=== PATIENT | male | born 1945 | race Caucasian/White ===

== ENCOUNTER → 2016-03-17 | Outpatient (CLI) | payer BC, OTHER ==
--- NOTE | 2016-03-19 09:14 | CODING QUERY NO DIAGNOSIS ---
TREATMENT RENDERED WITHOUT A DIAGNOSIS To promote full compliance with coding requirements relating to patient care, physician participation is requested in all cases of client consultant uncertainty. Please assist us with providing a diagnosis/symptom for the test(s) below: A diagnosis/symptom was not documented on your Order. A valid diagnosis/symptom is required to bill all insurances. Please remember that we are unable to code a diagnosis of rule out, probable, possible, questionable, or suspected. Tests that require a diagnosis: DOS 03/17/16 * MMR Titre DIAGNOSIS: * Varicella Titre DIAGNOSIS: Provider Signature: Date: Thank you Gilma Zhu Health Information Management Once completed, please kindly fax back to [phone] For questions please call [phone]
[2016-03-20 16:39] LABS: MUMPS IgG VALUE 3.66; VARICELLA ZOS VIR IGG VALUE 3.05 INDEX
== END ==
LOC: C.LAB 14:25
DX: Z76.89 Persons encountering health services in other specified circumstances (principal)

== ENCOUNTER 2017-09-13 03:07 | Inpatient (IN) | payer BC, OTHER ==
[~2017-09-13] VITALS: Ht 177.8 cm; Wt 89.9 kg
[2017-09-13] MEDS ORDERED: LIDOCAINE HCL 2% VISC SOLN 20 ML UDC ONE (03:42)
[2017-09-13] MEDS ORDERED: ALUMINUM/MAGNESIUM SUSP 30 ML UDC ONE (03:42)
[2017-09-13] MEDS ORDERED: PANTOprazole INJ 40 MG in SYRINGE 0 ML IV ONE (03:45)
[2017-09-13] MEDS ORDERED: GI COCKTAIL PO ONE (03:45)
[2017-09-13] MEDS ORDERED: SODIUM CHLORIDE 0.9% 1000ML 1,000 ML IV ONE (03:45)
[2017-09-13 04:17] LABS: BASO % 0.2 %; BASO ABS # 0.02 K/uL (0-0.2); EOS ABS # 0.11 K/uL (0-0.5); HEMATOCRIT 41.3 % (42-52); HEMOGLOBIN 14.6 g/dL (14.0-18.0); IG# 0.02 K/uL (0.00-0.02); LYMPH % 23.1 %; LYMPH ABS # 2.52 K/uL (1.2-3.4); MEAN CELL VOLUME 91.8 fL (80-100); MEAN CORPUSCULAR HEMOGLOBIN 32.4 pg (25-34); MEAN CORPUSCULAR HGB CONC 35.4 g/dl (32-36); MEAN PLATELET VOLUME 9.4 fL (7.4-10.4); MONO % 6.7 %; MONO ABS # 0.73 K/uL (0.11-0.59); NEUT % 68.8 %; NEUT ABS # 7.53 K/uL (1.4-6.5); PLATELET COUNT 193 K/uL (130-400); RED CELL DISTRIBUTION WIDTH CV 12.3 % (11.5-14.5); RED CELL DISTRIBUTION WIDTH SD 41.5 fL (36.4-46.3); WHITE BLOOD COUNT 10.93 K/uL (4.8-10.8)
[2017-09-13] MEDS ORDERED: LISI40TA PO (04:18)
[2017-09-13] MEDS ORDERED: ASPI325T39 PO (04:25)
[2017-09-13] MEDS ORDERED: MULT-190 PO (04:26)
[2017-09-13] MEDS ORDERED: CLR10 PO (04:27)
[2017-09-13 04:46] LABS: ALBUMIN 3.6 gm/dl (3.4-5.0); CALCIUM 9.6 mg/dl (8.5-10.1); CREATININE 1.21 mg/dl (0.60-1.40); POTASSIUM 3.9 mmol/L (3.5-5.1)
[2017-09-13] MEDS ORDERED: FENTANYL CITRATE INJ 50 MCG/1 ML 2 ML VIAL IV ONE (05:00)
--- NOTE | 2017-09-13 06:38 | DIAGNOSTIC IMAGING REPORT ---
BILIARY ULTRASOUND CLINICAL HISTORY: epigastric pain COMPARISON STUDY: No previous studies for comparison. FINDINGS: Pancreas was nonvisualized. No focal hepatic masses were visualized. There was no ductal dilatation. The common bile duct measured 4 mm. There is no right-sided hydronephrosis. No gallstones are visualized. There is a comet tail artifact arising from the anterior wall bladder wall suggestive of mild adenomyomatosis. IMPRESSION: 1. Suspected mild adenomyomatosis of the gallbladder. 2. No gallstones identified. No ductal dilatation. 3. Nondiagnostic evaluation of the pancreas Electronically signed by: Alex Jackson M.D. 09/13/2017 6:37 AM Dictated Date/Time: 09/13/2017 6:35 AM
--- NOTE | 2017-09-13 06:44 | EMERGENCY ROOM VISIT NOTE ---
ED Visit Note First contact with patient: 03:20 I have personally seen and evaluated the patient with the PA. I agree with the diagnosis and management decisions and have been personally involved in the case. Upon my evaluation the patient, he was felt to have some epigastric discomfort on exam. Ultrasound the right upper quadrant was ordered and is fairly unrevealing. Lab work reveals elevated amylase and lipase. CT abd pelvis is pending. Please see Brenton Buenrostro PA-C's notes for further details of the history, physical and visit.
--- NOTE | 2017-09-13 06:54 | DIAGNOSTIC IMAGING REPORT ---
CHEST ONE VIEW PORTABLE CLINICAL HISTORY: Pain, radiating to the abdomen. COMPARISON STUDY: No previous studies for comparison. FINDINGS: The cardiac and mediastinal contours are normal. There is no evidence of focal pulmonary consolidation. There is no evidence of failure. No pleural effusions are visualized.[ No free intraperitoneal air is visualized. IMPRESSION: No active disease in the chest. Electronically signed by: Alex Jackson M.D. 09/13/2017 6:53 AM Dictated Date/Time: 09/13/2017 6:53 AM
--- NOTE | 2017-09-13 08:28 | DIAGNOSTIC IMAGING REPORT ---
ABD/PELVIS IV AND ORAL CONT CT DOSE: 650.15 mGy.cm HISTORY: Pain. Nausea. Epigastric pain. Elevated Lipase/Amylase TECHNIQUE: Multiaxial CT images of the abdomen and pelvis were performed following the use of intravenous and oral contrast. A dose lowering technique was utilized adhering to the principles of ALARA. COMPARISON STUDY: None. FINDINGS: Patchy atelectatic change at both lung bases. Liver and spleen are unremarkable. The pancreas shows unremarkable appearance to the pancreatic body and head as well as uncinate process. There are findings of moderate edematous change of the pancreatic tail with moderate peripancreatic infiltrative change. There is mild thickening of the left lateral fascial planes. There is mild reactive small bowel ileus. Kidneys are negative for hydronephrosis. There is atherosclerotic change of the abdominal aorta. No evidence for aneurysm. Bladder is midline. There is a fat-containing left inguinal hernia. No evidence of bowel containment or obstructive change. IMPRESSION: 1. Findings suggesting acute pancreatic tail pancreatitis. 2. Moderate peripancreatic infiltrative change with evidence for reactive wall thickening of several loops of small bowel as well as the fascial planes of the left paracolic gutter. 3. No evidence for drainable abscess collection or obstructive change. 4. Patchy bibasilar atelectatic change bilaterally. The above report was generated using voice recognition software. It may contain grammatical, syntax or spelling errors. Electronically signed by: Zana Zhang M.D. 09/13/2017 8:26 AM Dictated Date/Time: 09/13/2017 8:20 AM
[2017-09-13 09:00] VITALS: O2SAT 94; Ht 177.8 cm; Wt 89.9 kg
[2017-09-13] MEDS ORDERED: SODIUM CHLORIDE 0.9% 1000ML 1,000 ML IV SCH (09:45)
[2017-09-13] MEDS ORDERED: ACETAMINOPHEN 325 MG TAB PO PRN (09:45)
[2017-09-13] MEDS ORDERED: ONDANSETRON INJ 2 MG/ML 2 ML VIAL IV PRN (09:45)
[2017-09-13] MEDS ORDERED: MoRPHine SULFATE 2 MG/ML CARP IV PRN (09:45)
[2017-09-13] MEDS ORDERED: POLYETHYLENE (MIRALAX) 17 GM PACK PO PRN (10:00)
[2017-09-13 10:32] VITALS: BP 155/97; PULSE 82; TEMP 36.9; O2SAT 96
[2017-09-13] MEDS ORDERED: LORATADINE 10 MG TAB PO PRN (11:30)
[2017-09-13] MEDS ORDERED: LORAZEPAM 2 MG/ML 1 ML VIAL IV PRN (11:30)
[2017-09-13] MEDS ORDERED: GABAPENTIN 600 MG TAB PO SCH (11:30)
--- NOTE | 2017-09-13 11:53 | EMERGENCY ROOM VISIT NOTE ---
ED Visit Note First contact with patient: 07:13 Patient was signed out to me at shift change by Brenton Buenrostro PA-C. This was pending the abdomen and pelvis CT. Patient was reassessed multiple times and was resting comfortably. He declined further pain medication. CT results as below. There is pancreatitis. Case discussed with attending physician. He will be admitted to medicine for further evaluation and management. Case discussed with [facility]. ABD/PELVIS IV AND ORAL CONT CT DOSE: 650.15 mGy.cm HISTORY: Pain. Nausea. Epigastric pain. Elevated Lipase/Amylase TECHNIQUE: Multiaxial CT images of the abdomen and pelvis were performed following the use of intravenous and oral contrast. A dose lowering technique was utilized adhering to the principles of ALARA. COMPARISON STUDY: None. FINDINGS: Patchy atelectatic change at both lung bases. Liver and spleen are unremarkable. The pancreas shows unremarkable appearance to the pancreatic body and head as well as uncinate process. There are findings of moderate edematous change of the pancreatic tail with moderate peripancreatic infiltrative change. There is mild thickening of the left lateral fascial planes. There is mild reactive small bowel ileus. Kidneys are negative for hydronephrosis. There is atherosclerotic change of the abdominal aorta. No evidence for aneurysm. Bladder is midline. There is a fat-containing left inguinal hernia. No evidence of bowel containment or obstructive change. IMPRESSION: 1. Findings suggesting acute pancreatic tail pancreatitis. 2. Moderate peripancreatic infiltrative change with evidence for reactive wall thickening of several loops of small bowel as well as the fascial planes of the left paracolic gutter. 3. No evidence for drainable abscess collection or obstructive change. 4. Patchy bibasilar atelectatic change bilaterally. The above report was generated using voice recognition software. It may contain grammatical, syntax or spelling errors. Electronically signed by: Zana Zhang M.D. 09/13/2017 8:26 AM
[2017-09-13] MEDS ORDERED: MAGNESIUM SULFATE 1GM / D5W 100 ML IV STA (12:39)
[2017-09-13] MEDS ORDERED: LORAZEPAM INJ 1 MG in SYRINGE 0.5 ML IV PRN (12:45)
--- NOTE | 2017-09-13 13:09 | History and Physical ---
History & Physical Date & Time of Service: Sep 13, 2017 at 09:45 Chief Complaint: Abd Pain Primary Care Physician: No Doctor, Assigned History of Present Illness Source: patient, hospital records Pt is 72 y/o M with PMH HTN, spinal stenosis presented to ER with complaint of abdominal pain. Patient states abdominal pain started yesterday and is located upper abdomen and was nonradiating. Patient states felt some chills yesterday.He tried taking ibuprofen 600 mg, Tylenol, ranitidine 300 mg with some relief of abdominal pain. Denies history of pancreatitis in past. Smokes 0.5 PPD, reports drinks 1-4 alcoholic drinks per week. Denies drug use. Denies fever, diaphoresis, N/V/D/C, melena, hematochezia ARIZA, dizziness, syncope, vision changes, neck pain, CP, SOB, orthopnea, palpitations, cough, sore throat , choking, otalgia, rhinorrhea, paresthesias, weakness, extremity weakness, extremity edema, rashes, dysuria, hematuria, urinary frequency, urinary retention, weight loss. Past Medical/Surgical History Medical Problems: (1) History of left foot drop Status: Resolved (2) HTN (hypertension) Status: Chronic (3) Spinal stenosis Status: Chronic Surgical Problems: (1) History of right inguinal hernia repair Status: Resolved (2) History of umbilical hernia repair Status: Resolved (3) History of vasectomy Status: Resolved Family History Diabetes mellitus FH: breast cancer FH: heart disease FH: non-Hodgkin's lymphoma Hypertension Kidney disease Social History Smoking Status: Current Every Day Smoker (0.5 PPD 30 years) Smokeless Tobacco Use: No Alcohol Use: 1-4 drinks per week Drug Use: none Marital Status: Housing status: lives with significant other Allergies Coded Allergies: No Known Allergies (Unverified , 09/13/17) Home Medications Scheduled Aspirin (Aspirin Ec), 325 MG PO DAILY Lisinopril (Zestril), 40 MG PO DAILY Ocuvite Preservision (Ocuvite Preservision), 1 TAB PO 2XWK Scheduled PRN Loratadine (Claritin), 10 MG PO DAILY PRN for Allergic Reaction Review of Systems See HPI for pertinent positives & negatives. All other systems reviewed and were otherwise negative Physical Exam Vital Signs Date Time Temp Pulse Resp B/P (MAP) Pulse Ox O2 Delivery O2 Flow Rate FiO2 7/25/18 08:40 88 18 139/92 94 Room Air 09/13/17 06:48 73 16 143/75 98 Room Air 09/13/17 05:30 70 18 147/89 96 Room Air 09/13/17 05:05 70 18 125/73 93 Room Air 09/13/17 04:07 94 Room Air 09/13/17 03:12 36.7 100 18 142/89 95 Room Air General Appearance: WD/WN, no apparent distress Head: normocephalic, atraumatic Eyes: normal inspection, sclerae normal ENT: hearing grossly normal, pharynx normal, + pertinent finding (Mucous membranes moist) Neck: supple, trachea midline Respiratory/Chest: lungs clear, normal breath sounds, no respiratory distress Cardiovascular: regular rate, rhythm, no murmur, normal peripheral pulses Abdomen/GI: normal bowel sounds, soft, + pertinent finding (Positive tenderness to palpation upper abdomen without rebound or guarding) Back: no CVA tenderness Extremities/Musculoskelatal: no calf tenderness, normal capillary refill, no pedal edema, normal range of motion Neurologic/Psych: alert, normal mood/affect, oriented x 3 Skin: warm/dry Diagnostics Laboratory Results Results Past 24 Hours Test 09/13/17 04:05 09/13/17 04:07 09/13/17 06:00 Range/Units White Blood Count 10.93 4.8-10.8 K/uL Red Blood Count 4.50 4.7-6.1 M/uL Hemoglobin 14.6 14.0-18.0 g/dL Hematocrit 41.3 42-52 % Mean Corpuscular Volume 91.8 80-100 fL Mean Corpuscular Hemoglobin 32.4 25-34 pg Mean Corpuscular Hemoglobin Concent 35.4 32-36 g/dl Platelet Count 193 130-400 K/uL Mean Platelet Volume 9.4 7.4-10.4 fL Neutrophils (%) (Auto) 68.8 % Lymphocytes (%) (Auto) 23.1 % Monocytes (%) (Auto) 6.7 % Eosinophils (%) (Auto) 1.0 % Basophils (%) (Auto) 0.2 % Neutrophils # (Auto) 7.53 1.4-6.5 K/uL Lymphocytes # (Auto) 2.52 1.2-3.4 K/uL Monocytes # (Auto) 0.73 0.11-0.59 K/uL Eosinophils # (Auto) 0.11 0-0.5 K/uL Basophils # (Auto) 0.02 0-0.2 K/uL RDW Standard Deviation 41.5 36.4-46.3 fL RDW Coefficient of Variation 12.3 11.5-14.5 % Immature Granulocyte % (Auto) 0.2 % Immature Granulocyte # (Auto) 0.02 0.00-0.02 K/uL Sodium Level 138 136-145 mmol/L Potassium Level 3.9 3.5-5.1 mmol/L Chloride Level 105 98-107 mmol/L Carbon Dioxide Level 23 21-32 mmol/L Anion Gap 10.0 3-11 mmol/L Blood Urea Nitrogen 17 7-18 mg/dl Creatinine 1.21 0.60-1.40 mg/dl Est Creatinine Clear Calc Drug Dose 62.3 ml/min Estimated GFR () 68.9 Estimated GFR (Non- 59.5 BUN/Creatinine Ratio 13.8 10-20 Random Glucose 107 70-99 mg/dl Calcium Level 9.6 8.5-10.1 mg/dl Magnesium Level 1.7 1.8-2.4 mg/dl Total Bilirubin 0.4 0.2-1 mg/dl Aspartate Amino Transf (AST/SGOT) 15 15-37 U/L Alanine Aminotransferase (ALT/SGPT) 27 12-78 U/L Alkaline Phosphatase 81 45-117 U/L Total Protein 7.0 6.4-8.2 gm/dl Albumin 3.6 3.4-5.0 gm/dl Globulin 3.4 2.5-4.0 gm/dl Albumin/Globulin Ratio 1.1 0.9-2 Amylase Level 494 25-115 U/L Lipase 3355 73-393 U/L Thyroid Stimulating Hormone (TSH) 0.928 0.300-4.500 uIu/ml Bedside Troponin I < 0.030 0-0.045 ng/ml Urine Color YELLOW Urine Appearance CLEAR CLEAR Urine pH 5.0 4.5-7.5 Urine Specific [place] 1.011 1.000-1.030 Urine Protein NEG NEG Urine Glucose (UA) NEG NEG Urine Ketones TRACE NEG Urine Occult Blood NEG NEG Urine Nitrite NEG NEG Urine Bilirubin NEG NEG Urine Urobilinogen NEG NEG Urine Leukocyte Esterase NEG NEG Diagnostic Radiology CT ABD/PELVIS: IMPRESSION: 1. Findings suggesting acute pancreatic tail pancreatitis. 2. Moderate peripancreatic infiltrative change with evidence for reactive wall thickening of several loops of small bowel as well as the fascial planes of the left paracolic gutter. 3. No evidence for drainable abscess collection or obstructive change. 4. Patchy bibasilar atelectatic change bilaterally. CXR: IMPRESSION: No active disease in the chest. GALLBLADDER U/S: IMPRESSION: 1. Suspected mild adenomyomatosis of the gallbladder. 2. No gallstones identified. No ductal dilatation. 3. Nondiagnostic evaluation of the pancreas Impression Assessment and Plan Pt is 72 y/o M with PMH HTN, spinal stenosis presented to ER with complaint of abdominal pain started yesterday. PANCREATITIS In ER pt afebrile, P: 100 down to 88, R: 18, BP: 142/89, 95% on RA. WBC: 10.9. Lipase: 3355, amylase: 494, LFTs WNL. CT abd/pelvis: acute pancreatic tail pancreatitis. Moderate peripancreatic infiltrative change with evidence for reactive wall thickening of several loops of small bowel as well as the fascial planes of the left paracolic gutter. No evidence for drainable abscess collection or obstructive change. Biliary U/S: suspected mild adenomyomatosis of the gallbladder, no gallstones identified. No ductal dilatation. In ER given GI cocktail, fentanyl 50mcg, 1L NSS -may be secondary to ETOH/tobacco use, however pt denies greater than 4 drinks/ week. has been on lisinopril for several years -NPO -IVF -zofran prn -morphine prn pain -cbc, liver & electrolyte profile, lipase, lipid panel in am -GI consult HYPOMAGNESIA Magnesium:1.7 -Replace -magnesium lab in am HTN Stable -continue Lisinopril ETOH USE Reports 1-4 drinks/wk -ETOH withdrawal prophylaxis protocol TOBACCO ABUSE -smoking cessation discussed DVT Prophylaxis -lovenox Admit med surg Full Code as per discussion with pt Pt does not have PCP currently. Pt was seen with Dr Marinelli. See addendum ATTENDING ADDENDUM care coordinated with TONI Alvarez. please refer to her notes for full details, I agree with her notes patient seen and examined, records reviewed by myself as well on exam, patient seen sitting up in bed using his laptop computer states he feels improved compared to admission has less abdominal pain tolerated clear liquids no other symptoms VS noted and reviewed oriented x 2, not in distress, speaks in sentences with no effort nor accessory muscle use normal rate, regular rhythm, no murmurs clear breath sounds bilaterally non distended, normal bowel sounds, soft, no tenderness on the epigastric region no bipedal edema, erythema, warmth no neuro deficits WBC 10.9 [address] abdomen as noted above ASSESSMENT/PLAN> ACUTE PANCREATITIS unclear etiology CT abdomen/GB US: no cholelithiasis, CBD dilatation Continue IV lactated Ringer's at 1 50 cc/h Diet advanced to clear liquids per GI recommendations, patient tolerated also for As needed morphine for pain Repeat labs tomorrow including triglyceride level GI consulted Hypertension Continue lisinopril other diagnoses and plan of care as per TONI Thao notes Den Marinelli MD Resuscitation Status VTE Prophylaxis Will order VTE Prophylaxis: Yes Additional Copies To Den Marinelli MD
[2017-09-13] MEDS: LACTATED RINGER'S 1000ML 1,000 ML IV SCH ×2 (13:57→21:04)
[2017-09-13] MEDS ORDERED: GABAPENTIN 1200MG LOADING DOSE PO ONE (14:00)
--- NOTE | 2017-09-13 14:51 | Gastrointestinal Consultation ---
Gastrointestinal Consultation Date of Consultation: Sep 13, 2017 Attending Physician: Den Marinelli Consulting Physician: Donta Rivers Reason for Consultation: Pancreatitis History of Present Illness Patient is a 72 year old male w PMHx of HTN, spinal stenosis presented to ER with complaint of abdominal pain started yesterday. Pain was mostly on upper abd , non radiating. he did have some chills, n/v, this AM. Denies any hematemesis. Labs showed relatively unremarkable CBC, CMP including normal LFTs, but his Amylase and Lipase were elevated. He had CT abd/pelvis w contrast which showed acute pancreatic tail pancreatitis. + peripancreatic infiltrative peripancreatic infiltrative change with evidence for reactive wall thickening of several loops of small bowel as well as the fascial planes of the left paracolic gutter. No evidence for drainable abscess collection or obstructive change. Patchy bibasilar atelectatic change bilaterally. Pt smokes 1/2 PPD, drinks 1-4 ETOH beverages a week. Recently was on vacation and admits to no more than 2 serving of ETOH beverages a day, last intake was last . He denies any new meds. His gallbladder u/s showed mild adenomyomatosis, no biliary ductal dilation, CBD 4mm, no gallstones. This is his first pancreatitis episode. Past Medical/Surgical History Past Medical History: See above Past Surgical History: Surgical Problems: (1) History of right inguinal hernia repair Status: Resolved (2) History of umbilical hernia repair Status: Resolved (3) History of vasectomy Status: Resolved Family History Diabetes mellitus FH: breast cancer FH: heart disease FH: non-Hodgkin's lymphoma Hypertension Kidney disease Social History Smoking Status: Current Every Day Smoker (0.5 PPD 30 years) Alcohol Use: occasionally Drug Use: none Marital Status: Occupation Status: employed Allergies Coded Allergies: No Known Allergies (Unverified , 09/13/17) Current Medications Home Meds and Scripts Medications Dose Route/Sig Max Daily Dose Days Date Category Claritin (Loratadine) 10 Mg Tab 10 Mg PO DAILY PRN 09/13/17 Reported Ocuvite Preservision (Multivitamins/Minerals) 1 Tab Tab 1 Tab PO 2XWK 09/13/17 Reported Aspirin Ec (Aspirin) 325 Mg Tab 325 Mg PO DAILY 09/13/17 Reported Zestril (Lisinopril) 40 Mg Tab 40 Mg PO DAILY 09/13/17 Reported Review of Systems Constitutional: + chills, No fever Respiratory: No cough, No shortness of breath Cardiac: No chest pain Abdomen: + pain, + nausea, + vomiting Skin: No jaundice Physical Exam Date Time Temp Pulse Resp B/P (MAP) Pulse Ox O2 Delivery O2 Flow Rate FiO2 09/13/17 10:32 36.9 82 16 155/97 (116) 96 Room Air 09/13/17 10:00 89 18 129/96 98 Room Air 09/13/17 09:00 94 Room Air 09/13/17 08:40 88 18 139/92 94 Room Air 09/13/17 06:48 73 16 143/75 98 Room Air 09/13/17 05:30 70 18 147/89 96 Room Air 09/13/17 05:05 70 18 125/73 93 Room Air 09/13/17 04:07 94 Room Air 09/13/17 03:12 36.7 100 18 142/89 95 Room Air General Appearance: WD/WN, no apparent distress Eyes: normal inspection, PERRL, EOMI Neck: supple, no JVD, trachea midline Respiratory/Chest: normal breath sounds, no respiratory distress, no accessory muscle use Cardiovascular: regular rate, rhythm, no gallop, no murmur Abdomen: normal bowel sounds, soft, + tenderness (upper quadrants) Extremities: normal inspection, no pedal edema, no calf tenderness Neurologic/Psych: alert, normal mood/affect, oriented x 3 Skin: normal color, no jaundice, no rash Laboratory Results Last 24 Hours Test 09/13/17 04:03 09/13/17 04:05 09/13/17 04:07 09/13/17 06:00 Prothrombin Time 10.7 SECONDS Prothromb Time International Ratio 1.0 White Blood Count 10.93 K/uL Red Blood Count 4.50 M/uL Hemoglobin 14.6 g/dL Hematocrit 41.3 % Mean Corpuscular Volume 91.8 fL Mean Corpuscular Hemoglobin 32.4 pg Mean Corpuscular Hemoglobin Concent 35.4 g/dl Platelet Count 193 K/uL Mean Platelet Volume 9.4 fL Neutrophils (%) (Auto) 68.8 % Lymphocytes (%) (Auto) 23.1 % Monocytes (%) (Auto) 6.7 % Eosinophils (%) (Auto) 1.0 % Basophils (%) (Auto) 0.2 % Neutrophils # (Auto) 7.53 K/uL Lymphocytes # (Auto) 2.52 K/uL Monocytes # (Auto) 0.73 K/uL Eosinophils # (Auto) 0.11 K/uL Basophils # (Auto) 0.02 K/uL RDW Standard Deviation 41.5 fL RDW Coefficient of Variation 12.3 % Immature Granulocyte % (Auto) 0.2 % Immature Granulocyte # (Auto) 0.02 K/uL Sodium Level 138 mmol/L Potassium Level 3.9 mmol/L Chloride Level 105 mmol/L Carbon Dioxide Level 23 mmol/L Anion Gap 10.0 mmol/L Blood Urea Nitrogen 17 mg/dl Creatinine 1.21 mg/dl Est Creatinine Clear Calc Drug Dose 62.3 ml/min Estimated GFR () 68.9 Estimated GFR (Non- 59.5 BUN/Creatinine Ratio 13.8 Random Glucose 107 mg/dl Calcium Level 9.6 mg/dl Magnesium Level 1.7 mg/dl Total Bilirubin 0.4 mg/dl Aspartate Amino Transf (AST/SGOT) 15 U/L Alanine Aminotransferase (ALT/SGPT) 27 U/L Alkaline Phosphatase 81 U/L Total Protein 7.0 gm/dl Albumin 3.6 gm/dl Globulin 3.4 gm/dl Albumin/Globulin Ratio 1.1 Amylase Level 494 U/L Lipase 3355 U/L Thyroid Stimulating Hormone (TSH) 0.928 uIu/ml Bedside Troponin I < 0.030 ng/ml Urine Color YELLOW Urine Appearance CLEAR Urine pH 5.0 Urine Specific [place] 1.011 Urine Protein NEG Urine Glucose (UA) NEG Urine Ketones TRACE Urine Occult Blood NEG Urine Nitrite NEG Urine Bilirubin NEG Urine Urobilinogen NEG Urine Leukocyte Esterase NEG Impression Patient is a 72 year old male currently admitted with acute pancreatitis, first episode per his account. He has no signs of gallstones, CBD dilation. He does smoke and drink ETOH but no more than 2 servings a day at most. He denies new meds or illnesses. Etiology of pancreatitis unclear for now. 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 He would like to get DC'd by tomorrow if possible. If he is having minimal pain and tolerating diet, he should be ready for DC. - We will plan for EUS evaluation in 4-6 week's time. ATTESTATION: I have performed a history and physical examination of this patient and reviewed the electronic record. Specifically on physical examination there is mild epigastric tenderness. This is the first episode of pancreatitis without clear etiology. It appears to be mild. Differential diagnosis includes occult neoplasm (patient is aware). I have discussed the case with PIPO Boyer. The above note reflects my findings, conclusions, and recommendations. Donta Rivers MD
[2017-09-13 15:15] VITALS: BP 135/88; PULSE 79; TEMP 37.1; O2SAT 94
[2017-09-13] MEDS ORDERED: GABAPENTIN 600MG Q6H DOSE PO SCH (20:00)
[2017-09-13] MEDS ORDERED: NURSING VERBAL MED ORDER ONE ×2 (20:00→20:15)
[2017-09-13] MEDS ORDERED: ENOXAPARIN 40 MG/0.4 ML SYR SQ SCH (21:00)
[2017-09-13 22:50] VITALS: BP 115/78; PULSE 82; TEMP 37.4; O2SAT 94
[2017-09-14] MEDS: LACTATED RINGER'S 1000ML 1,000 ML IV SCH (03:59)
[2017-09-14 06:16] LABS: HEMATOCRIT 36.1 % (42-52); HEMOGLOBIN 12.5 g/dL (14.0-18.0); MEAN CELL VOLUME 92.8 fL (80-100); MEAN CORPUSCULAR HEMOGLOBIN 32.1 pg (25-34); MEAN CORPUSCULAR HGB CONC 34.6 g/dl (32-36); MEAN PLATELET VOLUME 9.4 fL (7.4-10.4); PLATELET COUNT 158 K/uL (130-400); RED CELL DISTRIBUTION WIDTH CV 12.7 % (11.5-14.5); RED CELL DISTRIBUTION WIDTH SD 42.9 fL (36.4-46.3); WHITE BLOOD COUNT 9.37 K/uL (4.8-10.8)
[2017-09-14 06:50] LABS: ALBUMIN 3.1 gm/dl (3.4-5.0); CALCIUM 8.7 mg/dl (8.5-10.1); CREATININE 1.09 mg/dl (0.60-1.40); POTASSIUM 3.9 mmol/L (3.5-5.1); TOTAL PROTEIN 6.2 gm/dl (6.4-8.2)
--- NOTE | 2017-09-14 07:09 | EMERGENCY ROOM VISIT NOTE ---
History First contact with patient: 03:20 Chief Complaint: GI ASSESSMENT Stated Complaint: ABD PAIN Nursing Triage Summary: Pt c/o epigastric pain, started yesterday morning. Denies n/v. Pt states he hasn't been able to eat a whole lot since then. Pt took motrin/tylenol/zantac with little relief. pt denies CP. denies SOB. History of Present Illness The patient is a 72 year old male who presents to the Emergency Room with complaints of epigastric abdominal pain that began less than 24 hours ago. The patient states that he has had decreased appetite from the time of onset, and has not had much to eat or drink. He attempted Motrin, Tylenol, and Zantac at home without significant improvement of his symptoms. The patient does not have chest pain, chest tightness, or shortness of breath. No lower abdominal pain. He does report a past history of periumbilical and right inguinal hernia repairs when he was much younger, but no other surgeries. The patient is a surgeon with excellent medical insight. He has not had similar symptoms in the past. He does smoke half a pack a day. He intermittently drinks alcohol, roughly 1-4 drinks per week. He was on vacation last week with his , but did not drink extensively. He rates his current discomfort a 6/10 that worsens when he presses in the epigastric area. Review of Systems More than 10 systems were reviewed and otherwise negative with the exception of history of present illness. Past Medical/Surgical History Medical Problems: (1) History of left foot drop (2) HTN (hypertension) (3) Pancreatitis (4) Spinal stenosis Surgical Problems: (1) History of right inguinal hernia repair (2) History of umbilical hernia repair (3) History of vasectomy Family History Diabetes mellitus FH: breast cancer FH: heart disease FH: non-Hodgkin's lymphoma Hypertension Kidney disease Social History Smoking Status: Current Every Day Smoker (0.5 PPD 30 years) Smokeless Tobacco Use: No Alcohol Use: occasionally Drug Use: none Marital Status: Occupation Status: employed Current/Historical Medications Scheduled Aspirin (Aspirin Ec), 325 MG PO DAILY Lisinopril (Zestril), 40 MG PO DAILY Ocuvite Preservision (Ocuvite Preservision), 1 TAB PO 2XWK Scheduled PRN Loratadine (Claritin), 10 MG PO DAILY PRN for Allergic Reaction Physical Exam Vital Signs Date Time Temp Pulse Resp B/P (MAP) Pulse Ox O2 Delivery O2 Flow Rate FiO2 09/13/17 09:00 94 Room Air 09/13/17 08:40 88 18 139/92 94 Room Air 09/13/17 06:48 73 16 143/75 98 Room Air 09/13/17 05:30 70 18 147/89 96 Room Air 09/13/17 05:05 70 18 125/73 93 Room Air 09/13/17 04:07 94 Room Air 09/13/17 03:12 36.7 100 18 142/89 95 Room Air Physical Exam VITALS: Vitals are noted on the nurse's note and reviewed by myself. Vital signs stable. GENERAL: Well-developed, well-nourished, white male who appears mildly uncomfortable. He is cooperative with the examination. HEART: Regular rate and rhythm without murmurs gallops or rubs. LUNGS: Clear to auscultation bilaterally without wheezes, rales or rhonchi. No retractions or accessory muscle use. ABDOMEN: Positive normal bowel sounds x 4. Soft, with epigastric tenderness. No lower abdominal tenderness. MUSCULOSKELETAL: No muscle atrophy, erythema, or edema noted. NEURO: Patient was alert and oriented to person place and time. CN II through XII grossly intact. Medical Decision & Procedures ER Provider Diagnostic Interpretation: CHEST ONE VIEW PORTABLE CLINICAL HISTORY: Pain, radiating to the abdomen. COMPARISON STUDY: No previous studies for comparison. FINDINGS: The cardiac and mediastinal contours are normal. There is no evidence of focal pulmonary consolidation. There is no evidence of failure. No pleural effusions are visualized.[ No free intraperitoneal air is visualized. IMPRESSION: No active disease in the chest. BILIARY ULTRASOUND CLINICAL HISTORY: epigastric pain COMPARISON STUDY: No previous studies for comparison. FINDINGS: Pancreas was nonvisualized. No focal hepatic masses were visualized. There was no ductal dilatation. The common bile duct measured 4 mm. There is no right-sided hydronephrosis. No gallstones are visualized. There is a comet tail artifact arising from the anterior wall bladder wall suggestive of mild adenomyomatosis. IMPRESSION: 1. Suspected mild adenomyomatosis of the gallbladder. 2. No gallstones identified. No ductal dilatation. 3. Nondiagnostic evaluation of the pancreas Laboratory Results Test 09/13/17 04:03 09/13/17 04:05 09/13/17 04:07 09/13/17 06:00 Prothrombin Time 10.7 SECONDS (9.0-12.0) Prothromb Time International Ratio 1.0 (0.9-1.1) Immature Granulocyte % (Auto) 0.2 % White Blood Count 10.93 K/uL (4.8-10.8) Red Blood Count 4.50 M/uL (4.7-6.1) Hemoglobin 14.6 g/dL (14.0-18.0) Hematocrit 41.3 % (42-52) Mean Corpuscular Volume 91.8 fL (80-100) Mean Corpuscular Hemoglobin 32.4 pg (25-34) Mean Corpuscular Hemoglobin Concent 35.4 g/dl (32-36) Platelet Count 193 K/uL (130-400) Mean Platelet Volume 9.4 fL (7.4-10.4) Neutrophils (%) (Auto) 68.8 % Lymphocytes (%) (Auto) 23.1 % Monocytes (%) (Auto) 6.7 % Eosinophils (%) (Auto) 1.0 % Basophils (%) (Auto) 0.2 % Neutrophils # (Auto) 7.53 K/uL (1.4-6.5) Lymphocytes # (Auto) 2.52 K/uL (1.2-3.4) Monocytes # (Auto) 0.73 K/uL (0.11-0.59) Eosinophils # (Auto) 0.11 K/uL (0-0.5) Basophils # (Auto) 0.02 K/uL (0-0.2) Immature Granulocyte # (Auto) 0.02 K/uL (0.00-0.02) Est Creatinine Clear Calc Drug Dose 62.3 ml/min Amylase Level 494 U/L (25-115) Thyroid Stimulating Hormone (TSH) 0.928 uIu/ml (0.300-4.500) Bedside Troponin I < 0.030 ng/ml (0-0.045) Urine Color YELLOW Urine Appearance CLEAR (CLEAR) Urine pH 5.0 (4.5-7.5) Urine Specific [place] 1.011 (1.000-1.030) Urine Protein NEG (NEG) Urine Glucose (UA) NEG (NEG) Urine Ketones TRACE (NEG) Urine Occult Blood NEG (NEG) Urine Nitrite NEG (NEG) Urine Bilirubin NEG (NEG) Urine Urobilinogen NEG (NEG) Urine Leukocyte Esterase NEG (NEG) Medications Administered Medications (Trade) Dose Ordered Sig/Carter Route Start Time Stop Time Status Last Admin Dose Admin Sodium Chloride 1,000 ml @ 999 mls/hr Q1H1M ONCE IV 09/13/17 03:45 09/13/17 04:45 DC 09/13/17 04:12 999 MLS/HR Fentanyl Citrate (Fentanyl Inj) 50 mcg NOW ONCE IV 09/13/17 05:00 09/13/17 05:01 DC 09/13/17 05:05 50 MCG Sodium Chloride 1,000 ml @ 150 mls/hr Q6H40M IV 09/13/17 09:45 09/13/17 13:41 DC 09/13/17 10:30 150 MLS/HR ECG Per My Interpretation Change: Normal sinus rhythm @89 bpm Left axis deviation Right bundle branch block Inferior infarct , age undetermined Abnormal ECG No previous ECGs available ED Course Physical exam and history were performed. Nursing notes, EMR, and Medication List were personally reviewed. Patient appears to have epigastric abdominal pain that began less than 24 hours ago. The patient is tender in this area. He is a physician with excellent medical insight. EKG was performed and reviewed by myself as above. IV access was established and labs are obtained. The patient was hydrated with normal saline. He was offered pain medication, but declined. Chest x-ray was performed and reviewed by myself and radiology as showing no acute process. The case was discussed with my attending physician, Dr. Fontenot, who also independently evaluated the patient and remained involved in decision-making after evaluation we did elect to perform ultrasound of the right upper quadrant to evaluate for possible biliary etiology. The patient's blood work is as above and was reviewed. He does not have a significantly elevated white blood cell count, or significant electrolyte imbalance. Troponin 1 is negative. His amylase and lipase are elevated suggestive of acute pancreatitis. I did discuss this finding with the patient, and he was willing to trial IV fentanyl for pain control. The patient has never had pancreatitis in the past. The ultrasound does show likely gallbladder polyps but no acute cholecystitis. In lieu of the pancreatitis on labs and pain that correlates with this diagnosis I did elect to perform a CT scan of the abdomen and pelvis with IV and oral contrast. The patient was offered additional pain medication, but felt well enough to rest and drink his contrast. The patient remained in stable condition until the time of shift change. The case was discussed with my colleague, Parish Eduardo PA-C, who will assume care at this time pending CT results. I did explain to the patient that the recommendation would likely be for admission pending CT results, and he voiced understanding. Please see Mr. Eduardo's dictation for further patient course, plan, and disposition. The chart was completed utilizing [employer] Speech Voice Recognition Software. Grammatical errors, random word insertions, pronoun errors, and incomplete sentences are an occasional consequence of this system due to software limitations, ambient noise, and hardware issues. Any formal questions or concerns about the content, text, or information contained within the body of this dictation should be directly addressed to the provider for clarification. . Medical Decision Differential diagnosis: Etiologies such as appendicitis, diverticulitis, PUD, biliary pathology, UTI, pancreatitis, obstruction, mesenteric ischemia, aortic pathology, infections, inflammatory bowel disease, renal colic, as well as others were entertained. Impression Primary Impression: Acute pancreatitis Departure Information Dispostion Admitted as an inpatient Condition FAIR Referrals No Doctor, Assigned (PCP) Forms HOME CARE DOCUMENTATION FORM, IMPORTANT VISIT INFORMATION Patient Instructions [facility]
[2017-09-14 07:15] VITALS: BP_SYST 128; BP_DIAS 77; BP_DIAS 78; PULSE 81; TEMP 36.9; O2SAT 95
[2017-09-14 07:50] VITALS: O2SAT 95
[2017-09-14] MEDS ORDERED: MAGNESIUM SULFATE 1GM / D5W 100 ML IV SCH (08:00)
[2017-09-14] MEDS ORDERED: NURSING VERBAL MED ORDER ONE (08:30)
--- NOTE | 2017-09-14 08:52 | Progress Note ---
Progress Note Date of Service Sep 14, 2017. Progress Note Pt sitting up in chair, AAOx3, speaking with hospitalist (Dr. Marinelli). He feels well, denies any abd pain, n/v, tolerating CL diet. He is afebrile overnight, VS stable, Labs reviewed no signs of leukocytosis, renal function remains normal, Triglyceride 87, Lipase 200s. No contraindication for DC home from GI standpoint. Advance diet as tolerated to low fat, heart healthy diet Avoid ETOH and tobacco products We will plan for EUS evaluation in 4-6 week's time to eval pancreas to r/o cyst/ masses
[2017-09-14] MEDS ORDERED: LISINOPRIL 40 MG TAB PO SCH (09:00)
[2017-09-14] MEDS ORDERED: MAGNESIUM OXIDE 400 MG TAB PO SCH (09:00)
[2017-09-14 09:24] VITALS: BP 128/78; PULSE 81; TEMP 36.9; O2SAT 95
--- NOTE | 2017-09-14 09:26 | Progress Note ---
Medicine Progress Note Date & Time of Visit: Sep 14, 2017 at 09:17. Subjective Seen sitting up in chair, using his cell phone, comfortable States he had a good night Abdominal discomfort is 0-1 No nausea or vomiting 2 cups of coffee positive bowel movement overnight, normal brown nonbloody Denies headache, dizziness, fevers, chills, chest pain, shortness of breath, change in urination Denies tremors, anxiety, hallucinations, sweats States he feels much better and would like to be discharged today Objective Last 8 Hrs Date Time Temp Pulse Resp B/P (MAP) Pulse Ox O2 Delivery O2 Flow Rate FiO2 09/14/17 07:30 Room Air 09/14/17 07:15 36.9 81 18 128/78 (95) 95 Room Air Physical Exam: General-oriented 3, not in distress, speaking sentences no accessory muscle use Eyes- PERRL, EOMI, anicteric ENT- oropharynx clear Neck- supple, no JVD Lungs- clear breath sounds bilaterally no rales wheezes Heart-normal rate, regular rhythm; no murmurs Abdomen- normal bowel sounds, nondistended, soft, nontender, no epigastric tenderness Extremities- no pretibial edema, no calf tenderness; peripheral pulses intact Neuro- alert, oriented x 3; no gross focal deficits Skin- warm & dry Laboratory Results: Last 24 Hours Test 09/14/17 05:54 White Blood Count 9.37 K/uL Red Blood Count 3.89 M/uL Hemoglobin 12.5 g/dL Hematocrit 36.1 % Mean Corpuscular Volume 92.8 fL Mean Corpuscular Hemoglobin 32.1 pg Mean Corpuscular Hemoglobin Concent 34.6 g/dl RDW Standard Deviation 42.9 fL RDW Coefficient of Variation 12.7 % Platelet Count 158 K/uL Mean Platelet Volume 9.4 fL Sodium Level 139 mmol/L Potassium Level 3.9 mmol/L Chloride Level 106 mmol/L Carbon Dioxide Level 26 mmol/L Anion Gap 7.0 mmol/L Blood Urea Nitrogen 11 mg/dl Creatinine 1.09 mg/dl Est Creatinine Clear Calc Drug Dose 69.1 ml/min Estimated GFR () 78.2 Estimated GFR (Non- 67.5 BUN/Creatinine Ratio 10.5 Random Glucose 86 mg/dl Calcium Level 8.7 mg/dl Magnesium Level 1.7 mg/dl Total Bilirubin 0.5 mg/dl Direct Bilirubin 0.2 mg/dl Aspartate Amino Transf (AST/SGOT) 10 U/L Alanine Aminotransferase (ALT/SGPT) 19 U/L Alkaline Phosphatase 68 U/L Total Protein 6.2 gm/dl Albumin 3.1 gm/dl Globulin 3.1 gm/dl Albumin/Globulin Ratio 1.0 Triglycerides Level 87 mg/dl Cholesterol Level 139 mg/dl HDL Cholesterol 38 mg/dl LDL Cholesterol, Calculated 84 mg/dl VLDL Cholesterol, Calculated 17 mg/dl Cholesterol/HDL Ratio 3.7 Lipase 230 U/L Assessment & Plan Pt is 72 y/o M with PMH HTN, spinal stenosis presented to ER with complaint of abdominal pain started yesterday. ACUTE PANCREATITIS In ER pt afebrile, P: 100 down to 88, R: 18, BP: 142/89, 95% on RA. WBC: 10.9. Lipase: 3355, amylase: 494, LFTs WNL. CT abd/pelvis: acute pancreatic tail pancreatitis. Moderate peripancreatic infiltrative change with evidence for reactive wall thickening of several loops of small bowel as well as the fascial planes of the left paracolic gutter. No evidence for drainable abscess collection or obstructive change. Biliary U/S: suspected mild adenomyomatosis of the gallbladder, no gallstones identified. No ductal dilatation. In ER given GI cocktail, fentanyl 50mcg, 1L NSS -may be secondary to ETOH/tobacco use, however pt denies greater than 4 drinks/ week. has been on lisinopril for several years Lipase level admission 3055 Given IV lactated Ringer's at 50 cc/h Placed on n.p.o. then advanced to clear liquids GI consulted-Dr. Rivers and CR INSURANCE PROFESSIONAL Cat Weldon On hospital day 2, patient remained stable Abdominal pain resolved, no nausea Lipase level came down to 230, LFTs normal, triglyceride level normal Evaluated by GI service, cleared for discharge to home Pancreatitis etiology unclear, alcohol could be contributing, will need endoscopic ultrasound to rule out cyst or masses Will need follow-up with Dr. Rivers in 1 week and endoscopic ultrasound in 4-6 weeks Advised to rest at home for a few days and seek medical attention immediately if with recurrence of symptoms HYPOMAGNESIA Magnesium:1.7 -Given IV and oral magnesium Should improve with advancing diet further HTN Stable -continue Lisinopril ETOH USE Reports 1-4 drinks/wk Typical drink is 1-2 at a time States he never drinks more than 2 drinks in one session Last drink was 1 week ago Denies alcohol withdrawal symptoms, never had alcohol withdrawal symptoms or DTs in the past Encouraged to abstain from alcohol as this may be contributing to pancreatitis Patient verbalized understanding and agreement TOBACCO ABUSE -smoking cessation discussed DVT Prophylaxis SCDs Disposition Discharged home Follow-up with GI in 1 week patient has not established with a primary care provider and prefers to follow- up with GI. Current Inpatient Medications: Current Inpatient Medications Medications (Trade) Dose Ordered Sig/Carter Route Start Time Stop Time Status Last Admin Dose Admin Acetaminophen (Tylenol Tab) 650 mg Q4H PRN PO 09/13/17 09:45 10/13/17 09:44 Polyethylene (Miralax Powder Packet) 17 gm DAILY PRN PO 09/13/17 10:00 10/13/17 09:59 Ondansetron HCl (Zofran Inj) 4 mg Q6H PRN IV 09/13/17 09:45 10/13/17 09:44 Morphine Sulfate (MoRPHine SULFATE INJ) 2 mg Q4 PRN IV 09/13/17 09:45 8 09:44 Lorazepam (Ativan Inj) 1 mg ONE PRN IV 09/13/17 11:30 10/13/17 11:29 Lisinopril (Zestril Tab) 40 mg DAILY PO 09/14/17 09:00 10/14/17 08:59 Loratadine (Claritin Tab) 10 mg DAILY PRN PO 09/13/17 11:30 10/13/17 11:29 Lorazepam 1 mg/ Syringe 1 ml @ 1 mls/min ONE PRN IV 09/13/17 12:45 10/13/17 12:44 Magnesium Oxide (Mag-Ox Tab) 400 mg BID PO 09/14/17 09:00 10/14/17 08:59
--- NOTE | 2017-09-14 09:31 | Discharge Instructions ---
Discharge Instructions Date of Service Sep 14, 2017. Admission Reason for Admission: Abd Pain Discharge Discharge Diagnosis / Problem: Acute Pancreatitis Discharge Goals Goal(s): Diagnostic testing, Therapeutic intervention Activity Recommendations Activity Limitations: as noted below (no heavy exertion) Lifting Limitations: until after follow-up appointment Exercise/Sports Limitations: until after follow-up appointment . Instructions / Follow-Up Instructions / Follow-Up Please ensure adequate daily fluid intake and keep hydrated. No alcohol or smoking. Please seek immediate medical attention if with recurrence or worsening of symptoms including abdominal pain, nausea, fevers or chills, tremors, anxiety, sweats. Follow-up with Dr. Rivers in 1 week. tel No. Endoscopic ultrasound recommended in 4-[address] Rivers. Current Hospital Diet Patient's current hospital diet: Clear Liquid Diet Discharge Diet Recommended Diet: Low Fiber Diet (Soft), Low Fat Diet Procedures Procedures Performed: Ct abdomen/pelvis Pending Studies Studies pending at discharge: no Laboratory Results Lipid Panel Test 09/14/17 05:54 Range/Units Triglycerides Level 87 0-150 mg/dl Cholesterol Level 139 0-200 mg/dl HDL Cholesterol 38 mg/dl Cholesterol/HDL Ratio 3.7 LDL Cholesterol, Calculated 84 mg/dl Medical Emergencies . Who to Call and When: Medical Emergencies: If at any time you feel your situation is an emergency, please call 911 immediately. . Non-Emergent Contact Non-Emergency issues call your: Social Work Specialist Call Non-Emergent contact if: you have a fever, your pain is not controlled, your pain is worsening, your pain is unusual for you, you have any medication questions . . "Provider Documentation" section prepared by Den Marinelli. .
--- NOTE | 2017-09-14 09:35 | Discharge Summary ---
Discharge Summary Date of Service Sep 14, 2017. Discharge Summary Admission Date: Sep 13, 2017 at 09:45 Discharge Date: Sep 14, 2017 Discharge Disposition: Home Principal Diagnosis: ACUTE PANCREATITIS Secondary Diagnoses/Problems: Please refer to hospital course below. Procedures: BILIARY ULTRASOUND CLINICAL HISTORY: epigastric pain COMPARISON STUDY: No previous studies for comparison. FINDINGS: Pancreas was nonvisualized. No focal hepatic masses were visualized. There was no ductal dilatation. The common bile duct measured 4 mm. There is no right-sided hydronephrosis. No gallstones are visualized. There is a comet tail artifact arising from the anterior wall bladder wall suggestive of mild adenomyomatosis. IMPRESSION: 1. Suspected mild adenomyomatosis of the gallbladder. 2. No gallstones identified. No ductal dilatation. 3. Nondiagnostic evaluation of the pancreas CHEST ONE VIEW PORTABLE CLINICAL HISTORY: Pain, radiating to the abdomen. COMPARISON STUDY: No previous studies for comparison. FINDINGS: The cardiac and mediastinal contours are normal. There is no evidence of focal pulmonary consolidation. There is no evidence of failure. No pleural effusions are visualized.[ No free intraperitoneal air is visualized. IMPRESSION: No active disease in the chest. ABD/PELVIS IV AND ORAL CONT CT DOSE: 650.15 mGy.cm HISTORY: Pain. Nausea. Epigastric pain. Elevated Lipase/Amylase TECHNIQUE: Multiaxial CT images of the abdomen and pelvis were performed following the use of intravenous and oral contrast. A dose lowering technique was utilized adhering to the principles of ALARA. COMPARISON STUDY: None. FINDINGS: Patchy atelectatic change at both lung bases. Liver and spleen are unremarkable. The pancreas shows unremarkable appearance to the pancreatic body and head as well as uncinate process. There are findings of moderate edematous change of the pancreatic tail with moderate peripancreatic infiltrative change. There is mild thickening of the left lateral fascial planes. There is mild reactive small bowel ileus. Kidneys are negative for hydronephrosis. There is atherosclerotic change of the abdominal aorta. No evidence for aneurysm. Bladder is midline. There is a fat-containing left inguinal hernia. No evidence of bowel containment or obstructive change. IMPRESSION: 1. Findings suggesting acute pancreatic tail pancreatitis. 2. Moderate peripancreatic infiltrative change with evidence for reactive wall thickening of several loops of small bowel as well as the fascial planes of the left paracolic gutter. 3. No evidence for drainable abscess collection or obstructive change. 4. Patchy bibasilar atelectatic change bilaterally. Consultations: GI Dr Rivers Medication Reconciliation Continued Medications: Aspirin (Aspirin Ec) 325 Mg Tab 325 MG PO DAILY Lisinopril (Zestril) 40 Mg Tab 40 MG PO DAILY, TAB Loratadine (Claritin) 10 Mg Tab 10 MG PO DAILY PRN for Allergic Reaction, TAB Ocuvite Preservision (Ocuvite Preservision) 1 Tab Tab 1 TAB PO 2XWK, TAB Admission Information HPI (per Admitting provider): Pt is 72 y/o M with PMH HTN, spinal stenosis presented to ER with complaint of abdominal pain. Patient states abdominal pain started yesterday and is located upper abdomen and was nonradiating. Patient states felt some chills yesterday.He tried taking ibuprofen 600 mg, Tylenol, ranitidine 300 mg with some relief of abdominal pain. Denies history of pancreatitis in past. Smokes 0.5 PPD, reports drinks 1-4 alcoholic drinks per week. Denies drug use. Denies fever, diaphoresis, N/V/D/C, melena, hematochezia ARIZA, dizziness, syncope, vision changes, neck pain, CP, SOB, orthopnea, palpitations, cough, sore throat , choking, otalgia, rhinorrhea, paresthesias, weakness, extremity weakness, extremity edema, rashes, dysuria, hematuria, urinary frequency, urinary retention, weight loss. Physical Exam (per Admitting): General Appearance: WD/WN, no apparent distress Head: normocephalic, atraumatic Eyes: normal inspection, sclerae normal ENT: hearing grossly normal, pharynx normal, + pertinent finding (Mucous membranes moist) Neck: supple, trachea midline Respiratory/Chest: lungs clear, normal breath sounds, no respiratory distress Cardiovascular: regular rate, rhythm, no murmur, normal peripheral pulses Abdomen/GI: normal bowel sounds, soft, + pertinent finding (Positive tenderness to palpation upper abdomen without rebound or guarding) Back: no CVA tenderness Extremities/Musculoskelatal: no calf tenderness, normal capillary refill, no pedal edema, normal range of motion Neurologic/Psych: alert, normal mood/affect, oriented x 3 Skin: warm/dry Hospital Course Pt is 72 y/o M with PMH HTN, spinal stenosis presented to ER with complaint of abdominal pain started yesterday. ACUTE PANCREATITIS In ER pt afebrile, P: 100 down to 88, R: 18, BP: 142/89, 95% on RA. WBC: 10.9. Lipase: 3355, amylase: 494, LFTs WNL. CT abd/pelvis: acute pancreatic tail pancreatitis. Moderate peripancreatic infiltrative change with evidence for reactive wall thickening of several loops of small bowel as well as the fascial planes of the left paracolic gutter. No evidence for drainable abscess collection or obstructive change. Biliary U/S: suspected mild adenomyomatosis of the gallbladder, no gallstones identified. No ductal dilatation. In ER given GI cocktail, fentanyl 50mcg, 1L NSS -may be secondary to ETOH/tobacco use, however pt denies greater than 4 drinks/ week. has been on lisinopril for several years Lipase level on admission 3055 Given IV lactated Ringer's at 50 cc/h Placed on n.p.o. then advanced to clear liquids GI consulted-Dr. Rivers and [facility] [employer] Cat Weldon On hospital day 2, patient remained stable Abdominal pain resolved, no nausea Lipase level came down to 230, LFTs normal, triglyceride level normal Evaluated by GI service, cleared for discharge to home Pancreatitis etiology unclear, alcohol could be contributing, will need endoscopic ultrasound to rule out cyst or masses Will need follow-up with Dr. Rivers in 1 week and endoscopic ultrasound in 4-6 weeks Advised to rest at home for a few days and seek medical attention immediately if with recurrence of symptoms HYPOMAGNESIA Magnesium:1.7 -Given IV and oral magnesium Should improve with advancing diet further HTN Stable -continue Lisinopril ETOH USE Reports 1-4 drinks/wk Typical drink is 1-2 at a time States he never drinks more than 2 drinks in one session Last drink was 1 week ago Denies alcohol withdrawal symptoms, never had alcohol withdrawal symptoms or DTs in the past Encouraged to abstain from alcohol as this may be contributing to pancreatitis Patient verbalized understanding and agreement TOBACCO ABUSE -smoking cessation discussed DVT Prophylaxis SCDs Disposition Discharged home Follow-up with GI in 1 week patient has not established with a primary care provider and prefers to follow- up with GI. Total time spent on discharge = This includes examination of the patient, discharge planning, medication reconciliation, and communication with other providers. Discharge Instructions Discharge Instructions Date of Service Sep 14, 2017. Admission Reason for Admission: Abd Pain Discharge Discharge Diagnosis / Problem: Acute Pancreatitis Discharge Goals Goal(s): Diagnostic testing, Therapeutic intervention Activity Recommendations Activity Limitations: as noted below (no heavy exertion) Lifting Limitations: until after follow-up appointment Exercise/Sports Limitations: until after follow-up appointment . Instructions / Follow-Up Instructions / Follow-Up Please ensure adequate daily fluid intake and keep hydrated. No alcohol or smoking. Please seek immediate medical attention if with recurrence or worsening of symptoms including abdominal pain, nausea, fevers or chills, tremors, anxiety, sweats. Follow-up with Dr. Rivers in 1 week. tel No. Endoscopic ultrasound recommended in 4-[address] Rivers. Current Hospital Diet Patient's current hospital diet: Clear Liquid Diet Discharge Diet Recommended Diet: Low Fiber Diet (Soft), Low Fat Diet Procedures Procedures Performed: Ct abdomen/pelvis Pending Studies Studies pending at discharge: no
[2017-09-14] MEDS ORDERED: GABAPENTIN 600MG Q8H DOSE PO SCH (14:00)
[2017-09-15] MEDS ORDERED: GABAPENTIN 600MG Q12H DOSE PO SCH (18:00)
[2017-09-17] MEDS ORDERED: GABAPENTIN 600MG X1 DOSE PO SCH (06:00)
== END 2017-09-14 09:41 | disposition home or self-care (01) | DRG 440 ==
LOC: C.EDB 03:08 → C.MSW 09:45 → ENRESERV 09:49
PROVIDERS: ADMIT Internal Medicine; ATTEND Internal Medicine
DX: K85.90 Acute pancreatitis without necrosis or infection, unspecified (principal); I10 Essential (primary) hypertension; E83.42 Hypomagnesemia; F17.200 Nicotine dependence, unspecified, uncomplicated; Z79.82 Long term (current) use of aspirin; Z79.899 Other long term (current) drug therapy; Z72.89 Other problems related to lifestyle

== ENCOUNTER 2020-07-06 11:50 | Inpatient (IN) ==
[2020-07-06] MEDS ORDERED: SODIUM CHLORIDE 0.9% 1000ML 1,000 ML IV STA (12:43)
[2020-07-06] MEDS ORDERED: FAMOTIDINE 20MG IV PUSH 20 MG/5 ML SYR IV STA (13:15)
--- NOTE | 2020-07-06 13:32 | Emergency Department Note ---
Impression & Plan Visual field loss, Pancreatic mass, Elevated troponin, Lung metastases, Liver metastases, Ataxia ED Provider Note NAME: ARSEN MCKENZIE AGE: 74 SEX: M ARRIVES VIA: Walk-In INFORMANT: Patient, ED PROVIDER(S): Presley Chamorro MD CHIEF COMPLAINT: Vision changes, abnormal gait. PLAN: Disposition: Admit MEDICAL DECISION MAKING: The patient is a pleasant 74-year-old gentleman with a past medical history of hypertension who presents to the emergency department for evaluation of left visual field deficits of the temporal visual field of the left eye and the nasal visual field of the right eye which began yesterday morning and the development of ataxia where he feels leaning and pulling to the left that began this morning. 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 The patient had abnormal blood work including elevated LFTs and mildly elevated troponin which led to CT scans of his chest, abdomen and pelvis that demonstrated suspected metastatic disease with extensive pulmonary nodules, liver lesions and a pancreatic lesion. Admission was recommended but the patient preferred to drive home to [place] AGAINST MEDICAL ADVICE. The patient's acute symptoms occur in the setting of his report of having unintended weight loss of approximately 20-30 pounds over the past several months with decr eased appetite and abdominal discomfort but nothing severe. Patient reports a history of pancreatitis in 2018 that resolved and he did not have an ERCP performed. On arrival the patient is fatigued appearing but no acute distress, afebrile with heart rate in the 110s and otherwise stable vital signs. He appears clinically dry. On exam the patient has clear left eye temporal visual field deficit with suspected right eye nasal visual field deficit. Otherwise extraocular muscles are intact without any overt palsy. The patient denies diplopia. Upon ambulation the patient does experience some ataxia towards the left but he is able to ambulate without falling. Otherwise his strength is norm al and [id number], alternating palms, [id number]-[id number] are intact bilaterally. EKG without overt acute ischemia. CXR negative for acute cardiopulmonary process and otherwise "numerous tiny pulmonary nodules c/w metastatic disease". Of note, CT chest from OSH reviewed with radiology upon their comparison for CXR. Likely subsegmental PE appreciated, which not been identified on OSH formal report. T his was reviewed with the patient and he did prefer to avoid repeat CT at this time given his extensive CT imaging with contrast yesterday. Will defer decision for repeat imaging or anticoagulation to admitting team. WBC 14K, nonspecific. H/H 11.8/35 and platelets wnl. Chemistry without acidosis. Electrolytes unremarkable. LFTs with Total bilirubin 2.1 and direct bilirubin 1.3. AST and ALT 95 and 123, respectively. AP 361. Troponin 0.057, improved/stable. Lipase is not elevated. ESR and CRP elevated at 40 and 12, respectively, nonspecific in the setting of metastatic cancer. UA without convincing evidence of infection. Covid-19 PCR negative. MRI wo/w contrast ordered and pending. Case reviewed with Dr. Venkata Gipson neurology who agrees with MRI wo/w contrast. Will need echo. Likely will need addition of plavix. He will be available for inpatient team consultation. Case was discussed with Brandan Vines, with [facility] who will evaluate the patient for admission. Triage Nursing notes reviewed and agree them. Additional history obtained from OSH records. Prior medical records reviewed Vital Signs: reviewed and remarkable for no significant abnormalities Differential diagnosis: Infection, dehydration, metabolic abnormality, hypo/hyperglycemia, electrolyte disturbance, anemia, hypoxia, cardiac sources, intracerebral event, toxicologic, neurologic, as well as other pathologies. ER treatment provided: See below. Diagnostics interpreted by me: ECG: Sinus tachycardia, 110 bpm, PACs, RBBB, no overt ST elevation or depression. Cardiac Monitoring: An order for continuous cardiac monitoring was placed and demonstrated Sinus tachycardia, 110 bpm, PAC. Laboratory studies: See below Imaging studies: See below Consultation(s): Case was discussed with Brandan Vines, with Dr. [facility] who will evaluate the patient for admission. HPI: The patient is a pleasant 74-year-old gentleman with a past medical history of hypertension who presents to the emergency department for evaluation of left visual field deficits of the temporal visual field of the left eye and the nasal visual field of the right eye which began yesterday morning and the development of ataxia where he feels leaning and pulling to the left that began this morning. 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 The patient had abnormal blood work including elevated LFTs and mildly elevated troponin which led to CT scans of his chest, abdomen and pelvis that demonstrated suspected metastatic disease with extensive pulmonary nodules, liver lesions and a pancreatic lesion. Admission was recommended but the patient preferred to drive home to [place] AGAINST MEDICAL ADVICE. The patient's acute symptoms occur in the setting of his report of having unintended weight loss of approximately 20-30 pounds over the past several months with decreased appetite and abdominal discomfort but nothing severe. Patient reports a history of pancreatitis in 2018 that resolved and he did not have an ERCP performed. ROS: See above HPI for pertinent positives & negatives. A total of 10 systems reviewed and were otherwise negative. PAST MEDICAL HISTORY:See Below PAST SURGICAL HISTORY:See Below FAMILY HISTORY:See Below SOCIAL HISTORY:See Below HOME MEDICATIONS:See Below ALLERGIES:See Below VITALS:See Below PHYSICAL EXAMINATION: GENERAL: Awake, alert, fatigued-appearing, in no distress HENT: Normocephalic, atraumatic. Oropharynx with dry mucous membranes and otherwise unremarkable. EYES: Normal conjunctiva. Sclera non-icteric. EOMI. No nystamgus. PEARRL. Left eye temporal visual field deficit with suspected right eye nasal visual field deficit. NECK: Supple. No nuchal rigidity. FROM. No JVD. RESPIRATORY: Clear to auscultation. CARDIAC: Regular rate, normal rhythm. Extremities warm and well perfused. Pulses equal. ABDOMEN: Soft, non-distended. No tenderness to palpation. No rebound or guarding. No masses. RECTAL: Deferred. MUSCULOSKELETAL: Chest examination reveals no tenderness. The back is symmetrical on inspection without obvious abnormality. There is no CVA tenderness to palpation. No joint edema. LOWER EXTREMITIES: Calves are equal size bilaterally and non-tender. No edema. No discoloration. NEURO: 5/5 strength and SILT x 4 extremities. Cerebellar function intact i ncluding yshvou-[id number]-mcop, alternating palms, arwp-[id number]. Mild ataxia to left with ambulation. Negative rhomberg. SKIN: No rash or jaundice noted. Presley Chamorro MD Past Med/Surg History Medical History HTN (hypertension) Surgical History History of inguinal hernia repair History of umbilical hernia repair Social History Smoking Status: Current every day smoker Cigarettes Per Day: 6; Hx Alcohol Use: Yes Alcohol type: beer Alcohol Intake Frequency: 2-3 x/Week Hx Substance Use: Yes (in past when he was in college) Prescribed Medications: Marijuana Preferred Language: Norwegian Communication Ability: Effective Beliefs That Will Affect Care: None marital status: Current Living Situation: Spouse Current Living Situation Comment: current occupational status: retired current occupation: general surgeon Other Information That Helps Us Care for You: No Feels Safe at Home: Yes Safety Concerns: Feels Safe At This Time Allergies Allergies Allergy/AdvReac Type Severity Reaction Status Date / Time No Known Allergies Allergy Unverified 07/06/20 14:19 Home Meds Home Medications Medication Instructions Recorded Confirmed aspirin 325 mg PO DAILY 07/06/20 07/06/20 lisinopril 20 mg PO DAILY 07/06/20 07/06/20 Results & Data (ED) Vital Signs Vital Signs - 24 hr 07/06/20 11:54 07/06/20 13:19 07/06/20 13:45 Temperature 36.2 C L Temperature Source Oral Pulse Rate 113 H Pulse Rate [Finger] 92 H Pulse Rhythm Regular Pulse Rhythm [Finger] Pulse Strength Normal Pulse Strength [Finger] Respiratory Rate 20 22 Respiratory Effort / Characteristics Non-Labored Spontaneous Respiratory Depth Normal Respiratory Pattern Regular Blood Pressure 102/68 Blood Pressure [Right Arm] 132/93 Blood Pressure Mean 79 Blood Pressure Mean [Right Arm] 106 Blood Pressure Position Sitting Blood Pressure Position [Right Arm] Pulse Oximetry 98 96 97 Oxygen Delivery Method Room Air Room Air Room Air Sepsis Recent Fever Within 48 Hours No Sepsis New/Unexplained Change in Mental Status No Sepsis Action Taken by Nursing No Action Required 07/06/20 15:00 07/06/20 15:30 Temperature Temperature Source Pulse Rate Pulse Rate [Finger] 86 85 Pulse Rhythm Pulse Rhythm [Finger] Regular Pulse Strength Pulse Strength [Finger] Normal Respiratory Rate 18 20 Respiratory Effort / Characteristics Non-Labored Spontaneous Respiratory Depth Normal Respiratory Pattern Regular Blood Pressure Blood Pressure [Right Arm] 140/95 150/105 H Blood Pressure Mean Blood Pressure Mean [Right Arm] 110 120 Blood Pressure Position Blood Pressure Position [Right Arm] Sitting Pulse Oximetry 97 98 Oxygen Delivery Method Room Air Room Air Sepsis Recent Fever Within 48 Hours Sepsis New/Unexplained Change in Mental Status Sepsis Action Taken by Nursing Laboratory Data Attestation: I reviewed the patient's lab results. Result diagrams: 07/06/20 13:29 07/06/20 13:29 Lab Results 07/06/20 07/06/20 07/06/20 Range/Units 13:29 13:29 13:29 WBC 14.01 H (4.8-10.8) K/uL RBC 3.71 L (4.7-6.1) M/uL Hgb 11.8 L (14.0-18.0) g/dL Hct 35.3 L (42-52) % MCV 95.1 (80-100) fL MCH 31.8 (25-34) pg MCHC 33.4 (32-36) g/dL RDW Std Deviation 45.4 (36.4-46.3) fL RDW Coeff of Shemar 13.1 (11.5-14.5) % Plt Count 180 (130-400) K/uL MPV 10.6 H (7.4-10.4) fL Immature Gran % (Auto) 0.6 % Neut % (Auto) 77.1 % Lymph % (Auto) 9.8 % [place] % (Auto) 10.8 % Eos % (Auto) 1.5 % Baso % (Auto) 0.2 % Neut # (Auto) 10.80 H (1.4-6.5) K/uL Lymph # (Auto) 1.37 (1.2-3.4) K/uL [place] # (Auto) 1.52 H (0.11-0.59) K/uL Eos # (Auto) 0.21 (0-0.5) K/uL Baso # (Auto) 0.03 (0-0.2) K/uL Immature Gran # (Auto) 0.08 H (0.00-0.02) K/uL ESR (0-20) mm/hr PT 12.2 H (9.0-12.0) Seconds INR 1.2 H (0.9-1.1) Sodium 138 (136-145) mmol/L Potassium 4.2 (3.5-5.1) mmol/L Chloride 103 (98-107) mmol/L Carbon Dioxide 29 (21-32) mmol/L Anion Gap 6.0 (3-11) BUN 16 (7-18) mg/dl Creatinine 1.26 (0.6-1.4) mg/dl Est Cr Clr Drug Dosing 53.1 ml/min Est GFR ( Amer) 64.7 ml/min Est GFR (Non-Af Amer) 55.8 ml/min BUN/Creatinine Ratio 12.4 (10-20) Glucose 108 H (70-99) mg/dl Calcium 9.8 (8.5-10.1) mg/dl Phosphorus 3.4 (2.5-4.9) mg/dl Magnesium 2.0 (1.8-2.4) mg/dl Total Bilirubin 2.1 H (0.2-1) mg/dl Direct Bilirubin 1.3 H (0-0.2) mg/dl AST 95 H (15-37) U/L ALT 123 H (12-78) U/L Alkaline Phosphatase 361 H (45-117) U/L Troponin I 0.057 H* (0-0.045) ng/ml C-Reactive Protein 12.10 H (0-0.29) mg/dl Total Protein 6.4 (6.4-8.2) gm/dl Albumin 2.6 L (3.4-5.0) gm/dl Globulin 3.8 (2.5-4.0) gm/dl Albumin/Globulin Ratio 0.7 L (0.9-2) Lipase 129 (73-393) U/L TSH 1.570 (0.300-4.500) uIu/ml Urine Color Urine Appearance (Clear) Urine pH (4.5-7.5) Ur Specific [place] (1.000-1.030) Urine Protein (Negative) Urine Glucose (UA) (Negative) Urine Ketones (Negative) Urine Blood (Negative) Urine Nitrite (Negative) Urine Bilirubin (Negative) Urine Urobilinogen (Negative) Ur Leukocyte Esterase (Negative) Urine WBC (Auto) (0-5) /hpf Urine RBC (Auto) (0-4) /hpf U Hyaline Cast (Auto) (0-5) /lpf U Epithel Cells (Auto) (0-5) /lpf Urine Bacteria (Auto) (Negative) COVID-19 Eval Order SARS-CoV-2 (PCR) (Negative) 07/06/20 07/06/20 07/06/20 Range/Units 13:29 13:30 13:30 WBC (4.8-10.8) K/uL RBC (4.7-6.1) M/uL Hgb (14.0-18.0) g/dL Hct (42-52) % MCV (80-100) fL MCH (25-34) pg MCHC (32-36) g/dL RDW Std Deviation (36.4-46.3) fL RDW Coeff of Shemar (11.5-14.5) % Plt Count (130-400) K/uL MPV (7.4-10.4) fL Immature Gran % (Auto) % Neut % (Auto) % Lymph % (Auto) % [place] % (Auto) % Eos % (Auto) % Baso % (Auto) % Neut # (Auto) (1.4-6.5) K/uL Lymph # (Auto) (1.2-3.4) K/uL [place] # (Auto) (0.11-0.59) K/uL Eos # (Auto) (0-0.5) K/uL Baso # (Auto) (0-0.2) K/uL Immature Gran # (Auto) (0.00-0.02) K/uL ESR 40 H (0-20) mm/hr PT (9.0-12.0) Seconds INR (0.9-1.1) Sodium (136-145) mmol/L Potassium (3.5-5.1) mmol/L Chloride (98-107) mmol/L Carbon Dioxide (21-32) mmol/L Anion Gap (3-11) BUN (7-18) mg/dl Creatinine (0.6-1.4) mg/dl Est Cr Clr Drug Dosing ml/min Est GFR ( Amer) ml/min Est GFR (Non-Af Amer) ml/min BUN/Creatinine Ratio (10-20) Glucose (70-99) mg/dl Calcium (8.5-10.1) mg/dl Phosphorus (2.5-4.9) mg/dl Magnesium (1.8-2.4) mg/dl Total Bilirubin (0.2-1) mg/dl Direct Bilirubin (0-0.2) mg/dl AST (15-37) U/L ALT (12-78) U/L Alkaline Phosphatase (45-117) U/L Troponin I (0-0.045) ng/ml C-Reactive Protein (0-0.29) mg/dl Total Protein (6.4-8.2) gm/dl Albumin (3.4-5.0) gm/dl Globulin (2.5-4.0) gm/dl Albumin/Globulin Ratio (0.9-2) Lipase (73-393) U/L TSH (0.300-4.500) uIu/ml Urine Color Urine Appearance (Clear) Urine pH (4.5-7.5) Ur Specific [place] (1.000-1.030) Urine Protein (Negative) Urine Glucose (UA) (Negative) Urine Ketones (Negative) Urine Blood (Negative) Urine Nitrite (Negative) Urine Bilirubin (Negative) Urine Urobilinogen (Negative) Ur Leukocyte Esterase (Negative) Urine WBC (Auto) (0-5) /hpf Urine RBC (Auto) (0-4) /hpf U Hyaline Cast (Auto) (0-5) /lpf U Epithel Cells (Auto) (0-5) /lpf Urine Bacteria (Auto) (Negative) COVID-19 Eval Order Covid19 at [facility] SARS-CoV-2 (PCR) NEGATIVE (Negative) 07/06/20 Range/Units 14:10 WBC (4.8-10.8) K/uL RBC (4.7-6.1) M/uL Hgb (14.0-18.0) g/dL Hct (42-52) % MCV (80-100) fL MCH (25-34) pg MCHC (32-36) g/dL RDW Std Deviation (36.4-46.3) fL RDW Coeff of Shemar (11.5-14.5) % Plt Count (130-400) K/uL MPV (7.4-10.4) fL Immature Gran % (Auto) % Neut % (Auto) % Lymph % (Auto) % [place] % (Auto) % Eos % (Auto) % Baso % (Auto) % Neut # (Auto) (1.4-6.5) K/uL Lymph # (Auto) (1.2-3.4) K/uL [place] # (Auto) (0.11-0.59) K/uL Eos # (Auto) (0-0.5) K/uL Baso # (Auto) (0-0.2) K/uL Immature Gran # (Auto) (0.00-0.02) K/uL ESR (0-20) mm/hr PT (9.0-12.0) Seconds INR (0.9-1.1) Sodium (136-145) mmol/L Potassium (3.5-5.1) mmol/L Chloride (98-107) mmol/L Carbon Dioxide (21-32) mmol/L Anion Gap (3-11) BUN (7-18) mg/dl Creatinine (0.6-1.4) mg/dl Est Cr Clr Drug Dosing ml/min Est GFR ( Amer) ml/min Est GFR (Non-Af Amer) ml/min BUN/Creatinine Ratio (10-20) Glucose (70-99) mg/dl Calcium (8.5-10.1) mg/dl Phosphorus (2.5-4.9) mg/dl Magnesium (1.8-2.4) mg/dl Total Bilirubin (0.2-1) mg/dl Direct Bilirubin (0-0.2) mg/dl AST (15-37) U/L ALT (12-78) U/L Alkaline Phosphatase (45-117) U/L Troponin I (0-0.045) ng/ml C-Reactive Protein (0-0.29) mg/dl Total Protein (6.4-8.2) gm/dl Albumin (3.4-5.0) gm/dl Globulin (2.5-4.0) gm/dl Albumin/Globulin Ratio (0.9-2) Lipase (73-393) U/L TSH (0.300-4.500) uIu/ml Urine Color Dark Yellow Urine Appearance Clear (Clear) Urine pH 6.0 (4.5-7.5) Ur Specific [place] 1.016 (1.000-1.030) Urine Protein Trace H (Negative) Urine Glucose (UA) Negative (Negative) Urine Ketones Negative (Negative) Urine Blood Negative (Negative) Urine Nitrite Negative (Negative) Urine Bilirubin Negative (Negative) Urine Urobilinogen Negative (Negative) Ur Leukocyte Esterase Negative (Negative) Urine WBC (Auto) 1-5 (0-5) /hpf Urine RBC (Auto) 0-4 (0-4) /hpf U Hyaline Cast (Auto) 1-5 (0-5) /lpf U Epithel Cells (Auto) 5-10 H (0-5) /lpf Urine Bacteria (Auto) Negative (Negative) COVID-19 Eval Order SARS-CoV-2 (PCR) (Negative) Administered Medications Acetaminophen (Acetaminophen 325 Mg Tab) 650 mg PO Q4H PRN PRN Reason: Pain or Fever Stop: 08/05/20 16:52 Last Admin: 07/06/20 19:43 Dose: 650 mg Documented by: [id number] Enoxaparin Sodium (Enoxaparin Inj 40 Mg/0.4 Ml Syr) 40 mg SQ HS CODI Stop: 08/05/20 20:59 Last Admin: 07/06/20 22:15 Dose: 40 mg Documented by: [id number] Labetalol HCl (Labetalol Hcl Iv 5 Mg/Ml 20ml) 5 mg IV Q6H PRN PRN Reason: SBP > 180; DBP > 100 Stop: 08/05/20 17:59 Last Admin: 07/06/20 19:39 Dose: 5 mg Documented by: [id number] Cosigned by: [id number] Discontinued Medications Gadobutrol (Gadobutrol 65ml Vial) 8 ml IV ONCE ONE Stop: 07/06/20 16:43 Last Admin: 07/06/20 16:42 Dose: 8 ml Documented by: [id number] Sodium Chloride (Nss 1000ml) 1,000 mls @ 999 mls/hr IV .Q1H1M STA Stop: 07/06/20 13:43 Last Infusion: 07/06/20 14:41 Dose: 0 mls/hr Documented by: [id number] Admin: 07/06/20 13:39 Dose: 999 mls/hr Documented by: [id number] Famotidine (Pepcid 20mg Iv Push) 20 mg in 5 mls @ 2.5 mls/min IV NOW STA Stop: 07/06/20 13:16 Last Admin: 07/06/20 13:39 Dose: 2.5 mls/min Documented by: [id number] Oxycodone HCl (Oxycodone Hcl Ir 5 Mg Tab (Immediate Release)) 5 mg PO NOW STA Stop: 07/06/20 22:21 Last Admin: 07/06/20 23:22 Dose: 5 mg Documented by: [id number] Imaging Data Radiologist's Impression: Chest X-Ray 07/06/20 12:44 SINGLE VIEW CHEST CLINICAL HISTORY: Atypical chest pain. FINDINGS: An AP, portable, upright chest radiograph is compared to study dated 09/13/2017. Correlation is made with chest CT dated 07/05/2020. The heart is top normal in size noting atherosclerotic calcification of the thoracic aorta. The pulmonary vasculature is noncongested. Chronic interstitial thickening and numerous pulmonary nodules are similar to previous. There is no lobar consolidation or pleural effusion identified. Atelectasis is at the left lung base with elevation of left hemidiaphragm. No pneumothorax is seen. The skeletal structures are osteopenic. The bony thorax is grossly intact. IMPRESSION: 1. No acute cardiopulmonary abnormality. 2. Numerous tiny pulmonary nodules are consistent with metastatic disease when correlated with yesterday's chest CT. ACT 112: Negative or not required by law. Electronically signed by: Diony Restrepo M.D. 07/06/2020 1:33 PM Brain MRI 07/06/20 13:09 Brain MRI WITH AND WITHOUT CONTRAST HISTORY: left visual field deficit (?b/l), ataxia to left TECHNIQUE: Multiplanar multisequence MRI of the brain was performed both before and after the intravenous administration of contrast. COMPARISON STUDY: Outside hospital Head and Neck CTA 07/05/2020. FINDINGS: Multiple small scattered foci of restricted diffusion seen within the right medial cerebellar hemisphere and right occipital lobe consistent with acute infarcts. There is also punctate focus of restricted diffusion seen within the right frontal white matter also consistent with acute infarct. These areas demonstrate small areas of cytotoxic edema without significant mass effect. T here is no mass, hematoma, midline shift. The ventricles and sulci demonstrate mild age-related involutional changes. There are few scattered punctate foci of T2 hyperintensity seen within the paratracheal white matter. This favors mild microvascular ischemic change. Mild mucosal thickening and retention cyst seen within the maxillary sinuses. The mastoid air cells are clear. The major vascular flow voids at the skull base are well-maintained. The orbits are unremarkable. Postcontrast sequences show no areas of abnormal enhancement. IMPRESSION: 1. Multiple small scattered acute infarcts seen within the right occipital lobe, right medial cerebellum, and right frontal lobe. 2. No significant mass effect or midline shift. 3. Mild atrophy and microvascular ischemic changes. ACT 112: Negative or not required by law. Electronically signed by: Abiel Medellin M.D. 07/06/2020 5:08 PM Discharge Plan Visit Data Chief Complaint: Dizziness Stated Complaint: DIZZINESS ED Provider: Presley Chamorro Discharge Problem: Visual field loss, Pancreatic mass, Elevated troponin, Lung metastases, Liver metastases, Ataxia Patient Disposition: Admitted As Inpatient Discharge Instructions Interventions: ED Discharge Assessment Last Done: 07/06/20 16:29
--- NOTE | 2020-07-06 13:35 | XRay Report ---
SINGLE VIEW CHEST CLINICAL HISTORY: Atypical chest pain. FINDINGS: An AP, portable, upright chest radiograph is compared to study dated 09/13/2017. Correlation is made with chest CT dated 07/05/2020. The heart is top normal in size noting atherosclerotic calcif ication of the thoracic aorta. The pulmonary vasculature is noncongested. Chronic interstitial thicke melanie and numerous pulmonary nodules are similar to previous. There is no lobar consolidation or pleur al effusion identified. Atelectasis is at the left lung base with elevation of left hemidiaphragm. No pneumothorax is seen. The skeletal structures are osteopenic. The bony thorax is grossly intact. IMPRESSION: 1. No acute cardiopulmonary abnormality. 2. Numerous tiny pulmonary nodules are consistent with metastatic disease when correlated with yester day's chest CT. ACT 112: Negative or not required by law. Electronically signed by: Diony Restrepo M.D. 07/06/2020 1:33 PM
[2020-07-06 13:45] LABS: Basophils # (auto) 0.03 K/uL (0-0.2); Basophils % (auto) 0.2 %; Eosinophils # (auto) 0.21 K/uL (0-0.5); Eosinophils % (auto) 1.5 %; Hematocrit (blood only) 35.3 % (42-52); Hemoglobin 11.8 g/dL (14.0-18.0); Immature Granulocytes # (auto) 0.08 K/uL (0.00-0.02); Immature Granulocytes % (auto) 0.6 %; Lymphocytes # (auto) 1.37 K/uL (1.2-3.4); Lymphocytes % (auto) 9.8 %; Mean Corpuscular Hemoglobin 31.8 pg (25-34); Mean Corpuscular Hgb Conc 33.4 g/dL (32-36); Mean Corpuscular Volume 95.1 fL (80-100); Mean Platelet Volume 10.6 fL (7.4-10.4); Monocytes # (auto) 1.52 K/uL (0.11-0.59); Monocytes % (auto) 10.8 %; Neutrophils % (auto) 77.1 %; Platelet Count 180 K/uL (130-400); RDW Coefficient of Variation 13.1 % (11.5-14.5); RDW Standard Deviation 45.4 fL (36.4-46.3); Red Blood Count 3.71 M/uL (4.7-6.1); White Blood Count 14.01 K/uL (4.8-10.8)
[2020-07-06 14:02] LABS: INR 1.2 (0.9-1.1); Prothrombin Time 12.2 Seconds (9.0-12.0)
[2020-07-06 14:03] LABS: Albumin Level 2.6 gm/dl (3.4-5.0); BUN Creatinine Ratio 12.4 (10-20); Bilirubin Direct 1.3 mg/dl (0-0.2); C Reactive Protein 12.1 mg/dl (0-0.29); Calcium 9.8 mg/dl (8.5-10.1); Creatinine Clr Calc Pharmacy 53.1 ml/min; Est GFR (African American) 64.7 ml/min; Est GFR (Non-African American) 55.8 ml/min; Potassium 4.2 mmol/L (3.5-5.1)
[2020-07-06 14:15] LABS: Albumin Globulin Ratio 0.7 (0.9-2); Bilirubin,Total 2.1 mg/dl (0.2-1); Globulin 3.8 gm/dl (2.5-4.0); Phosphorus 3.4 mg/dl (2.5-4.9); Thyroid Stimulating Hormone 1.57 uIu/ml (0.300-4.500); Total Protein 6.4 gm/dl (6.4-8.2); Troponin I 0.057 ng/ml (0-0.045)
[2020-07-06 14:19] LABS: Appearance Urine Clear (Clear); Bacteria Urine Automated Negative (Negative); Bilirubin Urine Negative (Negative); Blood Urine Negative (Negative); Color Urine Dark Yellow; Glucose Urine UA Negative (Negative); Ketones Urine Negative (Negative); Leukocyte Esterase Urine Negative (Negative); Nitrite Urine Negative (Negative); Protein Urine Trace (Negative); RBC Urine Automated 0-4 /hpf (0-4); Specific Gravity Urine 1.016 (1.000-1.030); Urobilinogen Urine Negative (Negative)
--- NOTE | 2020-07-06 16:04 | History & Physical Report ---
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 Initial work-up initiated yesterday in [facility] ER for strokelike symptoms. CTA of head and neck were performed which revealed high-grade stenosis of the left internal carotid artery at its origin. No evidence of acute thrombotic event on CT. Admission was recommended but patient signed out AMA. Symptoms continue to persist he will be admitted for strokelike work-up. Please refer to HPI for full details regarding ER evaluation in [place] on 07/05/2020. Admit to PCU MRI w and w/o pending consult neurology Dr. Hastings Continue with ASA 325mg, add high dose statin will await MRI results and neuro input for further antiplatelet therapy PT/OT/ST lipid panel, a1c in a.m. Consult Dr. Mrain vascular surgery 2/ to high grade stenosis of L ICA echo (3) Pancreatic mass: (4) Liver metastases: (5) Lung metastases: (6) Elevated LFTs: found CT a/p with evidence of mets to liver, lung and Multiple enlarged lymph nodes in the upper abdomen and retroperitoneum Pancreatic mass irregular 3.7 x 2.8 cm low-density mass in distal pancreatic body Consult Gastroenterology NPO after midnight trend LFTS (7) Elevated troponin: stable from yesterday in [place] ED no c/o chest pain, ecg reviewed obtain echocardiogram possibly in setting of acute embolic event vs underlying malignancy vs ckd, monitor Per our radiology staff after reviewing CTA from yesterday there is questionable subsegmental PE pt is not agreeable to further contrast given done yesterday He is not hypoxic b/l venous duplex Lovenox for ppx for now consider repeat CTA in a.m. if necessary (8) CKD (chronic kidney disease) stage 3, GFR 30-59 ml/min: baseline 1.2 avoid nephrotoxic agents monitor (9) HTN (hypertension): BP elevated in ED hold lisinopril for now pending stroke w/u permissive HTN allowed (10) Hypercalcemia: correct ca 10.9, possibly due to underlying malignancy check PTH, pth peptide and vit d in a.m. (11) Elevated C-reactive protein (CRP): elevated ESR/CRP ? in setting of underlying malignancy monitor Hypoalbuminemia likely due to weight loss pre albumin, consult dietary (12) DVT prophylaxis: SQ Lovenox Dispo: PCU FULL CODE PCP: None Pt was seen and examined in collaboration with Dr. Collins, please see addendum History of Present Illness Chief Complaint: Visual field deficit x 1 day. 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 He has significant past medical history for hypertension. He does not follow with PCP. Yesterday while up in [place] ( where he works) he woke up at approximately 6 AM and felt, "off." It was not until later in the morning when he realized he was having left-sided visual changes. He called the on-call provider relations advocate who saw him and found that he had a visual deficit in both eyes on the left side. There was also complaint of general fatigue, 20 pound weight loss over the past 2 months, and decreased appetite. He has been fully vaccinated for Covid. [employer] found no acute ophthalmology issue and referred to ED for possible stroke work-up. In ED patient was hemodynamically stable with documented vitals of 128/91, pulse 106, temp 36.8 and SPO2 99%. He was documented to have a left lateral visual field cut in both eyes. He underwent a CTA of head and neck which revealed severe/high-grade narrowing at the origin of the left internal carotid artery and age-indeterminate occlusion of the left vertebral artery beginning at its origin. Also noted was multifocal intracranial atherosclerosis without evidence of proximal large vessel occlusion. Lab work notable for leukocytosis 16.8k, H&H 13.1 and 40.7, platelet 221, BUN 18, creatinine 1.35, total bili 1.5, alk phos 427, AST 100, ALT 129 and elevated troponin of 0.060. He did not complain of chest pain and EKG was without ischemic change. Secondary to elevated troponin and transaminitis he underwent CT of chest abdomen pelvis with contrast. This unfortunately revealed innumerable small pulmonary metastases in both lungs, extensive calcified coronary artery atherosclerosis, extensive hepatic metastasis, irregular 3.7 x 2.8 cm low-density mass in the distal pancreatic body which could reflect site of primary malignancy, multiple mildly enlarged lymph nodes in the upper abdomen and retroperitoneum which are presumably metastatic in etiology, possible irregular wall thickening of the proximal descending colon, large left-sided inguinal hernia containing decompressed sigmoid colon as well as small amount of free fluid, mild nonspecific thickening of urinary bladder. Secondary to all the above abnormal findings it was recommended he be admitted for further stroke work-up and MRI as well as abnormal labs and diagnostic imaging. Patient signed out AMA and drove back to [facility] where he resides and presents to ED here today. Above was obtained from records. In ED today he remained hemodynamically stable although mildly hypertensive. Lab work-up consistent with yesterday's finding including mildly improved leukocytosis, reduced H&H to 11.8 and 35.3, ESR 40 and CRP 12.10. He continues to have transaminitis with an AST 95, ALT 123, alk phos 361, total bili 2.1. His troponin remains elevated at 0.057. He remained chest pain-free. His corrected calcium is elevated at 10.9. Chest x-ray shows no acute cardiopulmonary abnormality but does show numerous tiny pulmonary nodules consistent with metastatic disease. Patient was seen and examined on medical floor. He states currently he has some mild, diffuse abdominal discomfort, rated 1 out of 10, described as a dull ache, comes and goes, nothing makes better or worse. He missed to a 20 to 30 pound weight loss over the past 3 months unintentionally. He overall has poor appetite. He denies any fever, chills, sweats, lightheadedness, dizziness, chest pain, shortness of breath, cough, nausea, vomiting, dysuria, increased urgency or frequency with urination, melena or hematochezia. He continues to complain of left visual deficits. He denies any diplopia or blurry vision. He denies ever having this in the past. He denies any central vision loss. He states he was seen by ophthalmology on Monday who did a formal exam and ruled out glaucoma and cataract. Allergies Allergy/AdvReac Type Severity Reaction Status Date / Time No Known Allergies Allergy Unverified 07/06/20 14:19 Home Medications Medication Instructions Recorded Confirmed Type aspirin 325 mg PO DAILY 07/06/20 07/06/20 History lisinopril 20 mg PO DAILY 07/06/20 07/06/20 History Past Med/Surg History Medical History (Updated 07/06/20 @ 17:12 by Kandice Calle PA-C) HTN (hypertension) Surgical History (Updated 07/06/20 @ 17:12 by Kandice Calle PA-C) History of inguinal hernia repair History of umbilical hernia repair Social History (Updated 07/06/20 @ 17:13 by Kandice Calle PA-C) Smoking Status: Current every day smoker Cigarettes Per Day: 6; Hx Alcohol Use: Yes Alcohol type: beer Alcohol Intake Frequency: 2-3 x/Week Hx Substance Use: Yes (in past when he was in college) Prescribed Medications: Marijuana Preferred Language: Kuwaiti Communication Ability: Effective Beliefs That Will Affect Care: None marital status: Current Living Situation: Spouse Current Living Situation Comment: current occupational status: retired current occupation: general surgeon Other Information That Helps Us Care for You: No Feels Safe at Home: Yes Safety Concerns: Feels Safe At This Time Review of Systems Review of Systems: All systems reviewed & are unremarkable except as noted in HPI & below Physical Exam Physical Exam: The patient was examined in telemetry unit in presence of the . Lying in bed comfortably Constitutional: well developed, well nourished and + ill appearing Eyes: PERRL, conjunctivae normal, anicteric sclerae ENMT: external ear and nose normal, oropharynx normal Neck: trachea midline, no thyromegaly Respiratory: no respiratory distress Auscultation: lungs clear to auscultation bilaterally Cardiovascular: Rate/Rhythm: regular rate and regular rhythm Heart Sounds: no murmur Extremities: no edema Gastrointestinal (Abdomen): Inspection/Auscultation: normal bowel sounds; abdomen not distended Percussion/Palpation: + abdomen tender (Upper q uadrants), abdomen soft and + hepatomegaly (Nodular); no guarding and abdomen not rigid Musculoskeletal: No acute arthritis in any joint Skin: Chronic vascular changes in the legs Neurologic: patellar DTR's 2+ bilat, sensation intact No focal sensory and motor deficit appreciated Psychiatric: A+Ox3, euthymic affect Lymphatic: no cervical or axillary lymphadenopathy Results & Data Results & Data ([facility]) Vital Signs (Past 12 Hours) Vital Signs Temp Pulse Pulse Resp BP BP Pulse Ox 07/06/20 15:00 86 18 140/95 97 07/06/20 13:45 92 H 22 132/93 97 07/06/20 13:19 96 07/06/20 11:54 36.2 C L 113 H 20 102/68 98 Laboratory Results Short CBC 07/06/20 Range/Units 13:29 WBC 14.01 H (4.8-10.8) K/uL Hgb 11.8 L (14.0-18.0) g/dL Hct 35.3 L (42-52) % Plt Count 180 (130-400) K/uL BMP 07/06/20 13:29 Sodium 138 Potassium 4.2 Chloride 103 Carbon Dioxide 29 BUN 16 Creatinine 1.26 Glucose 108 H Calcium 9.8 Cardiac Enzymes 07/06/20 Range/Units 13:29 Troponin I 0.057 H* (0-0.045) ng/ml Liver Function 07/06/20 Range/Units 13:29 Total Bilirubin 2.1 H (0.2-1) mg/dl Direct Bilirubin 1.3 H (0-0.2) mg/dl AST 95 H (15-37) U/L ALT 123 H (12-78) U/L Alkaline Phosphatase 361 H (45-117) U/L Albumin 2.6 L (3.4-5.0) gm/dl Urine 07/06/20 Range/Units 14:10 Urine Color Dark Yellow Urine Appearance Clear (Clear) Urine pH 6.0 (4.5-7.5) Ur Specific [place] 1.016 (1.000-1.030) Urine Protein Trace H (Negative) Urine Glucose (UA) Negative (Negative) Diagnostic Findings Chest X-Ray 07/06/20 12:44 SINGLE VIEW CHEST CLINICAL HISTORY: Atypical chest pain. FINDINGS: An AP, portable, upright chest radiograph is compared to study dated 09/13/2017. Correlation is made with chest CT dated 07/05/2020. The heart is top normal in size noting atherosclerotic calcification of the thoracic aorta. The pulmonary vasculature is noncongested. Chronic interstitial thickening and numerous pulmonary nodules are similar to previous. There is no lobar consolidation or pleural effusion identified. Atelectasis is at the left lung base with elevation of left hemidiaphragm. No pneumothorax is seen. The skeletal structures are osteopenic. The bony thorax is grossly intact. IMPRESSION: 1. No acute cardiopulmonary abnormality. 2. Numerous tiny pulmonary nodules are consistent with metastatic disease when correlated with yesterday's chest CT. ACT 112: Negative or not required by law. Electronically signed by: Diony Restrepo M.D. 07/06/2020 1:[address] A/P & CHest CTA from 07/05/20 in [place] ED innumerable small pulmonary metastases in both lungs, extensive calcified coronary artery atherosclerosis, extensive hepatic metastasis, irregular 3.7 x 2.8 cm low-density mass in the distal pancreatic body which could reflect site of primary malignancy, multiple mildly enlarged lymph nodes in the upper abdomen and retroperitoneum which are presumably metastatic in etiology, possible irregular wall thickening of the proximal descending colon, large left-sided inguinal hernia containing decompressed sigmoid colon as well as small amount of free fluid, mild nonspecific thickening of urinary bladder. CTA Head/Neck from 07/05/20 in [place] ED revealed severe/high-grade narrowing at the origin of the left internal carotid artery and age-indeterminate occlusion of the left vertebral artery beginning at its origin. Also noted was multifocal intracranial atherosclerosis without evidence of proximal large vessel occlusion. MRI of the head: IMPRESSION: 1. Multiple small scattered acute infarcts seen within the right occipital lobe, right medial cerebellum, and right frontal lobe. 2. No significant mass effect or midline shift. 3. Mild atrophy and microvascular ischemic changes. Medications Administered Discontinued Medications Sodium Chloride (Nss 1000ml) 1,000 mls @ 999 mls/hr IV .Q1H1M STA Stop: 07/06/20 13:43 Last Infusion: 07/06/20 14:41 Dose: 0 mls/hr Documented by: [id number] Admin: 07/06/20 13:39 Dose: 999 mls/hr Documented by: [id number] Famotidine (Pepcid 20mg Iv Push) 20 mg in 5 mls @ 2.5 mls/min IV NOW STA Stop: 07/06/20 13:16 Last Admin: 07/06/20 13:39 Dose: 2.5 mls/min Documented by: [id number] ECG Rate (beats per minute): 110 Rhythm: sinus tachycardia Findings: + RBBB COVID-19 Results Results COVID-19 Adm Lab Results: RBC 3.71 M/uL (4.7-6.1) L 07/06/20 WBC 14.01 K/uL (4.8-10.8) H 07/06/20 Hgb 11.8 g/dL (14.0-18.0) L 07/06/20 Hct 35.3 % (42-52) L 07/06/20 Plt Count 180 K/uL (130-400) 07/06/20 Neutrophils (%) (Auto) 77.1 % 07/06/20 Lymphocytes (%) (Auto) 9.8 % 07/06/20 Monocytes # (Auto) 1.52 K/uL (0.11-0.59) H 07/06/20 Eosinophils # (Auto) 0.21 K/uL (0-0.5) 07/06/20 Immature Granulocyte % (Auto) 0.6 % 07/06/20 Neutrophils # (Auto) 10.80 K/uL (1.4-6.5) H 07/06/20 Lymphocytes # (Auto) 1.37 K/uL (1.2-3.4) 07/06/20 Monocytes # (Auto) 1.52 K/uL (0.11-0.59) H 07/06/20 Eosinophils # (Auto) 0.21 K/uL (0-0.5) 07/06/20 Basophils # (Auto) 0.03 K/uL (0-0.2) 07/06/20 Immature Granulocyte # (Auto) 0.08 K/uL (0.00-0.02) H 07/06/20 Na 138 mmol/L (136-145) 07/06/20 K 4.2 mmol/L (3.5-5.1) 07/06/20 Cl 103 mmol/L (98-107) 07/06/20 CO2 29 mmol/L (21-32) 07/06/20 Anion Gap 6.0 (3-11) 07/06/20 BUN 16 mg/dl (7-18) 07/06/20 Creatinine 1.26 mg/dl (0.6-1.4) 07/06/20 BUN/Creatinine Ratio 12.4 (10-20) 07/06/20 Glucose Level 108 mg/dl (70-99) H 07/06/20 Ca 9.8 mg/dl (8.5-10.1) 07/06/20 Phosphorus Level 3.4 mg/dl (2.5-4.9) 07/06/20 Total Bilirubin 2.1 mg/dl (0.2-1) H 07/06/20 Direct Bilirubin 1.3 mg/dl (0-0.2) H 07/06/20 AST/SGOT 95 U/L (15-37) H 07/06/20 ALT/SGPT 123 U/L (12-78) H 07/06/20 Alkaline Phosphatase 361 U/L (45-117) H 07/06/20 Total Protein 6.4 gm/dl (6.4-8.2) 07/06/20 Albumin 2.6 gm/dl (3.4-5.0) L 07/06/20 Globulin 3.8 gm/dl (2.5-4.0) 07/06/20 Albumin/Globulin Ratio 0.7 (0.9-2) L 07/06/20 Troponin I 0.057 ng/ml (0-0.045) H* 07/06/20 CRP 12.10 mg/dl (0-0.29) H 07/06/20 INR 1.2 (0.9-1.1) H 07/06/20 COVID-19 PCR NEGATIVE (Negative) 07/06/20 Chest X-Ray 07/06/20 Code Status & VTE Plan Code Status Full Code VTE Prophylaxis Plan VTE Prophylaxis will be ordered: Yes Supervising Physician Co-Signing Physician Notes Attending addendum: The patient was seen and examined in telemetry unit in presence of the He has been complaining of upper abdominal discomfort without nausea no vomiting Denies any strokelike symptoms Has been having anorexia and lost significant weight for the last 3 months On examination; Please see the examination in the H&P section His admission labs, EKG and imaging studies from [place] ER and from admission test this afternoon reviewed Has pancreatic lesion with hepatic and lung metastasis Has multiple infarct involving the brain on MRI Has significant left ICA stenosis Will get GI and vascular surgery evaluation Neurology is already on board Agree with assessment and plan as outlined above by JASPER Arshad Dr
[2020-07-06] MEDS ORDERED: GADOBUTROL 65ML VIAL IV ONE (16:42)
[2020-07-06] MEDS ORDERED: PHARMACIST DISCHARGE MED REC CONSULT PRN (16:53)
[2020-07-06] MEDS ORDERED: ONDANSETRON INJ 2 MG/ML 2 ML VIAL IV PRN (16:53)
[2020-07-06] MEDS ORDERED: POLYETHYLENE (MIRALAX) 17 GM PACK PO PRN (16:53)
[2020-07-06] MEDS ORDERED: ALUMINUM/MAGNESIUM SUSP 30 ML UDC PO PRN (16:53)
[2020-07-06] MEDS ORDERED: MAGNESIUM HYDROXIDE SUSP 30 ML UDC PO PRN (16:53)
--- NOTE | 2020-07-06 17:09 | Magnetic Resonance Report ---
Brain MRI WITH AND WITHOUT CONTRAST HISTORY: left visual field deficit (?b/l), ataxia to left TECHNIQUE: Multiplanar multisequence MRI of the brain was performed both before and after the intrave nous administration of contrast. COMPARISON STUDY: Outside hospital Head and Neck CTA 07/05/2020. FINDINGS: Multiple small scattered foci of restricted diffusion seen within the right medial cerebell ar hemisphere and right occipital lobe consistent with acute infarcts. There is also punctate focus o f restricted diffusion seen within the right frontal white matter also consistent with acute infarct. These areas demonstrate small areas of cytotoxic edema without significant mass effect. There is no mass, hematoma, midline shift. The ventricles and sulci demonstrate mild age-related involutional jennifer nges. There are few scattered punctate foci of T2 hyperintensity seen within the paratracheal white m atter. This favors mild microvascular ischemic change. Mild mucosal thickening and retention cyst see n within the maxillary sinuses. The mastoid air cells are clear. The major vascular flow voids at the skull base are well-maintained. The orbits are unremarkable. Postcontrast sequences show no areas of abnormal enhancement. IMPRESSION: 1. Multiple small scattered acute infarcts seen within the right occipital lobe, right medial cerebel lum, and right frontal lobe. 2. No significant mass effect or midline shift. 3. Mild atrophy and microvascular ischemic changes. ACT 112: Negative or not required by law. Electronically signed by: Abiel Medellin M.D. 07/06/2020 5:08 PM
[2020-07-06] MEDS ORDERED: LABETALOL HCL IV 5 MG/ML 20ML IV PRN (17:53)
--- NOTE | 2020-07-06 18:28 | Ultrasound Report ---
BILATERAL LOWER EXTREMITY VENOUS DOPPLER HISTORY: Stroke. Possible pulmonary embolus. Assess for DVT. COMPARISON STUDY: None. FINDINGS: There is normal compressibility, flow, and augmentation within the bilateral lower extremit y deep venous systems. IMPRESSION: No DVT within the right or left lower extremity. ACT 112: Negative or not required by law. Electronically signed by: Abiel Medellin M.D. 07/06/2020 6:27 PM
[2020-07-06] MEDS: ACETAMINOPHEN 325 MG TAB PO PRN (19:43)
[2020-07-06] MEDS: ENOXAPARIN INJ 40 MG/0.4 ML SYR SQ SCH (22:15)
[2020-07-06] MEDS ORDERED: oxyCODONE HCL IR 5 MG TAB (IMMEDIATE RELEASE) PO STA (22:20)
[2020-07-07 05:58] LABS: Basophils # (auto) 0.01 K/uL (0-0.2); Basophils % (auto) 0.1 %; Eosinophils # (auto) 0.46 K/uL (0-0.5); Eosinophils % (auto) 4.3 %; Hematocrit (blood only) 32.4 % (42-52); Hemoglobin 10.6 g/dL (14.0-18.0); Immature Granulocytes # (auto) 0.04 K/uL (0.00-0.02); Immature Granulocytes % (auto) 0.4 %; Lymphocytes # (auto) 1.52 K/uL (1.2-3.4); Lymphocytes % (auto) 14.3 %; Mean Corpuscular Hemoglobin 31.2 pg (25-34); Mean Corpuscular Hgb Conc 32.7 g/dL (32-36); Mean Corpuscular Volume 95.3 fL (80-100); Mean Platelet Volume 10.8 fL (7.4-10.4); Monocytes # (auto) 1.24 K/uL (0.11-0.59); Monocytes % (auto) 11.7 %; Neutrophils # (auto) 7.33 K/uL (1.4-6.5); Neutrophils % (auto) 69.2 %; Platelet Count 160 K/uL (130-400); RDW Coefficient of Variation 13.2 % (11.5-14.5); RDW Standard Deviation 45.9 fL (36.4-46.3)
[2020-07-07 06:24] LABS: Albumin Level 2.2 gm/dl (3.4-5.0); BUN Creatinine Ratio 16.8 (10-20); Calcium 8.1 mg/dl (8.5-10.1); Creatinine Clr Calc Pharmacy 58.7 ml/min
[2020-07-07 06:31] LABS: Albumin Globulin Ratio 0.7 (0.9-2); Bilirubin,Total 1.1 mg/dl (0.2-1); Globulin 3.2 gm/dl (2.5-4.0); Prealbumin 4.5 mg/dl (20-40); Total Protein 5.4 gm/dl (6.4-8.2)
[2020-07-07 07:26] LABS: Estimated Average Glucose 140 mg/dl; Hemoglobin A1C 6.5 % (4.5-5.6)
[2020-07-07] MEDS ORDERED: ATORVASTATIN 40 MG TAB PO SCH (09:00)
[2020-07-07] MEDS ORDERED: ASPIRIN 81 MG ECTAB PO SCH (09:00)
[2020-07-07] MEDS ORDERED: ASPIRIN 325 MG ECTAB PO SCH (09:00)
[2020-07-07] MEDS ORDERED: CLOPIDOGREL BISULFATE 75 MG TAB PO SCH (09:00)
[2020-07-07 09:23] LABS: Vitamin D, 25 Hydrox 11.3 ng/ml (30-100)
[2020-07-07] MEDS: PANTOprazole 40 MG TAB PO SCH (09:49)
[2020-07-07] MEDS: ACETAMINOPHEN 325 MG TAB PO PRN ×2 (09:53→20:45)
[2020-07-07 10:03] LABS: Act87 Hepatitis C IgG Screen Neg (Neg)
--- NOTE | 2020-07-07 10:52 | Gastrointestinal Consultation ---
Date of Consultation July 07, 2020 Assessment & Plan (1) Pancreatic mass: (2) Lung metastases: (3) Liver metastases: Pt is a 74 y/o male w visual changes, found to have multiple R brain infarcts; noted LFTs up w symptoms of abd discomfort, weight loss - CT study revealed pancreas body mass w suspected liver, lung metastasis. - NPO after midnight, we will arrange EUS guided FNA of pancreas mass on 07/08 - He has been refusing Plavix in anticipation for diagnostic biopsies. Will hold this med for now. Hold ASA tomorrow morning. - Neurology and Vascular Sx consulted - Will consult Anesthesia for EUS pre op assessment Supervising Physician Co-Signing Physician Notes Late entry: Patient was seen and examined on 07/07 with PIPO Alcantar whose note reflects our findings and plan. Patient with a h/o pancreatitis years ago. Now admitted with stroke symptoms and found to have pancreatic mass with lesions in the liver and lungs as well. Discussed biopsy for tissue diagnosis to further guide management. High risk but will guide care. Arrangements being made for EUS guided biopsy in the OR Mon. History of Present Illness Reason for Consultation: Elevated LFTs, pancreatic mass w liver/lung met Requesting Physician: Dr. 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 Workup there w CTA head/neck showed L carotic artery narrowing w multifocal intracranial atherosclerosis w/o obvious occlusion. He had elevated LFTs and troponin prompting CT chest/abd/pelvis which showed multiple bilateral lung lesions, liver lesions and 3.7 x 2.8 cm pancreatic body mass w several lymphadenopathies on upper abd, retroperitoneum, pancreatic primary malignancy suspected. He also had findings of irregular wall thickening of proximal descending colon and L inguinal hernia. He sign out AMA from there and went to [facility] ED CXR here showed multiple lung nodules. Brain MRI w small scattered acute infarcts seen within the right occipital lobe, right medial cerebellum, and right frontal lobe w/o significant mass effect/midline shift, + mild atrophy and microvascular ischemic changes. No DVTs on legs. H/H 1032. LFTs still elevated: Tbili 1.2, AST 87/ALT 100, Alk phos 296.Troponin and CRP up. He was recommended to start ASA and Plavix by Neurology. However refusing Plavix in anticipation for diagnostic biopsy plans. He reports no dizziness, HAs, CP, SOB. He does c/o generalized abd pressure but no n/v, bowel habit changes, GI bleeding signs. + 15-20lbs weight loss in last 3 months. Hx of pancreatitis in 2018, f/u outpt EUS recommended but never followed up + ETOH, tobacco uses. No NSAIDs Allergies Allergy/AdvReac Type Severity Reaction Status Date / Time No Known Allergies Allergy Unverified 07/06/20 14:19 Home Medications Medication Instructions Recorded Confirmed Type aspirin 325 mg PO DAILY 07/06/20 07/06/20 History lisinopril 20 mg PO DAILY 07/06/20 07/06/20 History Patient History Medical History HTN (hypertension) Surgical History History of inguinal hernia repair History of umbilical hernia repair Social History Smoking Status: Current every day smoker Cigarettes Per Day: 6; Hx Alcohol Use: Yes Alcohol type: beer Alcohol Intake Frequency: 2-3 x/Week Hx Substance Use: Yes (in past when he was in college) Prescribed Medications: Marijuana Preferred Language: Maltese Communication Ability: Effective Beliefs That Will Affect Care: None marital status: Current Living Situation: Spouse Current Living Situation Comment: current occupational status: retired current occupation: general surgeon Other Information That Helps Us Care for You: No Feels Safe at Home: Yes Safety Concerns: Feels Safe At This Time Assistive Devices: Contacts and Glasses Review of Systems Review of Systems: All systems reviewed & are unremarkable except as noted in HPI & below Physical Exam Constitutional: WD/WN, vitals as above well groomed, cooperative and comfortable Eyes: PERRL, conjunctivae normal, anicteric sclerae ENMT: external ear and nose normal, oropharynx normal Respiratory: normal respiratory effort, lungs clear to auscultation Cardiovascular: RRR, no murmur, no edema Gastrointestinal (Abdomen): Inspection/Auscultation: + abdomen distended (mild) and + hypoactive bowel sounds Percussion/Palpation: + abdomen tender (mild) and abdomen soft Skin: no rashes, warm and dry no jaundice Psychiatric: A+Ox3, euthymic affect Lymphatic: no lymphedema Results & Data ([facility]) Vital Signs (Past 12 Hours) Vital Signs Temp Pulse Pulse Pulse Resp BP BP 07/07/20 07:19 37.9 C H 83 18 133/85 07/07/20 03:23 37 C 80 16 109/75 07/07/20 02:01 88 07/06/20 23:32 37.0 C 88 16 113/62 Pulse Ox 07/07/20 07:19 91 07/07/20 03:23 97 07/07/20 02:01 07/06/20 23:32 93
[2020-07-07] MEDS ORDERED: oxyCODONE HCL SOLN 5 MG/5 ML UDC PO PRN (11:31)
--- NOTE | 2020-07-07 12:07 | Electrocardiogram Report ---
Test Reason : Blood Pressure : / mmHG Vent. Rate : 085 BPM Atrial Rate : 085 BPM P-R Int : 138 ms QRS Dur : 126 ms QT Int : 396 ms P-R-T Axes : 062 -49 032 degrees QTc Int : 471 ms Poor data quality, interpretation may be adversely affected Sinus rhythm with Premature atrial complexes in a pattern of bigeminy Left axis deviation Right bundle branch block possible Inferior infarct (cited on or before 13-SEP-2017) Abnormal ECG When compared with ECG of 06-JUL-2020 12:01, No significant change was found Confirmed by Americo Najera ([id number] on 07/07/2020 12:07:06 PM Referred By: REFERRED SELF Confirmed By:Silver Najera
--- NOTE | 2020-07-07 13:00 | Hospitalist Progress Note ---
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 Initial work-up initiated yesterday, 07/05/2020 in [place] ER for strokelike symptoms. CTA of head and neck were performed which revealed high-grade stenosis of the left internal carotid artery at its origin. No evidence of acute thrombotic event on CT. Admission was recommended but patient signed out AMA. Symptoms continue to persist he will be admitted for strokelike work-up. Please refer to HPI for full details regarding ER evaluation in [place] on 07/05/2020. Vascular surgery was consulted Acute stroke-multifocal likely secondary to embolic episode Admitted yesterday ,07/06/2020 with ongoing visual symptoms but did not have any other neurological deficit MRI did show multiple small scattered acute infarcts within the right occipital lobe, right medial cerebellum and right frontal lobe Discussed with neurosurgery and was advised to put him on oral aspirin and Plavix He has been refusing Plavix since this morning and not happy about reducing the dose of aspirin from 325 to 81 mg He denies any more acute symptoms and/or new symptoms He will have echocardiogram -EF was 60 to 65%, LV wall motion is normal, severe calcification of the anterior mitral valve annulus, no mitral valve stenosis, significant mitral regurgitation is absent, mild tricuspid regurgitation and there is no pericardial effusion. PT and OT has been requested (3) Pancreatic mass: CT scan of the abdomen and pelvis did show irregular pancreatic mass 3.7 x 2.8 cm and also hepatic and lung mets Tumor markers will be sent-CA 199, CEA Appreciate GI input and recommendation Scheduled for EUS tomorrow on 07/08/2020 (4) Liver metastases: (5) Lung metastases: (6) Elevated LFTs: found CT a/p with evidence of mets to liver, lung and Multiple enlarged lymph nodes in the upper abdomen and retroperitoneum Pancreatic mass irregular 3.7 x 2.8 cm low-density mass in distal pancreatic body Consult Gastroenterology NPO after midnight trend LFTS-minimally better (7) Elevated troponin: stable from yesterday in [place] ED no c/o chest pain, ecg reviewed obtain echocardiogram possibly in setting of acute embolic event vs underlying malignancy vs ckd, monitor Per our radiology staff after reviewing CTA from yesterday there is questionable subsegmental PE pt is not agreeable to further contrast given done yesterday He is not hypoxic b/l venous duplex-negative for any DVT Lovenox for ppx for now (8) CKD (chronic kidney disease) stage 3, GFR 30-59 ml/min: baseline 1.2 avoid nephrotoxic agents Kidney function remains at baseline (9) HTN (hypertension): BP elevated in ED hold lisinopril for now pending stroke w/u permissive HTN allowed Blood pressure seems to be well controlled (10) Hypercalcemia: correct ca 10.9, possibly due to underlying malignancy check PTH, pth peptide and vit d in a.m. Reverted to normal (11) Elevated C-reactive protein (CRP): elevated ESR/CRP ? in setting of underlying malignancy monitor Hypoalbuminemia likely due to weight loss pre albumin, consult dietary (12) DVT prophylaxis: Question of subsegmental pulmonary embolism any scan from [place] without any evidence of DVTs. SQ Lovenox-prophylactic dose for now Dispo: PCU FULL CODE PCP: None Admission and Anticipated Discharge Date Admission Date: July 06, 2020 Subjective 07/07/2020 The patient was seen and examined in telemetry unit He has been complaining of abdominal discomfort without any nausea and or vomiting He still has that left visual field loss of vision Denies any other neurological symptoms Review of Systems Review of Systems: All systems reviewed and are unremarkable except as noted below Neurologic: Left visual field loss of vision. Physical Exam Physical Exam: The patient was examined in telemetry unit sitting on a chair without any significant distress Constitutional: well developed, well nourished and + ill appearing Eyes: PERRL, conjunctivae normal, anicteric sclerae ENMT: external ear and nose normal, oropharynx normal Neck: trachea midline, no thyromegaly Respiratory: no respiratory distress Auscultation: lungs clear to auscultation bilaterally Cardiovascular: Rate/Rhythm: regular rate and regular rhythm Heart Sounds: no murmur Extremities: no edema Gastrointestinal (Abdomen): Inspection/Auscultation: normal bowel sounds; abdomen not distended Percussion/Palpation: + abdomen tender (Upper quadrants), abdomen soft and + hepatomegaly (Nodular); no guarding and abdomen not rigid Musculoskeletal: No acute arthritis in any joint Neurologic: patellar DTR's 2+ bilat, sensation intact Speech / Cognition: normal speech Motor/Sensory: no tremor Cranial Nerves: sense of smell intact Left-sided visual field vision loss Psychiatric: A+Ox3, euthymic affect Lymphatic: no cervical or axillary lymphadenopathy Results & Data Results & Data ([facility]) Vital Signs (Past 12 Hours) Vital Signs Temp Pulse Pulse Pulse Resp BP BP 07/07/20 11:55 36.9 C 86 19 118/75 07/07/20 08:00 82 07/07/20 07:19 37.9 C H 83 18 133/85 07/07/20 03:23 37 C 80 16 109/75 07/07/20 02:01 88 Pulse Ox 07/07/20 11:55 95 07/07/20 08:00 07/07/20 07:19 91 07/07/20 03:23 97 07/07/20 02:01 Laboratory Results Short CBC 07/06/20 07/07/20 Range/Units 13:29 05:15 WBC 14.01 H 10.60 (4.8-10.8) K/uL Hgb 11.8 L 10.6 L (14.0-18.0) g/dL Hct 35.3 L 32.4 L (42-52) % Plt Count 180 160 (130-400) K/uL BMP 07/06/20 07/07/20 13:29 05:15 Sodium 138 140 Potassium 4.2 4.0 Chloride 103 107 Carbon Dioxide 29 29 BUN 16 19 H Creatinine 1.26 1.14 Glucose 108 H 129 H Calcium 9.8 8.1 L D Cardiac Enzymes 07/06/20 Range/Units 13:29 Troponin I 0.057 H* (0-0.045) ng/ml Liver Function 07/06/20 07/07/20 Range/Units 13:29 05:15 Total Bilirubin 2.1 H 1.1 H (0.2-1) mg/dl Direct Bilirubin 1.3 H (0-0.2) mg/dl AST 95 H 87 H (15-37) U/L ALT 123 H 100 H (12-78) U/L Alkaline Phosphatase 361 H 296 H (45-117) U/L Albumin 2.6 L 2.2 L (3.4-5.0) gm/dl Urine 07/06/20 Range/Units 14:10 Urine Color Dark Yellow Urine Appearance Clear (Clear) Urine pH 6.0 (4.5-7.5) Ur Specific [place] 1.016 (1.000-1.030) Urine Protein Trace H (Negative) Urine Glucose (UA) Negative (Negative) Medications Administered Current Inpatient Medications Acetaminophen (Acetaminophen 325 Mg Tab) 650 mg PO Q4H PRN PRN Reason: Pain or Fever Stop: 08/05/20 16:52 Last Admin: 07/07/20 09:53 Dose: 650 mg Documented by: Al Hydrox/Mg Hydrox/Simethicone (Aluminum/Magnesium Susp 30 Ml Udc) 15 ml PO Q4H PRN PRN Reason: Dyspepsia Stop: 08/05/20 16:52 Clopidogrel Bisulfate (Clopidogrel Bisulfate 75 Mg Tab) 75 mg PO QAM CODI Stop: 08/06/20 08:59 Last Admin: 07/07/20 10:03 Dose: Not Given Documented by: Enoxaparin Sodium (Enoxaparin Inj 40 Mg/0.4 Ml Syr) 40 mg SQ HS CODI Stop: 08/05/20 20:59 Last Admin: 07/06/20 22:15 Dose: 40 mg Documented by: Labetalol HCl (Labetalol Hcl Iv 5 Mg/Ml 20ml) 5 mg IV Q6H PRN PRN Reason: SBP > 180; DBP > 100 Stop: 08/05/20 17:59 Last Admin: 07/06/20 19:39 Dose: 5 mg Documented by: Magnesium Hydroxide (Magnesium Hydroxide Susp 30 Ml Udc) 30 ml PO Q12H PRN PRN Reason: Constipation Stop: 08/05/20 16:52 Miscellaneous Information (Pharmacist Discharge Med Rec Consult) 1 ea N/A UD PRN PRN Reason: Consult Stop: 08/05/20 16:52 Ondansetron HCl (Ondansetron Inj 2 Mg/Ml 2 Ml Vial) 4 mg IV Q6H PRN PRN Reason: Nausea Stop: 08/05/20 16:52 Oxycodone HCl (Oxycodone Hcl Soln 5 Mg/5 Ml Udc) 5 mg PO Q4H PRN PRN Reason: Pain Stop: 07/21/20 11:30 Pantoprazole Sodium (Pantoprazole 40 Mg Tab) 40 mg PO QAM [facility] Stop: 08/06/20 08:59 Last Admin: 07/07/20 09:49 Dose: 40 mg Documented by: Polyethylene Glycol (Polyethylene (Miralax) 17 Gm Pack) 17 gm PO DAILY PRN PRN Reason: Constipation Stop: 08/05/20 16:52 Psyllium Hydrophilic Mucilloid (Psyllium 58.6% Powder Packet) 1 pkt PO QAM [facility] Stop: 08/07/20 08:59
--- NOTE | 2020-07-07 13:26 | Consultation ---
Date of Consultation July 07, 2020 Assessment & Plan (1) Stenosis of left internal carotid artery: Pt discussed with Dr Marin. Pt with asymptomatic LICA stenosis of approx 80%. Not likely cause of his right sided cerebellar/ occipital/ R frontal CVA. Recommend pt undergo evaluation of pancreatic/liver/lung lesions and plavix be initiated when safe after bx. Will reeval pt in office in a few weeks to determine whether he will benefit from elective L CEA in veiw of his other diagnosies. Pt is agreeable to this plan. Patient was seen, examined, and chart reviewed. Agree with exam and treatment plan of the Vascular PA. History of Present Illness Reason for Consultation: LICAS Attending Physician: Benigno Collins MD History of Present Illness 74 yo m with hx of spinal stenosis, CKD, HTN, admitted with BL L visual field loss and CVA, seen in consultation today for LICAS noted on CTA neck/head. Imaging was done at outside facility, but images were loaded into PACs here for review. Pt developed visual field loss 2 days ago and was seen at hospital in [place], but signed out to come home for admission to [facility] yesterday. Pt states he also felt as if he was listing to the left yesterday, but not anymore. Visual field loss is still present. Pt denies similar sx in past. Denies extremity weakness numbness or tingling, facial droop, difficulty speaking, ARIZA. Does admit some mild aching abd pain and some unintended weight loss over past few months. Pt also with pancreatic lesion and lung/liver lesions concerning for mets, just discovered since admission. Pt to undergo bx of these lesions soon. Denies fever, chest pain, SOB, N/V, rest pain, claudication, other complaints. CTA neck demonstrates approx 80% stenosis of L ICA. MRI demonstrates R sided cerebellar/occipital/frontal CVA. Allergies Allergy/AdvReac Type Severity Reaction Status Date / Time No Known Allergies Allergy Unverified 07/06/20 14:19 Home Medications Medication Instructions Recorded Confirmed Type aspirin 325 mg PO DAILY 07/06/20 07/06/20 History lisinopril 20 mg PO DAILY 07/06/20 07/06/20 History Patient History Medical History HTN (hypertension) Surgical History History of inguinal hernia repair History of umbilical hernia repair Social History Smoking Status: Current every day smoker Cigarettes Per Day: 6; Hx Alcohol Use: Yes Alcohol type: beer Alcohol Intake Frequency: 2-3 x/Week Hx Substance Use: Yes (in past when he was in college) Prescribed Medications: Marijuana Preferred Language: [place] Communication Ability: Effective Beliefs That Will Affect Care: None marital status: Current Living Situation: Spouse Current Living Situation Comment: current occupational status: retired current occupation: general surgeon Other Information That Helps Us Care for You: No Feels Safe at Home: Yes Safety Concerns: Feels Safe At This Time Assistive Devices: Contacts and Glasses Review of Systems Review of Systems: All systems reviewed & are unremarkable except as noted in HPI & below Physical Exam Constitutional: WD/WN, vitals as above healthy appearing, cooperative and comfortable; not in distress Eyes: PERRL, conjunctivae normal, anicteric sclerae ENMT: Ears: no hearing impairment Neck: trachea midline Respiratory: normal respiratory effort, lungs clear to auscultation Auscultation: + diminished lung sounds Cardiovascular: RRR, no murmur, no edema Vessels: posterior tibial pulses present, dorsalis pedis pulses present and radial pulses present; + abnormal peripheral pulses Extremities: normal capillary refill; no edema Gastrointestinal (Abdomen): normal bowel sounds, soft, nontender, no hepatosplenomegaly Musculoskeletal: no cyanosis or clubbing, extremities motor strength 5/5 Skin: no rashes, warm and dry Neurologic: moves all extremities and awake; no focal motor deficits and not confused Psychiatric: A+Ox3, euthymic affect Results & Data ([facility]) Vital Signs (Past 12 Hours) Vital Signs Temp Pulse Pulse Pulse Resp BP BP 07/07/20 11:55 36.9 C 86 19 118/75 07/07/20 08:00 82 07/07/20 07:19 37.9 C H 83 18 133/85 07/07/20 03:23 37 C 80 16 109/75 07/07/20 02:01 88 Pulse Ox 07/07/20 11:55 95 07/07/20 08:00 07/07/20 07:19 91 07/07/20 03:23 97 05/18/21 02:01
--- NOTE | 2020-07-07 15:40 | Communication Note ---
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 He underwent CT angiography which showed a high-grade 80% left internal carotid artery stenosis and a vertebral artery stenosis and some scattered intracranial atherosclerotic disease and a CAT scan showed some patchy white matter changes but an MRI was not done CT of the chest abdomen pelvis showed a pancreatic mass with problem metastatic deposits in the liver and lungs and there was some question about a small pulmonary embolism This occurred in the setting of longstanding hypertension spinal stenosis with a left foot drop and with a 15 to 20 pound weight loss over the past several months without any particular abdominal complaints and without jaundice Home medications include only aspirin which he just been started at 325 mg a day and lisinopril 20 mg a day but he never taken any lipid-lowering agents or any other medications for diabetes or other vascular issues and was not on any pain medications 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[place] but 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 life in [place] and then went to the [facility] arrangement for multiple years and is now on a part-time arrangement with [facility] He is a non-smoker minimal consumer of ethanol He did have an episode of pancreatitis for which she was seen here in 2018 and had inflammatory changes in the tail of the pancreas that was not followed up with EGD that was recommended at that point Has had no recurrent pancreatitis as far as I can tell her in systems review with the exception of the weight loss is pretty unremarkable and specifically reveals no usual issues other than the recent field cut no auditory problems no problems with swallowing speech hearing no tinnitus no cardiovascular pulmonary gastrointestinal genitourinary musculoskeletal issues other than the weight loss and the lumbar stenosis with a partial left foot drop On exam today blood pressure 118/75 pulse 86 respiration 19 he is awake alert oriented in 3 spheres and is a quite accurate historian and seems to comprehend the gravity of his situation. He does have a incongruous left inferior quadrantanopia on confrontation obviously affecting the left more than the right due to the nasal field interference I do not see any facial asymmetry speech is clear there is no drift or pronation sign no tremor or tics or choreiform activity strength testing appears to be grossly intact and sensory examination is grossly normal although was not performed any detail MRI scans have subsequently documented the presence of multiple areas of presumptive embolic infarction in the rigt deep cerebellum, righ occipital lobe and in the right frontal lobe and there is significantly no evidence for similar events on the left ipsilateral to the side of the high-grade carotid artery st enosis of about 80%. Echocardiography is pending Laboratory studies have shown some elevation in CRP and white count Imaging studies have been reviewed by gastroenterology and is on deck for a biop sy of the pancreatic mass Plavix has been held due to the need for surgical intervention biopsy and he continues to take low-dose aspirin The diagnosis in my opinion is underlying pancreatic carcinoma now metastatic with probable hypercoagulability not uncommon in what I think is going to prove to be an adenocarcinoma and possibly with some associated nonbacterial thrombotic endocarditis as a cause for the presumptive multiple emboli involving right frontal and right cerebellum and occipital lobes The echo may well not see vegetations but would not eliminate the diagnosis Once the biopsy is done and diagnosis is established and the plan of treatment is underway I think he should be back on dual antiplatelet agents with aspirin and Plavix. Unless we see something on the heart valves that would prompt cardiology to suggest Eliquis I am not sure I see a role for that particular entity at this point He is on heparin at this point because of a presumptive pulmonary embolism and has had I think a negative venous Doppler study of the lower extremities so I do not think we are dealing with DVT but I think oncology and his general practitioners are eventually going to have to wrestle with what kind of treatment to offer and whether or not he needs to be on an agent such as Coumadin or perhaps this would be justification for Eliquis To be stopping by periodically to visit and reviewed the chart but for now I think neurology does not have a major role to play here I would certainly welcome interacting with the other specialists to discuss anticoagulation options I agree that there is no role here for vascular surgery on acute basis Question was raised about whether he should be on lipid-lowering agents but frankly with the diagnosis likely being that of metastatic pancreatic CA I see no reason that we need to offer potentially complicating treatment for a long- term problem of dyslipidemia in a man whose prognosis I believe is limited Epifanio Hastings MD
[2020-07-07] MEDS ORDERED: Nursing to Pharmacy Communication SCH (18:45)
[2020-07-07] MEDS ORDERED: oxyCODONE HCL IR 5 MG TAB (IMMEDIATE RELEASE) PO PRN (18:47)
[2020-07-07] MEDS ORDERED: CALCIUM CARBONATE 500 MG CHEWABLE TAB PO PRN (18:58)
[2020-07-07] MEDS: NSS + 20MEQ KCL 20 MEQ/1,000 ML BAG IV SCH (20:45)
[2020-07-07] MEDS: ENOXAPARIN INJ 40 MG/0.4 ML SYR SQ SCH (20:46)
--- NOTE | 2020-07-07 20:59 | Anesthesiology Consultation ---
Date of Service July 07, 2020 Assessment & Plan Chart Review Chart Review: Acceptable Risk for Surgery and Patient NOT seen in Pre Admission Testing History Surgery Operation Date: 07/08/20 07:00 Proposed Procedures p Endoscopic Ultrasonography Upper - Alize Chatman MD Height/Weight Height: 5 ft 10 in Weight: 83.9 kg Allergies Allergy/AdvReac Type Severity Reaction Status Date / Time No Known Allergies Allergy Unverified 07/06/20 14:19 Medications Home Medications Medication Instructions Recorded Confirmed Last Taken aspirin 325 mg PO DAILY 07/06/20 07/06/20 07/06/20 lisinopril 20 mg PO DAILY 07/06/20 07/06/20 07/06/20 Active Medications Generic Name Dose Route Start Last Admin Trade Name Freq PRN Reason Stop Dose Admin Acetaminophen 650 mg 07/06/20 16:53 07/07/20 20:45 Acetaminophen 325 Mg Tab PO 08/05/20 16:52 650 mg Q4H PRN Administration Pain or Fever Clopidogrel Bisulfate 75 mg 07/07/20 09:00 07/07/20 10:03 Clopidogrel Bisulfate 75 Mg Tab PO 08/06/20 08:59 Not Given QAM CODI Enoxaparin Sodium 40 mg 07/06/20 21:00 07/07/20 20:46 Enoxaparin Inj 40 Mg/0.4 Ml Syr SQ 08/05/20 20:59 40 mg HS CODI Administration Potassium Chloride/Sodium Chloride 20 meq in 1,000 mls @ 100 mls/hr 07/07/20 19:30 07/07/20 20:45 Normal Saline W/20 Meq Kcl IV 07/08/20 15:29 100 mls/hr .Q10H CODI Administration Labetalol HCl 5 mg 07/06/20 17:53 07/06/20 19:39 Labetalol Hcl Iv 5 Mg/Ml 20ml IV 08/05/20 17:59 5 mg Q6H PRN Administration SBP > 180; DBP > 100 Oxycodone HCl 5 mg 07/07/20 18:47 07/07/20 18:50 Oxycodone Hcl Ir 5 Mg Tab (Immediate Release) PO 07/21/20 18:46 5 mg Q4H PRN Administration Pain Pantoprazole Sodium 40 mg 07/07/20 09:00 07/07/20 09:49 Pantoprazole 40 Mg Tab PO 08/06/20 08:59 40 mg QAM CODI Administration Past Medical History Medical History HTN (hypertension) Past Surgical History Surgical History History of inguinal hernia repair History of umbilical hernia repair Social History Smoking Status: Current every day smoker tobacco type: cigarettes Smoking cigarettes per day: 6 Hx Alcohol Use: Yes Alcohol type: beer alcohol intake frequency: a few times a week Hx Substance Use: Yes (in past when he was in college) Physical Exam Vital Signs Last Vital Signs Temp 38.0 C H 07/07/20 19:49 Pulse 84 07/07/20 19:49 Resp 16 07/07/20 19:49 BP 123/73 07/07/20 19:49 Pulse Ox 97 07/07/20 19:49 Testing Laboratory Results 07/07/20 05:15 07/07/20 05:15 PT 12.2 Seconds (9.0-12.0) H 07/06/20 13:29 INR 1.2 (0.9-1.1) H 07/06/20 13:29 Hemoglobin A1c 6.5 % (4.5-5.6) H 07/07/20 05:15 Urine Color Dark Yellow 07/06/20 14:10 Urine Appearance Clear (Clear) 07/06/20 14:10 Urine pH 6.0 (4.5-7.5) 07/06/20 14:10 Ur Specific [place] 1.016 (1.000-1.030) 07/06/20 14:10 Urine Protein Trace (Negative) H 07/06/20 14:10 Urine Glucose (UA) Negative (Negative) 07/06/20 14:10 Urine Ketones Negative (Negative) 07/06/20 14:10 Urine Nitrite Negative (Negative) 07/06/20 14:10 Ur Leukocyte Esterase Negative (Negative) 07/06/20 14:10 Urine WBC (Auto) 1-5 /hpf (0-5) 07/06/20 14:10 Urine RBC (Auto) 0-4 /hpf (0-4) 07/06/20 14:10 U Hyaline Cast (Auto) 1-5 /lpf (0-5) 07/06/20 14:10 U Epithel Cells (Auto) 5-10 /lpf (0-5) H 07/06/20 14:10 Urine Bacteria (Auto) Negative (Negative) 07/06/20 14:10
[2020-07-07] MEDS ORDERED: HYDROmorphone INJ 0.5 MG/0.5 ML SYR IV STA (23:05)
[2020-07-08] MEDS ORDERED: HYDROmorphone INJ 0.5 MG/0.5 ML SYR IV STA (04:36)
[2020-07-08] MEDS ORDERED: HYDROmorphone INJ 0.5 MG/0.5 ML SYR ONE (04:40)
[2020-07-08 05:38] LABS: Basophils # (auto) 0.02 K/uL (0-0.2); Basophils % (auto) 0.2 %; Eosinophils % (auto) 3.3 %; Hematocrit (blood only) 33.2 % (42-52); Hemoglobin 10.9 g/dL (14.0-18.0); Immature Granulocytes % (auto) 0.8 %; Lymphocytes # (auto) 1.52 K/uL (1.2-3.4); Lymphocytes % (auto) 12.4 %; Mean Corpuscular Hemoglobin 30.8 pg (25-34); Mean Corpuscular Hgb Conc 32.8 g/dL (32-36); Mean Corpuscular Volume 93.8 fL (80-100); Mean Platelet Volume 10.2 fL (7.4-10.4); Monocytes # (auto) 1.53 K/uL (0.11-0.59); Monocytes % (auto) 12.5 %; Neutrophils # (auto) 8.67 K/uL (1.4-6.5); Neutrophils % (auto) 70.8 %; Platelet Count 148 K/uL (130-400); RDW Coefficient of Variation 13.1 % (11.5-14.5); RDW Standard Deviation 45.1 fL (36.4-46.3); Red Blood Count 3.54 M/uL (4.7-6.1); White Blood Count 12.24 K/uL (4.8-10.8)
[2020-07-08 05:50] LABS: INR 1.2 (0.9-1.1); Prothrombin Time 12.1 Seconds (9.0-12.0)
[2020-07-08 06:00] LABS: Albumin Globulin Ratio 0.6 (0.9-2); Albumin Level 2.1 gm/dl (3.4-5.0); BUN Creatinine Ratio 19.4 (10-20); Bilirubin,Total 1.5 mg/dl (0.2-1); Calcium 7.9 mg/dl (8.5-10.1); Creatinine Clr Calc Pharmacy 61.4 ml/min; Est GFR (African American) 77.1 ml/min; Est GFR (Non-African American) 66.5 ml/min; Globulin 3.4 gm/dl (2.5-4.0); Magnesium 2.1 mg/dl (1.8-2.4); Phosphorus 2.7 mg/dl (2.5-4.9); Potassium 4.8 mmol/L (3.5-5.1); Total Protein 5.5 gm/dl (6.4-8.2)
--- NOTE | 2020-07-08 08:33 | Gastroenterology Progress Note ---
Date of Service July 08, 2020 Assessment & Plan (1) Pancreatic mass: (2) Lung metastases: (3) Liver metastases: Pt is a 74 y/o male w visual changes, found to have multiple R brain infarcts; noted LFTs up w symptoms of abd discomfort, weight loss - CT study revealed pancreas body mass w suspected liver, lung metastasis. - Keep NPO for EUS this afternoon in OR by Dr. Chatman - Plavix and ASA had been held. - Further rec after EUS completed Admission and Anticipated Discharge Date Admission Date: July 06, 2020 Supervising Physician Co-Signing Physician Notes I performed a history and physical examination of the patient today, including specifically on physical exam - soft abdomen. I have discussed the patient's management with the advanced practitioner. Please refer to the nurse practitioner's note for the documented findings and plan of care. EUS and ERCP today for pancreas mass and possible biliary obstruction. Patient was explained in detail regarding risks, benefits, limitations and alternatives of the above endoscopic procedure. Risks of intravenous sedation used for procedure were also explained. Risks include, but not limited to perforation, bleeding, infection, respiratory distress, cardiac arrest and . Patient is also aware about the possibility of missed lesion. Patient's questions were answered. The patient verbalized understanding the information and agreed to undergo the procedure. Subjective Pt reports abd pain overnight needing more pain medication. Denies n/v. Passing flatus and had BM yesterday w/o signs of GI bleeding Review of Systems Review of Systems: All systems reviewed & are unremarkable except as noted in HPI & below Physical Exam Constitutional: WD/WN, vitals as above well groomed, cooperative and comfortable Eyes: PERRL, conjunctivae normal, anicteric sclerae ENMT: external ear and nose normal, oropharynx normal Respiratory: normal respiratory effort, lungs clear to auscultation Cardiovascular: RRR, no murmur, no edema Gastrointestinal (Abdomen): Inspection/Auscultation: + abdomen distended (mild) and + hypoactive bowel sounds Percussion/Palpation: + abdomen tender (mild) and abdomen soft Skin: no rashes, warm and dry no jaundice Psychiatric: A+Ox3, euthymic affect Lymphatic: no lymphedema Results & Data ([facility]) Vital Signs (Past 12 Hours) Vital Signs Temp Pulse Pulse Resp BP Pulse Ox 07/08/20 07:01 37.1 C 85 17 125/78 92 05/19/21 00:08 92 H 07/07/20 22:26 37.6 C H 87 20 133/85 92
[2020-07-08] MEDS: NSS + 20MEQ KCL 20 MEQ/1,000 ML BAG IV SCH (09:09)
--- NOTE | 2020-07-08 10:26 | XRay Report ---
XR chest 2V PA/lateral HISTORY: 74 years-old Male Hypoxia acute hypoxia COMPARISON: Chest radiograph 07/06/2020, CT chest, abdomen and pelvis 07/05/2020. TECHNIQUE: PA and lateral views of the chest. FINDINGS: Cardiac mediastinal and hilar silhouettes are within normal limits. Calcified plaque of the thoracic aorta. No pneumothorax, large pleural effusion or overt pulmonary edema. Numerous bilateral tiny pulm onary nodules redemonstrated. Degenerative changes of the shoulders and spine. IMPRESSION: 1. No acute process. 2. Numerous bilateral pulmonary nodules compatible with metastasis are better characterized on compar ricky chest CT. ACT 112: Negative or not required by law. The above report was generated using voice recognition software. It may contain grammatical, syntax o r spelling errors. Electronically signed by: Garcia Metzger M.D. 07/08/2020 10:24 AM
[2020-07-08] MEDS ORDERED: DOCUSATE SODIUM 100 MG CAP PO PRN (10:54)
[2020-07-08] MEDS: PSYLLIUM 58.6% POWDER PACKET PO SCH (10:55)
[2020-07-08] MEDS: PANTOprazole 40 MG TAB PO SCH (10:55)
[2020-07-08] MEDS ORDERED: MIDAZOLAM HCL 1 MG/ML 2ML VIAL ONE (12:38)
[2020-07-08] MEDS ORDERED: PROPOFOL IV EMULSION 10 MG/ML 20 ML VIAL IV ONE (12:38)
[2020-07-08] MEDS ORDERED: DEXAMETHASONE SOD INJ 4 MG/ML VIAL ONE (12:38)
[2020-07-08] MEDS ORDERED: ONDANSETRON INJ 2 MG/ML 2 ML VIAL ONE ×2 (12:38→15:36)
[2020-07-08] MEDS ORDERED: fentaNYL citrate 100 MCG/2 ML VIAL ONE (12:38)
[2020-07-08] MEDS ORDERED: LIDOCAINE 2% 2 ML VIAL/AMP(20MG/ML) INFIL ONE (12:38)
[2020-07-08] MEDS ORDERED: SUCCINYLCHOLINE CHLORIDE 20 MG/ML 10 ML VIAL IV ONE (12:44)
[2020-07-08] MEDS ORDERED: ROCURONIUM BROMIDE 10 MG/ML 5 ML VIAL IV ONE (12:44)
[2020-07-08] MEDS ORDERED: ACETAMINOPHEN 1000 MG/100 ML IV IV ONE (12:47)
--- NOTE | 2020-07-08 12:51 | Electrocardiogram Report ---
Test Reason : Blood Pressure : / mmHG Vent. Rate : 088 BPM Atrial Rate : 088 BPM P-R Int : 124 ms QRS Dur : 124 ms QT Int : 404 ms P-R-T Axes : 056 -30 005 degrees QTc Int : 488 ms Normal sinus rhythm with sinus arrhythmia Left axis deviation Right bundle branch block possible Inferior infarct (cited on or before 13-SEP-2017) Abnormal ECG When compared with ECG of 07-JUL-2020 05:31, Premature atrial complexes are no longer Present Confirmed by Americo Najera ([id number]) on 07/08/2020 12:51:00 PM Referred By: REFERRED SELF Confirmed By:Silver Najera
--- NOTE | 2020-07-08 13:51 | Hospitalist Progress Note ---
Date of Service July 08, 2020 Assessment & Plan (1) Visual field loss: left-sided visual field vision loss Secondary to Acute CVA -MRI Brain:Multiple small scattered acute infarcts seen within the right occipital lobe, right medial cerebellum, and right frontal lobe. No significant mass effect or midline shift. Mild atrophy and microvascular ischemic changes. -Venous Doppler:No DVT within the right or left lower extremity. 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 Left internal carotid artery stenosis Initial work-up initiated on 07/05/2020 in [place] ER for strokelike symptoms. -CTA of head and neck were performed which revealed high-grade stenosis of the left internal carotid artery at its origin. Appreciate Vascular surgery Input Vascular surgery recommends elective left carotid endarterectomy Resume Aspirin as able--if OK with GI after the biopsy Started on Lipitor 40mg daily to keep LDL <70 Acute stroke Multifocal likely secondary to embolic episode -MRI as above -ECHO: Ejection fraction 60 to 65%. Left ventricle wall motion normal. Severe calcification of the anterior mitral annulus. There is no mitral valve stenosis. Significant mitral regurgitation is absent. There is mild tricuspid regurgitation. There is no pericardial effusion. -Prior hospitalist discussed with neurosurgery--who advised dual antiplatelet therapy with oral aspirin and Plavix Patient refused Plavix and prefers to continue Aspirin 325mg daily Denies any Focal weakness Appreciate Neurology Input PT/OT Resume Aspirin after the procedure if OK with GI Hypoxia CXR:No DVT within the right or left lower extremity. To Rule out PE Will obtain CTA if patient agrees Patient currently prefers to wait and decide Continue supplemental oxygen as needed Continue incentive spirometer (3) Pancreatic mass: CT scan of the abdomen and pelvis did show irregular pancreatic mass 3.7 x 2.8 cm and also hepatic and lung mets Tumor markers: CA 199 pending CEA:4.8 Appreciate GI input and recommendation Planned for EUS today (4) Liver metastases: (5) Lung metastases: (6) Elevated LFTs: CT with evidence of mets to liver, lung and Multiple enlarged lymph nodes in the upper abdomen and retroperitoneum Pancreatic mass irregular 3.7 x 2.8 cm low-density mass in distal pancreatic body Consulted Gastroenterology Monitor LFTs Needs follow up with Oncology upon discharge Need to start patient on Lovenox if patient agrees (7) Elevated troponin: Denies any chest pain Echo as above Prior hospitalist discussed with radiology staff: CTA questionable subsegmental PE Patient refusing CTA currently On Lovenox SQ (8) CKD (chronic kidney disease) stage 3, GFR 30-59 ml/min: Baseline: 1.09 Avoid nephrotoxic agents Monitor renal function (9) HTN (hypertension): BP stable Resume lisinopril as able Monitor (10) Hypercalcemia: Corrected Calcium:10.9, possibly due to underlying malignancy Low vitamin D levels Normal PTH PTH related peptide pending Continue IV fluids (11) Elevated C-reactive protein (CRP): Hypoalbuminemia Weight loss consult scheduling specialist (12) DVT prophylaxis: Resume SQ Lovenox as able Code Status FULL CODE Admission and Anticipated Discharge Date Admission Date: July 06, 2020 Subjective Patient is seen and examined at bedside States having abdominal pain requiring pain medications overnight, better this morning Developed hypoxia requiring 2 L of supplemental oxygen Also states having right subscapular pain Denies chest pain, dizziness, shortness of breath, nausea Planned for EUS today Review of Systems Review of Systems: All systems reviewed & are unremarkable except as noted in HPI & below Physical Exam Physical Exam: Physical Exam: Vitals signs as noted above General Appearance:Moderately built and nourished, no apparent distress Head: normocephalic, Atraumatic Eyes: normal inspection, EOMI Neck: supple, Trachea midline Respiratory/Chest: Decreased breath sounds, CTA, No accessory muscle use Cardiovascular: S1, S2, No murmur Abdomen/GI:Soft, RUQ, LUQ and Epigastric tender, mild distention, Bowel sounds present Extremities/Musculoskeletal:normal inspection, no edema Neurologic/Psych:AAOX3, grossly no focal neurological deficits Skin: normal color, warm Results & Data Results & Data ([facility]) Vital Signs (Past 12 Hours) Vital Signs Temp Pulse Resp BP BP Pulse Ox 07/08/20 11:11 37.0 C 80 17 138/90 97 07/08/20 07:01 37.1 C 85 17 125/78 92 Laboratory Results Short CBC 07/08/20 Range/Units 05:26 WBC 12.24 H (4.8-10.8) K/uL Hgb 10.9 L (14.0-18.0) g/dL Hct 33.2 L (42-52) % Plt Count 148 (130-400) K/uL BMP 07/08/20 05:26 Sodium 139 Potassium 4.8 D Chloride 109 H Carbon Dioxide 26 BUN 21 H Creatinine 1.09 Glucose 97 Calcium 7.9 L Liver Function 07/08/20 Range/Units 05:26 Total Bilirubin 1.5 H (0.2-1) mg/dl AST 109 H (15-37) U/L ALT 106 H (12-78) U/L Alkaline Phosphatase 331 H (45-117) U/L Albumin 2.1 L (3.4-5.0) gm/dl
[2020-07-08] MEDS ORDERED: CIPROFLOXACIN / D5W 400 MG/200 ML BAG IV STA (14:40)
--- NOTE | 2020-07-08 14:49 | Anesthesiology Consultation ---
Date of Service July 08, 2020 The patient is to undergo an EUS for diagnostic purposes. 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 He underwent multiple CT scans and was found to have a brain lesion as well as lung, liver, and pancreatic lesions. He drove himself back to [place] from [place] on 07/05/20. He has 80% stenosis of his left carotid. His troponin was slightly elevated as well. The patient refused a spiral CT to scan for PE. He is very sharp and would like to undergo an EUS to diagnose his likely underlying cancer. He understands that he is at an increased risk of stroke, PE, or cardiac complication. He accepts these risks and would like to proceed with enrique procedure. Assessment & Plan (1) Encounter for pre-operative examination: Chart Review Chart Review: Acceptable Risk for Surgery (elevated risk, but patient requests pancreatic mass diagnosis) and Patient NOT seen in Pre Admission Testing Consults Requested none History Surgery Operation Date: 07/08/20 13:00 Proposed Procedures p Endoscopic Ultrasonography Upper - Alize Chatman MD Height/Weight Height: 5 ft 10 in Weight: 84 kg Allergies Allergy/AdvReac Type Severity Reaction Status Date / Time No Known Allergies Allergy Unverified 07/06/20 14:19 Medications Home Medications Medication Instructions Recorded Confirmed Last Taken aspirin 325 mg PO DAILY 07/06/20 07/06/20 07/06/20 lisinopril 20 mg PO DAILY 07/06/20 07/06/20 07/06/20 Active Medications Generic Name Dose Route Start Last Admin Trade Name Freq PRN Reason Stop Dose Admin Acetaminophen 650 mg 07/06/20 16:53 07/07/20 20:45 Acetaminophen 325 Mg Tab PO 08/05/20 16:52 650 mg Q4H PRN Administration Pain or Fever Clopidogrel Bisulfate 75 mg 07/07/20 09:00 07/07/20 10:03 Clopidogrel Bisulfate 75 Mg Tab PO 08/06/20 08:59 Not Given QAM CODI Enoxaparin Sodium 40 mg 07/06/20 21:00 07/07/20 20:46 Enoxaparin Inj 40 Mg/0.4 Ml Syr SQ 08/05/20 20:59 40 mg HS CODI Administration Potassium Chloride/Sodium Chloride 20 meq in 1,000 mls @ 75 mls/hr 07/07/20 19:30 07/08/20 09:09 Normal Saline W/20 Meq Kcl IV 07/09/20 06:23 100 mls/hr .[id number] CODI Administration Labetalol HCl 5 mg 07/06/20 17:53 07/06/20 19:39 Labetalol Hcl Iv 5 Mg/Ml 20ml IV 08/05/20 17:59 5 mg Q6H PRN Administration SBP > 180; DBP > 100 Ondansetron HCl 4 mg 07/06/20 16:53 07/07/20 21:04 Ondansetron Inj 2 Mg/Ml 2 Ml Vial IV 08/05/20 16:52 4 mg Q6H PRN Administration Nausea Oxycodone HCl 5 mg 07/07/20 18:47 07/07/20 18:50 Oxycodone Hcl Ir 5 Mg Tab (Immediate Release) PO 07/21/20 18:46 5 mg Q4H PRN Administration Pain Pantoprazole Sodium 40 mg 07/07/20 09:00 07/08/20 10:55 Pantoprazole 40 Mg Tab PO 08/06/20 08:59 Not Given QAM CODI Psyllium Hydrophilic Mucilloid 1 pkt 07/08/20 09:00 07/08/20 10:55 Psyllium 58.6% Powder Packet PO 08/07/20 08:59 Not Given QAM CODI NPO Date Last Intake of Fluids: 07/07/20 Time Last Intake of Fluids: 18:00 Date Last Intake of Solids: 07/07/20 Time Last Intake of Solids: 18:00 Past Medical History Medical History Anemia Ataxia Elevated troponin HTN (hypertension) Liver metastases Lung metastases Spinal stenosis Stenosis of left internal carotid artery Past Surgical History Surgical History History of inguinal hernia repair History of umbilical hernia repair Social History Smoking Status: Current every day smoker tobacco type: cigarettes Smoking cigarettes per day: 6 Hx Alcohol Use: Yes Alcohol type: beer alcohol intake frequency: a few times a week Hx Substance Use: Yes (in past when he was in college) Physical Exam Vital Signs Last Vital Signs Temp 36.6 C 07/08/20 14:20 Pulse 75 07/08/20 14:20 Resp 20 07/08/20 14:20 BP 122/84 07/08/20 14:20 Pulse Ox 97 07/08/20 14:20 Testing Laboratory Results 07/08/20 05:26 07/08/20 05:26 PT 12.1 Seconds (9.0-12.0) H 07/08/20 05:26 INR 1.2 (0.9-1.1) H 07/08/20 05:26 Hemoglobin A1c 6.5 % (4.5-5.6) H 07/07/20 05:15 Urine Color Dark Yellow 07/06/20 14:10 Urine Appearance Clear (Clear) 07/06/20 14:10 Urine pH 6.0 (4.5-7.5) 07/06/20 14:10 Ur Specific [place] 1.016 (1.000-1.030) 07/06/20 14:10 Urine Protein Trace (Negative) H 07/06/20 14:10 Urine Glucose (UA) Negative (Negative) 07/06/20 14:10 Urine Ketones Negative (Negative) 07/06/20 14:10 Urine Nitrite Negative (Negative) 07/06/20 14:10 Ur Leukocyte Esterase Negative (Negative) 07/06/20 14:10 Urine WBC (Auto) 1-5 /hpf (0-5) 07/06/20 14:10 Urine RBC (Auto) 0-4 /hpf (0-4) 07/06/20 14:10 U Hyaline Cast (Auto) 1-5 /lpf (0-5) 07/06/20 14:10 U Epithel Cells (Auto) 5-10 /lpf (0-5) H 07/06/20 14:10 Urine Bacteria (Auto) Negative (Negative) 07/06/20 14:10 Electrocardiogram Findings: + RBBB NSR with sinus arrhythmia, rate 88, possible inferior infarct same as 2018 Chest X-Ray Date: 07/08/20 XR chest 2V PA/lateral HISTORY: 74 years-old Male Hypoxia acute hypoxia COMPARISON: Chest radiograph 07/06/2020, CT chest, abdomen and pelvis 07/05/2020. TECHNIQUE: PA and lateral views of the chest. FINDINGS: Cardiac mediastinal and hilar silhouettes are within normal limits. Calcified plaque of the thoracic aorta. No pneumothorax, large pleural effusion or overt pulmonary edema. Numerous bilateral tiny pulmonary nodules redemonstrated. D egenerative changes of the shoulders and spine. IMPRESSION: 1. No acute process. 2. Numerous bilateral pulmonary nodules compatible with metastasis are better characterized on comparison chest CT. ACT 112: Negative or not required by law. The above report was generated using voice recognition software. It may contain grammatical, syntax or spelling errors. Electronically signed by: Garcia Metzger M.D. 07/08/2020 10:24 AM Dictated: 07/08/20 1023Transcribed: 07/08/20 1023 Echocardiogram Date: 07/07/20 EF: 60-65 calcified mitral annulus, mild TR Other Testing Brain MRI WITH AND WITHOUT CONTRAST HISTORY: left visual field deficit (?b/l), ataxia to left TECHNIQUE: Multiplanar multisequence MRI of the brain was performed both before and after the intravenous administration of contrast. COMPARISON STUDY: Outside hospital Head and Neck CTA 07/05/2020. FINDINGS: Multiple small scattered foci of restricted diffusion seen within the right medial cerebellar hemisphere and right occipital lobe consistent with acute infarcts. There is also punctate focus of restricted diffusion seen within the right frontal white matter also consistent with acute infarct. These areas demonstrate small areas of cytotoxic edema without significant mass effect. There is no mass, hematoma, midline shift. The ventricles and sulci demonstrate mild age-related involutional changes. There are few scattered punctate foci of T2 hyperintensity seen within the paratracheal white matter. This favors mild microvascular ischemic change. Mild mucosal thickening and retention cyst seen within the maxillary sinuses. The mastoid air cells are clear. The major vascular flow voids at the skull base are well-maintained. The orbits are unremarkable. Postcontrast sequences show no areas of abnormal enhancement. IMPRESSION: 1. Multiple small scattered acute infarcts seen within the right occipital lobe, right medial cerebellum, and right frontal lobe. 2. No significant mass effect or midline shift. 3. Mild atrophy and microvascular ischemic changes. ACT 112: Negative or not required by law. Electronically signed by: Abiel Medellin M.D. 07/06/2020 5:08 PM Dictated: 07/06/20 [id number]
[2020-07-08] MEDS ORDERED: INDOMETHACIN 50 MG SUPP PR ONE (14:55)
[2020-07-08] MEDS ORDERED: LABETALOL HCL IV 5 MG/ML 20ML IV PRN (15:02)
[2020-07-08] MEDS ORDERED: ONDANSETRON INJ 2 MG/ML 2 ML VIAL IV PRN (15:02)
[2020-07-08] MEDS ORDERED: MEPERIDINE HCL 25 MG/ML CARP/VIAL IV PRN (15:02)
[2020-07-08] MEDS ORDERED: ePHEDrine sulfate 50 MG/ML AMP IV PRN (15:02)
[2020-07-08] MEDS ORDERED: PHENYLEPHRINE 100MCG/ML 5ML SYR IV PRN (15:02)
[2020-07-08] MEDS ORDERED: ATROPINE SULFATE 0.1 MG/ML 10ML SYR IV PRN (15:02)
[2020-07-08] MEDS ORDERED: fentaNYL citrate 100 MCG/2 ML VIAL IV PRN (15:02)
--- NOTE | 2020-07-08 15:04 | History & Physical Bridge Note ---
Date of Service July 08, 2020 History & Physical Bridge Note I have examined the patient, reviewed the History & Physical and in the interval since the performance of the History & Physical I have noted the following changes of clinical significance: no changes noted
[2020-07-08] MEDS ORDERED: LACTATED RINGER'S 1,000 ML IV SCH (15:11)
[2020-07-08] MEDS ORDERED: PHENYLEPHRINE HCL 10 MG/ML VIAL ONE (15:31)
[2020-07-08] MEDS ORDERED: ePHEDrine sulfate 50 MG/ML SYR ONE (15:32)
--- NOTE | 2020-07-08 16:06 | Operative Report ---
Post Operative Report Pre & Post Diagnosis Operation Date: 07/08/20 13:00 Pre-Op Diagnosis: pancreatic mass Post-Op Diagnosis: pancreatic mass with metastasis I identified the patient and participated in the time-out.: Yes Procedure Operation Date: 07/08/20 13:00 Actual Procedures p Endoscopic Ultrasonography, Upper; with biopsies(Not Applicable) - Alize Chatman MD Surgeon Alize Chatman MD [employer] None Estimated Blood Loss 0 Findings See Below (Pancreas mass with mets to LN and liver) Specimens panc mass Description of Procedure EUS I attest to the content of the Intraoperative Record and any orders documented therein. Any exceptions are noted below.
--- NOTE | 2020-07-08 16:17 | GI REPORT ---
Patient Name: Srinivas Yip Procedure Date: 07/08/2020 12:48 PM Date of : 1945 Admit Type: Inpatient Age: 74 Gender: Male Attending MD: Alize Chatman MD Procedure: Upper GI endoscopy Providers: Alize Chatman MD Referring MD: Kip Amaya Md Indications: Abnormal CT of the GI tract Medicines: General Anesthesia Complications: No immediate complications. Estimated Blood Loss: Estimated blood loss: none. Procedure: Pre-Anesthesia Assessment: - Prior to the procedure, a History and Physical was performed, and patient medications, allergies and sensitivities were reviewed. The patient's tolerance of previous anesthesia was reviewed. - The risks and benefits of the procedure and the sedation options and risks were discussed with the patient. All questions were answered and informed consent was obtained. - Patient identification and proposed procedure were verified prior to the procedure by the physician and the nurse. The procedure was verified in the procedure room. - Pre-procedure physical examination revealed no contraindications to sedation. After obtaining informed consent, the endoscope was passed under direct vision. Throughout the procedure, the patient's blood pressure, pulse, and oxygen saturations were monitored continuously. The Scope was introduced through the mouth, and advanced to the second part of duodenum. The upper GI endoscopy was accomplished without difficulty. The patient tolerated the procedure well. Findings: Esophagitis with no bleeding was found in the lower third of the esophagus. The entire examined stomach was normal. The duodenal bulb and second portion of the duodenum were normal. Impression: - Reflux esophagitis. - Normal stomach. - Normal duodenal bulb and second portion of the duodenum. Recommendation: - Perform an upper endoscopic ultrasound (UEUS). - PO PPI. Alize Chatman MD 07/08/2020 4:16:53 PM This report has been signed electronically. Note Initiated On: 07/08/2020 12:48 PM Number of Addenda: 0 I attest to the content of the Intraoperative Record and orders documented therein, exceptions below {[id number]}
--- NOTE | 2020-07-08 16:23 | Communication Note ---
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 I did check with Dr. Quintero of hematology regarding the current recommendations for anticoagulation in patients with adenocarcinomas of the pancreas and hypercoagulability and thromboembolic events and the program seems to be outpatient therapeutic dose Lovenox combined with low-dose aspirin as both coagulation factors and platelet function are altered in this state certainly with mucin secreting adenocarcinomas as I presume this 1 will likely be I will try to be back in the hospital tomorrow to check with Dr. Theodora Hastings MD
--- NOTE | 2020-07-08 16:39 | GI REPORT ---
Patient Name: Srinivas Yip Procedure Date: 07/08/2020 12:46 PM Date of : 1945 Admit Type: Inpatient Age: 74 Gender: Male Attending MD: Alize Chatman MD Procedure: Upper EUS Providers: Alize Chatman MD Referring MD: Kip Amaya Md Indications: Suspected mass in pancreas on CT scan Medicines: General Anesthesia, Cipro 400 mg IV Complications: No immediate complications. Estimated Blood Loss: Estimated blood loss: none. Procedure: Pre-Anesthesia Assessment: - Prior to the procedure, a History and Physical was performed, and patient medications, allergies and sensitivities were reviewed. The patient's tolerance of previous anesthesia was reviewed. - The risks and benefits of the procedure and the sedation options and risks were discussed with the patient. All questions were answered and informed consent was obtained. - Patient identification and proposed procedure were verified prior to the procedure by the physician and the nurse. The procedure was verified in the procedure room. - Pre-procedure physical examination revealed no contraindications to sedation. After obtaining informed consent, the endoscope was passed under direct vision. Throughout the procedure, the patient's blood pressure, pulse, and oxygen saturations were monitored continuously. The Endosonoscope was introduced through the mouth, and advanced to the second part of duodenum. The upper EUS was accomplished without difficulty. The patient tolerated the procedure well. Findings: ENDOSONOGRAPHIC FINDING: : A round mass was identified in the pancreatic body. The mass was hypoechoic and heterogenous. The mass measured 35 mm by 26 mm in maximal cross-sectional diameter. The endosonographic borders were poorly-defined. There was sonographic evidence suggesting invasion into the splenic artery (manifested by encasement). An intact interface was seen between the mass and the adjacent structures suggesting a lack of invasion. The remainder of the pancreas was examined. The endosonographic appearance of parenchyma and the upstream pancreatic duct indicated parenchymal atrophy. Pancreatic parenchymal abnormalities were noted in the entire pancreas. These consisted of hyperechoic strands, hyperechoic foci, lobularity and cysts. PD measured 3 mm in the head area. Fine needle biopsy was performed. Color Doppler imaging was utilized prior to needle puncture to confirm a lack of significant vascular structures within the needle path. Five passes were made with the 25 gauge [employer] EchoTip biopsy needle using a transgastric approach. A visible core of tissue was obtained. The cellularity of the specimen was adequate. Final cytology results are pending. Verification of patient identification for the specimen was done by the physician and nurse using the patient's name and date. This was staged T2 N2 M1 (based on endosonographic criteria of metastasis to the liver - tissue was not obtained). The staging applies if malignancy is confirmed. Many malignant-appearing lymph nodes were visualized in the celiac region (level 20) and peripancreatic region. The largest measured 25 mm in maximal cross-sectional diameter. The nodes were oval, hypoechoic and had well defined margins. Multiple round lesions were identified endosonographically in the left lobe of the liver and in the right lobe of the liver. The endosonographic appearance was suggestive of metastases. The lesions were hypoechoic. The largest lesion measured 20 mm in maximal cross-sectional diameter. The endosonographic borders were well-defined. There was no sign of significant endosonographic abnormality in the ampulla. No masses were identified. There was no sign of significant endosonographic abnormality in the common bile duct. The maximum diameter of the duct was 4 mm. No stones and no biliary sludge were identified. The gallbladder could not be well visualized. There was no sign of significant endosonographic abnormality in the visualized portion of the left adrenal gland. There was no sign of significant endosonographic abnormality involving the celiac trunk. Impression: - A 35 mm mass was identified in the pancreatic body. This was staged T2 N2 M1. Fine needle biopsy performed. - Many malignant-appearing lymph nodes were visualized in the celiac region (level 20) and peripancreatic region. - Multiple metastatic lesions were found in the left lobe of the liver and in the right lobe of the liver. - There was no sign of significant pathology in the ampulla. - There was no sign of significant pathology in the common bile duct. - Endosonographic images of the left adrenal gland were unremarkable. - The celiac trunk was endosonographically normal. Recommendation: - Return patient to [facility] care. - Await cytology results. - Refer to an oncologist. - No evidence of biliary ductal dilation hence elevated LFTs are likely related to the heavy metastatic burden on the liver. Alize Chatman MD 07/08/2020 4:38:25 PM This report has been signed electronically. Note Initiated On: 07/08/2020 12:46 PM Number of Addenda: 0 I attest to the content of the Intraoperative Record and orders documented therein, exceptions below {[id number]}
--- NOTE | 2020-07-08 17:21 | Anesthesiology Progress Note ---
Date of Service July 08, 2020 Anesthesia Post Procedure Vital Signs Vital Signs: Temp Pulse Pulse Pulse Resp BP BP 07/08/20 16:50 36.5 C 71 17 133/88 07/08/20 16:40 71 17 126/88 07/08/20 16:30 72 18 125/82 07/08/20 16:20 71 18 121/80 07/08/20 16:14 36.2 C L 71 16 118/69 07/08/20 15:02 36.9 C 76 18 133/68 07/08/20 14:20 36.6 C 75 20 122/84 07/08/20 11:11 37.0 C 80 17 138/90 07/08/20 07:01 37.1 C 85 17 125/78 07/08/20 00:08 92 H 07/07/20 22:26 37.6 C H 87 20 133/85 07/07/20 19:49 38.0 C H 84 16 123/73 Pulse Ox 07/08/20 16:50 99 07/08/20 16:40 99 07/08/20 16:30 100 07/08/20 16:20 100 07/08/20 16:14 100 07/08/20 15:02 95 07/08/20 14:20 97 07/08/20 11:11 97 07/08/20 07:01 92 07/08/20 00:08 07/07/20 22:26 92 07/07/20 19:49 97 Pain Intensity Bilateral Upper Abdomen: Pain Intensity: 0 Transfer of Care Handoff Completed per policy Notes Mental Status: alert / awake / arousable Patient Amnestic to Procedure: Yes Nausea / Vomiting: adequately controlled Pain: adequately controlled Airway Patency, RR, SpO2: stable & adequate BP & HR: stable & adequate Hydration State: stable & adequate Anesthetic Complications: no major complications apparent and Pt Satisfied with anesthetic care Notes: The patient is awake and comfortable. His vital signs are stable although his SpO2 drops to 89 when he falls asleep. The patient was given an incentive spirometer which takes his SpO2 up to 97 when used. He will have continuous pulse oximetry on the floor.
[2020-07-08] MEDS: ASPIRIN 81 MG ECTAB PO SCH (18:47)
[2020-07-08] MEDS ORDERED: ATORVASTATIN 40 MG TAB PO SCH (21:00)
[2020-07-08] MEDS: ENOXAPARIN INJ 40 MG/0.4 ML SYR SQ SCH (21:18)
[2020-07-09 06:00] LABS: Basophils # (auto) 0.01 K/uL (0-0.2); Basophils % (auto) 0.1 %; Eosinophils # (auto) 0.02 K/uL (0-0.5); Eosinophils % (auto) 0.1 %; Hematocrit (blood only) 34.1 % (42-52); Hemoglobin 10.9 g/dL (14.0-18.0); Immature Granulocytes # (auto) 0.04 K/uL (0.00-0.02); Immature Granulocytes % (auto) 0.3 %; Lymphocytes # (auto) 1.13 K/uL (1.2-3.4); Mean Corpuscular Hemoglobin 30.8 pg (25-34); Mean Corpuscular Volume 96.3 fL (80-100); Monocytes # (auto) 0.82 K/uL (0.11-0.59); Monocytes % (auto) 5.8 %; Neutrophils # (auto) 12.07 K/uL (1.4-6.5); Neutrophils % (auto) 85.7 %; Platelet Count 183 K/uL (130-400); RDW Coefficient of Variation 13.2 % (11.5-14.5); RDW Standard Deviation 46.3 fL (36.4-46.3); Red Blood Count 3.54 M/uL (4.7-6.1); White Blood Count 14.09 K/uL (4.8-10.8)
[2020-07-09 06:36] LABS: Albumin Globulin Ratio 0.6 (0.9-2); Albumin Level 2.2 gm/dl (3.4-5.0); BUN Creatinine Ratio 20.8 (10-20); Bilirubin,Total 1.5 mg/dl (0.2-1); Calcium 8.1 mg/dl (8.5-10.1); Creatinine Clr Calc Pharmacy 57.7 ml/min; Est GFR (African American) 71.5 ml/min; Est GFR (Non-African American) 61.7 ml/min; Globulin 3.5 gm/dl (2.5-4.0); Magnesium 2.6 mg/dl (1.8-2.4); Potassium 4.9 mmol/L (3.5-5.1); Total Protein 5.7 gm/dl (6.4-8.2)
--- NOTE | 2020-07-09 08:30 | Anesthesiology Progress Note ---
Date of Service July 09, 2020 Anesthesia Post Procedure Vital Signs Vital Signs: Temp Pulse Pulse Pulse Pulse Resp BP 07/09/20 07:00 66 07/09/20 03:57 36.8 C 72 16 122/72 07/09/20 00:15 36.9 C 66 20 128/85 07/09/20 00:12 76 07/08/20 20:44 36.6 C 77 18 112/79 07/08/20 18:11 36.5 C 71 18 132/89 07/08/20 17:35 36.9 C 70 18 126/74 07/08/20 17:18 07/08/20 16:50 36.5 C 71 17 133/88 07/08/20 16:40 71 17 126/88 07/08/20 16:30 72 18 125/82 07/08/20 16:20 71 18 121/80 07/08/20 16:14 36.2 C L 71 16 118/69 07/08/20 15:02 36.9 C 76 18 133/68 07/08/20 14:20 36.6 C 75 20 122/84 07/08/20 11:11 37.0 C 80 17 138/90 Pulse Ox Pulse Ox 07/09/20 07:00 07/09/20 03:57 94 07/09/20 00:15 94 07/09/20 00:12 07/08/20 20:44 93 07/08/20 18:11 97 07/08/20 17:35 97 07/08/20 17:18 97 07/08/20 16:50 99 07/08/20 16:40 99 07/08/20 16:30 100 07/08/20 16:20 100 07/08/20 16:14 100 07/08/20 15:02 95 07/08/20 14:20 97 07/08/20 11:11 97 Pain Intensity Bilateral Upper Abdomen: Pain Intensity: 0 Notes Mental Status: alert / awake / arousable and participated in evaluation Patient Amnestic to Procedure: Yes Nausea / Vomiting: adequately controlled Pain: adequately controlled Airway Patency, RR, SpO2: stable & adequate BP & HR: stable & adequate Hydration State: stable & adequate Anesthetic Complications: no major complications apparent
[2020-07-09] MEDS: PANTOprazole 40 MG TAB PO SCH (08:38)
[2020-07-09] MEDS: PSYLLIUM 58.6% POWDER PACKET PO SCH (08:38)
[2020-07-09] MEDS: ASPIRIN 81 MG ECTAB PO SCH (08:38)
--- NOTE | 2020-07-09 10:58 | Gastroenterology Progress Note ---
Date of Service July 09, 2020 Assessment & Plan (1) Pancreatic mass: (2) Lung metastases: (3) Liver metastases: Pt is a 74 y/o male w visual changes, found to have multiple R brain infarcts; noted LFTs up w symptoms of abd discomfort, weight loss - CT study revealed pancreas body mass w suspected liver, lung metastasis. EUS w pancreas mass FNA performed by Dr. Chatman 07/08. Path pending. CEA, CA 19-9 up. LFTs elevated, likely related to tumor burden. - F/U EUS path - Refer to [facility] - No contraindication for DC home from GI standpoint - Pls recall GI prn Admission and Anticipated Discharge Date Admission Date: July 06, 2020 Supervising Physician Co-Signing Physician Notes I performed a history and physical examination of the patient today, including specifically on physical exam - soft abdomen. I have discussed the patient's management with the advanced practitioner. Please refer to the nurse practitioner's note for the documented findings and plan of care. EUS yesterday showed panc mass an FNA performed. Suspect adenoCA - final path pending. He will need [facility] follow [facility]. MGT of stroke per primary service and neurology. Subjective Pt did well overnight, some abd pressure discomfort but no n/v. Labs reviewed: H/H stable 10/34; LFTs Tbili 1.5, AST 186/ALT 159, alk phos 351. CA 19-9 350; CEA 4.8. Review of Systems Review of Systems: All systems reviewed & are unremarkable except as noted in HPI & below Physical Exam Constitutional: WD/WN, vitals as above well groomed, cooperative and comfortable Eyes: PERRL, conjunctivae normal, anicteric sclerae ENMT: external ear and nose normal, oropharynx normal Respiratory: normal respiratory effort, lungs clear to auscultation Cardiovascular: RRR, no murmur, no edema Gastrointestinal (Abdomen): normal bowel sounds, soft, nontender, no hepatosplenomegaly Skin: no rashes, warm and dry no jaundice Psychiatric: A+Ox3, euthymic affect Lymphatic: no lymphedema Results & Data ([facility]) Vital Signs (Past 12 Hours) Vital Signs Temp Pulse Pulse Pulse Resp BP Pulse Ox 07/09/20 07:00 66 07/09/20 03:57 36.8 C 72 16 122/72 94 07/09/20 00:15 36.9 C 66 20 128/85 94 07/09/20 00:12 76
--- NOTE | 2020-07-09 14:08 | Hospitalist Progress Note ---
Date of Service July 09, 2020 Assessment & Plan (1) Visual field loss: left-sided visual field vision loss Secondary to Acute CVA -MRI Brain:Multiple small scattered acute infarcts seen within the right occipital lobe, right medial cerebellum, and right frontal lobe. No significant mass effect or midline shift. Mild atrophy and microvascular ischemic changes. -Venous Doppler:No DVT within the right or left lower extremity. 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 Left internal carotid artery stenosis Initial work-up initiated on 07/05/2020 in [place] ER for strokelike symptoms. -CTA of head and neck were performed which revealed high-grade stenosis of the left internal carotid artery at its origin. Appreciate Vascular surgery Input Vascular surgery recommends elective left carotid endarterectomy Continue aspirin Started on Lipitor 40mg daily to keep LDL <70>>> Patient refuses Statin Needs follow-up with vascular surgery upon discharge Acute stroke Multifocal likely secondary to embolic episode -MRI as above -ECHO: Ejection fraction 60 to 65%. Left ventricle wall motion normal. Severe calcification of the anterior mitral annulus. There is no mitral valve stenosis. Significant mitral regurgitation is absent. There is mild tricuspid regurgitation. There is no pericardial effusion. -Prior hospitalist discussed with neurosurgery--who advised dual antiplatelet therapy with oral aspirin and Plavix Patient refused Plavix and prefers to continue Aspirin Denies any Focal weakness Appreciate Neurology Input PT/OT Continue aspirin Also started on Eliquis--given hypercoagulable state secondary to malignancy, as recommended by oncology Hypoxia CXR:No DVT within the right or left lower extremity. To Rule out PE Patient refused CTA Hypoxia resolved Saturating well on room air Continue incentive spirometer Start on Eliquis as above (3) Pancreatic mass: CT scan of the abdomen and pelvis did show irregular pancreatic mass 3.7 x 2.8 cm and also hepatic and lung mets Tumor markers: CA 199 358 CEA:4.8 Appreciate GI input and recommendation s/p EUS GI recommends to hold anticoagulation for 24 hours after the pancreatic biopsy Pathology of pancreatic mass consistent with adenocarcinoma FISH, immuno histochemistry pending Arrange outpatient follow-up with oncology Dr. Jony Quintero on July 10, 2020 Started on Eliquis given hypercoagulable state. As recommended by oncology (4) Liver metastases: (5) Lung metastases: (6) Elevated LFTs: Metastatic disease CT with evidence of mets to liver, lung and Multiple enlarged lymph nodes in the upper abdomen and retroperitoneum Pancreatic mass irregular 3.7 x 2.8 cm low-density mass in distal pancreatic body Appreciate GI Input Monitor LFTs Esophagitis Started on PPI (7) Elevated troponin: Denies any chest pain Echo as above Prior hospitalist discussed with radiology staff: CTA questionable subsegmental PE Patient refusing CTA currently (8) CKD (chronic kidney disease) stage 3, GFR 30-59 ml/min: Baseline: 1.09 Avoid nephrotoxic agents Monitor renal function (9) HTN (hypertension): BP stable Continue lisinopril Monitor (10) Hypercalcemia: Corrected Calcium:10.9, possibly due to underlying malignancy Low vitamin D levels Normal PTH PTH related peptide pending Received IV fluids (11) Elevated C-reactive protein (CRP): Hypoalbuminemia Weight loss consult visiting nurse (12) DVT prophylaxis: Plan to start on Eliquis Code Status FULL CODE Admission and Anticipated Discharge Date Admission Date: July 06, 2020 Subjective Patient is seen and examined at bedside States noticing right foot drop with ambulation today Discussed with oncology and neurology today Repeat CT unchanged Denies chest pain, dyspnea, dizziness, nausea Eager to get discharged Review of Systems Review of Systems: All systems reviewed & are unremarkable except as noted in HPI & below Physical Exam Physical Exam: Physical Exam: Vitals signs as noted above General Appearance:Moderately built and nourished, no apparent distress Head: normocephalic, Atraumatic Eyes: normal inspection, EOMI Neck: supple, Trachea midline Respiratory/Chest: Decreased breath sounds, CTA, No accessory muscle use Cardiovascular: S1, S2, No murmur Abdomen/GI:Soft, RUQ, LUQ and Epigastric tender, mild distention, Bowel sounds present Extremities/Musculoskeletal:normal inspection, no edema Neurologic/Psych:AAOX3, grossly no focal neurological deficits Skin: normal color, warm Results & Data Results & Data ([facility]) Vital Signs (Past 12 Hours) Vital Signs Temp Pulse Pulse Resp BP Pulse Ox 07/09/20 07:00 66 07/09/20 03:57 36.8 C 72 16 122/72 94 Laboratory Results Short CBC 07/09/20 Range/Units 05:18 WBC 14.09 H (4.8-10.8) K/uL Hgb 10.9 L (14.0-18.0) g/dL Hct 34.1 L (42-52) % Plt Count 183 (130-400) K/uL BMP 07/09/20 05:18 Sodium 138 Potassium 4.9 Chloride 106 Carbon Dioxide 30 BUN 24 H Creatinine 1.16 Glucose 157 H Calcium 8.1 L Liver Function 07/09/20 Range/Units 05:18 Total Bilirubin 1.5 H (0.2-1) mg/dl AST 186 H (15-37) U/L ALT 159 H (12-78) U/L Alkaline Phosphatase 351 H (45-117) U/L Albumin 2.2 L (3.4-5.0) gm/dl
[2020-07-09] MEDS ORDERED: STROKE PATIENT DISCHARGE STA ×2 (14:22→17:37)
--- NOTE | 2020-07-09 15:22 | Pharmacy Report ---
Pharmacist Stroke Counseling - Date of Service July 09, 2020 - Scope: Pharmacy has been consulted to provide medication discharge counseling for this patient admitted with ischemic stroke as per the Pharmacist Discharge Counseling for Stroke Patients Protocol. - Medications on Discharge: Home Medications Medication Instructions Recorded Confirmed aspirin 325 mg PO DAILY 07/06/20 07/06/20 lisinopril 20 mg PO DAILY 07/06/20 07/06/20 New Rx's Medication Instructions Recorded apixaban [Eliquis] 5 mg PO UD #74 tab 07/09/20 aspirin 81 mg PO QAM #30 tab 07/09/20 oxycodone 5 mg PO Q4H PRN #10 tab 07/09/20 pantoprazole 40 mg PO QAM #30 tab 07/09/20 - Action: The above medications, specifically ones for stroke treatment/prophylaxis, have been reviewed in detail with the patient and/or patient customer assistance representative(s) prior to discharge. This includes indication, common adverse reactions, drug interactions, and medication administration. Medication counseling has been employed using the teach-back method to ensure understanding. - Outcome: The patient and/or patient customer assistance representative(s) have demonstrated understanding of the medications. All of the patient's questions regarding new medications including aspirin, Eliquis and pantoprazole were addressed. Per discussion with provider, high intensity statin not being prescribed due to patient refusal. Thank you for allowing pharmacy to be involved in the care of this patient. Please call [phone] with any additional questions
--- NOTE | 2020-07-09 15:51 | Communication Note ---
Date of Service: July 09, [address] Yip this afternoon. He had his biopsy yesterday the results of which are still pending and the policy has been reviewed again with Dr. Quintero of oncology who will probably be picking up his case and we now settled on Eliquis as a single daily dose of anticoagulant rather than a combination of twice a day Lovenox and a baby aspirin He developed or noticed a right foot drop overnight and on exam this obeys all the rules of a peroneal mononeuropathy with no antigravity function of the anterior tibialis or toe extensors, slightly weak evertors, preserved inversion and plantar flexion and an absent extensor toe sign with good facility rapid repetitive motions the proximal portion of the lower extremity I doubt that this was a CVA but he was off anticoagulation for the procedure yesterday and could theoretically have had another embolic event or could even have had a spontaneous bleed although I would doubt the latter Otherwise he remains asymptomatic with the exception of his left field cut We will get a get a CAT scan nonenhanced to exclude a new event and mainly to exclude a bleed and if this is negative I would go ahead and start the Eliquis as clinically 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 The nerve is easily palpable at that level he does describe a little paresthesias of the dorsum of the foot which would be consistent with involvement of the superficial sensory branch of the nerve I will try to arrange an outpatient neurology visit but we are probably not that important in his overall care at this point and he will need to see ophthalmology have his visual mast tested and let them decide about whether he is safe to operate a motor vehicle If the weakness in the peroneal nerve persists we may need to do an EMG but frankly I would like to avoid doing unnecessary testing in this man who has a relatively limited prognosis if indeed this proves to be adenocarcinoma the pancreas with already widely metastatic disease Epifanio Hastings MD
--- NOTE | 2020-07-09 17:30 | CT Scan Report ---
CT head/brain wo con CLINICAL HISTORY: 74 years-old Male with Stroke like symptoms. Acute strokelike symptoms TECHNIQUE: Multiple axial CT images of the head were obtained without contrast. A dose lowering tech nique was utilized adhering to the principles of ALARA. CT DOSE: 537.48 mGy.cm COMPARISON: Brain MRI 07/06/2020 FINDINGS: No acute intracranial hemorrhage, midline shift, intracranial mass, hydrocephalus, or abnormal extra- axial collection. Acute infarcts of the right occipital lobe and medial aspect of the right cerebellu m redemonstrated with associated cytotoxic edema. No additional acute infarct identified. Mildly santos on degraded exam. Age-related involutional changes with chronic microvascular ischemic disease. Senes cent calcifications of the lentiform nuclei. The calvarium is intact. Mastoid air cells are clear. Mild polypoid mucosal thickening of the ethmoi d sinuses. The distal thickening with small air-fluid level of the left sphenoid sinus. Soft tissues and orbits. IMPRESSION: 1. Acute infarcts of the right occipital lobe and medial inferior aspect of the right cerebellum rede monstrated. 2. No acute intracranial hemorrhage or midline shift. 3. Mild atrophy with chronic microvascular ischemic disease. ACT 112: Negative or not required by law. The above report was generated using voice recognition software. It may contain grammatical, syntax o r spelling errors. Electronically signed by: Garcia Metzger M.D. 07/09/2020 5:29 PM
--- NOTE | 2020-07-09 17:39 | Discharge Summary ---
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 He has significant past medical history for hypertension. He does not follow with PCP. Yesterday while up in [place] ( where he works) he woke up at approximately 6 AM and felt, "off." It was not until later in the morning when he realized he was having left-sided visual changes. He called the on-call drilling supervisor who saw him and found that he had a visual deficit in both eyes on the left side. There was also complaint of general fatigue, 20 pound weight loss over the past 2 months, and decreased appetite. He has been fully vaccinated for Covid. Coding Support Specialist found no acute ophthalmology issue and referred to ED for possible stroke work-up. In ED patient was hemodynamically stable with documented vitals of 128/91, pulse 106, temp 36.8 and SPO2 99%. He was documented to have a left lateral visual field cut in both eyes. He underwent a CTA of head and neck which revealed severe/high-grade narrowing at the origin of the left internal carotid artery and age-indeterminate occlusion of the left vertebral artery beginning at its origin. Also noted was multifocal intracranial atherosclerosis without evidence of proximal large vessel occlusion. Lab work notable for leukocytosis 16.8k, H&H 13.1 and 40.7, platelet 221, BUN 18, creatinine 1.35, total bili 1.5, alk phos 427, AST 100, ALT 129 and elevated troponin of 0.060. He did not complain of chest pain and EKG was without ischemic change. Secondary to elevated troponin and transaminitis he underwent CT of chest abdomen pelvis with contrast. This unfortunately revealed innumerable small pulmonary metastases in both lungs, extensive calcified coronary artery atherosclerosis, extensive hepatic metastasis, irregular 3.7 x 2.8 cm low-density mass in the distal pancreatic body which could reflect site of primary malignancy, multiple mildly enlarged lymph nodes in the upper abdomen and retroperitoneum which are presumably metastatic in etiology, possible irregular wall thickening of the proximal descending colon, large left-sided inguinal hernia containing decompressed sigmoid colon as well as small amount of free fluid, mild nonspecific thickening of urinary bladder. Secondary to all the above abnormal findings it was recommended he be admitted for further stroke work-up and MRI as well as abnormal labs and diagnostic imaging. Patient signed out AMA and drove back to [facility] where he resides and presents to ED here today. Above was obtained from records. In ED today he remained hemodynamically stable although mildly hypertensive. Lab work-up consistent with yesterday's finding including mildly improved leukocytosis, reduced H&H to 11.8 and 35.3, ESR 40 and CRP 12.10. He continues to have transaminitis with an AST 95, ALT 123, alk phos 361, total bili 2.1. His troponin remains elevated at 0.057. He remained chest pain-free. His corrected calcium is elevated at 10.9. Chest x-ray shows no acute cardiopulmonary abnormality but does show numerous tiny pulmonary nodules consistent with metastatic disease. Patient was seen and examined on medical floor. He states currently he has some mild, diffuse abdominal discomfort, rated 1 out of 10, described as a dull ache, comes and goes, nothing makes better or worse. He missed to a 20 to 30 pound weight loss over the past 3 months unintentionally. He overall has poor appetite. He denies any fever, chills, sweats, lightheadedness, dizziness, chest pain, shortness of breath, cough, nausea, vomiting, dysuria, increased urgency or frequency with urination, melena or hematochezia. He continues to complain of left visual deficits. He denies any diplopia or blurry vision. He denies ever having this in the past. He denies any central vision loss. He states he was seen by ophthalmology on Monday who did a formal exam and ruled out glaucoma and cataract. Admission Exam Per Admitting Provider Physical Exam Physical Exam: The patient was examined in telemetry unit in presence of the . Lying in bed comfortably Constitutional: well developed, well nourished and + ill appearing Eyes: PERRL, conjunctivae normal, anicteric sclerae ENMT: external ear and nose normal, oropharynx normal Neck: trachea midline, no thyromegaly Respiratory: no respiratory distress Auscultation: lungs clear to auscultation bilaterally Cardiovascular: Rate/Rhythm: regular rate and regular rhythm Heart Sounds: no murmur Extremities: no edema Gastrointestinal (Abdomen): Inspection/Auscultation: normal bowel sounds; abdomen not distended Percussion/Palpation: + abdomen tender (Upper quadrants), abdomen soft and + hepatomegaly (Nodular); no guarding and abdomen not rigid Musculoskeletal: No acute arthritis in any joint Skin: Chronic vascular changes in the legs Neurologic: patellar DTR's 2+ bilat, sensation intact No focal sensory and motor deficit appreciated Psychiatric: A+Ox3, euthymic affect Lymphatic: no cervical or axillary lymphadenopathy Principal Diagnosis Pancreatic mass Metastatic disease Acute cerebrovascular accident Left internal carotid artery stenosis Hypercalcemia Esophagitis Discharge Data Allergies Allergy/AdvReac Type Severity Reaction Status Date / Time No Known Allergies Allergy Unverified 07/06/20 14:19 Consultations 07/06/20 14:58 ED Decision to Admit Stat 07/06/20 15:41 Consult Neurology Routine 07/06/20 16:53 Consult Gastroenterology Routine Consult Vascular Surgery Routine 07/07/20 10:17 Consult Anesthesiology Routine Procedures Performed Operation Date: 07/08/20 13:00 Actual Procedures p Endoscopic Ultrasonography, Upper; with biopsies(Not Applicable) - Alize Chatman MD Venous Doppler No DVT within the right or left lower extremity. MRI Brain: 1. Multiple small scattered acute infarcts seen within the right occipital lobe, right medial cerebellum, and right frontal lobe. 2. No significant mass effect or midline shift. 3. Mild atrophy and microvascular ischemic changes. EUS: Impression: - A 35 mm mass was identified in the pancreatic body. This was staged T2 N2 M1. Fine needle biopsy performed. - Many malignant-appearing lymph nodes were visualized in the celiac region (level 20) and peripancreatic region. - Multiple metastatic lesions were found in the left lobe of the liver and in the right lobe of the liver. - There was no sign of significant pathology in the ampulla. - There was no sign of significant pathology in the common bile duct. - Endosonographic images of the left adrenal gland were unremarkable. - The celiac trunk was endosonographically normal. Recommendation: - [facility] to [facility] for [facility] care. - Await cytology results. - Refer to an oncologist. - No evidence of biliary ductal dilation hence elevated LFTs are likely related to the heavy metastatic burden on the liver. Ordered Studies 07/06/20 13:09 MR brain wo/w con Stat 07/06/20 16:53 US venous doppler LE BI Stat 07/08/20 10:46 CT angio chest PE protocol Stat 07/08/20 11:39 US upper EUS PACS images Routine 07/09/20 14:55 CT head/brain wo con Stat Hospital Course (1) Visual field loss: left-sided visual field vision loss Secondary to Acute CVA -MRI Brain:Multiple small scattered acute infarcts seen within the right occipital lobe, right medial cerebellum, and right frontal lobe. No significant mass effect or midline shift. Mild atrophy and microvascular ischemic changes. -Venous Doppler:No DVT within the right or left lower extremity. 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 Left internal carotid artery stenosis Initial work-up initiated on 07/05/2020 in [place] ER for strokelike symptoms. -CTA of head and neck were performed which revealed high-grade stenosis of the left internal carotid artery at its origin. Appreciate Vascular surgery Input Vascular surgery recommends elective left carotid endarterectomy Continue aspirin Started on Lipitor 40mg daily to keep LDL <70>>> Patient refuses Statin Needs follow-up with vascular surgery upon discharge Acute stroke Multifocal likely secondary to embolic episode -MRI as above -ECHO: Ejection fraction 60 to 65%. Left ventricle wall motion normal. Severe calcification of the anterior mitral annulus. There is no mitral valve stenosis. Significant mitral regurgitation is absent. There is mild tricuspid regurgitation. There is no pericardial effusion. -Prior hospitalist discussed with neurosurgery--who advised dual antiplatelet therapy with oral aspirin and Plavix Patient refused Plavix and prefers to continue Aspirin Denies any Focal weakness Appreciate Neurology Input PT/OT Continue aspirin Also started on Eliquis--given hypercoagulable state secondary to malignancy, as recommended by oncology Hypoxia CXR:No DVT within the right or left lower extremity. To Rule out PE Patient refused CTA Hypoxia resolved Saturating well on room air Continue incentive spirometer Start on Eliquis as above (3) Pancreatic mass: CT scan of the abdomen and pelvis did show irregular pancreatic mass 3.7 x 2.8 cm and also hepatic and lung mets Tumor markers: CA 199 358 CEA:4.8 Appreciate GI input and recommendation s/p EUS GI recommends to hold anticoagulation for 24 hours after the pancreatic biopsy Pathology of pancreatic mass consistent with adenocarcinoma FISH, immuno histochemistry pending Arrange outpatient follow-up with oncology Dr. Jony Quintero on July 10, 2020 Started on Eliquis given hypercoagulable state. As recommended by oncology (4) Liver metastases: (5) Lung metastases: (6) Elevated LFTs: Metastatic disease CT with evidence of mets to liver, lung and Multiple enlarged lymph nodes in the upper abdomen and retroperitoneum Pancreatic mass irregular 3.7 x 2.8 cm low-density mass in distal pancreatic body Appreciate GI Input Monitor LFTs Esophagitis Started on PPI (7) Elevated troponin: Denies any chest pain Echo as above Prior hospitalist discussed with radiology staff: CTA questionable subsegmental PE Patient refusing CTA currently (8) CKD (chronic kidney disease) stage 3, GFR 30-59 ml/min: Baseline: 1.09 Avoid nephrotoxic agents Monitor renal function (9) HTN (hypertension): BP stable Continue lisinopril Monitor (10) Hypercalcemia: Corrected Calcium:10.9, possibly due to underlying malignancy Low vitamin D levels Normal PTH PTH related peptide pending Received IV fluids (11) Elevated C-reactive protein (CRP): Hypoalbuminemia Weight loss consult server assistant (12) DVT prophylaxis: Plan to start on Eliquis Code Status FULL CODE Total Time Total Time Spent Total Time Spent (In Minutes): 55 minutes Discharge Plan Discharge Items Patient Disposition: Home - Self-Care Reason For Visit: STROKE LIKE SX; SUSPECTED METASTATIC DISEASE Discharge Diagnosis: Pancreatic mass Metastatic disease Acute cerebrovascular accident Left internal carotid artery stenosis Hypercalcemia Esophagitis Activity: Per Instructions section Driving/Machine Use: Driving not permitted until cleared by your neurologist. Non-emergency contact: Primary Care Provider, Surgeon, Loss Control Technician, Neurologist and Oncologist Call non-emergency contact if: you have any medication questions, your symptoms worsen, your pain is concerning for you and you have a fever Follow-up/Referrals: Jony Quintero MD [Surgeon] - 07/10/20 11:45 am ([address] [facility]) Herbert Marin MD [Physician] - 08/20/20 11:15 am Ky Burton DO [Outside Practitioners] - (Date & Time 07/13/2020 11:00 AM Provider Ky Burton DO Department Family [facility] ) Diet: Heart Healthy Add Attending Provider Instructions: Follow-up with your primary care physician Dr. Burton on 07/13/2020 11:00 AM Follow-up with your oncologist Dr. Jony Quintero on 07/10/20 at 11:45 AM Follow-up with your vascular surgeon Dr. Herbert Marin on August 20, 2020 at 11:15 AM Follow-up with your neurologist Dr. Hastings in 2 to 3 weeks. Follow-up with your mechanical energy engineer Dr. Chatman as needed DRIVING not permitted until cleared by a neurologist. Final pathology report is pending at the time of discharge. Follow-up with your physician for results. Seek immediate medical attention if your symptoms reoccur or worsen Please take all medications as instructed on discharge list below. Please call if you have any questions or problems. You can reach a [facility] hospitalist on duty at [facility] 24 hours a day by calling [phone] Risk Factors for Stroke: You can reduce your chances of stroke by working with your medical provider to adopt a healthy lifestyle. Some specific ways to lower your chance of stroke are: * If you are a smoker, now is the time to stop smoking cigarettes * If you are diabetic, improve the control of your blood sugars * Avoid excessive amounts of alcohol * Control high blood pressure * Lose weight if you are overweight * Be sure to lead an active lifestyle * Eat a healthy diet low in salt, cholesterol and fat You should know about other risk factors for stroke that you are unable to control. These include: * Age 55 years or older * Male gender * Certain racial groups: , or / * Family History of Stroke, Mini stroke or Heart Attack * Sickle Cell Disease Follow Up: It is important for you to keep your follow up appointments with your medical provider. Who to Call and When: Medical Emergencies: Call 911 immediately if you experience any of the following warning signs and symptoms of Stroke: * Sudden numbness or weakness of the face, arm or leg, especially on one side of the body * Sudden confusion, trouble speaking or understanding * Sudden trouble seeing in one or both eyes * Sudden trouble walking, dizziness, loss of balance or coordination * Sudden severe headache with no cause Do not delay calling 911 if you experience any warning signs or symptoms of a stroke. Delay in seeking medical attention may affect what treatments can be given to you. . Pending Studies at Discharge: Yes Studies:: Pathology report Stand-Alone Forms: Medications to Prevent Stroke, My [facility], Smoking Cessation Medications and DC Order Prescriptions: New aspirin 81 mg Tablet,Delayed Release (Dr/Ec) 81 mg PO QAM Qty: 30 RF: 1 oxycodone 5 mg Tablet 5 mg PO Q4H PRN (Reason: pain) Qty: 10 RF: 0 pantoprazole 40 mg Tablet,Delayed Release (Dr/Ec) 40 mg PO QAM Qty: 30 RF: 1 Eliquis 5 mg tablet 5 mg PO UD Qty: 74 RF: 1 Continued lisinopril 20 mg tablet 20 mg PO DAILY RF: 0 Discontinued aspirin 325 mg Tablet 325 mg PO DAILY RF: 0 Discharge Orders: Discharge Order (Routine); Ordered 07/09/20 Ordered By: Kip Zarate/Other Patient Handouts: A1C Admission Data Admit Date/Time: 07/06/20 15:41 Attending Provider: Kip Amaya Admit Provider: Benigno Collins Primary Care Provider: PCP,NO Other Providers: Usman Hammond ; Epifanio Hastings ; Kaela Lord ; Herbert Marin ; Ronaldo Valerio Other Interventions: Discharge Summary Assessment (RN) Last Done: 07/09/20 18:15
--- NOTE | 2020-07-17 14:25 | Coding Query ---
CODING QUERY To promote full compliance with coding requirements relating to patient care, provider participation is requested in all cases of polysilicon preparation worker uncertainty. Please assist us with the question(s) below: Coding Question(s): Beginning on the ER and on H&P and Progress Notes and on Discharge Summary is documentation of CXR with likely subsegmental PE appreciated and Discharge Summary documents, "Hypoxia CXR:No DVT within the right or left lower extremity. To Rule out PE Patient refused CTA Hypoxia resolved Saturating well on room air Continue incentive spirometer Start on Eliquis as above". It is not clear what "PE" stands for or if it was still possible or ruled-out. Please Specify below, in your clinical opinion. ( x ) PE is Pulmonary Embolism and it was still Possible ( ) PE is Pulmonary Embolism and it was Ruled-Out ( ) PE is Pleural Effusion and it was still Possible ( ) PE is Pleural Effusion and it was Ruled-Out ( ) PE means Other: Please Specify Physician's Response(s): Thank you Kassandra Butler Principal Diagnosis: "that condition established after study, to be chiefly responsible for occasioning the admission of the patient to the hospital for care." Co-Existing Principal Diagnosis: "when two or more diagnoses equally meet the criteria for principal diagnosis as determined by the circumstances of admission, diagnostic work up, and/or therapy provided, and the Alphabetic Index, Tabular List, or another coding guideline does not provide sequencing direction, any one of the diagnoses may be sequenced first." "When the physician has documented what appears to be a current diagnosis in the body of the record, but has not included the diagnosis in the final diagnostic statement, the physician should be asked whether the diagnosis should be added." (Source [facility] 2 QTR90. p3-4) SHIVANI
== END 2020-07-09 18:17 | disposition home or self-care (01) | DRG 64 ==
LOC: ED 11:50 → 2E 15:41 → SUATTDRO 15:41 → 2E 16:29

== ENCOUNTER 2020-07-16 11:43 | Inpatient (IN) ==
[2020-07-16] MEDS ORDERED: MoRPHine SULFATE 4 MG/ML 1 ML CARP\\VIAL IV STA (12:42)
[2020-07-16] MEDS ORDERED: ONDANSETRON INJ 2 MG/ML 2 ML VIAL IV STA (12:42)
[2020-07-16] MEDS ORDERED: SODIUM CHLORIDE 0.9% 1000ML 1,000 ML IV SCH ×2 (12:45→23:45)
[2020-07-16 13:24] LABS: Basophils # (auto) 0.01 K/uL (0-0.2); Basophils % (auto) 0.1 %; Eosinophils # (auto) 0.21 K/uL (0-0.5); Eosinophils % (auto) 1.2 %; Hematocrit (blood only) 27.9 % (42-52); Hemoglobin 9.7 g/dL (14.0-18.0); Immature Granulocytes # (auto) 0.05 K/uL (0.00-0.02); Immature Granulocytes % (auto) 0.3 %; Lymphocytes # (auto) 0.75 K/uL (1.2-3.4); Lymphocytes % (auto) 4.2 %; Mean Corpuscular Hemoglobin 31.4 pg (25-34); Mean Corpuscular Hgb Conc 34.8 g/dL (32-36); Mean Corpuscular Volume 90.3 fL (80-100); Mean Platelet Volume 10.2 fL (7.4-10.4); Monocytes # (auto) 0.03 K/uL (0.11-0.59); Monocytes % (auto) 0.2 %; Neutrophils # (auto) 16.94 K/uL (1.4-6.5); Platelet Count 220 K/uL (130-400); RDW Coefficient of Variation 14.1 % (11.5-14.5); RDW Standard Deviation 46.4 fL (36.4-46.3); Red Blood Count 3.09 M/uL (4.7-6.1); White Blood Count 17.99 K/uL (4.8-10.8)
--- NOTE | 2020-07-16 13:32 | XRay Report ---
XR chest 1V portable CLINICAL HISTORY: SEPSIS COMPARISON STUDY: 09/13/2017 FINDINGS: The cardiac and mediastinal contours remain stable. There is mild interstitial thickening. This could represent mild pulmonary vascular congestion or a bilateral infectious/inflammatory proces s. Clinical correlation advocated. There are no large pleural effusions.[ IMPRESSION: 1. Interval development of mild nonspecific interstitial thickening. This could represent mild pulmon dania vascular congestion or a bilateral interstitial infectious/inflammatory process. Clinical and rad iographic follow-up are recommended ACT 112: Negative or not required by law. Electronically signed by: Alex Jackson M.D. 07/16/2020 1:30 PM
[2020-07-16 13:33] LABS: Partial Thromboplastin Ratio 1.4; Partial Thromboplastin Time 36.2 Seconds (21.0-31.0); Prothrombin Time 18.8 Seconds (9.0-12.0)
[2020-07-16 14:05] LABS: Albumin Level 1.8 gm/dl (3.4-5.0); BUN Creatinine Ratio 24.8 (10-20); Bilirubin Direct 7.5 mg/dl (0-0.2); Bilirubin,Total 9.3 mg/dl (0.2-1); Calcium 8.3 mg/dl (8.5-10.1); Creatinine Clr Calc Pharmacy 59.5 ml/min; Est GFR (African American) 71.5 ml/min; Est GFR (Non-African American) 61.7 ml/min; Magnesium 2.4 mg/dl (1.8-2.4); Potassium 4.8 mmol/L (3.5-5.1); Total Protein 5.4 gm/dl (6.4-8.2); Troponin I 0.107 ng/ml (0-0.045)
[2020-07-16] MEDS ORDERED: OPTIRAY 320 100ml IV ONE (14:29)
--- NOTE | 2020-07-16 14:58 | CT Scan Report ---
CT abd pelvis IV con only CLINICAL HISTORY: abd pain jaundice COMPARISON STUDY: September 13, 2017 TECHNIQUE: A dose lowering technique was utilized adhering to the principles of ALARA. CT DOSE: 807.62 mGy.cm FINDINGS: Lower chest: There is septal thickening with innumerable nodules and groundglass attenuation within b ilateral lower lobes which is new since prior study in 2018. Liver: Interval development of innumerable ill-defined hypoattenuating lesions throughout right and l eft lobe of the liver concerning for neoplastic process. Largest lesion is seen within segment 3 and measures approximately 6.0 x 4.2 cm on axial image 189 of series 3. Multiple small scattered areas of fluid collection and mesenteric edema is seen throughout the abdome n. Gallbladder: Gallbladder is contracted with enhanced wall and surrounding mesenteric edema which coul d be due to inflammatory changes or related to ascites. Spleen: Interval development of multiple peripheral areas of decreased attenuation within its parench yma. Pancreas: Interval development of 4.9 x 3.6 cm hypoattenuating lesion within the tail of the pancreas is concerning for neoplastic process however differential could also include pancreatitis which is l ess likely. Adrenal glands: Irregularity of the right adrenal gland is again seen. Redemonstration of the 1.6 x 1 .8 cm left adrenal lesion which appears to be stable since prior. Kidneys: There is symmetric renal cortical enhancement. The kidneys are normal in size without hydron ephrosis. Interval development of 2.2 x 2.4 cm hypoattenuating lesion within left renal parenchyma wh ich could represent neoplasm or inflammatory process. Bowel: The small bowel and colon are normal in course and caliber. Small hiatal hernia is seen. Duode nal diverticulum is demonstrated. Appendix is not well visualized There is large left inguinal hernia containing nondilated loops of large bowel. Peritoneum: No free intraperitoneal air is seen. Vasculature: Normal size of abdominal aorta which is tortuous and contain scattered calcifications of its wall. Adenopathy: There is 2.8 x 2.6 cm hypoattenuating, possibly necrotic left paraesophageal lymph node i s seen. Pelvic viscera: The bladder, and pelvic viscera are unremarkable. Skeletal structures: Osseous structures are diffusely demineralized. No definite aggressive lesions a re seen. IMPRESSION: 1. Findings are concerning for widespread malignant/metastatic disease with involvement of the pancr eas, liver and bilateral lung bases. Associated mild ascites and diffuse mesenteric edema is seen. 2. Questionable hypoattenuating heterogeneous lesion within cortex of the left kidney might represen t pyelonephritis or neoplasm. 3. Contracted gallbladder with surrounding edema, could be related to ascites or represent inflammat ory processes such as cholecystitis. 4. Large left inguinal hernia containing nondilated loops of large bowel. No evidence of strangulati on. ACT 112: Negative or not required by law. The above report was generated using voice recognition software. It may contain grammatical, syntax o r spelling errors. Electronically signed by: Lorie Webb DO 07/16/2020 2:56 PM
--- NOTE | 2020-07-16 15:48 | Electrocardiogram Report ---
Test Reason : Blood Pressure : / mmHG Vent. Rate : 087 BPM Atrial Rate : 087 BPM P-R Int : 128 ms QRS Dur : 124 ms QT Int : 410 ms P-R-T Axes : 054 -26 044 degrees QTc Int : 493 ms Sinus rhythm with Premature atrial complexes Right bundle branch block Abnormal ECG When compared with ECG of 08-JUL-2020 05:37, Premature atrial complexes are now Present Nonspecific T wave abnormality has replaced inverted T waves in Inferior leads Confirmed by Donta Finn ([id number]) on 07/16/2020 3:48:05 PM Referred By: REFERRED SELF Confirmed By:Donta Finn
[2020-07-16 16:12] LABS: Appearance Urine Clear (Clear); Bacteria Urine Automated Negative (Negative); Blood Urine Negative (Negative); Color Urine Orange; Epithelial Cell Urine Auto 0-5 /lpf (0-5); Glucose Urine UA Negative (Negative); Ketones Urine Negative (Negative); Leukocyte Esterase Urine Trace (Negative); Nitrite Urine Positive (Negative); Protein Urine Negative (Negative); RBC Urine Automated 0-4 /hpf (0-4); Specific Gravity Urine 1.035 (1.000-1.030); Urobilinogen Urine Negative (Negative)
[2020-07-16 16:15] LABS: Bilirubin Urine 3+ (Negative)
[2020-07-16] MEDS ORDERED: PIPERACILL/TAZOBAC CONSULT ACTIVE PRN ×2 (16:21→18:53)
[2020-07-16] MEDS ORDERED: VANCOMYCIN CONSULT ACTIVE PRN ×2 (16:25→18:53)
[2020-07-16] MEDS ORDERED: PIPERACILLIN/TAZOBACTAM 4.5 GM/120ML D5W IV ONE (16:33)
[2020-07-16] MEDS ORDERED: PIPERACILLIN/TAZOBACTAM 4.5 GM/120 ML BAG IV STA (16:37)
[2020-07-16] MEDS ORDERED: VANCOMYCIN HCL 2,000 MG in SODIUM CHLORIDE 0.9% 500 ML IV STA (16:38)
--- NOTE | 2020-07-16 17:07 | Gastrointestinal Consultation ---
Date of Consultation July 16, 2020 Assessment & Plan (1) Hyperbilirubinemia: This is a 74 y/o male with recently diagnosed metastatic pancreatic cancer s/p EUS with FNA 07/08/20, h/o (?embolic) strokes on Eliquis, admitted after presenting with poor PO intake, weakness since first dose of Gemzar, found to have hyponatremia, worsening bilirubinemia, leukocytosis, procalcitonin, CT as above with widespread metastatic disease including in the liver, lungs. Overall presentation concerning for possible infectious process, consider biliary obstruction vs side effect of Chemo therapy vs tumor burden; question of cholecystitis on CT as well. - Will obtain US ABD to evaluate for CBD abnormality - Can eat after that, and make NPO after midnight - Please correct hyponatremia carefully - Await BC, UC - Continue empiric ABX - Supportive care with IVF, analgesia, antiemetics PRN - Should he have a need for EUS/ERCP, with pt on Eliquis and with hyponatremia, would ideally optimize these prior to any procedures and this was explained to pt, his and son - All questions answered Thank you for allowing us to participate in the care of this patient. Please call with any acute changes, questions or concerns. Please see addendum below with additional recommendation from my supervising physician. Supervising Physician Co-Signing Physician Notes Consult for weakness 74 yo male with recently diagnosed pancreatic cancer (body/tail) with mets to the liver, who underwent his first dose of chemo three days ago, then presented for an outpatient visit today and was noticed to be more jaundiced and weaker and advised to come to the ER. In the ER, labs significant for elevated wbc count and elevated procalcitonin level, tb elevation compared to at time of eus-fna 7 days ago, downtrending lft's, and stable alk phos level, and low na level that appears new. He is mentating well though appears slightly somnolent, abd soft nt nd, jaundiced appearing Sig labs are as above CT a/p imaging reviewed- non specific adrenal lesion, liver lesions concerning for mets Overall, the rise in tb could be from biliary obstruction versus chemo +/- infection. Blood cultures pending, ucx pending. Given no mention of biliary dilation on ct, will obtain abd monica to better ascertain if biliary stricture is present. If present may need ercp once na is in a better range and eliquis has been held. Likely can eat post abd monica. If no evidence of biliary obstruction, rise in bili could be from chemo. Slow correction of his na as that may also be contributing to his weakness. He also reports persistent hiccups- could try baclofen 5 mg tid. 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 On arrival, labs notable for increase in bilirubin 1.59.3, direct bilirubin 7.5, continued elevation of transaminases and ALP, INR 2.0, WBC increased from 1417 K, Hgb 9.7, hyponatremic with sodium of 126, pro-Cruzito elevated at 2.58, UA with nitrates. CTAP noting findings concerning for widespread metastatic disease involving the pancreas, liver, bilateral lung bases, along with diffuse mesenteric edema, contracted gallbladder with surrounding edema, left kidney lesion, right adrenal lesion. GI asked to evaluate for elevated bilirubin. Blood cultures are pending, has been started on empiric Zosyn. He was recently admitted here and underwent EGD/EUS for FNA of pancreatic mass on 07/09/2020; on EUS he had no significant CBD pathology. No fever, vomiting, melena, hematochezia, chills, or diarrhea. He has some mild constipation. Vitals are stable. EUS 07/08/20: A 35 mm mass was identified in the pancreatic body. This was staged T2 N2 M1. Fine needle biopsy performed. - Many malignant-appearing lymph nodes were visualized in the celiac region (level 20) and peripancreatic region. - Multiple metastatic lesions were found in the left lobe of the liver and in the right lobe of the liver. - There was no sign of significant pathology in the ampulla. - There was no sign of significant pathology in the common bile duct. - Endosonographic images of the left adrenal gland were unremarkable. - The celiac trunk was endosonographically normal. EUS 07/08/20: Reflux esophagitis. - Normal stomach. - Normal duodenal bulb and second portion of the duodenum Allergies Allergy/AdvReac Type Severity Reaction Status Date / Time No Known Allergies Allergy Unverified 07/16/20 15:54 Home Medications Medication Instructions Recorded Confirmed Type aspirin 81 mg PO QAM #30 tab 07/09/20 07/16/20 Rx oxycodone 5 mg PO Q4H PRN #10 tab 07/09/20 07/16/20 Rx pantoprazole 40 mg PO QAM #30 tab 07/09/20 07/16/20 Rx apixaban [Eliquis] 5 mg PO BID 07/16/20 07/16/20 History Patient History Medical History Anemia Ataxia Elevated troponin HTN (hypertension) Liver metastases Lung metastases Spinal stenosis Stenosis of left internal carotid artery Surgical History History of inguinal hernia repair History of umbilical hernia repair Family History (Updated 07/16/20 @ 17:32 by Kandice Calle PA-C) Other Cancer Social History Smoking Status: Current every day smoker Tobacco Type: Cigarettes Cigarettes Per Day: 6; Hx Alcohol Use: Yes Alcohol type: beer Alcohol Intake Frequency: 2-3 x/Week Hx Substance Use: Yes (in past when he was in college) Prescribed Medications: Marijuana Preferred Language: Beninese Communication Ability: Effective Beliefs That Will Affect Care: None marital status: Current Living Situation: Spouse Current Living Situation Comment: current occupational status: retired current occupation: general surgeon Feels Safe at Home: Yes Assistive Devices: None Review of Systems Review of Systems: All systems reviewed & are unremarkable except as noted in HPI & below Physical Exam Constitutional: + ill appearing and + thin Respiratory: normal respiratory effort; no respiratory distress scattered crackles, R > L base Cardiovascular: Rate/Rhythm: regular rhythm and + tachycardic Gastrointestinal (Abdomen): Inspection/Auscultation: abdomen normal to inspection and normal bowel sounds; abdomen not distended Percussion/Palpation: abdomen soft; no guarding mildly tender over the epigastrium with light palpation Skin: +jaundice Psychiatric: A+Ox3, euthymic affect Results & Data ([facility] [place]) Vital Signs (Past 12 Hours) Vital Signs Temp Pulse Pulse Resp BP BP Pulse Ox 07/16/20 15:10 90 16 121/73 92 07/16/20 15:08 93 H 22 121/73 93 07/16/20 15:00 79 16 109/71 92 07/16/20 14:00 96 H 18 98/68 L 93 07/16/20 13:30 100 H 20 104/67 93 07/16/20 12:49 93 07/16/20 12:30 89 19 96/69 L 07/16/20 12:22 85 19 110/69 94 07/16/20 11:46 36.5 C 97 H 20 105/74 95 Laboratory Results 07/16/20 07/16/20 07/16/20 Range/Units 15:37 13:50 13:50 WBC (4.8-10.8) K/uL RBC (4.7-6.1) M/uL Hgb (14.0-18.0) g/dL Hct (42-52) % MCV (80-100) fL MCH (25-34) pg MCHC (32-36) g/dL RDW Std Deviation (36.4-46.3) fL RDW Coeff of [place]mar (11.5-14.5) % Plt Count (130-400) K/uL MPV (7.4-10.4) fL Immature Gran % (Auto) % Neut % (Auto) % Lymph % (Auto) % [place] % (Auto) % Eos % (Auto) % Baso % (Auto) % Neut # (Auto) (1.4-6.5) K/uL Lymph # (Auto) (1.2-3.4) K/uL [place] # (Auto) (0.11-0.59) K/uL Eos # (Auto) (0-0.5) K/uL Baso # (Auto) (0-0.2) K/uL Immature Gran # (Auto) (0.00-0.02) K/uL PT (9.0-12.0) Seconds INR (0.9-1.1) APTT (21.0-31.0) Seconds PTT Ratio Sodium (136-145) mmol/L Potassium (3.5-5.1) mmol/L Chloride (98-107) mmol/L Carbon Dioxide (21-32) mmol/L Anion Gap (3-11) BUN (7-18) mg/dl Creatinine (0.6-1.4) mg/dl Est Cr Clr Drug Dosing ml/min Est GFR ( Amer) ml/min Est GFR (Non-Af Amer) ml/min BUN/Creatinine Ratio (10-20) Glucose (70-99) mg/dl Osmolality (280-300) mOsm/kg Lactate (0.4-2.0) mmol/L Calcium (8.5-10.1) mg/dl Magnesium (1.8-2.4) mg/dl Total Bilirubin (0.2-1) mg/dl Direct Bilirubin (0-0.2) mg/dl AST (15-37) U/L ALT (12-78) U/L Alkaline Phosphatase (45-117) U/L Troponin I (0-0.045) ng/ml Total Protein (6.4-8.2) gm/dl Albumin (3.4-5.0) gm/dl Lipase (73-393) U/L Procalcitonin (0-0.5) ng/ml Urine Color [place] Urine Appearance Clear (Clear) Urine pH 5.0 (4.5-7.5) Ur Specific [place] 1.035 H (1.000-1.030) Urine Protein Negative (Negative) Urine Glucose (UA) Negative (Negative) Urine Ketones Negative (Negative) Urine Blood Negative (Negative) Urine Nitrite Positive A (Negative) Urine Bilirubin 3+ H (Negative) Urine Urobilinogen Negative (Negative) Ur Leukocyte Esterase Trace H (Negative) Urine WBC (Auto) 1-5 (0-5) /hpf Urine RBC (Auto) 0-4 (0-4) /hpf U Hyaline Cast (Auto) 1-5 (0-5) /lpf U Epithel Cells (Auto) 0-5 (0-5) /lpf Urine Bacteria (Auto) Negative (Negative) COVID-19 Eval Order Covid19 at [facility] SARS-CoV-2 (PCR) NEGATIVE (Negative) 07/16/20 07/16/20 07/16/20 Range/Units 13:10 13:10 13:10 WBC (4.8-10.8) K/uL RBC (4.7-6.1) M/uL Hgb (14.0-18.0) g/dL Hct (42-52) % MCV (80-100) fL MCH (25-34) pg MCHC (32-36) g/dL RDW Std Deviation (36.4-46.3) fL RDW Coeff of Shemar (11.5-14.5) % Plt Count (130-400) K/uL MPV (7.4-10.4) fL Immature Gran % (Auto) % Neut % (Auto) % Lymph % (Auto) % [place] % (Auto) % Eos % (Auto) % Baso % (Auto) % Neut # (Auto) (1.4-6.5) K/uL Lymph # (Auto) (1.2-3.4) K/uL [place] # (Auto) (0.11-0.59) K/uL Eos # (Auto) (0-0.5) K/uL Baso # (Auto) (0-0.2) K/uL Immature Gran # (Auto) (0.00-0.02) K/uL PT (9.0-12.0) Seconds INR (0.9-1.1) APTT (21.0-31.0) Seconds PTT Ratio Sodium 126 L (136-145) mmol/L Potassium 4.8 (3.5-5.1) mmol/L Chloride 94 L (98-107) mmol/L Carbon Dioxide 27 (21-32) mmol/L Anion Gap 5.0 (3-11) BUN 29 H (7-18) mg/dl Creatinine 1.16 (0.6-1.4) mg/dl Est Cr Clr Drug Dosing 59.5 ml/min Est GFR ( Amer) 71.5 ml/min Est GFR (Non-Af Amer) 61.7 ml/min BUN/Creatinine Ratio 24.8 H (10-20) Glucose 111 H (70-99) mg/dl Osmolality 269 L (280-300) mOsm/kg Lactate (0.4-2.0) mmol/L Calcium 8.3 L (8.5-10.1) mg/dl Magnesium 2.4 (1.8-2.4) mg/dl Total Bilirubin 9.3 H (0.2-1) mg/dl Direct Bilirubin 7.5 H (0-0.2) mg/dl AST 94 H (15-37) U/L ALT 86 H (12-78) U/L Alkaline Phosphatase 355 H (45-117) U/L Troponin I 0.107 H* (0-0.045) ng/ml Total Protein 5.4 L (6.4-8.2) gm/dl Albumin 1.8 L (3.4-5.0) gm/dl Lipase 68 L (73-393) U/L Procalcitonin 2.58 H (0-0.5) ng/ml Urine Color Urine Appearance (Clear) Urine pH (4.5-7.5) Ur Specific [place] (1.000-1.030) Urine Protein (Negative) Urine Glucose (UA) (Negative) Urine Ketones (Negative) Urine Blood (Negative) Urine Nitrite (Negative) Urine Bilirubin (Negative) Urine Urobilinogen (Negative) Ur Leukocyte Esterase (Negative) Urine WBC (Auto) (0-5) /hpf Urine RBC (Auto) (0-4) /hpf U Hyaline Cast (Auto) (0-5) /lpf U Epithel Cells (Auto) (0-5) /lpf Urine Bacteria (Auto) (Negative) COVID-19 Eval Order SARS-CoV-2 (PCR) (Negative) 07/16/20 07/16/20 07/16/20 Range/Units 13:10 13:10 13:10 WBC 17.99 H (4.8-10.8) K/uL RBC 3.09 L (4.7-6.1) M/uL Hgb 9.7 L (14.0-18.0) g/dL Hct 27.9 L (42-52) % MCV 90.3 (80-100) fL MCH 31.4 (25-34) pg MCHC 34.8 (32-36) g/dL RDW Std Deviation 46.4 H (36.4-46.3) fL RDW Coeff of Shemar 14.1 (11.5-14.5) % Plt Count 220 (130-400) K/uL MPV 10.2 (7.4-10.4) fL Immature Gran % (Auto) 0.3 % Neut % (Auto) 94.0 % Lymph % (Auto) 4.2 % [place] % (Auto) 0.2 % Eos % (Auto) 1.2 % Baso % (Auto) 0.1 % Neut # (Auto) 16.94 H (1.4-6.5) K/uL Lymph # (Auto) 0.75 L (1.2-3.4) K/uL [place] # (Auto) 0.03 L (0.11-0.59) K/uL Eos # (Auto) 0.21 (0-0.5) K/uL Baso # (Auto) 0.01 (0-0.2) K/uL Immature Gran # (Auto) 0.05 H (0.00-0.02) K/uL PT 18.8 H (9.0-12.0) Seconds INR 2.0 H (0.9-1.1) APTT 36.2 H (21.0-31.0) Seconds PTT Ratio 1.4 Sodium (136-145) mmol/L Potassium (3.5-5.1) mmol/L Chloride (98-107) mmol/L Carbon Dioxide (21-32) mmol/L Anion Gap (3-11) BUN (7-18) mg/dl Creatinine (0.6-1.4) mg/dl Est Cr Clr Drug Dosing ml/min Est GFR ( Amer) ml/min Est GFR (Non-Af Amer) ml/min BUN/Creatinine Ratio (10-20) Glucose (70-99) mg/dl Osmolality (280-300) mOsm/kg Lactate 2.0 (0.4-2.0) mmol/L Calcium (8.5-10.1) mg/dl Magnesium (1.8-2.4) mg/dl Total Bilirubin (0.2-1) mg/dl Direct Bilirubin (0-0.2) mg/dl AST (15-37) U/L ALT (12-78) U/L Alkaline Phosphatase (45-117) U/L Troponin I (0-0.045) ng/ml Total Protein (6.4-8.2) gm/dl Albumin (3.4-5.0) gm/dl Lipase (73-393) U/L Procalcitonin (0-0.5) ng/ml Urine Color Urine Appearance (Clear) Urine pH (4.5-7.5) Ur Specific [place] (1.000-1.030) Urine Protein (Negative) Urine Glucose (UA) (Negative) Urine Ketones (Negative) Urine Blood (Negative) Urine Nitrite (Negative) Urine Bilirubin (Negative) Urine Urobilinogen (Negative) Ur Leukocyte Esterase (Negative) Urine WBC (Auto) (0-5) /hpf Urine RBC (Auto) (0-4) /hpf U Hyaline Cast (Auto) (0-5) /lpf U Epithel Cells (Auto) (0-5) /lpf Urine Bacteria (Auto) (Negative) COVID-19 Eval Order SARS-CoV-2 (PCR) (Negative) Diagnostic Findings CTAP: 1. Findings are concerning for widespread malignant/metastatic disease with involvement of the pancreas, liver and bilateral lung bases. Associated mild ascites and diffuse mesenteric edema is seen. 2. Questionable hypoattenuating heterogeneous lesion within cortex of the left kidney might represent pyelonephritis or neoplasm. 3. Contracted gallbladder with surrounding edema, could be related to ascites or represent inflammatory processes such as cholecystitis. 4. Large left inguinal hernia containing nondilated loops of large bowel. No evidence of strangulation. CXR: 1. Interval development of mild nonspecific interstitial thickening. This could represent mild pulmonary vascular congestion or a bilateral interstitial infectious/inflammatory process. Clinical and radiographic follow-up are recommended
--- NOTE | 2020-07-16 17:09 | History & Physical Report ---
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 Pt with newly diagnosed pancreatic adenocarcinoma with recent EUS and biopsy on 07/08. He was seen and established with oncology on 07/10 and had first dose of gemcitabine on 07/13. Since chemotherapy has become increasingly more weak having difficulty with ambulation, poor p.o. intake and new jaundice that started last evening. Patient has evidence of hyperbilirubinemia new from recent admission with total bilirubin 9.3, previously had been 2.1 Pt does meet SIRS criteria 2/2 to leukocytosis and tachycardia. No documented fever but pt immunocompromised. Blood and urine cultures obtained. Received broad spectrum IV antibiotics in ED with Vanco/zosyn. Source: Possible GI in setting of elevated bili ? acute ascending cholangitis vs cholecystitis, UA + with nitrite possible UTI/pyelo ? if hyperbilirubinemia in setting of infection, progression of CA, development of stricture, ADR of gemcitabine admit to PCU consult GI - discussed case with them Consult Surgery to eval for possible cholecystitis Abd US stat now to eval gallbladder pathology NPO after midnight pain control with po oxy discussed with pt regarding palliative care consult and he agrees and would like to discuss options, he is DNR/DNI continue broad spectrum antibiotics with vanco/zosyn IVF 125cc/hr x 2 L repeat CMP @ 2200 (6) Hyponatremia: with hypochloremia likely 2/2 to poor intake urine na, osm and serum osm continue gentle IVF CMP at @ 2200 (7) Anemia: Patient denies signs or symptoms of blood loss Eliquis H&H 9.7 and 27.9 With recent hemoglobin on 07/09 10.9 and 07/06 11.8 expect H/H to decreased in setting of volume contraction and dehydration after IVF administration anemia panel ordered in am. type and screen ordered (8) HTN (hypertension): pt stopped lisinopril ( was on 20mg daily) BP stable for now 118/74, monitor (9) Elevated troponin: pt denies chest pain, elevated during previous hospitalization no ecg change no further work up at this time echo 07/07 60-65%, severe calcification of anterior mitral valve annulus (10) Stenosis of left internal carotid artery: seen and evaluated by vascular surgery who recommends elective L CEA on asa , pt refused statin last hospitalization will need to follow up with vascular as outpt (11) DVT prophylaxis: hold eliquis this evening 2/2 to possible need for procedure in a.m. Dispo: PCU PCP: none DNR/DNI - discussed with pt and family at bedside, will consult palliative given poor prognosis Pt was seen and examined in collaboration with Dr. Amaya, please see addendum History of Present Illness Chief Complaint: Increasing weakness and jaundice 1.5 days. 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 Patient underwent brain MRI which revealed multiple scattered small acute infarcts seen in the right occipital, right medial cerebellum and right frontal lobe. He was seen and evaluated by neurology and aspirin and Plavix was recommended. Patient refused Plavix and therefore after discussion with oncology was placed on aspirin and Eliquis secondary to hypercoagulable state. During hospitalization he was also seen and evaluated by gastroenterology secondary to pancreatic mass. Patient underwent EUS with biopsies which revealed adenocarcinoma. He was seen and evaluated by Dr. Quintero oncology on 07/10/2020 and was started on first round of chemotherapy with gemcitabine on 07/13. Treatment approach is palliative not curative. After receiving chemotherapy patient has become increasingly more weak and last evening turned, "yellow," per patient's . Patient's and son is currently at bedside. Patient understands the prognosis of his metastatic cancer as he is a retired general surgeon. The hope with the chemotherapy was to improve symptoms and give him time. He was seen and evaluated as an acute patient by oncology today where it was noted his bilirubin increased from 2-9. He was also found to have hyponatremia and was referred to ED. Currently patient complains of right upper quadrant and epigastric abdominal pain. Pain is constant but comes and goes in severity, described as dull ache, rated 5 out of 10, made worse with coughing or movement and improved with rest. He has overall had poor p.o. intake over the past 2 days per patient's . In ED patient remained hemodynamically stable. He was found to have hyperbilirubinemia with a total bilirubin of 9.3 and a direct bilirubin of 7.5, AST 94, ALT 86, alk phos 355. His lipase was 68, WBC 17.99k, pro calcitonin 2.58, sodium 126, chloride 94, BUN 29 creatinine 1.16. His INR was also elevated at 2.0 and he is currently on Eliquis with last dose this morning. Allergies Allergy/AdvReac Type Severity Reaction Status Date / Time No Known Allergies Allergy Unverified 07/16/20 15:54 Home Medications Medication Instructions Recorded Confirmed Type aspirin 81 mg PO QAM #30 tab 07/09/20 07/16/20 Rx oxycodone 5 mg PO Q4H PRN #10 tab 07/09/20 07/16/20 Rx pantoprazole 40 mg PO QAM #30 tab 07/09/20 07/16/20 Rx apixaban [Eliquis] 5 mg PO BID 07/16/20 07/16/20 History Past Med/Surg History Medical History Anemia Ataxia Elevated troponin HTN (hypertension) Liver metastases Lung metastases Pancreatic adenocarcinoma Pancreatic mass Spinal stenosis Stenosis of left internal carotid artery Surgical History History of inguinal hernia repair History of umbilical hernia repair Family History Other Cancer Social History Smoking Status: Former smoker Tobacco Type: Cigarettes Cigarettes Per Day: 6; Hx Alcohol Use: Yes Alcohol type: beer Alcohol Intake Frequency: 2-3 x/Week Hx Substance Use: No Preferred Language: [place] Citizen Communication Ability: Effective Beliefs That Will Affect Care: None marital status: Current Living Situation: Spouse Current Living Situation Comment: current occupational status: retired current occupation: general surgeon Other Information That Helps Us Care for You: No Feels Safe at Home: Yes Safety Concerns: Feels Safe At This Time Assistive Devices: Cane and Walker Review of Systems Review of Systems: All systems reviewed & are unremarkable except as noted in HPI & below Physical Exam Physical Exam: Constitutional: +jaundice, icteric, chronically ill appearing, vitals as above, NAD, sitting up in bed, answers questions appropriately Head: Normocephalic, Atraumatic Eyes: PERRL, conjunctivae normal, +icteric sclerae ENMT: external ear and nose normal, oropharynx normal Neck: trachea midline, no thyromegaly normal visual inspection Respiratory: normal respiratory effort, lungs clear to auscultation, no wheeze, rales, rhonchi. Normal insp/exp effort, no accessory muscle use Cardiovascular: RRR, no murmur, no edema Vessels: no JVD or carotid bruit Chest: normal inspection of chest Abdomen: normal bowel sounds, soft, nontender, no hepatosplenomegaly Musculoskeletal: no cyanosis or clubbing, extremities motor strength 5/5 Skin: no rashes, warm and dry normal turgor Neurologic: PERRL, EOMI, accommodation nl, no face palsy, no dysarthria CN's II-XI intact bilaterally and moves all extremities Psychiatric: A+Ox3, euthymic affect : deferred Results & Data Results & Data ([facility]) Vital Signs (Past 12 Hours) Vital Signs Temp Pulse Pulse Resp BP BP Pulse Ox 07/16/20 15:10 90 16 121/73 92 07/16/20 15:08 93 H 22 121/73 93 07/16/20 15:00 79 16 109/71 92 07/16/20 14:00 96 H 18 98/68 L 93 07/16/20 13:30 100 H 20 104/67 93 07/16/20 12:49 93 07/16/20 12:30 89 19 96/69 L 07/16/20 12:22 85 19 110/69 94 07/16/20 11:46 36.5 C 97 H 20 105/74 95 Diagnostic Findings Chest X-Ray 07/16/20 12:39 XR chest 1V portable CLINICAL HISTORY: SEPSIS COMPARISON STUDY: 09/13/2017 FINDINGS: The cardiac and mediastinal contours remain stable. There is mild interstitial thickening. This could represent mild pulmonary vascular congestion or a bilateral infectious/inflammatory process. Clinical correlation advocated. There are no large pleural effusions.[ IMPRESSION: 1. Interval development of mild nonspecific interstitial thickening. This could represent mild pulmonary vascular congestion or a bilateral interstitial infectious/inflammatory process. Clinical and radiographic follow-up are recommended ACT 112: Negative or not required by law. Electronically signed by: Alex Jackson M.D. 07/16/2020 1:30 PM Abdomen/Pelvis CT 07/16/20 12:40 CT abd pelvis IV con only CLINICAL HISTORY: abd pain jaundice COMPARISON STUDY: September 13, 2017 TECHNIQUE: A dose lowering technique was utilized adhering to the principles of ALARA. CT DOSE: 807.62 mGy.cm FINDINGS: Lower chest: There is septal thickening with innumerable nodules and groundglass attenuation within bilateral lower lobes which is new since prior study in 2018. Liver: Interval development of innumerable ill-defined hypoattenuating lesions throughout right and left lobe of the liver concerning for neoplastic process. Largest lesion is seen within segment 3 and measures approximately 6.0 x 4.2 cm on axial image 189 of series 3. Multiple small scattered areas of fluid collection and mesenteric edema is seen throughout the abdomen. Gallbladder: Gallbladder is contracted with enhanced wall and surrounding mesenteric edema which could be due to inflammatory changes or related to ascites. Spleen: Interval development of multiple peripheral areas of decreased attenuation within its parenchyma. Pancreas: Interval development of 4.9 x 3.6 cm hypoattenuating lesion within the tail of the pancreas is concerning for neoplastic process however differential could also include pancreatitis which is less likely. Adrenal glands: Irregularity of the right adrenal gland is again seen. Redemonstration of the 1.6 x 1.8 cm left adrenal lesion which appears to be stable since prior. Kidneys: There is symmetric renal cortical enhancement. The kidneys are normal in size without hydronephrosis. Interval development of 2.2 x 2.4 cm hypoattenuating lesion within left renal parenchyma which could represent neoplasm or inflammatory process. Bowel: The small bowel and colon are normal in course and caliber. Small hiatal hernia is seen. Duodenal diverticulum is demonstrated. Appendix is not well visualized There is large left inguinal hernia containing nondilated loops of large bowel. Peritoneum: No free intraperitoneal air is seen. Vasculature: Normal size of abdominal aorta which is tortuous and contain scattered calcifications of its wall. Adenopathy: There is 2.8 x 2.6 cm hypoattenuating, possibly necrotic left paraesophageal lymph node is seen. Pelvic viscera: The bladder, and pelvic viscera are unremarkable. Skeletal structures: Osseous structures are diffusely demineralized. No definite aggressive lesions are seen. IMPRESSION: 1. Findings are concerning for widespread malignant/metastatic disease with involvement of the pancreas, liver and bilateral lung bases. Associated mild ascites and diffuse mesenteric edema is seen. 2. Questionable hypoattenuating heterogeneous lesion within cortex of the left kidney might represent pyelonephritis or neoplasm. 3. Contracted gallbladder with surrounding edema, could be related to ascites or represent inflammatory processes such as cholecystitis. 4. Large left inguinal hernia containing nondilated loops of large bowel. No evidence of strangulation. ACT 112: Negative or not required by law. The above report was generated using voice recognition software. It may contain grammatical, syntax or spelling errors. Electronically signed by: Lorie Webb DO 07/16/2020 2:56 PM Medications Administered Medication List Sodium Chloride (Nss 1000ml) 1,000 mls @ 125 mls/hr IV .Q8H CODI Stop: 08/15/20 12:44 Last Admin: 07/16/20 13:37 Dose: 125 mls/hr Documented by: [id number] Discontinued Medications Ioversol (Optiray 320 100ml) 87 ml IV ONCE ONE Stop: 07/16/20 14:30 Last Admin: 07/16/20 14:30 Dose: 87 ml Documented by: [id number] Morphine Sulfate (Morphine Sulfate 4 Mg/Ml 1 Ml Carp\\Vial) 4 mg IV NOW STA Stop: 07/16/20 12:43 Last Admin: 07/16/20 13:36 Dose: 4 mg Documented by: [id number] Ondansetron HCl (Ondansetron Inj 2 Mg/Ml 2 Ml Vial) 4 mg IV NOW STA Stop: 07/16/20 12:43 Last Admin: 07/16/20 13:36 Dose: 4 mg Documented by: [id number] ECG Rate (beats per minute): 87 Rhythm: normal sinus Findings: + PAC and + RBBB COVID-19 Results Results COVID-19 Adm Lab Results: RBC 3.09 M/uL (4.7-6.1) L 07/16/20 WBC 17.99 K/uL (4.8-10.8) H 07/16/20 Hgb 9.7 g/dL (14.0-18.0) L 07/16/20 Hct 27.9 % (42-52) L 07/16/20 Plt Count 220 K/uL (130-400) 07/16/20 Neutrophils (%) (Auto) 94.0 % 07/16/20 Lymphocytes (%) (Auto) 4.2 % 07/16/20 Monocytes # (Auto) 0.03 K/uL (0.11-0.59) L 07/16/20 Eosinophils # (Auto) 0.21 K/uL (0-0.5) 07/16/20 Immature Granulocyte % (Auto) 0.3 % 07/16/20 Neutrophils # (Auto) 16.94 K/uL (1.4-6.5) H 07/16/20 Lymphocytes # (Auto) 0.75 K/uL (1.2-3.4) L 07/16/20 Monocytes # (Auto) 0.03 K/uL (0.11-0.59) L 07/16/20 Eosinophils # (Auto) 0.21 K/uL (0-0.5) 07/16/20 Basophils # (Auto) 0.01 K/uL (0-0.2) 07/16/20 Immature Granulocyte # (Auto) 0.05 K/uL (0.00-0.02) H 07/16/20 Na 126 mmol/L (136-145) L 07/16/20 K 4.8 mmol/L (3.5-5.1) 07/16/20 Cl 94 mmol/L (98-107) L 07/16/20 CO2 27 mmol/L (21-32) 07/16/20 Anion Gap 5.0 (3-11) 07/16/20 BUN 29 mg/dl (7-18) H 07/16/20 Creatinine 1.16 mg/dl (0.6-1.4) 07/16/20 BUN/Creatinine Ratio 24.8 (10-20) H 07/16/20 Glucose Level 111 mg/dl (70-99) H 07/16/20 Ca 8.3 mg/dl (8.5-10.1) L 07/16/20 Total Bilirubin 9.3 mg/dl (0.2-1) H 07/16/20 Direct Bilirubin 7.5 mg/dl (0-0.2) H 07/16/20 AST/SGOT 94 U/L (15-37) H 07/16/20 ALT/SGPT 86 U/L (12-78) H 07/16/20 Alkaline Phosphatase 355 U/L (45-117) H 07/16/20 Total Protein 5.4 gm/dl (6.4-8.2) L 07/16/20 Albumin 1.8 gm/dl (3.4-5.0) L 07/16/20 Troponin I 0.107 ng/ml (0-0.045) H* 07/16/20 Procalcitonin 2.58 ng/ml (0-0.5) H 07/16/20 PTT 36.2 Seconds (21.0-31.0) H 07/16/20 INR 2.0 (0.9-1.1) H 07/16/20 COVID-19 PCR NEGATIVE (Negative) 07/16/20 Chest X-Ray 07/16/20 Code Status & VTE Plan Code Status DNR/DNI VTE Prophylaxis Plan VTE Prophylaxis will be ordered: No Supervising Physician Co-Signing Physician Notes is a 74-year-old male with history of pancreatic adenocarcinoma with metastatic disease, embolic CVA and other medical problems who was recently started on chemotherapy with gemcitabine by Dr. Quintero presents with history of significant generalized weakness, jaundice since 2 days duration. Patient also admits to have poor oral intake, ongoing abdominal discomfort predominantly right and left upper quadrants, epigastric pain sometimes radiating to flank region. Please review HPI for complete details of presentation. He was noted to have hyponatremia 126, hypochloremia 94, leukocytosis 17.9 9K, anemia with hemoglobin 9.7, INR 2.0, troponin mildly elevated at 0.107, procalcitonin 2.58, transaminitis with elevated bilirubin 9.3, direct 7.5, AST 94, ALT 86, alk phos 355. He denies having dysuria, hematuria, fever, chills. CT abdomen showed findings suggestive of widespread metastatic disease with involvement of pancreas, bilateral lung bases, liver, mild ascites and findings suggestive of possible pyelonephritis or neoplasm, contracted gallbladder with surrounding edema, cannot rule out cholecystitis. Chest x-ray showed findings suggestive of possible mild pulmonary congestion or bilateral interstitial infectious inflammatory process. On exam patient is moderately built and nourished, no distress, normocephalic atraumatic, EOMI,+ icterus, lungs-normal breath sounds, clear to auscultation, no accessory muscle use, S1-S2, no murmur, no pedal edema, abdomen soft, mild tenderness epigastric, right upper quadrant predominantly, no guarding or rigidity, alert, awake, oriented, grossly no focal deficits. While on the floor, patient developed A. fib RVR. Patient is admitted for management of pancreatic adenocarcinoma with metastatic disease, hyperbilirubinemia, Sepsis possible secondary to pyelonephritis, cholecystitis/cholangitis, Pneumonitis. Agree with starting broad-spectrum antibiotics vancomycin, Zosyn. We will give him IV fluids. Appreciate GI and surgery input. Will hold his Eliquis per procedure tomorrow. Blood, urine cultures obtained. Gemcitabine known to cause Transaminitis. Further management based on GI evaluation with EUS/ERCP. Obtain gallbladder ultrasound. Will monitor sodium levels. Will start on metoprolol 25 mg twice daily, IV Lopressor as needed. Will request cardiology evaluation. Monitor volume status. Mild troponin elevation likely secondary to demand ischemia from tachycardia. Patient denied any chest pain. I personally reviewed the record. Patient is interviewed and examined at bedside. Patient's care is coordinated wi jaylin Calle PA-C. Please refer to the documentation above for details of patient's presentation and for discussion of other issues.
[2020-07-16] MEDS ORDERED: oxyCODONE HCL IR 5 MG TAB (IMMEDIATE RELEASE) PO STA (17:26)
[2020-07-16] MEDS ORDERED: BACLOFEN 10 MG TAB PO STA (17:58)
--- NOTE | 2020-07-16 18:33 | Emergency Department Note ---
History of Present Illness General Chief complaint: Weakness Stated complaint: 1 ROUND OF CHEMO 07/13,NOT FEELING WELL,TIRED Time Seen by Provider: 07/16/20 12:09 History of Present Illness Provider complaint: Weakness and nausea jaundice Onset (ago): day(s) 1 Radiation: abdomen Maximum Pain Intensity: 6 Associated symptoms: + nausea/vomiting (Nausea no vomiting) and + weakness; no cough, no headaches and no shortness of breath 74-year-old male presents to the emergency department with nausea weakness and jaundice. 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 He states he received his first dose of chemotherapy through Dr. Quintero at [facility] earlier this week. He reports nausea but no vomiting. He reports chills. No fever. Patient also reports having hiccups. No hematuria or dysuria. No chest pain or difficulty breathing. Patient is on Eliquis. Patient denies any falls. Patient reports his jaundice began yesterday. Home Medications Medication Instructions Recorded Confirmed Type aspirin 81 mg PO QAM #30 tab 07/09/20 07/16/20 Rx oxycodone 5 mg PO Q4H PRN #10 tab 07/09/20 07/16/20 Rx pantoprazole 40 mg PO QAM #30 tab 07/09/20 07/16/20 Rx apixaban [Eliquis] 5 mg PO BID 07/16/20 07/16/20 History Allergies Allergy/AdvReac Type Severity Reaction Status Date / Time No Known Allergies Allergy Unverified 07/16/20 15:54 Past Med/Surg History Medical History Anemia Ataxia Elevated troponin HTN (hypertension) Liver metastases Lung metastases Pancreatic adenocarcinoma Pancreatic mass Spinal stenosis Stenosis of left internal carotid artery Surgical History History of inguinal hernia repair History of umbilical hernia repair Family History Other Cancer Social History Smoking Status: Current every day smoker Tobacco Type: Cigarettes Cigarettes Per Day: 6; Hx Alcohol Use: Yes Alcohol type: beer Alcohol Intake Frequency: 2-3 x/Week Hx Substance Use: Yes (in past when he was in college) Prescribed Medications: Marijuana Preferred Language: Serbian Communication Ability: Effective Beliefs That Will Affect Care: None marital status: Current Living Situation: Spouse Current Living Situation Comment: current occupational status: retired current occupation: general surgeon Feels Safe at Home: Yes Assistive Devices: None Review of Systems A total of 10 systems reviewed and were otherwise negative Physical Exam Vital Signs Vital Signs - 24 hr 07/16/20 11:46 07/16/20 12:22 07/16/20 12:30 Temperature 36.5 C Temperature Source Skin Pulse Rate 97 H 85 89 Pulse Rate [Right Finger] Pulse Rate from SpO2 Sensor 80 Pulse Rhythm [Right Finger] Pulse Strength [Right Finger] Respiratory Rate 20 19 19 Respiratory Effort / Characteristics Non-Labored Spontaneous Respiratory Depth Normal Respiratory Pattern Regular Blood Pressure 105/74 110/69 96/69 L Blood Pressure [Left Arm] Blood Pressure Mean 84 82 78 Blood Pressure Mean [Left Arm] Blood Pressure Position [Left Arm] Pulse Oximetry 95 94 Oxygen Delivery Method Room Air Sepsis Recent Fever Within 48 Hours No Sepsis New/Unexplained Change in Mental Status N/A Sepsis Action Taken by Nursing No Action Required 07/16/20 12:46 07/16/20 12:49 07/16/20 13:30 Temperature Temperature Source Pulse Rate 100 H Pulse Rate [Right Finger] Pulse Rate from SpO2 Sensor 97 H Pulse Rhythm [Right Finger] Pulse Strength [Right Finger] Respiratory Rate 20 Respiratory Effort / Characteristics Non-Labored Spontaneous Respiratory Depth Respiratory Pattern Blood Pressure 104/67 Blood Pressure [Left Arm] Blood Pressure Mean 79 Blood Pressure Mean [Left Arm] Blood Pressure Position [Left Arm] Pulse Oximetry 93 93 Oxygen Delivery Method Room Air Room Air Sepsis Recent Fever Within 48 Hours Sepsis New/Unexplained Change in Mental Status Sepsis Action Taken by Nursing 07/16/20 14:00 07/16/20 15:00 07/16/20 15:08 Temperature Temperature Source Pulse Rate 96 H 79 93 H Pulse Rate [Right Finger] Pulse Rate from SpO2 Sensor 93 H 82 81 Pulse Rhythm [Right Finger] Pulse Strength [Right Finger] Respiratory Rate 18 16 22 Respiratory Effort / Characteristics Respiratory Depth Respiratory Pattern Blood Pressure 98/68 L 109/71 121/73 Blood Pressure [Left Arm] Blood Pressure Mean 78 83 89 Blood Pressure Mean [Left Arm] Blood Pressure Position [Left Arm] Pulse Oximetry 93 92 93 Oxygen Delivery Method Room Air Room Air Room Air Sepsis Recent Fever Within 48 Hours Sepsis New/Unexplained Change in Mental Status Sepsis Action Taken by Nursing 07/16/20 15:10 07/16/20 15:37 07/16/20 16:00 Temperature Temperature Source Pulse Rate 103 H Pulse Rate [Right Finger] 90 Pulse Rate from SpO2 Sensor 114 H Pulse Rhythm [Right Finger] Regular Pulse Strength [Right Finger] Normal Respiratory Rate 16 17 Respiratory Effort / Characteristics Non-Labored Spontaneous Non-Labored Spontaneous Respiratory Depth Normal Respiratory Pattern Regular Blood Pressure 118/74 Blood Pressure [Left Arm] 121/73 Blood Pressure Mean 88 Blood Pressure Mean [Left Arm] 89 Blood Pressure Position [Left Arm] Lying Pulse Oximetry 92 92 Oxygen Delivery Method Room Air Sepsis Recent Fever Within 48 Hours Sepsis New/Unexplained Change in Mental Status Sepsis Action Taken by Nursing Physical Exam HENT: Exam performed. - Head: Normocephalic and atraumatic. - Right Ear: External ear normal. No mastoid tenderness. - Left Ear: External ear normal. No mastoid tenderness. - Mouth/Throat: The oropharynx is clear and moist. No trismus in the jaw. No dental abscesses or uvula swelling. No oropharyngeal exudate or tonsillar abscesses. EYES:EOM are normal. Pupils are equal, round, and reactive to light. Right eye exhibits no discharge. Left eye exhibits no discharge. scleral icterus. NECK: Normal range of motion. Neck supple. No JVD present. No spinous process tenderness present. No carotid bruit present. No rigidity. No tracheal deviation and normal range of motion present. No Brudzinski's sign and no Kernig's sign noted. CV: Normal rate, regular rhythm, normal heart sounds and intact distal pulses. There is no peripheral edema. Palpable radial pulses bue. PULM/CHEST: Effort normal and breath sounds normal. No respiratory distress. No stridor. He has no wheezes. He has no rales. - Chest Wall: He exhibits no tenderness. ABD: The abdomen is soft. Diffuse tenderness to palpation. MUSC/SKEL: Normal range of motion. There is no peripheral edema, tenderness or deformity. LYMPH: No cervical adenopathy. NEURO: He is alert and oriented to person, place, and time. He has normal strength. No cranial nerve deficit or sensory deficit. Coordination and gait normal. GCS eye subscore is 4. GCS verbal subscore is 5. GCS motor subscore is 6. Cerebellar tests wnl. SKIN: Jaundiced. PSYCH: He has a normal mood and affect. Behavior is normal. Judgment and thought content normal. Course Course 1209: The patient was evaluated in room C11. A complete history and physical exam was performed Cardiac monitoring: An order was placed for continuous cardiac monitoring. The monitor shows a rate of 80 with sinus rhythm 1515: Vital signs stable. Labs show a leukocytosis of 17.99. Hemoglobin 9.7. Sodium 126. INR 2.0. Total bilirubin 9.3 and direct bilirubin 7.5. AST 94 ALT 86. Alkaline phosphatase 355. Troponin elevated 0.107. Procalcitonin elevated 2.58. Lactate of 2. Given the patient's elevated procalcitonin and leukocytosis patient was started on Zosyn. Imaging shows widespread metastatic disease involving the pancreas lungs and liver's. They said there is also a lesion in the left kidney which might represent pyelonephritis and neoplasm. There is contracted gallbladder sounding edema which could be related to ascites represent inflammatory process. There is a large left inguinal hernia with no evidence of strangulation. I had a long discussion with the patient and the patient's at bedside. 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 The states she is also understanding that the patient's prognosis about the metastatic pancreatic cancer is not good. I discussed discussed my concerns with the jaundice and elevated white blood cell count explained to him that we would start broad- spectrum antibiotics with Zosyn. He is in agreement. The was inquiring about hospice/palliative care. I explained to them that we would admit the patient to the [facility] team and they would have discussions with him about that. The states that she is contacting her 2 sons which I encouraged her to do so they could be with the patient at this difficult time. I will discussed the case with [facility] and it plan to admit to Dr. Oakes's team. 1830: Vital signs stable. The medicine team placed consults to gastroenterology and general surgery. General surgery Dr. Frausto came to discuss his consult with me and recommended transfer to [facility] for possible IR/general surgery evaluation. I explained to Dr. 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 He states that he recommends transfer and when he discussed with the patient and the family members would like transfer. He states he is signing off of the case. I went to go speak with the patient after Dr. Frausto signed off the case and the patient, who is a general surgeon himself, states he does not feel like he needs to be transferred to a tertiary care center. He states he was evaluated by the GI team who recommended ultrasound and he states he would like to proceed with the ultrasound. He states he feels frustrated because he is getting different messages from the GI and general surgery team. He states he does not think there there is anything acutely that a tertiary care surgeon will do given his widespread metastatic disease and the fact that he is on Eliquis. He states he does not want to be transferred to [facility] or any other tertiary care center at this time. Son and are at bedside are in agreement. They state they would like the patient to be admitted here and for him to have ultrasound done as recommended by GI. They asked for my opinion and I explained to them that they should have a family meeting to discuss the goals of care amongst themselves and discuss if they would like the patient to be a on hospice. They state they are waiting for their other son to arrive later tonight or this weekend to discuss this. I had a very long discussion with the patient, his , and his son at bedside and they are all in agreement that they do not wish to be transferred to any tertiary care center at this time and would like to be admitted to the [facility]. I did discuss this with the [facility] hospitalist team who is admitting the patient Kandice Coronel who stated when she evaluated the patient the patient did agree to become DNR/DNI and requested a palliative care consult. She states that the [facility] hospitalist team will limit the patient and she will hold off on transfer at this time and respect the patient and patient's family's wishes. Administered Medications Vancomycin HCl 2,000 mg/ (Sodium Chloride) 540 mls @ 200 mls/hr IV ONE STA Stop: 07/16/20 19:19 Last Admin: 07/16/20 17:59 Dose: 200 mls/hr Documented by: [id number] Discontinued Medications Sodium Chloride (Nss 1000ml) 1,000 mls @ 125 mls/hr IV .Q8H CODI Stop: 08/15/20 12:44 Last Admin: 07/16/20 13:37 Dose: 125 mls/hr Documented by: [id number] Piperacillin Sod/Tazobactam Sod (Zosyn) 4.5 gm in 120 mls @ 240 mls/hr IV NOW STA Stop: 07/16/20 17:06 Last Admin: 07/16/20 18:03 Dose: Not Given Documented by: [id number] Ioversol (Optiray 320 100ml) 87 ml IV ONCE ONE Stop: 07/16/20 14:30 Last Admin: 07/16/20 14:30 Dose: 87 ml Documented by: [id number] Morphine Sulfate (Morphine Sulfate 4 Mg/Ml 1 Ml Carp\Vial) 4 mg IV NOW STA Stop: 07/16/20 12:43 Last Admin: 07/16/20 13:36 Dose: 4 mg Documented by: [id number] Ondansetron HCl (Ondansetron Inj 2 Mg/Ml 2 Ml Vial) 4 mg IV NOW STA Stop: 07/16/20 12:43 Last Admin: 07/16/20 13:36 Dose: 4 mg Documented by: [id number] Oxycodone HCl (Oxycodone Hcl Ir 5 Mg Tab (Immediate Release)) 5 mg PO NOW STA Stop: 07/16/20 17:27 Last Admin: 07/16/20 18:17 Dose: 5 mg Documented by: [id number] Piperacillin Sod/Tazobactam Sod (Piperacillin/Tazobactam 4.5 Gm/120ml D5w) Confirm Administered Dose 4.5 gm IV .STK-MED ONE Stop: 07/16/20 16:34 Last Admin: 07/16/20 16:40 Dose: 4.5 gm Documented by: [id number] Medical Decision Making Laboratory Data Result diagrams: 07/16/20 13:10 07/16/20 13:10 Lab Results 07/16/20 07/16/20 07/16/20 Range/Units 13:10 13:10 13:10 WBC 17.99 H (4.8-10.8) K/uL RBC 3.09 L (4.7-6.1) M/uL Hgb 9.7 L (14.0-18.0) g/dL Hct 27.9 L (42-52) % MCV 90.3 (80-100) fL MCH 31.4 (25-34) pg MCHC 34.8 (32-36) g/dL RDW Std Deviation 46.4 H (36.4-46.3) fL RDW Coeff of Shemar 14.1 (11.5-14.5) % Plt Count 220 (130-400) K/uL MPV 10.2 (7.4-10.4) fL Immature Gran % (Auto) 0.3 % Neut % (Auto) 94.0 % Lymph % (Auto) 4.2 % Paulding % (Auto) 0.2 % Eos % (Auto) 1.2 % Baso % (Auto) 0.1 % Neut # (Auto) 16.94 H (1.4-6.5) K/uL Lymph # (Auto) 0.75 L (1.2-3.4) K/uL [place] # (Auto) 0.03 L (0.11-0.59) K/uL Eos # (Auto) 0.21 (0-0.5) K/uL Baso # (Auto) 0.01 (0-0.2) K/uL Immature Gran # (Auto) 0.05 H (0.00-0.02) K/uL PT 18.8 H (9.0-12.0) Seconds INR 2.0 H (0.9-1.1) APTT 36.2 H (21.0-31.0) Seconds PTT Ratio 1.4 Sodium (136-145) mmol/L Potassium (3.5-5.1) mmol/L Chloride (98-107) mmol/L Carbon Dioxide (21-32) mmol/L Anion Gap (3-11) BUN (7-18) mg/dl Creatinine (0.6-1.4) mg/dl Est Cr Clr Drug Dosing ml/min Est GFR ( Amer) ml/min Est GFR (Non-Af Amer) ml/min BUN/Creatinine Ratio (10-20) Glucose (70-99) mg/dl Osmolality (280-300) mOsm/kg Lactate 2.0 (0.4-2.0) mmol/L Calcium (8.5-10.1) mg/dl Magnesium (1.8-2.4) mg/dl Total Bilirubin (0.2-1) mg/dl Direct Bilirubin (0-0.2) mg/dl AST (15-37) U/L ALT (12-78) U/L Alkaline Phosphatase (45-117) U/L Troponin I (0-0.045) ng/ml Total Protein (6.4-8.2) gm/dl Albumin (3.4-5.0) gm/dl Lipase (73-393) U/L Procalcitonin (0-0.5) ng/ml Urine Color Urine Appearance (Clear) Urine pH (4.5-7.5) Ur Specific Sargent (1.000-1.030) Urine Protein (Negative) Urine Glucose (UA) (Negative) Urine Ketones (Negative) Urine Blood (Negative) Urine Nitrite (Negative) Urine Bilirubin (Negative) Urine Urobilinogen (Negative) Ur Leukocyte Esterase (Negative) Urine WBC (Auto) (0-5) /hpf Urine RBC (Auto) (0-4) /hpf U Hyaline Cast (Auto) (0-5) /lpf U Epithel Cells (Auto) (0-5) /lpf Urine Bacteria (Auto) (Negative) COVID-19 Eval Order SARS-CoV-2 (PCR) (Negative) 07/16/20 07/16/20 07/16/20 Range/Units 13:10 13:10 13:10 WBC (4.8-10.8) K/uL RBC (4.7-6.1) M/uL Hgb (14.0-18.0) g/dL Hct (42-52) % MCV (80-100) fL MCH (25-34) pg MCHC (32-36) g/dL RDW Std Deviation (36.4-46.3) fL RDW Coeff of Shemar (11.5-14.5) % Plt Count (130-400) K/uL MPV (7.4-10.4) fL Immature Gran % (Auto) % Neut % (Auto) % Lymph % (Auto) % Paul[place] % (Auto) % Eos % (Auto) % Baso % (Auto) % Neut # (Auto) (1.4-6.5) K/uL Lymph # (Auto) (1.2-3.4) K/uL Paulding # (Auto) (0.11-0.59) K/uL Eos # (Auto) (0-0.5) K/uL Baso # (Auto) (0-0.2) K/uL Immature Gran # (Auto) (0.00-0.02) K/uL PT (9.0-12.0) Seconds INR (0.9-1.1) APTT (21.0-31.0) Seconds PTT Ratio Sodium 126 L (136-145) mmol/L Potassium 4.8 (3.5-5.1) mmol/L Chloride 94 L (98-107) mmol/L Carbon Dioxide 27 (21-32) mmol/L Anion Gap 5.0 (3-11) BUN 29 H (7-18) mg/dl Creatinine 1.16 (0.6-1.4) mg/dl Est Cr Clr Drug Dosing 59.5 ml/min Est GFR ( Amer) 71.5 ml/min Est GFR (Non-Af Amer) 61.7 ml/min BUN/Creatinine Ratio 24.8 H (10-20) Glucose 111 H (70-99) mg/dl Osmolality 269 L (280-300) mOsm/kg Lactate (0.4-2.0) mmol/L Calcium 8.3 L (8.5-10.1) mg/dl Magnesium 2.4 (1.8-2.4) mg/dl Total Bilirubin 9.3 H (0.2-1) mg/dl Direct Bilirubin 7.5 H (0-0.2) mg/dl AST 94 H (15-37) U/L ALT 86 H (12-78) U/L Alkaline Phosphatase 355 H (45-117) U/L Troponin I 0.107 H* (0-0.045) ng/ml Total Protein 5.4 L (6.4-8.2) gm/dl Albumin 1.8 L (3.4-5.0) gm/dl Lipase 68 L (73-393) U/L Procalcitonin 2.58 H (0-0.5) ng/ml Urine Color Urine Appearance (Clear) Urine pH (4.5-7.5) Ur Specific Sargent (1.000-1.030) Urine Protein (Negative) Urine Glucose (UA) (Negative) Urine Ketones (Negative) Urine Blood (Negative) Urine Nitrite (Negative) Urine Bilirubin (Negative) Urine Urobilinogen (Negative) Ur Leukocyte Esterase (Negative) Urine WBC (Auto) (0-5) /hpf Urine RBC (Auto) (0-4) /hpf U Hyaline Cast (Auto) (0-5) /lpf U Epithel Cells (Auto) (0-5) /lpf Urine Bacteria (Auto) (Negative) COVID-19 Eval Order SARS-CoV-2 (PCR) (Negative) 07/16/20 07/16/20 07/16/20 Range/Units 13:50 13:50 15:37 WBC (4.8-10.8) K/uL RBC (4.7-6.1) M/uL Hgb (14.0-18.0) g/dL Hct (42-52) % MCV (80-100) fL MCH (25-34) pg MCHC (32-36) g/dL RDW Std Deviation (36.4-46.3) fL RDW Coeff of Shemar (11.5-14.5) % Plt Count (130-400) K/uL MPV (7.4-10.4) fL Immature Gran % (Auto) % Neut % (Auto) % Lymph % (Auto) % [place] % (Auto) % Eos % (Auto) % Baso % (Auto) % Neut # (Auto) (1.4-6.5) K/uL Lymph # (Auto) (1.2-3.4) K/uL [place] # (Auto) (0.11-0.59) K/uL Eos # (Auto) (0-0.5) K/uL Baso # (Auto) (0-0.2) K/uL Immature Gran # (Auto) (0.00-0.02) K/uL PT (9.0-12.0) Seconds INR (0.9-1.1) APTT (21.0-31.0) Seconds PTT Ratio Sodium (136-145) mmol/L Potassium (3.5-5.1) mmol/L Chloride (98-107) mmol/L Carbon Dioxide (21-32) mmol/L Anion Gap (3-11) BUN (7-18) mg/dl Creatinine (0.6-1.4) mg/dl Est Cr Clr Drug Dosing ml/min Est GFR ( Amer) ml/min Est GFR (Non-Af Amer) ml/min BUN/Creatinine Ratio (10-20) Glucose (70-99) mg/dl Osmolality (280-300) mOsm/kg Lactate (0.4-2.0) mmol/L Calcium (8.5-10.1) mg/dl Magnesium (1.8-2.4) mg/dl Total Bilirubin (0.2-1) mg/dl Direct Bilirubin (0-0.2) mg/dl AST (15-37) U/L ALT (12-78) U/L Alkaline Phosphatase (45-117) U/L Troponin I (0-0.045) ng/ml Total Protein (6.4-8.2) gm/dl Albumin (3.4-5.0) gm/dl Lipase (73-393) U/L Procalcitonin (0-0.5) ng/ml Urine Color Gail Urine Appearance Clear (Clear) Urine pH 5.0 (4.5-7.5) Ur Specific Sargent 1.035 H (1.000-1.030) Urine Protein Negative (Negative) Urine Glucose (UA) Negative (Negative) Urine Ketones Negative (Negative) Urine Blood Negative (Negative) Urine Nitrite Positive A (Negative) Urine Bilirubin 3+ H (Negative) Urine Urobilinogen Negative (Negative) Ur Leukocyte Esterase Trace H (Negative) Urine WBC (Auto) 1-5 (0-5) /hpf Urine RBC (Auto) 0-4 (0-4) /hpf U Hyaline Cast (Auto) 1-5 (0-5) /lpf U Epithel Cells (Auto) 0-5 (0-5) /lpf Urine Bacteria (Auto) Negative (Negative) COVID-19 Eval Order Covid19 at [facility] SARS-CoV-2 (PCR) NEGATIVE (Negative) Imaging Data Radiologist's Impression: Chest X-Ray 07/16/20 12:39 XR chest 1V portable CLINICAL HISTORY: SEPSIS COMPARISON STUDY: 09/13/2017 FINDINGS: The cardiac and mediastinal contours remain stable. There is mild interstitial thickening. This could represent mild pulmonary vascular congestion or a bilateral infectious/inflammatory process. Clinical correlation advocated. There are no large pleural effusions.[ IMPRESSION: 1. Interval development of mild nonspecific interstitial thickening. This could represent mild pulmonary vascular congestion or a bilateral interstitial infec tious/inflammatory process. Clinical and radiographic follow-up are recommended ACT 112: Negative or not required by law. Electronically signed by: Alex Jackson M.D. 07/16/2020 1:30 PM Abdomen/Pelvis CT 07/16/20 12:40 CT abd pelvis IV con only CLINICAL HISTORY: abd pain jaundice COMPARISON STUDY: September 13, 2017 TECHNIQUE: A dose lowering technique was utilized adhering to the principles of ALARA. CT DOSE: 807.62 mGy.cm FINDINGS: Lower chest: There is septal thickening with innumerable nodules and groundglass attenuation within bilateral lower lobes which is new since prior study in 2018. Liver: Interval development of innumerable ill-defined hypoattenuating lesions throughout right and left lobe of the liver concerning for neoplastic process. Largest lesion is seen within segment 3 and measures approximately 6.0 x 4.2 cm on axial image 189 of series 3. Multiple small scattered areas of fluid collection and mesenteric edema is seen throughout the abdomen. Gallbladder: Gallbladder is contracted with enhanced wall and surrounding mesenteric edema which could be due to inflammatory changes or related to ascites. Spleen: Interval development of multiple peripheral areas of decreased attenuation within its parenchyma. Pancreas: Interval development of 4.9 x 3.6 cm hypoattenuating lesion within the tail of the pancreas is concerning for neoplastic process however differential could also include pancreatitis which is less likely. Adrenal glands: Irregularity of the right adrenal gland is again seen. Redemonstration of the 1.6 x 1.8 cm left adrenal lesion which appears to be stable since prior. Kidneys: There is symmetric renal cortical enhancement. The kidneys are normal in size without hydronephrosis. Interval development of 2.2 x 2.4 cm hypoattenuating lesion within left renal parenchyma which could represent neoplasm or inflammatory process. Bowel: The small bowel and colon are normal in course and caliber. Small hiatal hernia is seen. Duodenal diverticulum is demonstrated. Appendix is not well visualized There is large left inguinal hernia containing nondilated loops of large bowel. Peritoneum: No free intraperitoneal air is seen. Vasculature: Normal size of abdominal aorta which is tortuous and contain scattered calcifications of its wall. Adenopathy: There is 2.8 x 2.6 cm hypoattenuating, possibly necrotic left paraesophageal lymph node is seen. Pelvic viscera: The bladder, and pelvic viscera are unremarkable. Skeletal structures: Osseous structures are diffusely demineralized. No definite aggressive lesions are seen. IMPRESSION: 1. Findings are concerning for widespread malignant/metastatic disease with involvement of the pancreas, liver and bilateral lung bases. Associated mild ascites and diffuse mesenteric edema is seen. 2. Questionable hypoattenuating heterogeneous lesion within cortex of the left kidney might represent pyelonephritis or neoplasm. 3. Contracted gallbladder with surrounding edema, could be related to ascites or represent inflammatory processes such as cholecystitis. 4. Large left inguinal hernia containing nondilated loops of large bowel. No evidence of strangulation. ACT 112: Negative or not required by law. The above report was generated using voice recognition software. It may contain grammatical, syntax or spelling errors. Electronically signed by: Lorie Webb DO 07/16/2020 2:56 PM ECG Data Additional Comments: Sinus arrhythmia with rate of 87. SD 128 QRS [address] elevation or ST depression. Right bundle branch block present. No significant change from the EKG done on July 08, 2020. [facility] Narrative 1209: The patient was evaluated in room C11. A complete history and physical exam was performed Cardiac monitoring: An order was placed for continuous cardiac monitoring. The monitor shows a rate of 80 with sinus rhythm 1515: Vital signs stable. Labs show a leukocytosis of 17.99. Hemoglobin 9.7. Sodium 126. INR 2.0. Total bilirubin 9.3 and direct bilirubin 7.5. AST 94 ALT 86. Alkaline phosphatase 355. Troponin elevated 0.107. Procalcitonin elevated 2.58. Lactate of 2. Given the patient's elevated procalcitonin and leukocytosis patient was started on Zosyn. Imaging shows widespread metastatic disease involving the pancreas lungs and liver's. They said there is also a lesion in the left kidney which might represent pyelonephritis and neoplasm. There is contracted gallbladder sounding edema which could be related to ascites represent inflammatory process. There is a large left inguinal hernia with no evidence of strangulation. I had a long discussion with the patient and the patient's at bedside. 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 The states she is also understanding that the patient's prognosis about the metastatic pancreatic cancer is not good. I discussed discussed my concerns with the jaundice and elevated white blood cell count explained to him that we would start broad- spectrum antibiotics with Zosyn. He is in agreement. The was inquiring about hospice/palliative care. I explained to them that we would admit the patient to the [facility] team and they would have discussions with him about that. The states that she is contacting her 2 sons which I encouraged her to do so they could be with the patient at this difficult time. I will discussed the case with [facility] and it plan to admit to Dr. Oakes's team. 183: Vital signs stable. The medicine team placed consults to gastroenterology and general surgery. General surgery Dr. Frausto came to discuss his consult with me and recommended transfer to [facility] for possible IR/general surgery evaluation. I explained to Dr. 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 He states that he recommends transfer and when he discussed with the patient and the family members would like transfer. He states he is signing off of the case. I went to go speak with the patient after Dr. Frausto signed off the case and the patient, who is a general surgeon himself, states he does not feel like he needs to be transferred to a tertiary care center. He states he was evaluated by the GI team who recommended ultrasound and he states he would like to proceed with the ultrasound. He states he feels frustrated because he is getting different messages from the GI and general surgery team. He states he does not think there there is anything acutely that a tertiary care surgeon will do given his widespread metastatic disease and the fact that he is on Eliquis. He states he does not want to be transferred to [facility] or any other tertiary care center at this time. Son and are at bedside are in agreement. They state they would like the patient to be admitted here and for him to have ultrasound done as recommended by GI. They asked for my opinion and I explained to them that they should have a family meeting to discuss the goals of care amongst themselves and discuss if they would like the patient to be a on hospice. They state they are waiting for their other son to arrive later tonight or this weekend to discuss this. I had a very long discussion with the patient, his , and his son at bedside and they are all in agreement that they do not wish to be transferred to any tertiary care center at this time and would like to be admitted to the [facility]. I did discuss this with the [facility] team who is admitting the patient Kandice Coronel who stated when she evaluated the patient the patient did agree to become DNR/DNI and requested a palliative care consult. She states that the [facility] team will limit the patient and she will hold off on transfer at this time and respect the patient and patient's family's wishes. Impression & Plan Jaundice, Malignant neoplasm of pancreas metastatic to liver, Hyponatremia Discharge Plan Visit Data Chief Complaint: Weakness Stated Complaint: 1 ROUND OF CHEMO 07/13,NOT FEELING WELL,TIRED ED Provider: Chad Mayo Discharge Problem: Jaundice, Malignant neoplasm of pancreas metastatic to liver, Hyponatremia Patient Disposition: Admitted As Inpatient Discharge Instructions Interventions: ED Discharge Assessment Last Done: 07/16/20 18:45
--- NOTE | 2020-07-16 18:39 | Surgery Consultation ---
Date of Consultation July 16, 2020 Assessment & Plan (1) Hyperbilirubinemia: pt is a 74 year-old male who presents to ER with pancreatic mass with weakness. IMP: Hyperbilirubinemia, cholangitis?, base pt's complicated medical history, recommend transfer higher level care possible intervention radiologist involved to release hyperbilirubinemia, no surgery indication for cholecystectomy now, D/W pt and his family member they agree with transfer, D/W ER attending, and hospitalist, sign off today, please call with questions, Thanks, Present on Admission?: Yes (2) Cholangitis: Supervising Physician Co-Signing Physician Notes Consult for weakness 74 yo male with recently diagnosed pancreatic cancer (body/tail) with mets to the liver, who underwent his first dose of chemo three days ago, then presented for an outpatient visit today and was noticed to be more jaundiced and weaker and advised to come to the ER. In the ER, labs significant for elevated wbc count and elevated procalcitonin level, tb elevation compared to at time of eus-fna 7 days ago, downtrending lft's, and stable alk phos level, and low na level that appears new. He is mentating well though appears slightly somnolent, abd soft nt nd, jaundiced appearing Sig labs are as above CT a/p imaging reviewed- non specific adrenal lesion, liver lesions concerning for mets Overall, the rise in tb could be from biliary obstruction versus chemo +/- infection. Blood cultures pending, ucx pending. Given no mention of biliary dilation on ct, will obtain abd monica to better ascertain if biliary stricture is present. If present may need ercp once na is in a better range and eliquis has been held. Likely can eat post abd monica. If no evidence of biliary obstruction, rise in bili could be from chemo. Slow correction of his na as that may also be contributing to his weakness. He also reports persistent hiccups- could try baclofen 5 mg tid. History of Present Illness History of Present Illness 74 yo male with recently diagnosed pancreatic cancer (body/tail) with mets to the liver, who underwent his first dose of chemo three days ago, then presented for an outpatient visit today and was noticed to be more jaundiced and weaker and advised to come to the ER. In the ER, labs significant for elevated wbc count and elevated procalcitonin level, tb elevation compared to at time of eus-fna 7 days ago, downtrending lft's, and stable alk phos level, and low na level that appears new. He is mentating well though appears slightly somnolent, abd soft nt nd, jaundiced appearing Sig labs are as above CT a/p imaging reviewed- non specific adrenal lesion, liver lesions concerning for mets Overall, the rise in tb could be from biliary obstruction versus chemo +/- infection. Blood cultures pending, ucx pending. Given no mention of biliary dilation on ct, will obtain abd monica to better ascertain if biliary stricture is present. If present may need ercp once na is in a better range and eliquis has been held. Likely can eat post abd monica. If no evidence of biliary obstruction, rise in bili could be from chemo. Slow correction of his na as that may also be contributing to his weakness. He also reports persistent hiccups- could try baclofen 5 mg tid. 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 On arrival, labs notable for increase in bilirubin 1.59.3, direct bilirubin 7.5, continued elevation of transaminases and ALP, INR 2.0, WBC increased from 1417 K, Hgb 9.7, hyponatremic with sodium of 126, pro-Urmila elevated at 2.58, UA with nitrates. CTAP noting findings concerning for widespread metastatic disease involving the pancreas, liver, bilateral lung bases, along with diffuse mesenteric edema, contracted gallbladder with surrounding edema, left kidney lesion, right adrenal lesion. GI asked to evaluate for elevated bilirubin. Blood cultures are pending, has been started on empiric Zosyn. He was recently admitted here and underwent EGD/EUS for FNA of pancreatic mass on 07/09/2020; on EUS he had no significant CBD pathology. No fever, vomiting, melena, hematochezia, chills, or diarrhea. He has some mild constipation. Vitals are stable. I ( Fred Frausto MD ) got a urmila for consult possible cholecystitis, I reviewed pt's H/P, labs, CT scan with pt and his family members, mild epigastric pain, EUS 07/08/20: A 35 mm mass was identified in the pancreatic body. This was staged T2 N2 M1. Fine needle biopsy performed. - Many malignant-appearing lymph nodes were visualized in the celiac region (level 20) and peripancreatic region. - Multiple metastatic lesions were found in the left lobe of the liver and in the right lobe of the liver. - There was no sign of significant pathology in the ampulla. - There was no sign of significant pathology in the common bile duct. - Endosonographic images of the left adrenal gland were unremarkable. - The celiac trunk was endosonographically normal. EUS 07/08/20: Reflux esophagitis. - Normal stomach. - Normal duodenal bulb and second portion of the duodenum Allergies Allergy/AdvReac Type Severity Reaction Status Date / Time No Known Allergies Allergy Unverified 07/16/20 15:54 Home Medications Medication Instructions Recorded Confirmed Type aspirin 81 mg PO QAM #30 tab 07/09/20 07/16/20 Rx oxycodone 5 mg PO Q4H PRN #10 tab 07/09/20 07/16/20 Rx pantoprazole 40 mg PO QAM #30 tab 07/09/20 07/16/20 Rx apixaban [Eliquis] 5 mg PO BID 07/16/20 07/16/20 History Patient History Medical History Anemia Ataxia Elevated troponin HTN (hypertension) Liver metastases Lung metastases Spinal stenosis Stenosis of left internal carotid artery Surgical History History of inguinal hernia repair History of umbilical hernia repair Family History (Updated 07/16/20 @ 17:32 by Kandice Calle PA-C) Other Cancer Social History Smoking Status: Current every day smoker Tobacco Type: Cigarettes Cigarettes Per Day: 6; Hx Alcohol Use: Yes Alcohol type: beer Alcohol Intake Frequency: 2-3 x/Week Hx Substance Use: Yes (in past when he was in college) Prescribed Medications: Marijuana Preferred Language: Ukrainian Communication Ability: Effective Beliefs That Will Affect Care: None marital status: Current Living Situation: Spouse Current Living Situation Comment: current occupational status: retired current occupation: general surgeon Feels Safe at Home: Yes Assistive Devices: None Review of Systems Review of Systems: All systems reviewed & are unremarkable except as noted in HPI & below Allergies Allergy/AdvReac Type Severity Reaction Status Date / Time No Known Allergies Allergy Unverified 07/16/20 15:54 Home Medications Medication Instructions Recorded Confirmed Type aspirin 81 mg PO QAM #30 tab 07/09/20 07/16/20 Rx oxycodone 5 mg PO Q4H PRN #10 tab 07/09/20 07/16/20 Rx pantoprazole 40 mg PO QAM #30 tab 07/09/20 07/16/20 Rx apixaban [Eliquis] 5 mg PO BID 07/16/20 07/16/20 History Patient History Medical History Anemia Ataxia Elevated troponin HTN (hypertension) Liver metastases Lung metastases Spinal stenosis Stenosis of left internal carotid artery Surgical History History of inguinal hernia repair History of umbilical hernia repair Family History (Updated 07/16/20 @ 17:32 by Kandice Calle PA-C) Other Cancer Social History Smoking Status: Current every day smoker Tobacco Type: Cigarettes Cigarettes Per Day: 6; Hx Alcohol Use: Yes Alcohol type: beer Alcohol Intake Frequency: 2-3 x/Week Hx Substance Use: Yes (in past when he was in college) Prescribed Medications: Marijuana Preferred Language: Ukrainian Communication Ability: Effective Beliefs That Will Affect Care: None marital status: Current Living Situation: Spouse Current Living Situation Comment: current occupational status: retired current occupation: general surgeon Feels Safe at Home: Yes Assistive Devices: None Review of Systems Review of Systems: All systems reviewed & are unremarkable except as noted in HPI & below Constitutional: as per Subjective / HPI Eyes: as per Subjective / HPI Ear, Nose, Mouth, Throat: as per Subjective / HPI Respiratory: as per Subjective / HPI lung metastases Cardiovascular: as per Subjective / HPI Additional Comments: HTN Gastrointestinal: as per Subjective / HPI pancreatic mass, elevated LFTS, liver metastases Genitourinary: + as per Subjective / HPI Musculoskeletal: as per Subjective / HPI spinal stenosis Neurologic: as per Subjective / HPI Psychiatric: as per Subjective / HPI Endocrine: as per Subjective / HPI Hematologic / Lymphatic: as per Subjective / HPI anemia Physical Exam Constitutional: WD/WN, vitals as above well developed and + ill appearing Eyes: PERRL, conjunctivae normal, anicteric sclerae ENMT: external ear and nose normal, oropharynx normal Neck: trachea midline, no thyromegaly Respiratory: normal respiratory effort, lungs clear to auscultation Cardiovascular: RRR, no murmur, no edema Rate/Rhythm: regular rate and regular rhythm Gastrointestinal (Abdomen): Percussion/Palpation: abdomen soft mild tenderness at epigastric area, no rebound pain, no distend, BS +, Musculoskeletal: no cyanosis or clubbing, extremities motor strength 5/5 Neurologic: awake Psychiatric: Orientation: alert and oriented x 3 Results & Data ([facility]) Vital Signs (Past 12 Hours) Vital Signs Temp Pulse Pulse Resp BP BP Pulse Ox 07/16/20 16:00 103 H 17 118/74 92 07/16/20 15:10 90 16 121/73 92 07/16/20 15:08 93 H 22 121/73 93 07/16/20 15:00 79 16 109/71 92 07/16/20 14:00 96 H 18 98/68 L 93 07/16/20 13:30 100 H 20 104/67 93 07/16/20 12:49 93 07/16/20 12:30 89 19 96/69 L 07/16/20 12:22 85 19 110/69 94 07/16/20 11:46 36.5 C 97 H 20 105/74 95 Laboratory Results Abnormal lab results 07/16/20 07/16/20 07/16/20 Range/Units 13:10 13:10 13:10 WBC 17.99 H (4.8-10.8) K/uL RBC 3.09 L (4.7-6.1) M/uL Hgb 9.7 L (14.0-18.0) g/dL Hct 27.9 L (42-52) % RDW Std Deviation 46.4 H (36.4-46.3) fL Neut # (Auto) 16.94 H (1.4-6.5) K/uL Lymph # (Auto) 0.75 L (1.2-3.4) K/uL [place] # (Auto) 0.03 L (0.11-0.59) K/uL Immature Gran # (Auto) 0.05 H (0.00-0.02) K/uL PT 18.8 H (9.0-12.0) Seconds INR 2.0 H (0.9-1.1) APTT 36.2 H (21.0-31.0) Seconds Sodium 126 L (136-145) mmol/L Chloride 94 L (98-107) mmol/L BUN 29 H (7-18) mg/dl BUN/Creatinine Ratio 24.8 H (10-20) Glucose 111 H (70-99) mg/dl Osmolality (280-300) mOsm/kg Calcium 8.3 L (8.5-10.1) mg/dl Total Bilirubin 9.3 H (0.2-1) mg/dl Direct Bilirubin 7.5 H (0-0.2) mg/dl AST 94 H (15-37) U/L ALT 86 H (12-78) U/L Alkaline Phosphatase 355 H (45-117) U/L Troponin I 0.107 H* (0-0.045) ng/ml Total Protein 5.4 L (6.4-8.2) gm/dl Albumin 1.8 L (3.4-5.0) gm/dl Lipase 68 L (73-393) U/L Procalcitonin (0-0.5) ng/ml Ur Specific [place] (1.000-1.030) Urine Nitrite (Negative) Urine Bilirubin (Negative) Ur Leukocyte Esterase (Negative) 07/16/20 07/16/20 07/16/20 Range/Units 13:10 13:10 15:37 WBC (4.8-10.8) K/uL RBC (4.7-6.1) M/uL Hgb (14.0-18.0) g/dL Hct (42-52) % RDW Std Deviation (36.4-46.3) fL Neut # (Auto) (1.4-6.5) K/uL Lymph # (Auto) (1.2-3.4) K/uL [place] # (Auto) (0.11-0.59) K/uL Immature Gran # (Auto) (0.00-0.02) K/uL PT (9.0-12.0) Seconds INR (0.9-1.1) APTT (21.0-31.0) Seconds Sodium (136-145) mmol/L Chloride (98-107) mmol/L BUN (7-18) mg/dl BUN/Creatinine Ratio (10-20) Glucose (70-99) mg/dl Osmolality 269 L (280-300) mOsm/kg Calcium (8.5-10.1) mg/dl Total Bilirubin (0.2-1) mg/dl Direct Bilirubin (0-0.2) mg/dl AST (15-37) U/L ALT (12-78) U/L Alkaline Phosphatase (45-117) U/L Troponin I (0-0.045) ng/ml Total Protein (6.4-8.2) gm/dl Albumin (3.4-5.0) gm/dl Lipase (73-393) U/L Procalcitonin 2.58 H (0-0.5) ng/ml Ur Specific [place] 1.035 H (1.000-1.030) Urine Nitrite Positive A (Negative) Urine Bilirubin 3+ H (Negative) Ur Leukocyte Esterase Trace H (Negative) Diagnostic Findings CT abd pelvis IV con only CLINICAL HISTORY: abd pain jaundice COMPARISON STUDY: September 13, 2017 TECHNIQUE: A dose lowering technique was utilized adhering to the principles of ALARA. CT DOSE: 807.62 mGy.cm FINDINGS: Lower chest: There is septal thickening with innumerable nodules and groundglass attenuation within bilateral lower lobes which is new since prior study in 2018. Liver: Interval development of innumerable ill-defined hypoattenuating lesions throughout right and left lobe of the liver concerning for neoplastic process. Largest lesion is seen within segment 3 and measures approximately 6.0 x 4.2 cm on axial image 189 of series 3. Multiple small scattered areas of fluid collection and mesenteric edema is seen throughout the abdomen. Gallbladder: Gallbladder is contracted with enhanced wall and surrounding mesenteric edema which could be due to inflammatory changes or related to ascites. Spleen: Interval development of multiple peripheral areas of decreased attenuation within its parenchyma. Pancreas: Interval development of 4.9 x 3.6 cm hypoattenuating lesion within the tail of the pancreas is concerning for neoplastic process however differential could also include pancreatitis which is less likely. Adrenal glands: Irregularity of the right adrenal gland is again seen. Redemonstration of the 1.6 x 1.8 cm left adrenal lesion which appears to be stable since prior. Kidneys: There is symmetric renal cortical enhancement. The kidneys are normal in size without hydronephrosis. Interval development of 2.2 x 2.4 cm hypoattenuating lesion within left renal parenchyma which could represent neoplasm or inflammatory process. Bowel: The small bowel and colon are normal in course and caliber. Small hiatal hernia is seen. Duodenal diverticulum is demonstrated. Appendix is not well visualized There is large left inguinal hernia containing nondilated loops of large bowel. Peritoneum: No free intraperitoneal air is seen. Vasculature: Normal size of abdominal aorta which is tortuous and contain scattered calcifications of its wall. Adenopathy: There is 2.8 x 2.6 cm hypoattenuating, possibly necrotic left paraesophageal lymph node is seen. Pelvic viscera: The bladder, and pelvic viscera are unremarkable. Skeletal structures: Osseous structures are diffusely demineralized. No definite aggressive lesions are seen. IMPRESSION: 1. Findings are concerning for widespread malignant/metastatic disease with involvement of the pancreas, liver and bilateral lung bases. Associated mild ascites and diffuse mesenteric edema is seen. 2. Questionable hypoattenuating heterogeneous lesion within cortex of the left kidney might represent pyelonephritis or neoplasm. 3. Contracted gallbladder with surrounding edema, could be related to ascites or represent inflammatory processes such as cholecystitis. 4. Large left inguinal hernia containing nondilated loops of large bowel. No evidence of strangulation.
[2020-07-16] MEDS ORDERED: ALUMINUM/MAGNESIUM SUSP 30 ML UDC PO PRN (18:53)
[2020-07-16] MEDS ORDERED: MAGNESIUM HYDROXIDE SUSP 30 ML UDC PO PRN (18:53)
[2020-07-16] MEDS ORDERED: ONDANSETRON INJ 2 MG/ML 2 ML VIAL IV PRN (18:53)
[2020-07-16] MEDS ORDERED: POLYETHYLENE (MIRALAX) 17 GM PACK PO PRN (18:53)
[2020-07-16] MEDS ORDERED: METOPROLOL TARTRATE 1 MG/ML VIAL IV PRN (19:28)
--- NOTE | 2020-07-16 20:00 | Pharmacy Report ---
Pharmacy Abx Initial Consult - Date of Service July 16, 2020 - Pharmacy Dosing Scope Date of Consult: 07/16/20 Consultation requested by: MARII HERRERA Pharmacy is consulted to initiate VANCOMYCIN/ZOSYN IV dosing therapy, order appropriate labs and adjust drug dose/frequency. - Subjective The patient is a 74 year old M admitted on 07/16/20 17:21. - Objective Height: 5 ft 10 in Weight: 83.2 kg Vital Signs (Past 12hrs): Vital Signs Temp Pulse Pulse Resp BP BP Pulse Ox 07/16/20 19:29 36.4 C L 150 H 20 90/65 L 94 07/16/20 19:10 37 C 139 H 18 101/64 91 07/16/20 16:00 103 H 17 118/74 92 07/16/20 15:10 90 16 121/73 92 07/16/20 15:08 93 H 22 121/73 93 07/16/20 15:00 79 16 109/71 92 07/16/20 14:00 96 H 18 98/68 L 93 07/16/20 13:30 100 H 20 104/67 93 07/16/20 12:49 93 07/16/20 12:30 89 19 96/69 L 07/16/20 12:22 85 19 110/69 94 07/16/20 11:46 36.5 C 97 H 20 105/74 95 Lab Results (24hrs): Laboratory Tests (24 Hours) 07/16/20 07/16/20 07/16/20 13:10 13:10 13:10 WBC 17.99 H Neut # (Auto) 16.94 H Creatinine 1.16 Est Cr Clr Drug Dosing 59.5 Procalcitonin 2.58 H Micro Results: 07/16/20 15:37 Urine Culture - Pending Urine,Clean Catch 07/16/20 12:20 Aerobic Blood Culture - Pending Blood Anaerobic Blood Culture - Pending 07/16/20 13:10 Aerobic Blood Culture - Pending Blood Anaerobic Blood Culture - Pending - Risk Factors for Resistance * Hospitalization for 48 hours or more within the past 90 days * Immunocompromised (chronic steroid therapy, chemotherapy, immunomodulators) - Assessment & Plan Assessment 74 year old M empirically treated with Zosyn/Vancomycin regimen Plan Zosyn/Vancomycin for treatment of possible GI infection, cholangitis vs sepsis Vancomycin IV * Loading dose: 2000 mg (24 mg/kg) * Maintenance dose: 1000 mg IV (12 mg/kg) every 12 hours * Goal trough level for gi infection/sepsis : 13 to 20 mcg/mL * Trough level ordered for Monday07/18/20 Piperacillin/tazobactam * 4.5 g bolus administered over 30 minutes, then 3.375 g IV extended infusion every 8 hours for CrCl greater than 20 mL/min Pharmacy will continue to follow and will adjust dose/frequency as necessary. Thank you.
[2020-07-16] MEDS ORDERED: SODIUM CHLORIDE 0.9% 1000ML 250 ML IV ONE (20:11)
[2020-07-16] MEDS: SODIUM CHLORIDE 0.9% 1000ML 1,000 ML IV SCH (20:22)
[2020-07-16] MEDS: METOPROLOL TARTRATE 25 MG TAB PO SCH (20:57)
[2020-07-16] MEDS ORDERED: APIXABAN 5 MG TABLET PO SCH (21:00)
[2020-07-16] MEDS ORDERED: AMIODARONE 150MG / 100ML D5W IV ONE (21:37)
[2020-07-16] MEDS ORDERED: AMIODARONE 360MG / 200ML D5W IV ONE (21:41)
[2020-07-16] MEDS ORDERED: BACLOFEN 10 MG TAB PO PRN (22:00)
[2020-07-16] MEDS ORDERED: 0.2 MICRON FILTER SET 1 EA IV ONE (22:08)
[2020-07-16] MEDS ORDERED: AMIODARONE / D5W 150 MG/100 ML BAG IV STA (22:08)
[2020-07-16] MEDS ORDERED: STAT IV Infusion **Titration per Protocol STA (22:08)
[2020-07-16] MEDS ORDERED: AMIODARONE IV BOLUS & DRIP IV STA (22:08)
[2020-07-16] MEDS ORDERED: AMIODARONE / D5W 360 MG/200 ML BAG IV ONE (22:08)
[2020-07-16] MEDS ORDERED: ALUMINUM/MAGNESIUM/SIMETH (MAALOX MAX) 30 ML UDC PO STA (22:09)
[2020-07-16] MEDS ORDERED: CYCLOBENZAPRINE HCL 5 MG TAB PO STA (22:09)
[2020-07-16 22:34] LABS: Albumin Globulin Ratio 0.5 (0.9-2); Albumin Level 1.6 gm/dl (3.4-5.0); BUN Creatinine Ratio 24.5 (10-20); Bilirubin,Total 8.7 mg/dl (0.2-1); Calcium 7.5 mg/dl (8.5-10.1); Creatinine Clr Calc Pharmacy 57.2 ml/min; Est GFR (African American) 70.8 ml/min; Est GFR (Non-African American) 61.1 ml/min; Ferritin 1260.5 ng/ml (8-388); Globulin 3.5 gm/dl (2.5-4.0); Potassium 4.7 mmol/L (3.5-5.1); Total Protein 5.1 gm/dl (6.4-8.2)
[2020-07-17] MEDS: PIPERACILLIN/TAZOBACTAM 3.375 GM in DEXTROSE 5% 100 ML IV SCH ×4 (00:15→23:49)
[2020-07-17] MEDS: SODIUM CHLORIDE 0.9% 1000ML 1,000 ML IV SCH ×2 (03:56→19:33)
[2020-07-17] MEDS: AMIODARONE / D5W 360 MG/200 ML BAG IV SCH ×2 (03:57→15:01)
[2020-07-17] MEDS: VANCOMYCIN HCL 1,000 MG in SODIUM CHLORIDE 0.9% 250 ML IV SCH ×2 (05:46→17:37)
[2020-07-17 06:18] LABS: Basophils # (auto) 0.01 K/uL (0-0.2); Basophils % (auto) 0.1 %; Eosinophils # (auto) 0.19 K/uL (0-0.5); Eosinophils % (auto) 1.6 %; Hematocrit (blood only) 26.6 % (42-52); Hemoglobin 9.1 g/dL (14.0-18.0); Immature Granulocytes # (auto) 0.05 K/uL (0.00-0.02); Immature Granulocytes % (auto) 0.4 %; Lymphocytes # (auto) 0.89 K/uL (1.2-3.4); Lymphocytes % (auto) 7.4 %; Mean Corpuscular Hemoglobin 31.2 pg (25-34); Mean Corpuscular Hgb Conc 34.2 g/dL (32-36); Mean Corpuscular Volume 91.1 fL (80-100); Mean Platelet Volume 9.9 fL (7.4-10.4); Monocytes # (auto) 0.08 K/uL (0.11-0.59); Monocytes % (auto) 0.7 %; Neutrophils # (auto) 10.74 K/uL (1.4-6.5); Neutrophils % (auto) 89.8 %; Platelet Count 222 K/uL (130-400); RDW Coefficient of Variation 14.3 % (11.5-14.5); RDW Standard Deviation 47.2 fL (36.4-46.3); Red Blood Count 2.92 M/uL (4.7-6.1); White Blood Count 11.96 K/uL (4.8-10.8)
[2020-07-17 06:49] LABS: INR 1.8 (0.9-1.1); Prothrombin Time 17.2 Seconds (9.0-12.0)
[2020-07-17 06:57] LABS: Albumin Level 1.5 gm/dl (3.4-5.0); BUN Creatinine Ratio 25.5 (10-20); Calcium 7.6 mg/dl (8.5-10.1); Creatinine Clr Calc Pharmacy 61.9 ml/min; Est GFR (African American) 69.3 ml/min; Est GFR (Non-African American) 59.8 ml/min; Magnesium 2.1 mg/dl (1.8-2.4); Potassium 4.7 mmol/L (3.5-5.1)
[2020-07-17 07:02] LABS: Albumin Globulin Ratio 0.4 (0.9-2); Bilirubin,Total 6.6 mg/dl (0.2-1); Globulin 3.3 gm/dl (2.5-4.0); Thyroid Stimulating Hormone 1.63 uIu/ml (0.300-4.500); Total Protein 4.8 gm/dl (6.4-8.2); Troponin I 0.063 ng/ml (0-0.045)
--- NOTE | 2020-07-17 07:39 | Hospitalist Progress Note ---
Date of Service July 17, 2020 Assessment & Plan Admission and Anticipated Discharge Date Admission Date: July 16, 2020 Subjective Patient went into rapid a fib last night.Was hypotensive. gAve 500cc fluid bouls and blood pressure improved and received a dose of iv lopressor and po lopressor. Heart rates seem to improve but then again HR went upto 180's and Sbp in low 70's. Another fluid bolus started and cardiology was informed. Amiodarone bolus was given and patient converted to sinus rhythm and BP improved. Started on amiodarone drip. Cardiology evaluated the patient and appreciate the helpreceived anotherlitre of fluid bolus for hypotension. Lactic acid ok. Patinet was already on iv abx.Continue to Monitor.. Results & Data Results & Data ([facility]) Vital Signs (Past 12 Hours) Vital Signs Temp Pulse Pulse Resp BP BP BP 07/17/20 07:32 36.5 C 61 18 96/57 L 07/17/20 07:12 63 07/17/20 03:34 36.5 C 62 20 95/57 L 07/17/20 01:00 15 07/17/20 00:00 18 07/16/20 23:59 76 07/16/20 23:46 37.0 C 73 20 86/55 L 07/16/20 23:00 16 07/16/20 22:00 15 07/16/20 21:52 16 07/16/20 20:47 165 H 105/73 07/16/20 20:00 16 Pulse Ox 07/17/20 07:32 96 07/17/20 07:12 07/17/20 03:34 95 07/17/20 01:00 95 07/17/20 00:00 95 07/16/20 23:59 07/16/20 23:46 95 07/16/20 23:00 95 07/16/20 22:00 07/16/20 21:52 94 07/16/20 20:47 07/16/20 20:00
--- NOTE | 2020-07-17 08:43 | Ultrasound Report ---
ABDOMINAL ULTRASOUND, RIGHT UPPER QUADRANT HISTORY: Abnormal CT. Gallbladder wall thickening. Cholecystitis. COMPARISON: Abdomen and pelvis CT 07/16/2020. FINDINGS: Pancreas: Partially visualized pancreatic tail mass is better appreciated on the prior abdominal CT. Liver: Multiple hepatic metastases are again noted with trace perihepatic ascites. Gallbladder: No gallstones. Gallbladder wall is thickened at 4 mm. Gallbladder is contracted. CBD: Between 6 and 9 mm. Suggestion of echogenic debris within the common bile duct. Right kidney: No hydronephrosis. IMPRESSION: 1. Pancreatic mass with multiple hepatic metastases better appreciated on the recent CT examination. 2. The gallbladder is contracted which may account for the apparent gallbladder wall thickening. No g allstones. 3. Mildly distended common bile duct measuring between 6 and 9 mm. There is suggestion of echogenic d ebris within the common bile duct. ACT 112: Negative or not required by law. Electronically signed by: Abiel Medellin M.D. 07/17/2020 8:42 AM
[2020-07-17] MEDS: PANTOprazole 40 MG TAB PO SCH (08:45)
[2020-07-17] MEDS: ASPIRIN 81 MG ECTAB PO SCH (08:45)
--- NOTE | 2020-07-17 08:49 | Cardiology Consultation ---
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 Peralta in emergent cardiac consultation this evening. Likely he converted to normal sinus rhythm with an amiodarone bolus as blood pressure is now stabilized. The pathophysiology and treatment options for atrial fibrillation were discussed with the patient great lengths. At this point, I believe the most prudent course of action will be to continue the amiodarone load but given his liver mets and transaminitis I do not believe this will be a long-term solution, merely to stabilize him. No anticoagulation, he is already with an INR of 2 In terms of his hiccups, I did perform osteopathic manipulation at the bedside to alleviate his symptoms. Also recommended GI cocktail and Flexeril. History of Present Illness Reason for Consultation: Unstable atrial fibrillation with hemodynamic compromise Requesting Physician: Dr. Coleman Attending Physician: Benigno Collins MD History of Present Illness Emergent cardiac consultation performed on 07/16/[address] Yip is a very pleasant yet medically complex 74-year-old gentleman who was admitted to [facility] on 07/16/2020 from his oncologist office with reports of weakness and hyponatremia. Unfortunately, he was just recently diagnosed with pancreatic adenocarcinoma and work-up and treatment has begun. He presented to the emergency department at the advice of his oncologist after he was seen as an outpatient yesterday. Reportedly he started turning yellow after his first chemotherapy treatment. Currently he was having significant right upper quadrant and midepigastric pain. He was admitted to telemetry and upon arrival to the floor he went into atrial fibrillation with rapid ventricular response. He was seen at the bedside by Brandan spear, Dr. Coleman, and he was found to be hypotensive. I received a page as the on- call illuminator and I arrived at the bedside in 11 minutes. Prior to my arrival he was started on amiodarone drip and spontaneously converted normal sinus rhythm. With this his blood pressure improved. At this point his only complaint is that of hiccups and continued fatigue. He notes he did feel his heart racing and a little short of breath we denies any lightheadedness, dizziness or syncope. Allergies Allergy/AdvReac Type Severity Reaction Status Date / Time No Known Allergies Allergy Unverified 07/16/20 15:54 Home Medications Medication Instructions Recorded Confirmed Type aspirin 81 mg PO QAM #30 tab 07/09/20 07/16/20 Rx oxycodone 5 mg PO Q4H PRN #10 tab 07/09/20 07/16/20 Rx pantoprazole 40 mg PO QAM #30 tab 07/09/20 07/16/20 Rx apixaban [Eliquis] 5 mg PO BID 07/16/20 07/16/20 History Patient History Medical History Anemia Ataxia Elevated troponin HTN (hypertension) Liver metastases Lung metastases Pancreatic adenocarcinoma Pancreatic mass Spinal stenosis Stenosis of left internal carotid artery Surgical History History of inguinal hernia repair History of umbilical hernia repair Family History Other Cancer Social History Smoking Status: Former smoker Tobacco Type: Cigarettes Cigarettes Per Day: 6; Hx Alcohol Use: Yes Alcohol type: beer Alcohol Intake Frequency: 2-3 x/Week Hx Substance Use: No Preferred Language: Romanian Communication Ability: Effective Beliefs That Will Affect Care: None marital status: Current Living Situation: Spouse Current Living Situation Comment: current occupational status: retired current occupation: general surgeon Other Information That Helps Us Care for You: No Feels Safe at Home: Yes Safety Concerns: Feels Safe At This Time Assistive Devices: Cane and Walker Review of Systems Review of Systems: All systems reviewed & are unremarkable except as noted in HPI & below Physical Exam Physical Exam: Physical Exam: General: Awake, alert and oriented x 3. No acute distress. HEENT: Normocephalic, atraumatic. Pupils equal, round and reactive to light and accommodation. Extraocular muscles are intact. Anicteric sclera. Moist mucous membranes. Neck: No JVD. No bruit. Cardiovascular: Regular. No S-4. Normal S-1 and S-2. No S-3. No murmurs, rubs or gallops. Pulmonary: Clear to auscultation bilaterally. No rales, rhonchi, or wheezing. Abdomen: Bowel sounds x 4, soft. No rebound, guarding or tenderness. No organomegaly. Extremities: No clubbing, cyanosis or edema. +2 pedal pulses bilaterally. Skin: Warm and dry. Results & Data ([facility]) Vital Signs (Past 12 Hours) Vital Signs Temp Pulse Pulse Resp BP BP BP 07/17/20 07:32 36.5 C 61 18 96/57 L 07/17/20 07:12 63 07/17/20 03:34 36.5 C 62 20 95/57 L 07/17/20 01:00 15 07/17/20 00:00 18 07/16/20 23:59 76 07/16/20 23:46 37.0 C 73 20 86/55 L 07/16/20 23:00 16 07/16/20 22:00 15 07/16/20 21:52 16 07/16/20 20:47 165 H 105/73 Pulse Ox 07/17/20 07:32 96 07/17/20 07:12 07/17/20 03:34 95 07/17/20 01:00 95 07/17/20 00:00 95 07/16/20 23:59 07/16/20 23:46 95 07/16/20 23:00 95 07/16/20 22:00 07/16/20 21:52 94 07/16/20 20:47
[2020-07-17] MEDS: METOPROLOL TARTRATE 25 MG TAB PO SCH ×2 (08:58→22:06)
--- NOTE | 2020-07-17 09:10 | Cardiology Progress Note ---
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 Given his active GI issues I do not believe long-term amiodarone would be appropriate at this time. We will complete 24-hour bolus and load and then discontinue. No need for anticoagulation from a cardiac standpoint. Admission and Anticipated Discharge Date Admission Date: July 16, 2020 Subjective Patient seen and examined, chart reviewed. States that he is feeling okay today but is now concerned about course of treatment and is uncertain whether or not he wants to be transferred to a tertiary care center. Cardiac mesa he denies chest pain, shortness of breath, palpitations, lightheadedness, dizziness or syncope. Telemetry reviewed, normal sinus rhythm without recurrences of atrial fibrillation. Review of Systems Review of Systems: All systems reviewed & are unremarkable except as noted in HPI & below Physical Exam Physical Exam: Physical Exam: General: Awake, alert and oriented x 3. No acute distress. HEENT: Normocephalic, atraumatic. Pupils equal, round and reactive to light and accommodation. Extraocular muscles are intact. Anicteric sclera. Moist mucous membranes. Neck: No JVD. No bruit. Cardiovascular: Regular. No S-4. Normal S-1 and S-2. No S-3. No murmurs, rubs or gallops. Pulmonary: Clear to auscultation bilaterally. No rales, rhonchi, or wheezing. Abdomen: Bowel sounds x 4, soft. No rebound, guarding or tenderness. No organomegaly. Extremities: No clubbing, cyanosis or edema. +2 pedal pulses bilaterally. Skin: Warm and dry. Results & Data ([facility]) Vital Signs (Past 12 Hours) Vital Signs Temp Pulse Pulse Resp BP BP Pulse Ox 07/17/20 07:32 36.5 C 61 18 96/57 L 96 07/17/20 07:12 63 07/17/20 03:34 36.5 C 62 20 95/57 L 95 07/17/20 01:00 15 95 07/17/20 00:00 18 95 07/16/20 23:59 76 07/16/20 23:46 37.0 C 73 20 86/55 L 95 07/16/20 23:00 16 95 07/16/20 22:00 15 07/16/20 21:52 16 94
--- NOTE | 2020-07-17 09:34 | Gastroenterology Progress Note ---
Date of Service July 17, 2020 Assessment & Plan (1) Hyperbilirubinemia: This is a 74 y/o male with recently diagnosed metastatic pancreatic cancer s/p EUS with FNA 07/08/20, h/o (?embolic) strokes on Eliquis, admitted after presenting with poor PO intake, weakness since first dose of Gemzar, found to have hyponatremia, worsening bilirubinemia, leukocytosis, procalcitonin, CT as above with widespread metastatic disease including in the liver, lungs. Overnight had A. fib with RVR and hypotension, converted with amiodarone. Today, hyperbilirubinemia, hyponatremia, leukocytosis have improved slightly. US ABD noting CBD between 6 and 9 mm, suggestion of echogenic debris in the common bile duct. BC/UC pending. Currently pt somewhat hypotensive, normal sinus rhythm, with HR 64, afebrile. Given his overall presentation, consider possible underlying infectious process, vs biliary stone/sludge, vs side effect of Chemo therapy vs tumor burden; there was a question of cholecystitis on previous imaging. Surgical team had recommended the pt be transferred to a tertiary facility if cholecystectomy were to be considered; pt preference was to defer transfer yesterday. It appears overnight his condition including labs have improved. ERCP was considered once his was medically optimized given his lab, imaging findings. His case was reviewed with our anesthesia team here today. Given his complex underlying medical conditions, it was their recommendation that the appropriate level of care for this pt would be to transfer him to a tertiary care facility to evaluate for possible ERCP. I discussed this with the pt and hospitalist. Pt is unsure of what he would like to do at this time; he agrees to consider options and will discuss this with his family. Currently he is sitting up in a bedside chair; abd is soft, nondistended; HR 64, BP 96/57, temp 36.5 C, O2 96% on 2 L NC. - Hyponatremia improving; please correct hyponatremia carefully - Await BC, UC - Continue empiric ABX - Supportive care with IVF, analgesia, antiemetics PRN - Appreciate other specialists, primary team mgmt of his other co-morbidities Thank you for allowing us to participate in the care of this patient. Please call with any acute changes, questions or concerns. Please see addendum below with additional recommendation from my supervising physician. Admission and Anticipated Discharge Date Admission Date: July 16, 2020 Supervising Physician Co-Signing Physician Notes I saw and evaluated the patient. He was recently diagnosed with pancreatic cancer and presented with elevated liver enzymes and hyperbilirubinemia. This morning he did have atrial fibrillation with RVR and hypotension. The patient is presently on anticoagulation due to a history of atrial fibrillation. Physical examination Patient mildly short of breath, mild distress noted Scleral icterus noted Impression: Patient with a recently diagnosed pancreatic cancer presenting with jaundice and leukocytosis. Given the clinical scenario the case was discussed with her anesthesia service who feels the patient would be best served at a tertiary Medical Center given his cardiac status. I would suggest referral to a tertiary care center where cardiac stabilization can be performed and potentially ERCP if needed for biliary decompression. Would recommend that the anticoagulation be discontinued. I would also recommend that antibiotics be continued. I did discuss the recommendations and the complexity of his case with the patient. Recommendations Referral to tertiary center recommended Continue antibiotic coverage Hold anticoagulation Please call with any questions or concerns Subjective Patient seen and examined, chart reviewed. Overnight had episode of A. fib with RVR along with hypotension, converted to normal sinus rhythm with amiodarone. Bilirubin today is now 6, hyponatremia improved, sodium 129, WBC also improved; INR 2->1 0.8. Pt having intermittent upper abd discomfort (can be bilateral); hiccups are now intermittent; seem to be less frequent. No nausea, vomiting, fever, chills, CP, SOB. Review of Systems Review of Systems: All systems reviewed & are unremarkable except as noted in HPI & below Physical Exam Constitutional: + ill appearing and + thin Respiratory: normal respiratory effort; no respiratory distress Cardiovascular: Rate/Rhythm: regular rate and regular rhythm Gastrointestinal (Abdomen): Inspection/Auscultation: abdomen normal to inspection and normal bowel sounds; abdomen not distended Percussion/Palpation: abdomen soft; no guarding Psychiatric: A+Ox3, euthymic affect Results & Data ([facility]) Vital Signs (Past 12 Hours) Vital Signs Temp Pulse Pulse Resp BP BP Pulse Ox 07/17/20 07:32 36.5 C 61 18 96/57 L 96 07/17/20 07:12 63 07/17/20 03:34 36.5 C 62 20 95/57 L 95 07/17/20 01:00 15 95 07/17/20 00:00 18 95 05/27/21 23:59 76 07/16/20 23:46 37.0 C 73 20 86/55 L 95 07/16/20 23:00 16 95 07/16/20 22:00 15 07/16/20 21:52 16 94 Laboratory Results 07/17/20 07/17/20 07/17/20 Range/Units 06:04 06:04 06:04 WBC 11.96 H (4.8-10.8) K/uL RBC 2.92 L (4.7-6.1) M/uL Hgb 9.1 L (14.0-18.0) g/dL Hct 26.6 L (42-52) % MCV 91.1 (80-100) fL MCH 31.2 (25-34) pg MCHC 34.2 (32-36) g/dL RDW Std Deviation 47.2 H (36.4-46.3) fL RDW Coeff of Shemar 14.3 (11.5-14.5) % Plt Count 222 (130-400) K/uL MPV 9.9 (7.4-10.4) fL Immature Gran % (Auto) 0.4 % Neut % (Auto) 89.8 % Lymph % (Auto) 7.4 % Citrus % (Auto) 0.7 % Eos % (Auto) 1.6 % Baso % (Auto) 0.1 % Neut # (Auto) 10.74 H (1.4-6.5) K/uL Lymph # (Auto) 0.89 L (1.2-3.4) K/uL [place] # (Auto) 0.08 L (0.11-0.59) K/uL Eos # (Auto) 0.19 (0-0.5) K/uL Baso # (Auto) 0.01 (0-0.2) K/uL Immature Gran # (Auto) 0.05 H (0.00-0.02) K/uL PT 17.2 H (9.0-12.0) Seconds INR 1.8 H (0.9-1.1) APTT (21.0-31.0) Seconds PTT Ratio Sodium (136-145) mmol/L Potassium (3.5-5.1) mmol/L Chloride (98-107) mmol/L Carbon Dioxide (21-32) mmol/L Anion Gap (3-11) BUN (7-18) mg/dl Creatinine (0.6-1.4) mg/dl Est Cr Clr Drug Dosing ml/min Est GFR ( Amer) ml/min Est GFR (Non-Af Amer) ml/min BUN/Creatinine Ratio (10-20) Glucose (70-99) mg/dl Osmolality (280-300) mOsm/kg Lactate (0.4-2.0) mmol/L Calcium (8.5-10.1) mg/dl Magnesium (1.8-2.4) mg/dl Iron (35-175) mcg/dl TIBC (250-450) mcg/dl Ferritin (8-388) ng/ml Total Bilirubin (0.2-1) mg/dl Direct Bilirubin (0-0.2) mg/dl AST (15-37) U/L ALT (12-78) U/L Alkaline Phosphatase (45-117) U/L Troponin I (0-0.045) ng/ml Total Protein (6.4-8.2) gm/dl Albumin (3.4-5.0) gm/dl Globulin (2.5-4.0) gm/dl Albumin/Globulin Ratio (0.9-2) Lipase (73-393) U/L Procalcitonin 2.88 H (0-0.5) ng/ml TSH (0.300-4.500) uIu/ml Urine Color Urine Appearance (Clear) Urine pH (4.5-7.5) Ur Specific [place] (1.000-1.030) Urine Protein (Negative) Urine Glucose (UA) (Negative) Urine Ketones (Negative) Urine Blood (Negative) Urine Nitrite (Negative) Urine Bilirubin (Negative) Urine Urobilinogen (Negative) Ur Leukocyte Esterase (Negative) Urine WBC (Auto) (0-5) /hpf Urine RBC (Auto) (0-4) /hpf U Hyaline Cast (Auto) (0-5) /lpf U Epithel Cells (Auto) (0-5) /lpf Urine Bacteria (Auto) (Negative) COVID-19 Eval Order SARS-CoV-2 (PCR) (Negative) Blood Type Antibody Screen 07/17/20 07/17/20 07/16/20 Range/Units 06:04 00:05 21:52 WBC (4.8-10.8) K/uL RBC (4.7-6.1) M/uL Hgb (14.0-18.0) g/dL Hct (42-52) % MCV (80-100) fL MCH (25-34) pg MCHC (32-36) g/dL RDW Std Deviation (36.4-46.3) fL RDW Coeff of Shemar (11.5-14.5) % Plt Count (130-400) K/uL MPV (7.4-10.4) fL Immature Gran % (Auto) % Neut % (Auto) % Lymph % (Auto) % [place] % (Auto) % Eos % (Auto) % Baso % (Auto) % Neut # (Auto) (1.4-6.5) K/uL Lymph # (Auto) (1.2-3.4) K/uL [place] # (Auto) (0.11-0.59) K/uL Eos # (Auto) (0-0.5) K/uL Baso # (Auto) (0-0.2) K/uL Immature Gran # (Auto) (0.00-0.02) K/uL PT (9.0-12.0) Seconds INR (0.9-1.1) APTT (21.0-31.0) Seconds PTT Ratio Sodium 129 L 128 L (136-145) mmol/L Potassium 4.7 4.7 (3.5-5.1) mmol/L Chloride 99 97 L (98-107) mmol/L Carbon Dioxide 23 22 (21-32) mmol/L Anion Gap 7.0 8.0 (3-11) BUN 30 H 29 H (7-18) mg/dl Creatinine 1.19 1.17 (0.6-1.4) mg/dl Est Cr Clr Drug Dosing 61.9 57.2 ml/min Est GFR ( Amer) 69.3 70.8 ml/min Est GFR (Non-Af Amer) 59.8 61.1 ml/min BUN/Creatinine Ratio 25.5 H 24.5 H (10-20) Glucose 110 H 121 H (70-99) mg/dl Osmolality (280-300) mOsm/kg Lactate 1.8 (0.4-2.0) mmol/L Calcium 7.6 L 7.5 L (8.5-10.1) mg/dl Magnesium 2.1 (1.8-2.4) mg/dl Iron 81 (35-175) mcg/dl TIBC 238 L (250-450) mcg/dl Ferritin 1260.5 H (8-388) ng/ml Total Bilirubin 6.6 H 8.7 H (0.2-1) mg/dl Direct Bilirubin (0-0.2) mg/dl AST 68 H 79 H (15-37) U/L ALT 63 72 (12-78) U/L Alkaline Phosphatase 280 H 310 H (45-117) U/L Troponin I 0.063 H* (0-0.045) ng/ml Total Protein 4.8 L 5.1 L (6.4-8.2) gm/dl Albumin 1.5 L 1.6 L (3.4-5.0) gm/dl Globulin 3.3 3.5 (2.5-4.0) gm/dl Albumin/Globulin Ratio 0.4 L 0.5 L (0.9-2) Lipase (73-393) U/L Procalcitonin (0-0.5) ng/ml TSH 1.630 (0.300-4.500) uIu/ml Urine Color Urine Appearance (Clear) Urine pH (4.5-7.5) Ur Specific [place] (1.000-1.030) Urine Protein (Negative) Urine Glucose (UA) (Negative) Urine Ketones (Negative) Urine Blood (Negative) Urine Nitrite (Negative) Urine Bilirubin (Negative) Urine Urobilinogen (Negative) Ur Leukocyte Esterase (Negative) Urine WBC (Auto) (0-5) /hpf Urine RBC (Auto) (0-4) /hpf U Hyaline Cast (Auto) (0-5) /lpf U Epithel Cells (Auto) (0-5) /lpf Urine Bacteria (Auto) (Negative) COVID-19 Eval Order SARS-CoV-2 (PCR) (Negative) Blood Type Antibody Screen 07/16/20 07/16/20 07/16/20 Range/Units 21:52 15:37 13:50 WBC (4.8-10.8) K/uL RBC (4.7-6.1) M/uL Hgb (14.0-18.0) g/dL Hct (42-52) % MCV (80-100) fL MCH (25-34) pg MCHC (32-36) g/dL RDW Std Deviation (36.4-46.3) fL RDW Coeff of Shemar (11.5-14.5) % Plt Count (130-400) K/uL MPV (7.4-10.4) fL Immature Gran % (Auto) % Neut % (Auto) % Lymph % (Auto) % [place] % (Auto) % Eos % (Auto) % Baso % (Auto) % Neut # (Auto) (1.4-6.5) K/uL Lymph # (Auto) (1.2-3.4) K/uL [place] # (Auto) (0.11-0.59) K/uL Eos # (Auto) (0-0.5) K/uL Baso # (Auto) (0-0.2) K/uL Immature Gran # (Auto) (0.00-0.02) K/uL PT (9.0-12.0) Seconds INR (0.9-1.1) APTT (21.0-31.0) Seconds PTT Ratio Sodium (136-145) mmol/L Potassium (3.5-5.1) mmol/L Chloride (98-107) mmol/L Carbon Dioxide (21-32) mmol/L Anion Gap (3-11) BUN (7-18) mg/dl Creatinine (0.6-1.4) mg/dl Est Cr Clr Drug Dosing ml/min Est GFR ( Amer) ml/min Est GFR (Non-Af Amer) ml/min BUN/Creatinine Ratio (10-20) Glucose (70-99) mg/dl Osmolality (280-300) mOsm/kg Lactate (0.4-2.0) mmol/L Calcium (8.5-10.1) mg/dl Magnesium (1.8-2.4) mg/dl Iron (35-175) mcg/dl TIBC (250-450) mcg/dl Ferritin (8-388) ng/ml Total Bilirubin (0.2-1) mg/dl Direct Bilirubin (0-0.2) mg/dl AST (15-37) U/L ALT (12-78) U/L Alkaline Phosphatase (45-117) U/L Troponin I (0-0.045) ng/ml Total Protein (6.4-8.2) gm/dl Albumin (3.4-5.0) gm/dl Globulin (2.5-4.0) gm/dl Albumin/Globulin Ratio (0.9-2) Lipase (73-393) U/L Procalcitonin (0-0.5) ng/ml TSH (0.300-4.500) uIu/ml Urine Color [place] Urine Appearance Clear (Clear) Urine pH 5.0 (4.5-7.5) Ur Specific [place] 1.035 H (1.000-1.030) Urine Protein Negative (Negative) Urine Glucose (UA) Negative (Negative) Urine Ketones Negative (Negative) Urine Blood Negative (Negative) Urine Nitrite Positive A (Negative) Urine Bilirubin 3+ H (Negative) Urine Urobilinogen Negative (Negative) Ur Leukocyte Esterase Trace H (Negative) Urine WBC (Auto) 1-5 (0-5) /hpf Urine RBC (Auto) 0-4 (0-4) /hpf U Hyaline Cast (Auto) 1-5 (0-5) /lpf U Epithel Cells (Auto) 0-5 (0-5) /lpf Urine Bacteria (Auto) Negative (Negative) COVID-19 Eval Order SARS-CoV-2 (PCR) NEGATIVE (Negative) Blood Type A Positive Antibody Screen NEGATIVE 07/16/20 07/16/20 07/16/20 Range/Units 13:50 13:10 13:10 WBC (4.8-10.8) K/uL RBC (4.7-6.1) M/uL Hgb (14.0-18.0) g/dL Hct (42-52) % MCV (80-100) fL MCH (25-34) pg MCHC (32-36) g/dL RDW Std Deviation (36.4-46.3) fL RDW Coeff of [place]mar (11.5-14.5) % Plt Count (130-400) K/uL MPV (7.4-10.4) fL Immature Gran % (Auto) % Neut % (Auto) % Lymph % (Auto) % [place] % (Auto) % Eos % (Auto) % Baso % (Auto) % Neut # (Auto) (1.4-6.5) K/uL Lymph # (Auto) (1.2-3.4) K/uL [place] # (Auto) (0.11-0.59) K/uL Eos # (Auto) (0-0.5) K/uL Baso # (Auto) (0-0.2) K/uL Immature Gran # (Auto) (0.00-0.02) K/uL PT (9.0-12.0) Seconds INR (0.9-1.1) APTT (21.0-31.0) Seconds PTT Ratio Sodium (136-145) mmol/L Potassium (3.5-5.1) mmol/L Chloride (98-107) mmol/L Carbon Dioxide (21-32) mmol/L Anion Gap (3-11) BUN (7-18) mg/dl Creatinine (0.6-1.4) mg/dl Est Cr Clr Drug Dosing ml/min Est GFR ( Amer) ml/min Est GFR (Non-Af Amer) ml/min BUN/Creatinine Ratio (10-20) Glucose (70-99) mg/dl Osmolality 269 L (280-300) mOsm/kg Lactate (0.4-2.0) mmol/L Calcium (8.5-10.1) mg/dl Magnesium (1.8-2.4) mg/dl Iron (35-175) mcg/dl TIBC (250-450) mcg/dl Ferritin (8-388) ng/ml Total Bilirubin (0.2-1) mg/dl Direct Bilirubin (0-0.2) mg/dl AST (15-37) U/L ALT (12-78) U/L Alkaline Phosphatase (45-117) U/L Troponin I (0-0.045) ng/ml Total Protein (6.4-8.2) gm/dl Albumin (3.4-5.0) gm/dl Globulin (2.5-4.0) gm/dl Albumin/Globulin Ratio (0.9-2) Lipase (73-393) U/L Procalcitonin 2.58 H (0-0.5) ng/ml TSH (0.300-4.500) uIu/ml Urine Color Urine Appearance (Clear) Urine pH (4.5-7.5) Ur Specific [place] (1.000-1.030) Urine Protein (Negative) Urine Glucose (UA) (Negative) Urine Ketones (Negative) Urine Blood (Negative) Urine Nitrite (Negative) Urine Bilirubin (Negative) Urine Urobilinogen (Negative) Ur Leukocyte Esterase (Negative) Urine WBC (Auto) (0-5) /hpf Urine RBC (Auto) (0-4) /hpf U Hyaline Cast (Auto) (0-5) /lpf U Epithel Cells (Auto) (0-5) /lpf Urine Bacteria (Auto) (Negative) COVID-19 Eval Order Covid19 at [facility] SARS-CoV-2 (PCR) (Negative) Blood Type Antibody Screen 07/16/20 07/16/20 07/16/20 Range/Units 13:10 13:10 13:10 WBC (4.8-10.8) K/uL RBC (4.7-6.1) M/uL Hgb (14.0-18.0) g/dL Hct (42-52) % MCV (80-100) fL MCH (25-34) pg MCHC (32-36) g/dL RDW Std Deviation (36.4-46.3) fL RDW Coeff of [place] (11.5-14.5) % Plt Count (130-400) K/uL MPV (7.4-10.4) fL Immature Gran % (Auto) % Neut % (Auto) % Lymph % (Auto) % [place] % (Auto) % Eos % (Auto) % Baso % (Auto) % Neut # (Auto) (1.4-6.5) K/uL Lymph # (Auto) (1.2-3.4) K/uL [place] # (Auto) (0.11-0.59) K/uL Eos # (Auto) (0-0.5) K/uL Baso # (Auto) (0-0.2) K/uL Immature Gran # (Auto) (0.00-0.02) K/uL PT 18.8 H (9.0-12.0) Seconds INR 2.0 H (0.9-1.1) APTT 36.2 H (21.0-31.0) Seconds PTT Ratio 1.4 Sodium 126 L (136-145) mmol/L Potassium 4.8 (3.5-5.1) mmol/L Chloride 94 L (98-107) mmol/L Carbon Dioxide 27 (21-32) mmol/L Anion Gap 5.0 (3-11) BUN 29 H (7-18) mg/dl Creatinine 1.16 (0.6-1.4) mg/dl Est Cr Clr Drug Dosing 59.5 ml/min Est GFR ( Amer) 71.5 ml/min Est GFR (Non-Af Amer) 61.7 ml/min BUN/Creatinine Ratio 24.8 H (10-20) Glucose 111 H (70-99) mg/dl Osmolality (280-300) mOsm/kg Lactate 2.0 (0.4-2.0) mmol/L Calcium 8.3 L (8.5-10.1) mg/dl Magnesium 2.4 (1.8-2.4) mg/dl Iron (35-175) mcg/dl TIBC (250-450) mcg/dl Ferritin (8-388) ng/ml Total Bilirubin 9.3 H (0.2-1) mg/dl Direct Bilirubin 7.5 H (0-0.2) mg/dl AST 94 H (15-37) U/L ALT 86 H (12-78) U/L Alkaline Phosphatase 355 H (45-117) U/L Troponin I 0.107 H* (0-0.045) ng/ml Total Protein 5.4 L (6.4-8.2) gm/dl Albumin 1.8 L (3.4-5.0) gm/dl Globulin (2.5-4.0) gm/dl Albumin/Globulin Ratio (0.9-2) Lipase 68 L (73-393) U/L Procalcitonin (0-0.5) ng/ml TSH (0.300-4.500) uIu/ml Urine Color Urine Appearance (Clear) Urine pH (4.5-7.5) Ur Specific [place] (1.000-1.030) Urine Protein (Negative) Urine Glucose (UA) (Negative) Urine Ketones (Negative) Urine Blood (Negative) Urine Nitrite (Negative) Urine Bilirubin (Negative) Urine Urobilinogen (Negative) Ur Leukocyte Esterase (Negative) Urine WBC (Auto) (0-5) /hpf Urine RBC (Auto) (0-4) /hpf U Hyaline Cast (Auto) (0-5) /lpf U Epithel Cells (Auto) (0-5) /lpf Urine Bacteria (Auto) (Negative) COVID-19 Eval Order SARS-CoV-2 (PCR) (Negative) Blood Type Antibody Screen 07/16/20 Range/Units 13:10 WBC 17.99 H (4.8-10.8) K/uL RBC 3.09 L (4.7-6.1) M/uL Hgb 9.7 L (14.0-18.0) g/dL Hct 27.9 L (42-52) % MCV 90.3 (80-100) fL MCH 31.4 (25-34) pg MCHC 34.8 (32-36) g/dL RDW Std Deviation 46.4 H (36.4-46.3) fL RDW Coeff of [place] 14.1 (11.5-14.5) % Plt Count 220 (130-400) K/uL MPV 10.2 (7.4-10.4) fL Immature Gran % (Auto) 0.3 % Neut % (Auto) 94.0 % Lymph % (Auto) 4.2 % [place] % (Auto) 0.2 % Eos % (Auto) 1.2 % Baso % (Auto) 0.1 % Neut # (Auto) 16.94 H (1.4-6.5) K/uL Lymph # (Auto) 0.75 L (1.2-3.4) K/uL [place] # (Auto) 0.03 L (0.11-0.59) K/uL Eos # (Auto) 0.21 (0-0.5) K/uL Baso # (Auto) 0.01 (0-0.2) K/uL Immature Gran # (Auto) 0.05 H (0.00-0.02) K/uL PT (9.0-12.0) Seconds INR (0.9-1.1) APTT (21.0-31.0) Seconds PTT Ratio Sodium (136-145) mmol/L Potassium (3.5-5.1) mmol/L Chloride (98-107) mmol/L Carbon Dioxide (21-32) mmol/L Anion Gap (3-11) BUN (7-18) mg/dl Creatinine (0.6-1.4) mg/dl Est Cr Clr Drug Dosing ml/min Est GFR ( Amer) ml/min Est GFR (Non-Af Amer) ml/min BUN/Creatinine Ratio (10-20) Glucose (70-99) mg/dl Osmolality (280-300) mOsm/kg Lactate (0.4-2.0) mmol/L Calcium (8.5-10.1) mg/dl Magnesium (1.8-2.4) mg/dl Iron (35-175) mcg/dl TIBC (250-450) mcg/dl Ferritin (8-388) ng/ml Total Bilirubin (0.2-1) mg/dl Direct Bilirubin (0-0.2) mg/dl AST (15-37) U/L ALT (12-78) U/L Alkaline Phosphatase (45-117) U/L Troponin I (0-0.045) ng/ml Total Protein (6.4-8.2) gm/dl Albumin (3.4-5.0) gm/dl Globulin (2.5-4.0) gm/dl Albumin/Globulin Ratio (0.9-2) Lipase (73-393) U/L Procalcitonin (0-0.5) ng/ml TSH (0.300-4.500) uIu/ml Urine Color Urine Appearance (Clear) Urine pH (4.5-7.5) Ur Specific [place] (1.000-1.030) Urine Protein (Negative) Urine Glucose (UA) (Negative) Urine Ketones (Negative) Urine Blood (Negative) Urine Nitrite (Negative) Urine Bilirubin (Negative) Urine Urobilinogen (Negative) Ur Leukocyte Esterase (Negative) Urine WBC (Auto) (0-5) /hpf Urine RBC (Auto) (0-4) /hpf U Hyaline Cast (Auto) (0-5) /lpf U Epithel Cells (Auto) (0-5) /lpf Urine Bacteria (Auto) (Negative) COVID-19 Eval Order SARS-CoV-2 (PCR) (Negative) Blood Type Antibody Screen Diagnostic Findings US ABD: Pancreas: Partially visualized pancreatic tail mass is better appreciated on the prior abdominal CT. Liver: Multiple hepatic metastases are again noted with trace perihepatic ascites. Gallbladder: No gallstones. Gallbladder wall is thickened at 4 mm. Gallbladder is contracted. CBD: Between 6 and 9 mm. Suggestion of echogenic debris within the common bile duct. Right kidney: No hydronephrosis. IMPRESSION: 1. Pancreatic mass with multiple hepatic metastases better appreciated on the recent CT examination. 2. The gallbladder is contracted which may account for the apparent gallbladder wall thickening. No gallstones. 3. Mildly distended common bile duct measuring between 6 and 9 mm. There is suggestion of echogenic debris within the common bile duct.
--- NOTE | 2020-07-17 12:04 | Progress Note ---
Date of Service pt feels better, no significant abdominal pain, no fever, July 17, 2020 Assessment & Plan (1) Hyperbilirubinemia: pt is a 74 year-old male who presents to ER with pancreatic mass with weakness. 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 Overnight had episode of A. fib with RVR along with hypotension, converted to normal sinus rhythm with amiodarone. Bilirubin today is now 6, hyponatremia improved, sodium 129, WBC also improved; INR 2->1 0.8. Pt having intermittent upper abd discomfort (can be bilateral); hiccups are now intermittent; seem to be less frequent. No nausea, vomiting, fever, chills, CP, SOB. Review of Systems Constitutional: as per Subjective / HPI Eyes: as per Subjective / HPI Ear, Nose, Mouth, Throat: as per Subjective / HPI Respiratory: as per Subjective / HPI lung metastases Cardiovascular: as per Subjective / HPI Additional Comments: HTN Gastrointestinal: as per Subjective / HPI pancreatic mass, elevated LFTS, liver metastases Genitourinary: + as per Subjective / HPI Musculoskeletal: as per Subjective / HPI spinal stenosis Neurologic: as per Subjective / HPI Psychiatric: as per Subjective / HPI Endocrine: as per Subjective / HPI Hematologic / Lymphatic: as per Subjective / HPI anemia Physical Exam Constitutional: WD/WN, vitals as above well developed and + ill appearing Eyes: PERRL, conjunctivae normal, anicteric sclerae ENMT: external ear and nose normal, oropharynx normal Neck: trachea midline, no thyromegaly Respiratory: normal respiratory effort, lungs clear to auscultation Cardiovascular: RRR, no murmur, no edema Rate/Rhythm: regular rate and regular rhythm Gastrointestinal (Abdomen): normal bowel sounds, soft, nontender, no hepatosplenomegaly Percussion/Palpation: abdomen soft Musculoskeletal: no cyanosis or clubbing, extremities motor strength 5/5 Neurologic: awake Psychiatric: Orientation: alert and oriented x 3 Results & Data ([facility]) Vital Signs (Past 12 Hours) Vital Signs Temp Pulse Pulse Resp BP BP Pulse Ox 07/17/20 11:16 36.5 C 64 19 92/58 L 94 07/17/20 07:32 36.5 C 61 18 96/57 L 96 07/17/20 07:12 63 07/17/20 03:34 36.5 C 62 20 95/57 L 95 07/17/20 01:00 15 95 Laboratory Results Abnormal lab results 07/16/20 07/16/20 07/16/20 Range/Units 13:10 13:10 13:10 WBC 17.99 H (4.8-10.8) K/uL RBC 3.09 L (4.7-6.1) M/uL Hgb 9.7 L (14.0-18.0) g/dL Hct 27.9 L (42-52) % RDW Std Deviation 46.4 H (36.4-46.3) fL Neut # (Auto) 16.94 H (1.4-6.5) K/uL Lymph # (Auto) 0.75 L (1.2-3.4) K/uL Bland # (Auto) 0.03 L (0.11-0.59) K/uL Immature Gran # (Auto) 0.05 H (0.00-0.02) K/uL PT 18.8 H (9.0-12.0) Seconds INR 2.0 H (0.9-1.1) APTT 36.2 H (21.0-31.0) Seconds Sodium 126 L (136-145) mmol/L Chloride 94 L (98-107) mmol/L BUN 29 H (7-18) mg/dl BUN/Creatinine Ratio 24.8 H (10-20) Glucose 111 H (70-99) mg/dl Osmolality (280-300) mOsm/kg Calcium 8.3 L (8.5-10.1) mg/dl TIBC (250-450) mcg/dl Ferritin (8-388) ng/ml Total Bilirubin 9.3 H (0.2-1) mg/dl Direct Bilirubin 7.5 H (0-0.2) mg/dl AST 94 H (15-37) U/L ALT 86 H (12-78) U/L Alkaline Phosphatase 355 H (45-117) U/L Troponin I 0.107 H* (0-0.045) ng/ml Total Protein 5.4 L (6.4-8.2) gm/dl Albumin 1.8 L (3.4-5.0) gm/dl Albumin/Globulin Ratio (0.9-2) Lipase 68 L (73-393) U/L Procalcitonin (0-0.5) ng/ml Ur Specific [place] (1.000-1.030) Urine Nitrite (Negative) Urine Bilirubin (Negative) Ur Leukocyte Esterase (Negative) 07/16/20 07/16/20 07/16/20 Range/Units 13:10 13:10 15:37 WBC (4.8-10.8) K/uL RBC (4.7-6.1) M/uL Hgb (14.0-18.0) g/dL Hct (42-52) % RDW Std Deviation (36.4-46.3) fL Neut # (Auto) (1.4-6.5) K/uL Lymph # (Auto) (1.2-3.4) K/uL Bland # (Auto) (0.11-0.59) K/uL Immature Gran # (Auto) (0.00-0.02) K/uL PT (9.0-12.0) Seconds INR (0.9-1.1) APTT (21.0-31.0) Seconds Sodium (136-145) mmol/L Chloride (98-107) mmol/L BUN (7-18) mg/dl BUN/Creatinine Ratio (10-20) Glucose (70-99) mg/dl Osmolality 269 L (280-300) mOsm/kg Calcium (8.5-10.1) mg/dl TIBC (250-450) mcg/dl Ferritin (8-388) ng/ml Total Bilirubin (0.2-1) mg/dl Direct Bilirubin (0-0.2) mg/dl AST (15-37) U/L ALT (12-78) U/L Alkaline Phosphatase (45-117) U/L Troponin I (0-0.045) ng/ml Total Protein (6.4-8.2) gm/dl Albumin (3.4-5.0) gm/dl Albumin/Globulin Ratio (0.9-2) Lipase (73-393) U/L Procalcitonin 2.58 H (0-0.5) ng/ml Ur Specific [place]cher 1.035 H (1.000-1.030) Urine Nitrite Positive A (Negative) Urine Bilirubin 3+ H (Negative) Ur Leukocyte Esterase Trace H (Negative) 07/16/20 07/17/20 07/17/20 Range/Units 21:52 06:04 06:04 WBC (4.8-10.8) K/uL RBC (4.7-6.1) M/uL Hgb (14.0-18.0) g/dL Hct (42-52) % RDW Std Deviation (36.4-46.3) fL Neut # (Auto) (1.4-6.5) K/uL Lymph # (Auto) (1.2-3.4) K/uL Bland # (Auto) (0.11-0.59) K/uL Immature Gran # (Auto) (0.00-0.02) K/uL PT (9.0-12.0) Seconds INR (0.9-1.1) APTT (21.0-31.0) Seconds Sodium 128 L 129 L (136-145) mmol/L Chloride 97 L (98-107) mmol/L BUN 29 H 30 H (7-18) mg/dl BUN/Creatinine Ratio 24.5 H 25.5 H (10-20) Glucose 121 H 110 H (70-99) mg/dl Osmolality (280-300) mOsm/kg Calcium 7.5 L 7.6 L (8.5-10.1) mg/dl TIBC 238 L (250-450) mcg/dl Ferritin 1260.5 H (8-388) ng/ml Total Bilirubin 8.7 H 6.6 H (0.2-1) mg/dl Direct Bilirubin (0-0.2) mg/dl AST 79 H 68 H (15-37) U/L ALT (12-78) U/L Alkaline Phosphatase 310 H 280 H (45-117) U/L Troponin I 0.063 H* (0-0.045) ng/ml Total Protein 5.1 L 4.8 L (6.4-8.2) gm/dl Albumin 1.6 L 1.5 L (3.4-5.0) gm/dl Albumin/Globulin Ratio 0.5 L 0.4 L (0.9-2) Lipase (73-393) U/L Procalcitonin 2.88 H (0-0.5) ng/ml Ur Specific [place] (1.000-1.030) Urine Nitrite (Negative) Urine Bilirubin (Negative) Ur Leukocyte Esterase (Negative) 07/17/20 07/17/20 Range/Units 06:04 06:04 WBC 11.96 H (4.8-10.8) K/uL RBC 2.92 L (4.7-6.1) M/uL Hgb 9.1 L (14.0-18.0) g/dL Hct 26.6 L (42-52) % RDW Std Deviation 47.2 H (36.4-46.3) fL Neut # (Auto) 10.74 H (1.4-6.5) K/uL Lymph # (Auto) 0.89 L (1.2-3.4) K/uL Bland # (Auto) 0.08 L (0.11-0.59) K/uL Immature Gran # (Auto) 0.05 H (0.00-0.02) K/uL PT 17.2 H (9.0-12.0) Seconds INR 1.8 H (0.9-1.1) APTT (21.0-31.0) Seconds Sodium (136-145) mmol/L Chloride (98-107) mmol/L BUN (7-18) mg/dl BUN/Creatinine Ratio (10-20) Glucose (70-99) mg/dl Osmolality (280-300) mOsm/kg Calcium (8.5-10.1) mg/dl TIBC (250-450) mcg/dl Ferritin (8-388) ng/ml Total Bilirubin (0.2-1) mg/dl Direct Bilirubin (0-0.2) mg/dl AST (15-37) U/L ALT (12-78) U/L Alkaline Phosphatase (45-117) U/L Troponin I (0-0.045) ng/ml Total Protein (6.4-8.2) gm/dl Albumin (3.4-5.0) gm/dl Albumin/Globulin Ratio (0.9-2) Lipase (73-393) U/L Procalcitonin (0-0.5) ng/ml Ur Specific Letcher (1.000-1.030) Urine Nitrite (Negative) Urine Bilirubin (Negative) Ur Leukocyte Esterase (Negative)
--- NOTE | 2020-07-17 14:13 | Palliative Care Consultation ---
Date of Consultation July 17, 2020 Assessment & Plan (1) Abdominal pain: Generally controlled with oxycodone though he has been reluctant to use due to constipation (2) Intractable hiccups: Increase baclofen dose. Discussed rotation to gabapentin. He would prefer to try increased baclofen (3) Constipation: Will change miralax to daily scheduled dosing (4) Palliative care encounter: We discussed how he is coping with his recent diagnosis. 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 He has good family support. He had been in the process of creating a living will and was meeting with his claim attorney to establish POA. I asked him what his thoughts were about advance directives. He tells me that he is uncertain about some things at this time but would not want CPR or intubation. He would not want dialysis or artificial feeding. He tells me that he has not decided on POA but is discussing it with his family. Palliative care will follow. 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 He had been in [place] a week ago and was then hospitalized with CVAs and a residual left visual field defect. He has recently been diagnosed with pancreatic cancer metastatic to lliver and blake. He was started on gemcitabine treatment earlier this week and is admitted with new onset weakness, leukocytosis and elevated total bilirubin of 9.3. Ultrasound showed some dilation of CBD and he is being treated with antibiotic therapy. He was being considered for ERCP but is now considering transfer to tertiary care facility. He has had right upper quadrant abdominal pain and is taking oxycodone but has been reluctant to use it because of constipation. He does take miralax for constipation but has not had a BM in several days. He complains of mild abdominal pain which is aggravated by hiccups. He did have baclofen 5mg yesterday for hiccups which was not effective. During his hospitalization he has also developed atrial fibrillation with RVR and is currently on amiodarone drip. Allergies Allergy/AdvReac Type Severity Reaction Status Date / Time No Known Allergies Allergy Unverified 07/16/20 15:54 Home Medications Medication Instructions Recorded Confirmed Type aspirin 81 mg PO QAM #30 tab 07/09/20 07/16/20 Rx oxycodone 5 mg PO Q4H PRN #10 tab 07/09/20 07/16/20 Rx pantoprazole 40 mg PO QAM #30 tab 07/09/20 07/16/20 Rx apixaban [Eliquis] 5 mg PO BID 07/16/20 07/16/20 History Patient History Medical History Anemia Ataxia Elevated troponin HTN (hypertension) Liver metastases Lung metastases Pancreatic adenocarcinoma Pancreatic mass Spinal stenosis Stenosis of left internal carotid artery Surgical History History of inguinal hernia repair History of umbilical hernia repair Family History Other Cancer Social History Smoking Status: Former smoker Tobacco Type: Cigarettes Cigarettes Per Day: 6; Hx Alcohol Use: Yes Alcohol type: beer Alcohol Intake Frequency: 2-3 x/Week Hx Substance Use: No Preferred Language: Pashto Communication Ability: Effective Beliefs That Will Affect Care: None marital status: Current Living Situation: Spouse Current Living Situation Comment: current occupational status: retired current occupation: general surgeon Other Information That Helps Us Care for You: No Feels Safe at Home: Yes Safety Concerns: Feels Safe At This Time Assistive Devices: Walker Review of Systems Review of Systems: [place] Symptom Assessment Scale Pain 1/3 Dyspnea 0/3 Anxiety 1/3 Fatigue 1/3 Drowsiness1/3 Anorexia 1/3 Palliative Performance Score 40% Physical Exam Constitutional: + ill appearing Respiratory: normal respiratory effort; no labored breathing Cardiovascular: Rate/Rhythm: regular rate and regular rhythm Musculoskeletal: Extremities: extremities normal to inspection Skin: + jaundice Neurologic: awake; not confused Results & Data ([place]) Vital Signs (Past 12 Hours) Vital Signs Temp Pulse Pulse Resp BP BP Pulse Ox 07/17/20 11:16 97.7 F 64 19 92/58 L 94 07/17/20 07:32 97.7 F 61 18 96/57 L 96 07/17/20 07:12 63 07/17/20 03:34 97.7 F 62 20 95/57 L 95 PG Care Time/CCT Total # of Minutes Spent Total Time Spent with Patient: Total time spent is greater than 50% in coordination of care (as documented) at patient's floor/unit and/or counseling patient: Coding Level of Care Code 83357 Inpt Consult Level 3 Diagnoses Abdominal pain R10.9 Intractable hiccups R06.6 Constipation K59.00 Palliative care encounter Z51.5 Malignant neoplasm of pancreas metastatic to liver C25.9; C78.7 Atrial fibrillation with rapid ventricular response I48.91
--- NOTE | 2020-07-17 15:35 | Electrocardiogram Report ---
Test Reason : Blood Pressure : / mmHG Vent. Rate : 164 BPM Atrial Rate : 159 BPM P-R Int : 000 ms QRS Dur : 124 ms QT Int : 278 ms P-R-T Axes : 000 -36 021 degrees QTc Int : 459 ms Poor data quality, interpretation may be adversely affected Atrial fibrillation with rapid ventricular response with premature ventricular or aberrantly conducte d complexes Left axis deviation Right bundle branch block Abnormal ECG When compared with ECG of 16-JUL-2020 12:11, Atrial fibrillation has replaced Sinus rhythm Vent. rate has increased BY [address] now depressed in Anterior leads T wave inversion now evident in Anterior leads Confirmed by Donta Finn ([id number]) on 07/17/2020 3:35:10 PM Referred By: REFERRED SELF Confirmed By:Donta Finn
--- NOTE | 2020-07-17 15:40 | Electrocardiogram Report ---
Test Reason : Blood Pressure : / mmHG Vent. Rate : 063 BPM Atrial Rate : 063 BPM P-R Int : 134 ms QRS Dur : 134 ms QT Int : 492 ms P-R-T Axes : 046 -13 025 degrees QTc Int : 503 ms Normal sinus rhythm Right bundle branch block Inferior infarct , age undetermined Abnormal ECG When compared with ECG of 16-JUL-2020 20:03, (unconfirmed) Sinus rhythm has replaced Atrial fibrillation Vent. rate has decreased BY [address] no longer depressed in Anterior leads T wave inversion no longer evident in Anterior leads Confirmed by Donta Finn ([id number]) on 07/17/2020 3:40:45 PM Referred By: REFERRED SELF Confirmed By:Donta Finn
[2020-07-17] MEDS: BACLOFEN 10 MG TAB PO PRN ×2 (16:17→22:06)
--- NOTE | 2020-07-17 17:01 | Hospitalist Progress Note ---
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 Pt with newly diagnosed pancreatic adenocarcinoma with recent EUS and biopsy on 07/08. He was seen and established with oncology on 07/10 and had first dose of gemcitabine on 07/13. Since chemotherapy has become increasingly more weak having difficulty with ambulation, poor p.o. intake and new jaundice that started last evening. Patient has evidence of hyperbilirubinemia new from recent admission with total bilirubin 9.3, previously had been 2.1 Bilirubin has been improving with a level of 6.6 as of 07/17/2020 Appreciate GI input and recommendation EGD/ERCP The patient was initially scheduled for EGD/ERCP but the anesthesiologist was not comfortable with anesthesia Since bilirubin improved with minimal improvement of alkaline phos there is no real urgency of doing ERCP given his overall comorbid conditions In case he will need the procedure down the line, he will need to be transferred to tertiary care center for the procedure This was discussed in detail with the patient and the family members including the son and the The patient does not want to be transferred right now Possible infection like cholangitis/cholecystitis/pyelitis Pt does meet SIRS criteria 2/2 to leukocytosis and tachycardia. No documented fever but pt immunocompromised. Blood and urine cultures obtained. Received broad spectrum IV antibiotics in ED with Vanco/zosyn. White count has been improving We will continue current antibiotic Appreciate surgery input and recommendation-not for any urgent surgery (6) Hyponatremia: with hypochloremia likely 2/2 to poor intake urine na, osm and serum osm continue gentle IVF CMP at @ 2200 Will monitor PRP (7) Anemia: Patient denies signs or symptoms of blood loss Eliquis H&H 9.7 and 27.9 With recent hemoglobin on 07/09 10.9 and 07/06 11.8 expect H/H to decreased in setting of volume contraction and dehydration after IVF administration anemia panel ordered in am. type and screen ordered (8) HTN (hypertension): pt stopped lisinopril ( was on 20mg daily) BP stable for now 118/74, monitor (9) Elevated troponin: pt denies chest pain, elevated during previous hospitalization no ecg change no further work up at this time echo 07/07 60-65%, severe calcification of anterior mitral valve annulus (10) Stenosis of left internal carotid artery: seen and evaluated by vascular surgery who recommends elective L CEA on asa , pt refused statin last hospitalization will need to follow up with vascular as outpt Recent multiple scattered small acute infarcts With visual field defect Has been on Eliquis No new symptoms (11) DVT prophylaxis: Hold eliquis this evening 2/2 to possible need for procedure in a.m. INR 1.8 will monitor INR Dispo: PCU PCP: none DNR/DNI - discussed with pt and family at bedside, will consult palliative given poor prognosis Discussed with the patient, the son and the in detail Prognosis remains poor (12) Atrial fibrillation with rapid ventricular response: Developed atrial fibrillation with RVR early this morning Cardiology consulted and has been put on intravenous amiodarone Discussed with the kitchen food assembler No more amiodarone following finishing of the IV dose because of the abnormal liver function test We will continue with beta-dedra Admission and Anticipated Discharge Date Admission Date: July 16, 2020 Subjective 07/17/2020 The patient was seen and examined in telemetry unit over multiple times He has significant medical history of recently diagnosed adenocarcinoma of the pancreas with widespread metastasis was admitted with increasing weakness and jaundice Remains lethargic and weak but feels a little bit better since yesterday Has occasional hiccups but denies any significant pain Review of Systems Review of Systems: All systems reviewed and are unremarkable except as noted below Respiratory: no dyspnea Cardiovascular: + palpitations; no chest pain Gastrointestinal: + abdominal pain, + belching and + bloating; no nausea and no vomiting Neurologic: + generalized weakness Physical Exam Physical Exam: Lying in bed comfortably, looks depressed Constitutional: well developed, well nourished and + ill appearing Eyes: sclerae not anicteric ENMT: external ear and nose normal, oropharynx normal Neck: trachea midline, no thyromegaly Respiratory: no respiratory distress Auscultation: lungs clear to auscultation bilaterally Cardiovascular: Rate/Rhythm: regular rate and regular rhythm Heart Sounds: no murmur Extremities: + edema (Trace edema bilaterally) Gastrointestinal (Abdomen): Inspection/Auscultation: + abdomen distended and normal bowel sounds Percussion/Palpation: + abdomen tender (Mildly tender upper quadrants) and abdomen soft Musculoskeletal: No acute arthritis in any joint Neurologic: Alert, awake and oriented x3. Generally weak and lethargic Psychiatric: A+Ox3, euthymic affect Lymphatic: no cervical or axillary lymphadenopathy Results & Data Results & Data ([facility]) Vital Signs (Past 12 Hours) Vital Signs Temp Pulse Pulse Resp BP BP Pulse Ox 07/17/20 15:23 36.5 C 70 20 102/67 96 07/17/20 11:16 36.5 C 64 19 92/58 L 94 07/17/20 07:32 36.5 C 61 18 96/57 L 96 07/17/20 07:12 63 Laboratory Results Short CBC 07/17/20 Range/Units 06:04 WBC 11.96 H (4.8-10.8) K/uL Hgb 9.1 L (14.0-18.0) g/dL Hct 26.6 L (42-52) % Plt Count 222 (130-400) K/uL BMP 07/16/20 07/17/20 21:52 06:04 Sodium 128 L 129 L Potassium 4.7 4.7 Chloride 97 L 99 Carbon Dioxide 22 23 BUN 29 H 30 H Creatinine 1.17 1.19 Glucose 121 H 110 H Calcium 7.5 L 7.6 L Cardiac Enzymes 07/17/20 Range/Units 06:04 Troponin I 0.063 H* (0-0.045) ng/ml Liver Function 07/16/20 07/17/20 Range/Units 21:52 06:04 Total Bilirubin 8.7 H 6.6 H (0.2-1) mg/dl AST 79 H 68 H (15-37) U/L ALT 72 63 (12-78) U/L Alkaline Phosphatase 310 H 280 H (45-117) U/L Albumin 1.6 L 1.5 L (3.4-5.0) gm/dl Medications Administered Current Inpatient Medications Al Hydrox/Mg Hydrox/Simethicone (Aluminum/Magnesium Susp 30 Ml Udc) 15 ml PO Q4H PRN PRN Reason: Dyspepsia Stop: 08/15/20 18:52 Apixaban (Apixaban 5 Mg Tablet) 5 mg PO BID [facility] Stop: 08/15/20 20:59 Aspirin (Aspirin 81 Mg Ectab) 81 mg PO QAM [facility] Stop: 08/16/20 08:59 Last Admin: 07/17/20 08:45 Dose: 81 mg Documented by: Baclofen (Baclofen 10 Mg Tab) 10 mg PO TID PRN PRN Reason: hiccup Stop: 08/15/20 21:59 Last Admin: 07/17/20 16:17 Dose: 10 mg Documented by: Piperacillin Sod/Tazobactam (Sod 3.375 gm/ Dextrose) 115 mls @ 28.75 mls/hr IV Q8H [facility]; Protocol Stop: 07/26/20 17:59 Last Infusion: 07/17/20 16:36 Dose: 0 mls/hr Documented by: Vancomycin HCl 1,000 mg/ (Sodium Chloride) 270 mls @ 200 mls/hr IV Q12H [facility] Stop: 07/26/20 17:59 Last Infusion: 07/17/20 07:58 Dose: Infused Documented by: Amiodarone HCl/Dextrose (Nexterone / D5w) 360 mg in 200 mls @ 16.667 mls/hr IV .Q12H [facility] Stop: 08/16/20 04:08 Last Admin: 07/17/20 15:01 Dose: 0.5 mg/min, 16.7 mls/hr Documented by: Magnesium Hydroxide (Magnesium Hydroxide Susp 30 Ml Udc) 30 ml PO Q12H PRN PRN Reason: Constipation Stop: 08/15/20 18:52 Metoprolol Tartrate (Metoprolol Tartrate 1 Mg/Ml Vial) 5 mg IV Q6 PRN PRN Reason: Tachycardia Stop: 08/16/20 00:00 Last Admin: 07/16/20 20:47 Dose: 5 mg Documented by: Metoprolol Tartrate (Metoprolol Tartrate 25 Mg Tab) 25 mg PO BID [facility] Stop: 08/15/20 20:59 Last Admin: 07/17/20 08:58 Dose: Not Given Documented by: Miscellaneous Information (Piperacill/Tazobac Consult Active) 1 ea N/A UD PRN PRN Reason: Consult Stop: 08/15/20 16:20 Miscellaneous Information (Vancomycin Consult Active) 1 ea N/A UD PRN PRN Reason: Consult Stop: 08/15/20 16:24 Ondansetron HCl (Ondansetron Inj 2 Mg/Ml 2 Ml Vial) 4 mg IV Q6H PRN PRN Reason: Nausea Stop: 08/15/20 18:52 Oxycodone HCl (Oxycodone Hcl Ir 5 Mg Tab (Immediate Release)) 5 mg PO Q4H PRN PRN Reason: Pain Stop: 07/30/20 19:28 Pantoprazole Sodium (Pantoprazole 40 Mg Tab) 40 mg PO QA [facility] Stop: 08/16/20 08:59 Last Admin: 07/17/20 08:45 Dose: 40 mg Documented by: Polyethylene Glycol (Polyethylene (Miralax) 17 Gm Pack) 17 gm PO DAILY [facility] Stop: 08/17/20 08:59
[2020-07-17] MEDS: oxyCODONE HCL IR 5 MG TAB (IMMEDIATE RELEASE) PO PRN (20:01)
[2020-07-17 23:59] LABS: Vitamin B12 > 2000 pg/ml (193-986)
[2020-07-18] MEDS: oxyCODONE HCL IR 5 MG TAB (IMMEDIATE RELEASE) PO PRN ×3 (03:18→15:59)
[2020-07-18] MEDS ORDERED: VANCOMYCIN TROUGH ONE (05:30)
[2020-07-18] MEDS: VANCOMYCIN HCL 1,000 MG in SODIUM CHLORIDE 0.9% 250 ML IV SCH (05:47)
[2020-07-18 06:11] LABS: Hematocrit (blood only) 26.4 % (42-52); Hemoglobin 9.2 g/dL (14.0-18.0); Mean Corpuscular Hemoglobin 31.2 pg (25-34); Mean Corpuscular Hgb Conc 34.8 g/dL (32-36); Mean Corpuscular Volume 89.5 fL (80-100); Mean Platelet Volume 9.6 fL (7.4-10.4); Platelet Count 186 K/uL (130-400); RDW Coefficient of Variation 14.3 % (11.5-14.5); RDW Standard Deviation 46.7 fL (36.4-46.3); Red Blood Count 2.95 M/uL (4.7-6.1); White Blood Count 6.73 K/uL (4.8-10.8)
[2020-07-18 06:20] LABS: INR 1.5 (0.9-1.1); Prothrombin Time 14.9 Seconds (9.0-12.0)
[2020-07-18 06:30] LABS: Eosinophils # (auto) 0.19 K/uL (0-0.5); Eosinophils % (auto) 2.8 %; Immature Granulocytes # (auto) 0.64 K/uL (0.00-0.02); Immature Granulocytes % (auto) 9.5 %; Lymphocytes % (auto) 11.9 %; Monocytes # (auto) 0.41 K/uL (0.11-0.59); Monocytes % (auto) 6.1 %; Neutrophils # (auto) 4.69 K/uL (1.4-6.5); Neutrophils % (auto) 69.7 %
[2020-07-18 06:43] LABS: Est GFR (African American) 75.4 ml/min; Potassium 4.5 mmol/L (3.5-5.1)
[2020-07-18 06:44] LABS: Albumin Level 1.5 gm/dl (3.4-5.0); BUN Creatinine Ratio 28.6 (10-20); Calcium 7.9 mg/dl (8.5-10.1); Creatinine Clr Calc Pharmacy 60.3 ml/min; Est GFR (Non-African American) 65.1 ml/min; Magnesium 2.4 mg/dl (1.8-2.4)
[2020-07-18 06:46] LABS: Albumin Globulin Ratio 0.4 (0.9-2); Globulin 3.3 gm/dl (2.5-4.0); Phosphorus 2.4 mg/dl (2.5-4.9); Total Protein 4.8 gm/dl (6.4-8.2)
--- NOTE | 2020-07-18 07:03 | Surgery Progress Note ---
Date of Service July 18, 2020 Assessment & Plan (1) Malignant neoplasm of pancreas metastatic to liver: Patient is discussing possibility of transfer to a tertiary care center for possible biliary decompression This would likely include ERCP with stenting of the common bile duct and possible cholecystostomy tube There is no plan for surgical intervention in this situation Admission and Anticipated Discharge Date Admission Date: July 16, 2020 Subjective Patient resting comfortably Received some pain medication during the night Results & Data ([facility]) Vital Signs (Past 12 Hours) Vital Signs Temp Pulse Pulse Resp BP BP Pulse Ox 07/18/20 06:00 18 98 07/18/20 03:20 36.5 C 72 18 106/67 95 07/18/20 02:36 36.8 C 66 20 96/55 L 97 07/18/20 02:00 18 93 07/17/20 23:59 82 07/17/20 22:33 36.5 C 76 20 129/74 97 07/17/20 22:00 20 91 PG Care Time/CCT Total # of Minutes Spent Total Time Spent with Patient: Total time spent is greater than 50% in coordination of care (as documented) at patient's floor/unit and/or counseling patient: Coding Level of Care Code None Diagnoses Malignant neoplasm of pancreas metastatic to liver C25.9; C78.7
[2020-07-18] MEDS: BACLOFEN 10 MG TAB PO PRN (08:12)
[2020-07-18] MEDS: POLYETHYLENE (MIRALAX) 17 GM PACK PO SCH (08:13)
[2020-07-18] MEDS: ASPIRIN 81 MG ECTAB PO SCH (08:13)
[2020-07-18] MEDS: PANTOprazole 40 MG TAB PO SCH (08:13)
[2020-07-18] MEDS: SODIUM CHLORIDE 0.9% 1000ML 1,000 ML IV SCH (08:16)
[2020-07-18] MEDS: METOPROLOL TARTRATE 25 MG TAB PO SCH ×2 (08:20→21:08)
[2020-07-18] MEDS: PIPERACILLIN/TAZOBACTAM 3.375 GM in DEXTROSE 5% 100 ML IV SCH ×2 (09:15→16:03)
--- NOTE | 2020-07-18 11:31 | Hospitalist Progress Note ---
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 Pt with newly diagnosed pancreatic adenocarcinoma with recent EUS and biopsy on 07/08. He was seen and established with oncology on 07/10 and had first dose of gemcitabine on 07/13. Since chemotherapy has become increasingly more weak having difficulty with ambulation, poor p.o. intake and new jaundice that started last evening. Patient has evidence of hyperbilirubinemia new from recent admission with total bilirubin 9.3, previously had been 2.1 Bilirubin has been improving with a level of 6.6 as of 07/17/2020 Appreciate GI input and recommendation Liver function test is slightly worse today and may be complicated by use of amiodarone Bilirubin 7.0, AST 122, ALT 81 and alkaline phos 328 Will observe for now EGD/ERCP The patient was initially scheduled for EGD/ERCP but the anesthesiologist was not comfortable with anesthesia Since bilirubin improved with minimal improvement of alkaline phos there is no real urgency of doing ERCP given his overall comorbid conditions In case he will need the procedure down the line, he will need to be transferred to tertiary care center for the procedure This was discussed in detail with the patient and the family members including the son and the The patient does not want to be transferred right now Possible infection like cholangitis/cholecystitis/pyelitis Pt does meet SIRS criteria 2/2 to leukocytosis and tachycardia. No documented fever but pt immunocompromised. Blood and urine cultures obtained-cultures have been negative Received broad spectrum IV antibiotics in ED with Vanco/zosyn. White count has been improving We will continue current antibiotic Appreciate surgery input and recommendation-not for any urgent surgery Will discontinue intravenous vancomycin but continue with Zosyn for now (6) Hyponatremia: with hypochloremia likely 2/2 to poor intake urine na, osm and serum osm continue gentle IVF CMP at @ 2200 Will monitor PRP-sodium is improved to 132 (7) Anemia: Patient denies signs or symptoms of blood loss Eliquis H&H 9.7 and 27.9 With recent hemoglobin on 07/09 10.9 and 07/06 11.8 expect H/H to decreased in setting of volume contraction and dehydration after IVF administration anemia panel ordered in am. type and screen ordered (8) HTN (hypertension): pt stopped lisinopril ( was on 20mg daily) BP stable for now 118/74, monitor (9) Elevated troponin: pt denies chest pain, elevated during previous hospitalization no ecg change no further work up at this time echo 07/07 60-65%, severe calcification of anterior mitral valve annulus (10) Stenosis of left internal carotid artery: seen and evaluated by vascular surgery who recommends elective L CEA on asa , pt refused statin last hospitalization will need to follow up with vascular as outpt Recent multiple scattered small acute infarcts With visual field defect Has been on Eliquis No new symptoms (11) DVT prophylaxis: Hold eliquis this evening 2/2 to possible need for procedure in a.m. INR 1.8 INR 1.5 as of 07/18/2020 Very still holding Eliquis for possible procedure down the line Will start Lovenox after discussion with the patient and the family member Dispo: PCU PCP: none DNR/DNI - discussed with pt and family at bedside, will consult palliative given poor prognosis Discussed with the patient, the son and the in detail Prognosis remains poor (12) Atrial fibrillation with rapid ventricular response: Developed atrial fibrillation with RVR early this morning Cardiology consulted and has been put on intravenous amiodarone Discussed with the forger helper No more amiodarone following finishing of the IV dose because of the abnormal liver function test We will continue with beta-dedra Remains in sinus rhythm and the heart rate is within limit Admission and Anticipated Discharge Date Admission Date: July 16, 2020 Subjective 07/17/2020 The patient was seen and examined in telemetry unit over multiple times He has significant medical history of recently diagnosed adenocarcinoma of the pancreas with widespread metastasis was admitted with increasing weakness and jaundice Remains lethargic and weak but feels a little bit better since yesterday Has occasional hiccups but denies any significant pain 07/18/2020 The patient was seen and examined in telemetry unit He remains generally weak and lethargic Complains to pain in the lower bottom but no significant abdominal pain Denies any fever and/or chills No chest pain and/or palpitation Review of Systems Review of Systems: All systems reviewed and are unremarkable except as noted below Cardiovascular: no chest pain and no palpitations Gastrointestinal: + belching and + bloating; no abdominal pain, no nausea and no vomiting Neurologic: + generalized weakness Physical Exam Physical Exam: Sitting on a chair without any acute distress but drowsy Constitutional: well developed, well nourished and + ill appearing Eyes: sclerae not anicteric ENMT: external ear and nose normal, oropharynx normal Neck: trachea midline, no thyromegaly Respiratory: no respiratory distress Auscultation: lungs clear to auscultation bilaterally Cardiovascular: Rate/Rhythm: regular rate and regular rhythm Heart Sounds: no murmur Extremities: + edema (Trace edema bilaterally) Gastrointestinal (Abdomen): Inspection/Auscultation: + abdomen distended and normal bowel sounds Percussion/Palpation: + abdomen tender (Mildly tender upper quadrants) and abdomen soft Musculoskeletal: No acute arthritis in any joint Neurologic: Alert and awake but drowsy and extremely weak and tired. Moving all limbs equally Psychiatric: A+Ox3, euthymic affect Lymphatic: no cervical or axillary lymphadenopathy Results & Data Results & Data ([facility]) Vital Signs (Past 12 Hours) Vital Signs Temp Pulse Pulse Resp BP BP Pulse Ox 07/18/20 08:00 66 67 118/66 07/18/20 07:20 67 15 93/56 L 95 07/18/20 06:00 18 98 07/18/20 03:20 36.5 C 72 18 106/67 95 07/18/20 02:36 36.8 C 66 20 96/55 L 97 07/18/20 02:00 18 93 07/17/20 23:59 82 Laboratory Results Short CBC 07/18/20 Range/Units 05:44 WBC 6.73 (4.8-10.8) K/uL Hgb 9.2 L (14.0-18.0) g/dL Hct 26.4 L (42-52) % Plt Count 186 (130-400) K/uL BMP 07/18/20 05:44 Sodium 132 L Potassium 4.5 Chloride 102 Carbon Dioxide 23 BUN 32 H Creatinine 1.11 Glucose 113 H Calcium 7.9 L Liver Function 07/18/20 Range/Units 05:44 Total Bilirubin 7.0 H (0.2-1) mg/dl AST 122 H (15-37) U/L ALT 81 H (12-78) U/L Alkaline Phosphatase 328 H (45-117) U/L Albumin 1.5 L (3.4-5.0) gm/dl Medications Administered Current Inpatient Medications Al Hydrox/Mg Hydrox/Simethicone (Aluminum/Magnesium Susp 30 Ml Udc) 15 ml PO Q4H PRN PRN Reason: Dyspepsia Stop: 08/15/20 18:52 Apixaban (Apixaban 5 Mg Tablet) 5 mg PO BID [facility] Stop: 08/15/20 20:59 Aspirin (Aspirin 81 Mg Ectab) 81 mg PO QAM [facility] Stop: 08/16/20 08:59 Last Admin: 07/18/20 08:13 Dose: 81 mg Documented by: Baclofen (Baclofen 10 Mg Tab) 10 mg PO TID PRN PRN Reason: hiccup Stop: 08/15/20 21:59 Last Admin: 07/18/20 08:12 Dose: 10 mg Documented by: Piperacillin Sod/Tazobactam (Sod 3.375 gm/ Dextrose) 115 mls @ 28.75 mls/hr IV Q8H [facility]; Protocol Stop: 07/26/20 17:59 Last Admin: 07/18/20 09:15 Dose: 28.8 mls/hr Documented by: Sodium Chloride (Nss 1000ml) 1,000 mls @ 80 mls/hr IV .[id number] [facility] Stop: 08/16/20 19:14 Last Admin: 07/18/20 08:16 Dose: 80 mls/hr Documented by: Magnesium Hydroxide (Magnesium Hydroxide Susp 30 Ml Udc) 30 ml PO Q12H PRN PRN Reason: Constipation Stop: 08/15/20 18:52 Last Admin: 07/17/20 20:01 Dose: 30 ml Documented by: Metoprolol Tartrate (Metoprolol Tartrate 1 Mg/Ml Vial) 5 mg IV Q6 PRN PRN Reason: Tachycardia Stop: 08/16/20 00:00 Last Admin: 07/16/20 20:47 Dose: 5 mg Documented by: Metoprolol Tartrate (Metoprolol Tartrate 25 Mg Tab) 25 mg PO BID [facility] Stop: 08/15/20 20:59 Last Admin: 07/18/20 08:20 Dose: 25 mg Documented by: Miscellaneous Information (Piperacill/Tazobac Consult Active) 1 ea N/A UD PRN PRN Reason: Consult Stop: 08/15/20 16:20 Ondansetron HCl (Ondansetron Inj 2 Mg/Ml 2 Ml Vial) 4 mg IV Q6H PRN PRN Reason: Nausea Stop: 08/15/20 18:52 Oxycodone HCl (Oxycodone Hcl Ir 5 Mg Tab (Immediate Release)) 5 mg PO Q4H PRN PRN Reason: Pain Stop: 07/30/20 19:28 Last Admin: 07/18/20 08:07 Dose: 5 mg Documented by: Pantoprazole Sodium (Pantoprazole 40 Mg Tab) 40 mg PO QAM [facility] Stop: 08/16/20 08:59 Last Admin: 07/18/20 08:13 Dose: 40 mg Documented by: Polyethylene Glycol (Polyethylene (Miralax) 17 Gm Pack) 17 gm PO DAILY [facility] Stop: 08/17/20 08:59 Last Admin: 07/18/20 08:13 Dose: 17 gm Documented by:
--- NOTE | 2020-07-18 17:05 | CT Scan Report ---
CT OF THE HEAD WITHOUT CONTRAST CLINICAL HISTORY: R/O Stroke progression COMPARISON STUDY: MRI of the brain July 06, 2020. Head CT July 09, 2020. CT DOSE: 758.50 mGy.cm TECHNIQUE: Helical axial images of the head were obtained without IV contrast. Automated exposure con trol was utilized for the study. A dose lowering technique was utilized adhering to the principles o f ALARA. FINDINGS: This exam is mildly compromised by artifact. No acute intracranial hemorrhage, midline shif t or mass effect is present. Ventricular system is normal. Basal cisterns are patent. There are no ex tra-axial collections. Prominence of the extra-axial spaces is due to atrophy. The multiple infarcts shown on CT of July 09, 2020 are less conspicuous on this examination. Polypoid mucosal thickening wit hin the sinuses is noted. There is no calvarial fracture. IMPRESSION: 1. No acute intracranial hemorrhage or mass effect. 2. Decreased conspicuity of the infarcts on head CT of July 09, 2020. No new infarcts identified. ACT 112: Negative or not required by law. Electronically signed by: Naun Warren M.D. 07/18/2020 5:04 PM
[2020-07-18 20:28] LABS: Base Excess ABG -2.2 mEq/L (-9-1.8); HCO3 ABG 22 mmol/L (19-24); Oxygen Saturation ABG 95.4 % (90-95); PCO2 ABG 36 mmHg (35-46); PO2 ABG 75 mmHg (80-95); pH ABG 7.41 (7.35-7.45)
[2020-07-18 20:33] LABS: Allen Test Pos (Pos)
[2020-07-19] MEDS: SODIUM CHLORIDE 0.9% 1000ML 1,000 ML IV SCH ×2 (00:44→10:50)
[2020-07-19] MEDS: PIPERACILLIN/TAZOBACTAM 3.375 GM in DEXTROSE 5% 100 ML IV SCH ×2 (00:44→08:52)
[2020-07-19 06:00] LABS: Basophils # (auto) 0.01 K/uL (0-0.2); Basophils % (auto) 0.1 %; Hematocrit (blood only) 27.7 % (42-52); Hemoglobin 9.6 g/dL (14.0-18.0); Immature Granulocytes # (auto) 0.12 K/uL (0.00-0.02); Immature Granulocytes % (auto) 1.2 %; Lymphocytes # (auto) 1.19 K/uL (1.2-3.4); Lymphocytes % (auto) 11.7 %; Mean Corpuscular Hgb Conc 34.7 g/dL (32-36); Mean Corpuscular Volume 89.4 fL (80-100); Mean Platelet Volume 9.8 fL (7.4-10.4); Monocytes # (auto) 0.79 K/uL (0.11-0.59); Monocytes % (auto) 7.8 %; Neutrophils # (auto) 7.98 K/uL (1.4-6.5); Neutrophils % (auto) 78.2 %; Nucleated RBC # (auto) 0.03 K/uL (0-0); Nucleated RBC % (auto) 0.3 %; Platelet Count 150 K/uL (130-400); RDW Coefficient of Variation 14.5 % (11.5-14.5); RDW Standard Deviation 47.2 fL (36.4-46.3); White Blood Count 10.19 K/uL (4.8-10.8)
[2020-07-19 06:10] LABS: INR 1.4 (0.9-1.1); Prothrombin Time 14.2 Seconds (9.0-12.0)
[2020-07-19 06:32] LABS: Albumin Level 1.5 gm/dl (3.4-5.0); BUN Creatinine Ratio 28.4 (10-20); Calcium 7.9 mg/dl (8.5-10.1); Creatinine Clr Calc Pharmacy 74.4 ml/min; Est GFR (African American) 97.2 ml/min; Est GFR (Non-African American) 83.8 ml/min; Potassium 4.3 mmol/L (3.5-5.1)
[2020-07-19 06:37] LABS: Albumin Globulin Ratio 0.5 (0.9-2); Bilirubin,Total 7.7 mg/dl (0.2-1); Globulin 3.2 gm/dl (2.5-4.0); Total Protein 4.7 gm/dl (6.4-8.2)
[2020-07-19 07:14] LABS: Echinocytes 1+; Target Cells 1+
[2020-07-19] MEDS: ASPIRIN 81 MG ECTAB PO SCH (07:39)
[2020-07-19] MEDS: POLYETHYLENE (MIRALAX) 17 GM PACK PO SCH (07:39)
[2020-07-19] MEDS: PANTOprazole 40 MG TAB PO SCH (07:40)
[2020-07-19] MEDS: METOPROLOL TARTRATE 25 MG TAB PO SCH (07:40)
--- NOTE | 2020-07-19 10:25 | Hospitalist Progress Note ---
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 Pt with newly diagnosed pancreatic adenocarcinoma with recent EUS and biopsy on 07/08. He was seen and established with oncology on 07/10 and had first dose of gemcitabine on 07/13. Since chemotherapy has become increasingly more weak having difficulty with ambulation, poor p.o. intake and new jaundice that started last evening. Patient has evidence of hyperbilirubinemia new from recent admission with total bilirubin 9.3, previously had been 2.1 Bilirubin has been improving with a level of 6.6 as of 07/17/2020 Appreciate GI input and recommendation Liver function test is slightly worse today and may be complicated by use of amiodarone Bilirubin 7.0, AST 122, ALT 81 and alkaline phos 328 Liver functions is worsened a little bit EGD/ERCP The patient was initially scheduled for EGD/ERCP but the anesthesiologist was not comfortable with anesthesia Since bilirubin improved with minimal improvement of alkaline phos there is no real urgency of doing ERCP given his overall comorbid conditions In case he will need the procedure down the line, he will need to be transferred to tertiary care center for the procedure This was discussed in detail with the patient and the family members including the son and the The patient does not want to be transferred right now Remains generally very weak and lethargic and does not require any intervention like EGD and/or ERCP The family members and the patient decided to have the procedure and the patient is going to be transferred to [place] when accepted Discussed with Dr. Grant the hospitalist in [place] and the patient was accepted under his care Discussed with on-call promotional model in [place] Possible infection like cholangitis/cholecystitis/pyelitis Pt does meet SIRS criteria 2/2 to leukocytosis and tachycardia. No documented fever but pt immunocompromised. Blood and urine cultures obtained-cultures have been negative Received broad spectrum IV antibiotics in ED with Vanco/zosyn. White count has been improving We will continue current antibiotic Appreciate surgery input and recommendation-not for any urgent surgery Will discontinue intravenous vancomycin but continue with Zosyn for now White count is normalized and does not have any fever and/or chills were sweating We will continue intravenous Zosyn for now Episodes of confusion and semiresponsive Noted to be sleeping more and does not want to respond with commands right away Whenever he starts talking he seems to be reasonable in conversation No acute distress and remains hemodynamically stable Repeat CT scan of the head on 07/18/2020 did not show any change compared with prior and ammonia level is within normal limit Current mental condition and weakness were seems to be secondary to pancreatic carcinoma with metastasis Remains critical but stable (6) Hyponatremia: with hypochloremia likely 2/2 to poor intake urine na, osm and serum osm continue gentle IVF Will monitor PRP-sodium is improved to 134 (7) Anemia: Patient denies signs or symptoms of blood loss Eliquis H&H 9.7 and 27.9 With recent hemoglobin on 07/09 10.9 and 07/06 11.8 expect H/H to decreased in setting of volume contraction and dehydration after IVF administration Questionable bleeding per rectum this morning as reported by the nurse The patient denies it Repeat hemoglobin did not show any decrease in level (8) HTN (hypertension): pt stopped lisinopril ( was on 20mg daily) BP stable for now 118/74, monitor (9) Elevated troponin: pt denies chest pain, elevated during previous hospitalization no ecg change no further work up at this time echo 07/07 60-65%, severe calcification of anterior mitral valve annulus (10) Stenosis of left internal carotid artery: seen and evaluated by vascular surgery who recommends elective L CEA on asa , pt refused statin last hospitalization will need to follow up with vascular as outpt Recent multiple scattered small acute infarcts With visual field defect Has been on Eliquis No new symptoms (11) DVT prophylaxis: Hold eliquis this evening 2/2 to possible need for procedure in a.m. INR 1.8 INR 1.5 as of 07/18/2020 Very still holding Eliquis for possible procedure down the line Dispo: PCU PCP: none DNR/DNI - discussed with pt and family at bedside, will consult palliative given poor prognosis Discussed with the patient, the son and the in detail Prognosis remains poor (12) Atrial fibrillation with rapid ventricular response: Developed atrial fibrillation with RVR early this morning Cardiology consulted and has been put on intravenous amiodarone Discussed with the behavioral health worker No more amiodarone following finishing of the IV dose because of the abnormal liver function test We will continue with beta-dedra Remains in sinus rhythm and the heart rate is within limit Has had a prolonged discussion with the family members including the and 2 sons They are all in agreement that the patient should be transferred to [place] for possible ERCP Discussed with the hospitalist Dr. Grant and on-call promotional model in [place] and the patient was accepted He will be transferred this afternoon via [facility] Admission and Anticipated Discharge Date Admission Date: July 16, 2020 Subjective 07/17/2020 The patient was seen and examined in telemetry unit over multiple times He has significant medical history of recently diagnosed adenocarcinoma of the pancreas with widespread metastasis was admitted with increasing weakness and jaundice Remains lethargic and weak but feels a little bit better since yesterday Has occasional hiccups but denies any significant pain 07/18/2020 The patient was seen and examined in telemetry unit He remains generally weak and lethargic Complains to pain in the lower bottom but no significant abdominal pain Denies any fever and/or chills No chest pain and/or palpitation 07/19/2020 The patient was seen and examined in telemetry unit He is very depressed and knows that he is dying He remains extremely weak and lethargic Denies any significant pain and/or shortness of breath or distress The patient and the family members decided to go to tertiary care center for possible ERCP down the line Review of Systems Review of Systems: All systems reviewed and are unremarkable except as noted below Gastrointestinal: + belching and + bloating; no abdominal pain, no nausea and no vomiting Neurologic: + generalized weakness Physical Exam Physical Exam: Lying in bed very depressed and lethargic Constitutional: well developed, well nourished and + ill appearing Eyes: sclerae not anicteric ENMT: external ear and nose normal, oropharynx normal Neck: trachea midline, no thyromegaly Respiratory: no respiratory distress Auscultation: lungs clear to auscultation bilaterally Cardiovascular: Rate/Rhythm: regular rate and regular rhythm Heart Sounds: no murmur Extremities: + edema (Trace edema bilaterally) Gastrointestinal (Abdomen): Inspection/Auscultation: normal bowel sounds; abdomen not distended Percussion/Palpation: + abdomen tender (Mildly tender upper quadrants) and abdomen soft Musculoskeletal: No acute arthritis in any joint Neurologic: Alert, awake and oriented, occasionally confused with extreme weakness and tiredness Psychiatric: A+Ox3, euthymic affect Lymphatic: no cervical or axillary lymphadenopathy Results & Data Results & Data ([facility]) Vital Signs (Past 12 Hours) Vital Signs Temp Pulse Pulse Resp BP Pulse Ox Pulse Ox 07/19/20 10:00 95 07/19/20 08:00 81 07/19/20 07:00 36.6 C 80 18 116/74 94 94 07/19/20 06:00 95 07/19/20 03:00 36.7 C 71 20 95/54 L 96 07/19/20 02:10 71 07/19/20 02:00 15 93 07/18/20 22:48 36.8 C 75 15 106/62 93 Laboratory Results Short CBC 07/19/20 Range/Units 05:38 WBC 10.19 (4.8-10.8) K/uL Hgb 9.6 L (14.0-18.0) g/dL Hct 27.7 L (42-52) % Plt Count 150 (130-400) K/uL BMP 07/19/20 05:38 Sodium 134 L Potassium 4.3 Chloride 104 Carbon Dioxide 24 BUN 26 H Creatinine 0.90 Glucose 101 H Calcium 7.9 L Liver Function 07/19/20 Range/Units 05:38 Total Bilirubin 7.7 H (0.2-1) mg/dl AST 123 H (15-37) U/L ALT 94 H (12-78) U/L Alkaline Phosphatase 330 H (45-117) U/L Albumin 1.5 L (3.4-5.0) gm/dl Medications Administered Current Inpatient Medications Al Hydrox/Mg Hydrox/Simethicone (Aluminum/Magnesium Susp 30 Ml Udc) 15 ml PO Q4H PRN PRN Reason: Dyspepsia Stop: 08/15/20 18:52 Apixaban (Apixaban 5 Mg Tablet) 5 mg PO BID [facility] Stop: 08/15/20 20:59 Aspirin (Aspirin 81 Mg Ectab) 81 mg PO QAM [facility] Stop: 08/16/20 08:59 Last Admin: 07/19/20 07:39 Dose: 81 mg Documented by: Baclofen (Baclofen 10 Mg Tab) 10 mg PO TID PRN PRN Reason: hiccup Stop: 08/15/20 21:59 Last Admin: 07/18/20 08:12 Dose: 10 mg Documented by: Piperacillin Sod/Tazobactam (Sod 3.375 gm/ Dextrose) 115 mls @ 28.75 mls/hr IV Q8H [facility]; Protocol Stop: 07/26/20 17:59 Last Admin: 07/19/20 08:52 Dose: 28.8 mls/hr Documented by: Sodium Chloride (Nss 1000ml) 1,000 mls @ 80 mls/hr IV .[id number] [facility] Stop: 08/16/20 19:14 Last Admin: 07/19/20 00:44 Dose: 80 mls/hr Documented by: Magnesium Hydroxide (Magnesium Hydroxide Susp 30 Ml Udc) 30 ml PO Q12H PRN PRN Reason: Constipation Stop: 08/15/20 18:52 Last Admin: 07/17/20 20:01 Dose: 30 ml Documented by: Metoprolol Tartrate (Metoprolol Tartrate 1 Mg/Ml Vial) 5 mg IV Q6 PRN PRN Reason: Tachycardia Stop: 08/16/20 00:00 Last Admin: 07/16/20 20:47 Dose: 5 mg Documented by: Metoprolol Tartrate (Metoprolol Tartrate 25 Mg Tab) 25 mg PO BID [facility] Stop: 08/15/20 20:59 Last Admin: 07/19/20 07:40 Dose: 25 mg Documented by: Miscellaneous Information (Piperacill/Tazobac Consult Active) 1 ea N/A UD PRN PRN Reason: Consult Stop: 08/15/20 16:20 Ondansetron HCl (Ondansetron Inj 2 Mg/Ml 2 Ml Vial) 4 mg IV Q6H PRN PRN Reason: Nausea Stop: 08/15/20 18:52 Oxycodone HCl (Oxycodone Hcl Ir 5 Mg Tab (Immediate Release)) 5 mg PO Q4H PRN PRN Reason: Pain Stop: 07/30/20 19:28 Last Admin: 07/18/20 15:59 Dose: 5 mg Documented by: Pantoprazole Sodium (Pantoprazole 40 Mg Tab) 40 mg PO QAM [facility] Stop: 08/16/20 08:59 Last Admin: 07/19/20 07:40 Dose: 40 mg Documented by: Polyethylene Glycol (Polyethylene (Miralax) 17 Gm Pack) 17 gm PO DAILY [facility] Stop: 08/17/20 08:59 Last Admin: 07/19/20 07:39 Dose: 17 gm Documented by:
[2020-07-19 12:38] LABS: Basophils # (auto) 0.01 K/uL (0-0.2); Basophils % (auto) 0.1 %; Eosinophils # (auto) 0.07 K/uL (0-0.5); Eosinophils % (auto) 0.5 %; Hematocrit (blood only) 30.1 % (42-52); Hemoglobin 10.4 g/dL (14.0-18.0); Immature Granulocytes # (auto) 0.23 K/uL (0.00-0.02); Immature Granulocytes % (auto) 1.7 %; Lymphocytes # (auto) 1.21 K/uL (1.2-3.4); Lymphocytes % (auto) 9.1 %; Mean Corpuscular Hemoglobin 31.2 pg (25-34); Mean Corpuscular Volume 90.4 fL (80-100); Mean Platelet Volume 9.9 fL (7.4-10.4); Monocytes # (auto) 0.93 K/uL (0.11-0.59); Neutrophils # (auto) 10.79 K/uL (1.4-6.5); Neutrophils % (auto) 81.6 %; Nucleated RBC # (auto) 0.05 K/uL (0-0); Nucleated RBC % (auto) 0.4 %; Platelet Count 166 K/uL (130-400); RDW Coefficient of Variation 14.6 % (11.5-14.5); Red Blood Count 3.33 M/uL (4.7-6.1); White Blood Count 13.24 K/uL (4.8-10.8)
[2020-07-19] MEDS ORDERED: PIPERACILL/TAZOBAC CONSULT ACTIVE PRN (14:05)
[2020-07-19 14:28] LABS: Mean Corpuscular Hgb Conc 34.6 g/dL (32-36)
--- NOTE | 2020-07-19 15:02 | Discharge Summary ---
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 Patient underwent brain MRI which revealed multiple scattered small acute infarcts seen in the right occipital, right medial cerebellum and right frontal lobe. He was seen and evaluated by neurology and aspirin and Plavix was recommended. Patient refused Plavix and therefore after discussion with oncology was placed on aspirin and Eliquis secondary to hypercoagulable state. During hospitalization he was also seen and evaluated by gastroenterology secondary to pancreatic mass. Patient underwent EUS with biopsies which revealed adenocarcinoma. He was seen and evaluated by Dr. Quintero oncology on 07/10/2020 and was started on first round of chemotherapy with gemcitabine on 07/13. Treatment approach is palliative not curative. After receiving chemotherapy patient has become increasingly more weak and last evening turned, "yellow," per patient's . Patient's and son is currently at bedside. Patient understands the prognosis of his metastatic cancer as he is a retired general surgeon. The hope with the chemotherapy was to improve symptoms and give him time. He was seen and evaluated as an acute patient by oncology today where it was noted his bilirubin increased from 2-9. He was also found to have hyponatremia and was referred to ED. Currently patient complains of right upper quadrant and epigastric abdominal pain. Pain is constant but comes and goes in severity, described as dull ache, rated 5 out of 10, made worse with coughing or movement and improved with rest. He has overall had poor p.o. intake over the past 2 days per patient's . In ED patient remained hemodynamically stable. He was found to have hyperbilirubinemia with a total bilirubin of 9.3 and a direct bilirubin of 7.5, AST 94, ALT 86, alk phos 355. His lipase was 68, WBC 17.99k, pro calcitonin 2.58, sodium 126, chloride 94, BUN 29 creatinine 1.16. His INR was also elevated at 2.0 and he is currently on Eliquis with last dose this morning. Admission Exam Per Admitting Provider Physical Exam: Constitutional: +jaundice, icteric, chronically ill appearing, vitals as above, NAD, sitting up in bed, answers questions appropriately Head: Normocephalic, Atraumatic Eyes: PERRL, conjunctivae normal, +icteric sclerae ENMT: external ear and nose normal, oropharynx normal Neck: trachea midline, no thyromegaly normal visual inspection Respiratory: normal respiratory effort, lungs clear to auscultation, no wheeze, rales, rhonchi. Normal insp/exp effort, no accessory muscle use Cardiovascular: RRR, no murmur, no edema Vessels: no JVD or carotid bruit Chest: normal inspection of chest Abdomen: normal bowel sounds, soft, nontender, no hepatosplenomegaly Musculoskeletal: no cyanosis or clubbing, extremities motor strength 5/5 Skin: no rashes, warm and dry normal turgor Neurologic: PERRL, EOMI, accommodation nl, no face palsy, no dysarthria CN's II-XI intact bilaterally and moves all extremities Psychiatric: A+Ox3, euthymic affect : deferred Principal Diagnosis Metastatic adenocarcinoma of the pancreas, Elevated LFTs, possible cholangitis, multiple embolic CVA, stenosis of left internal carotid artery, atrial fibrillation -reverted to sinus rhythm Discharge Exam Constitutional well developed, well nourished and + ill appearing Eyes sclerae not anicteric ENMT external ear and nose normal, oropharynx normal Neck trachea midline, no thyromegaly Respiratory no respiratory distress Auscultation: lungs clear to auscultation bilaterally Cardiovascular Rate/Rhythm: regular rate and regular rhythm Heart Sounds: no murmur Extremities: + edema (Trace edema bilaterally) Gastrointestinal (Abdomen) Inspection/Auscultation: normal bowel sounds; abdomen not distended Percussion/Palpation: + abdomen tender (Mildly tender upper quadrants) and abdomen soft Psychiatric A+Ox3, euthymic affect Lymphatic no cervical or axillary lymphadenopathy Discharge Data Allergies Allergy/AdvReac Type Severity Reaction Status Date / Time No Known Allergies Allergy Unverified 07/16/20 15:54 Consultations 07/16/20 15:09 ED Decision to Admit Stat 07/16/20 16:18 Consult Gastroenterology Stat 07/16/20 16:27 Consult General Surgery Routine 07/16/20 17:21 Consult Palliative Care Routine 07/17/20 07:00 Consult Cardiology Routine Procedures Performed Operation Date: 07/17/20 07:00 <No data on this case meets the specified criteria> Ordered Studies 07/16/20 12:40 CT abd pelvis IV con only Stat 07/17/20 07:30 US abdomen limited Urgent 07/18/20 16:29 CT head/brain wo con Urgent Hospital Course (1) Pancreatic adenocarcinoma: Diagnosed on biopsy on 07/08/2020 Received first cycle of chemotherapy on 07/13/2020 Has significant liver and lung metastasis Was admitted with increasing weakness and jaundice on 07/16/2020 Remains critical but stable Pain is under control Appreciate palliative care input and recommendation Overall deterioration of his condition The family members and the patient go to [place] for further evaluation and possible ERCP (2) Liver metastases: (3) Lung metastases: (4) Hyperbilirubinemia: (5) Transaminitis: 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 Pt with newly diagnosed pancreatic adenocarcinoma with recent EUS and biopsy on 07/08. He was seen and established with oncology on 07/10 and had first dose of gemcitabine on 07/13. Since chemotherapy has become increasingly more weak having difficulty with ambulation, poor p.o. intake and new jaundice that started last evening. Patient has evidence of hyperbilirubinemia new from recent admission with total bilirubin 9.3, previously had been 2.1 Bilirubin has been improving with a level of 6.6 as of 07/17/2020 Appreciate GI input and recommendation Liver function test is slightly worse today and may be complicated by use of amiodarone Bilirubin 7.0, AST 122, ALT 81 and alkaline phos 328 Liver functions is worsened a little bit EGD/ERCP The patient was initially scheduled for EGD/ERCP but the anesthesiologist was not comfortable with anesthesia Since bilirubin improved with minimal improvement of alkaline phos there is no real urgency of doing ERCP given his overall comorbid conditions In case he will need the procedure down the line, he will need to be transferred to tertiary care center for the procedure This was discussed in detail with the patient and the family members including the son and the The patient does not want to be transferred right now Remains generally very weak and lethargic and does not require any intervention like EGD and/or ERCP The family members and the patient decided to have the procedure and the patient is going to be transferred to [place] when accepted Discussed with Dr. Grant the hospitalist in [place] and the patient was accepted under his care Discussed with on-call road supervisor of engines in [place] Possible infection like cholangitis/cholecystitis/pyelitis Pt does meet SIRS criteria 2/2 to leukocytosis and tachycardia. No documented fever but pt immunocompromised. Blood and urine cultures obtained-cultures have been negative Received broad spectrum IV antibiotics in ED with Vanco/zosyn. White count has been improving We will continue current antibiotic Appreciate surgery input and recommendation-not for any urgent surgery Will discontinue intravenous vancomycin but continue with Zosyn for now White count is normalized and does not have any fever and/or chills were sweating We will continue intravenous Zosyn for now Episodes of confusion and semiresponsive Noted to be sleeping more and does not want to respond with commands right away Whenever he starts talking he seems to be reasonable in conversation No acute distress and remains hemodynamically stable Repeat CT scan of the head on 07/18/2020 did not show any change compared with prior and ammonia level is within normal limit Current mental condition and weakness were seems to be secondary to pancreatic carcinoma with metastasis Remains critical but stable (6) Hyponatremia: with hypochloremia likely 2/2 to poor intake urine na, osm and serum osm continue gentle IVF Will monitor PRP-sodium is improved to 134 (7) Anemia: Patient denies signs or symptoms of blood loss Eliquis H&H 9.7 and 27.9 With recent hemoglobin on 07/09 10.9 and 07/06 11.8 expect H/H to decreased in setting of volume contraction and dehydration after IVF administration Questionable bleeding per rectum this morning as reported by the nurse The patient denies it Repeat hemoglobin did not show any decrease in level (8) HTN (hypertension): pt stopped lisinopril ( was on 20mg daily) BP stable for now 118/74, monitor (9) Elevated troponin: pt denies chest pain, elevated during previous hospitalization no ecg change no further work up at this time echo 07/07 60-65%, severe calcification of anterior mitral valve annulus (10) Stenosis of left internal carotid artery: seen and evaluated by vascular surgery who recommends elective L CEA on asa , pt refused statin last hospitalization will need to follow up with vascular as outpt Recent multiple scattered small acute infarcts With visual field defect Has been on Eliquis No new symptoms (11) DVT prophylaxis: Hold eliquis this evening 2/2 to possible need for procedure in a.m. INR 1.8 INR 1.5 as of 07/18/2020 Very still holding Eliquis for possible procedure down the line Dispo: PCU PCP: none DNR/DNI - discussed with pt and family at bedside, will consult palliative given poor prognosis Discussed with the patient, the son and the in detail Prognosis remains poor (12) Atrial fibrillation with rapid ventricular response: Developed atrial fibrillation with RVR early this morning Cardiology consulted and has been put on intravenous amiodarone Discussed with the manager control No more amiodarone following finishing of the IV dose because of the abnormal liver function test We will continue with beta-dedra Remains in sinus rhythm and the heart rate is within limit Has had a prolonged discussion with the family members including the and 2 sons They are all in agreement that the patient should be transferred to [place] for possible ERCP Discussed with the hospitalist Dr. Grant and on-call road supervisor of engines in [place] and the patient was accepted He will be transferred this afternoon via [facility] Total Time Total Time Spent Total Time Spent (In Minutes): 50 minutes Total Time Includes: Examination of the Patient, Discharge Planning, Medication Reconciliation and Communication With Other Providers Discharge Plan Discharge Items Patient Disposition: Transfer [facility] Reason For Visit: METASTATIC PANCREATIC ADENOCARCINOMA, HYPERBILIRUB Discharge Diagnosis: Metastatic adenocarcinoma of the pancreas, high LFTs, possible cholangitis, multiple embolic CVA, stenosis of left internal carotid artery, atrial fibrillation -reverted to sinus rhythm Condition on Discharge: Fair Activity: As commented below Activity Comment: As recommended following discharge from the hospital Non-emergency contact: Primary Care Provider Call non-emergency contact if: you have any medication questions and your symptoms worsen Follow-up/Referrals: Ky Burton DO [Primary Care Provider] - (Please make an appointment within 7 days following discharge from the facility) Diet: Regular Addtl Attending Provider Instructions: The patient was transferred to [facility] for continued care All of his inpatient hospital medications were continued on transfer as follows:: Current Inpatient Medications Al Hydrox/Mg Hydrox/Simethicone (Aluminum/Magnesium Susp 30 Ml Udc) 15 ml PO Q4H PRN PRN Reason: Dyspepsia Stop: 08/15/20 18:52 Apixaban (Apixaban 5 Mg Tablet) 5 mg PO BID [facility] Stop: 08/15/20 20:59 Baclofen (Baclofen 10 Mg Tab) 10 mg PO TID PRN PRN Reason: hiccup Stop: 08/15/20 21:59 Last Admin: 07/18/20 08:12 Dose: 10 mg Documented by: Sodium Chloride (Nss 1000ml) 1,000 mls @ 80 mls/hr IV .[id number] [facility] Stop: 08/16/20 19:14 Last Admin: 07/19/20 10:50 Dose: 80 mls/hr Documented by: Piperacillin Sod/Tazobactam (Sod 3.375 gm/ Dextrose) 115 mls @ 28.75 mls/hr IV Q8H [facility]; Protocol Stop: 07/26/20 15:59 Magnesium Hydroxide (Magnesium Hydroxide Susp 30 Ml Udc) 30 ml PO Q12H PRN PRN Reason: Constipation Stop: 08/15/20 18:52 Last Admin: 07/17/20 20:01 Dose: 30 ml Documented by: Metoprolol Tartrate (Metoprolol Tartrate 1 Mg/Ml Vial) 5 mg IV Q6 PRN PRN Reason: Tachycardia Stop: 08/16/20 00:00 Last Admin: 07/16/20 20:47 Dose: 5 mg Documented by: Metoprolol Tartrate (Metoprolol Tartrate 25 Mg Tab) 25 mg PO BID [facility] Stop: 08/15/20 20:59 Last Admin: 07/19/20 07:40 Dose: 25 mg Documented by: Miscellaneous Information (Piperacill/Tazobac Consult Active) 1 ea N/A UD PRN PRN Reason: Consult Stop: 08/18/20 14:04 Ondansetron HCl (Ondansetron Inj 2 Mg/Ml 2 Ml Vial) 4 mg IV Q6H PRN PRN Reason: Nausea Stop: 08/15/20 18:52 Oxycodone HCl (Oxycodone Hcl Ir 5 Mg Tab (Immediate Release)) 5 mg PO Q4H PRN PRN Reason: Pain Stop: 07/30/20 19:28 Last Admin: 07/18/20 15:59 Dose: 5 mg Documented by: Pantoprazole Sodium (Pantoprazole 40 Mg Tab) 40 mg PO QAM [facility] Stop: 08/16/20 08:59 Last Admin: 07/19/20 07:40 Dose: 40 mg Documented by: Polyethylene Glycol (Polyethylene (Miralax) 17 Gm Pack) 17 gm PO DAILY [facility] Stop: 08/17/20 08:59 Last Admin: 07/19/20 07:39 Dose: 17 gm Documented by: Pending Studies at Discharge: No Stand-Alone Forms: [facility] Skilled Items Patient informed of condition?: Yes DNR: Yes Discharge Level of Care: Other Communicable Disease: No Discharge Prognosis: Stable Lines: Peripheral IV Urinary Catheter: No Medications and DC Order Prescriptions: Discontinued aspirin 81 mg Tablet,Delayed Release (Dr/Ec) 81 mg PO QAM Qty: 30 RF: 1 oxycodone 5 mg Tablet 5 mg PO Q4H PRN (Reason: pain) Qty: 10 RF: 0 pantoprazole 40 mg Tablet,Delayed Release (Dr/Ec) 40 mg PO QAM Qty: 30 RF: 1 Eliquis 5 mg tablet 5 mg PO BID RF: 0 Discharge Orders: Discharge Order (Routine); Ordered 07/19/20 Ordered By: Benigno Collins Admission Data Admit Date/Time: 07/16/20 17:21 Attending Provider: Benigno Collins Admit Provider: Kip Amaya Primary Care Provider: Ky Burton Other Providers: Fred Frausto ; Erica iTjerina ; Kip Amaya ; Helena Clayton ; Julio Villalobos
[2020-07-19] MEDS ORDERED: PIPERACILLIN/TAZOBACTAM 3.375 GM in DEXTROSE 5% 100 ML IV SCH (16:00)
[2020-07-19] MEDS: oxyCODONE HCL IR 5 MG TAB (IMMEDIATE RELEASE) PO PRN (18:36)
== END 2020-07-19 18:10 | disposition short-term general hospital (02) | DRG 872 ==
LOC: ED 11:43 → SUATTDRO 17:21 → 2E 17:21